=== PATIENT | female | born 1955 | race Caucasian/White ===

== ENCOUNTER 2020-08-18 13:29 | Emergency (ER) | payer MEDICARE, SELFPAY ==
[2020-08-18] VITALS (9 sets, daily range): BP systolic 108–148; BP diastolic 44–70; PULSE 72–87; RESP 12–26; TEMP 36.6; O2SAT 88–92
--- NOTE | ~2020-08-18 | XR_ITS ---
EXAMINATION: XR chest 2V DATE: 08/18/2020 15:09 INDICATION: Shortness of breath. TECHNIQUE: Frontal and lateral views of the chest were obtained. COMPARISON: Chest single view 01/01/19, chest CT 12/03/2015 FINDINGS: There are mild airspace opacities in the mid and lower lung zones. No pleural effusion or p neumothorax. The heart size is normal. Calcified mediastinal lymph nodes are consistent with old gran ulomatous disease. IMPRESSION: 1. Mild airspace opacities in the mid and lower lung zones, consistent with atelectasis versus pneumo isauro. Reviewed, dictated and finalized at location A. F H[employer] RESOURCES OFFICER IMPRESSION: 1. Mild airspace opacities in the mid and lower lung zones, consistent with ate lectasis versus pneumonia.
--- NOTE | 2020-08-18 13:30 | ECG_ITS ---
Measurements Intervals [place] Rate: 91 P: -3 [place]: 125 QRS: 61 QRSD: 83 T: 44 QT: 323 QTc: 398 Interpretive Statements SINUS RHYTHM RSR' IN V1 OR V2, CONSIDER RIGHT VENTRICULAR HYPERTROPHY OR RIGHT VCD BASELINE ARTIFACT- I, III, AVR, AVL, AVF, V2 BORDERLINE ECG Electronically Signed On 08-18-2020 13:42:05 WHARF ATTENDANT by Tuan King D.O.
[2020-08-18 13:48] LABS: Basophils Percent Auto 0.4 % (0.2-1.2); Eosinophils Absolute Auto 0.2 K/mm3 (0-0.3); Eosinophils Percent Auto 1.9 % (0-4.4); Hematocrit 33.4 % (37.0-47.0); Hemoglobin 8.7 g/dL (12.0-15.0); Immature Granulocyte Absolute 0.03 K/mm3 (0.00-0.031); Immature Granulocyte Percent A 0.4 % (0-0.5); Immature Platelet Fraction Pct 5.8 % (0.9-11.2); Lymphocytes Absolute Auto 1.12 K/mm3 (0.9-3.2); Lymphocytes Percent Auto 14.5 % (18.3-44.2); Mean Corpuscular Hemoglobin 19.2 pg (26-34); Mean Corpuscular Volume 73.9 fl (80-100); Mean Platelet Volume 9.5 fl (7.4-10.4); Monocytes Absolute Auto 0.8 K/mm3 (0.1-0.6); Neutrophils Absolute Auto 5.6 K/mm3 (1.3-6.7); Neutrophils Percent Auto 72.8 % (45.5-73.1); Nucleated Red Blood Cells Perc 0.3 % (0.0-0.2); Platelet Count Result 285 k/mm3 (150-375); Red Blood Count 4.52 M/mm3 (4.2-5.4); Red Cell Distribution Width 22.2 % (11.5-14.5); White Blood Count 7.7 K/mm3 (4.5-10.0)
[2020-08-18 13:59] LABS: Anion Gap 5.99999 mmol/L (8-16); Blood Urea Nitrogen 18 mg/dL (7-17); Carbon Dioxide > 40 mmol/L (22-30); Chloride 92 mmol/L (98-107); Estimated Glomerular Filt Rate > 60; Glucose 125 mg/dL (65-105); Potassium 4.3 mmol/L (3.4-5.0); Sodium 138 mmol/L (137-145)
[2020-08-18 14:07] LABS: Platelet Estimate Adequate (Adequate)
[2020-08-18 14:08] LABS: Anisocytosis 2+ (NORMAL); Hypochromasia 2+ (NORMAL)
[2020-08-18] MEDS: methylPREDNISolone SOD SUCC 125 MG VIAL IV PUSH (15:14)
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
== END 2020-08-18 18:45 | disposition home or self-care (01) ==
PROVIDERS: Emergency Provider Family Medicine; PCP Internal Medicine
DX: J44.1 Chronic obstructive pulmonary disease with (acute) exacerbation (principal); Z99.81 Dependence on supplemental oxygen
CPT/HCPCS: 36415; 71046; 80048; 85025; 85055; 93005; 96374; 99284; J2930

== ENCOUNTER 2021-01-06 23:27 | Inpatient (IN) | payer MEDICARE, SELFPAY ==
--- NOTE | ~2021-01-06 | XR_ITS ---
XR chest 1V portable DATE: 01/06/2021 23:42 INDICATION: Acute respiratory failure TECHNIQUE: Portable AP chest on 01/06/2021 at 2344 hours COMPARISON: 08/18/2020 PA and lateral chest FINDINGS: There is pulmonary vascular congestion which may indicate mild pulmonary venous hypertensio n. Heart size appears borderline or mildly enlarged. Is aortic arch calcification. Mild infiltrate or atelectasis is suggested in the lower lung zones, right greater than left. No pneu mothorax. Diffuse osteopenia. IMPRESSION: Borderline or mild cardiomegaly and pulmonary vascular redistribution suggests mild conge stive change Mild infiltrate or atelectasis in the lower lung zones Aortic atherosclerosis Diffuse osteopenia Reviewed, dictated and finalized at location A. IMPRESSION: Borderline or mild cardiomegaly and pulmonary vascular redistributi on suggests mild congestive change Mild infiltrate or atelectasis in the lower lung zones Aortic atherosclerosis Diffuse osteopenia
--- NOTE | ~2021-01-06 | XR_ITS ---
EXAMINATION: XR chest 1V portable DATE: 01/08/2021 08:30 INDICATION: Respiratory failure. TECHNIQUE: A single frontal view of the chest was obtained. COMPARISON: Chest single view 01/06/2021 FINDINGS: There is mild atelectasis in the lower lung zones. No pleural effusion or pneumothorax. The heart size is normal. IMPRESSION: 1. Mild atelectasis in the lower lung zones. Reviewed, dictated and finalized at location A.
[2021-01-06 22:45] VITALS: BP 95/62; PULSE 101; RESP 22; TEMP 36.6; O2SAT 92; BMI 38.2
--- NOTE | 2021-01-06 23:04 | ADMGEN ---
This patient, Stephany Richard, was admitted to IMU Room 202-01 on 01-06-21 at 2246 via [facility]. Patient/family oriented to hospital policies and general routines including ID bracelet, bed and alarms, visiting hours, pain management, procedures, bathroom and other care routines, personal items, smoking policy, room service/diet, and visiting hours. Information on how to activate the Rapid Response Team has been discussed. Patient/Family are encouraged to report perceived risks to care and to ask questions if they do not understand what they are told or what they should do.
[2021-01-06 23:36] VITALS: BP 95/62; PULSE 101; RESP 22; TEMP 36.6; O2SAT 92; BMI 38.2
--- NOTE | 2021-01-06 23:39 | PM.IMHP ---
H&P: HPI History of Present Illness Date/Time: 01/06/21 23:39 Chief Complaint: Direct admit from [facility] secondary to acute respiratory failure and chest pain. Narrative: This is a pleasant 65-year-old morbidly obese female with known history of chronic respiratory failure on 4 L of oxygen at home, COPD, congestive heart failure among other comorbidities who presented to our hospital as a direct admission from [facility] secondary to acute respiratory failure, chest pain, and likely COPD exacerbation. The patient presented to [facility] with a complaint of right-sided chest pain that has been ongoing for the past week. She also complained of having worsening exertional shortness of breath over the past few days. She is known to have a chronic cough which has not worsened recently. She also denies any significant wheezing. The patient is known to smoke cigarettes which she states she is trying to quit. Currently she only smokes when she is in a bad mood. On further questioning she denies any fevers, chills, congestion, sore throat, abdominal pain, nausea, vomiting, dysuria, hematuria, diarrhea, rectal bleeding, or lower extremity swelling. The patient was found to be in hypercapnic respiratory failure at [facility] and was initiated on BiPAP. CTA chest for PE protocol was performed at [facility] and was negative for any acute pulmonary embolism. We were asked to directly admit the patient as they did not have any beds available. On my encounter with the patient tonight she is tachypneic although maintaining her sats on 4 L of oxygen via nasal cannula. She has no other significant complaints at this time. COVID-19 test was negative tonight at [facility]. Review of Systems Review of Systems: All systems reviewed & are unremarkable except as noted in HPI and below PMFSH Past Medical History Medical History (Updated 01/07/21 @ 02:49 by Aidan Greenberg MD) Chronic hypertension Chronic respiratory failure Congestive heart failure COPD (chronic obstructive pulmonary disease) Depression Femur fracture, right History of pulmonary embolism Surgical History Surgical History (Updated 01/06/21 @ 23:47 by Aidan Greenberg MD) History of colonoscopy History of total hysterectomy Hx of prior ablation treatment Hx of tonsillectomy Family History Family History (Updated 01/07/21 @ 00:08 by Lian Roque RN) Sibling Diabetes mellitus Family history of arthritis Family history of thyroid disease Hypertension Father Family history of emphysema Family history of arthritis Family history of chronic obstructive pulmonary disease Hypertension Mother Carcinoma of colon Family history of arthritis Family history of malignant neoplasm Family history of thyroid disease Hypertension Other Family history of mental disorder Social History Social History Smoking packs per day: 1.5 Smoking cigarettes per day: 30.0 Years smoked: 30 Smoking pack-years: 45.00 Smoking status: Heavy tobacco smoker Tobacco type: cigarettes and e-cigarettes/vaping Second hand tobacco smoke exposure: Yes Alcohol intake: never Substance use: former Substance use type: marijuana Gender identity (if verbalized by the patient): Female Spiritual care concerns: No Meds Home Medications and Allergies Home Medications Medication Instructions Recorded Confirmed Type pantoprazole 40 mg tablet,delayed 40 mg PO QAM #90 tablet 08/30/19 01/06/21 Rx release albuterol 90 mcg INHALATION QID PRN 08/18/20 01/06/21 History furosemide 40 mg PO DAILY 08/18/20 01/06/21 History ipratropium-albuterol 3 ml INHALATION QID 08/18/20 01/06/21 History lisinopril 2.5 mg PO DAILY 08/18/20 01/06/21 History paroxetine HCl 20 mg PO QAM 08/18/20 01/06/21 History acetaminophen [Tylenol Arthritis] 650 mg PO DAILY PRN 01/06/21 01/06/21
[2021-01-06 23:45] VITALS: PULSE 101; RESP 20; O2SAT 90
[2021-01-06 23:57] LABS: Alveolar/Arterial O2 Gradient 190.8 mmHg; Base Excess ABG 16.7 mEq/l (+/-2.0); Fractional Inspired Oxygen 55 %; HCO3 ABG 48.6 mEq/l (22.0-26.0); Oxygen Content ABG 14.2 %vol (16.0-22.0); Oxygen Saturation ABG 89.1 % (95.0-100.0); Oxyhemoglobin 89.6 % THb (90.0-100.0); PCO2 ABG 117.6 mmHg (35.0-45.0); PO2 ABG 70.5 mmHg (80.0-100.0); PO2 FiO2 Ratio Arterial Blood 1.28 %; Total Hemoglobin 11.2 g/dL (12.0-18.0); pH ABG 7.234 (7.350-7.450)
[2021-01-06 23:58] LABS: Device HIGH FLOW NASAL CANN; Site Drawn RIGHT BRACHIAL
[2021-01-07] VITALS (35 sets, daily range): BP systolic 116–138; BP diastolic 47–65; PULSE 72–95; RESP 18–22; TEMP 36.4–36.8; O2SAT 90–100; BMI 38.2
[2021-01-07 00:06] LABS: Troponin I < 0.012 ng/mL (0.000-0.034)
[2021-01-07] MEDS: ALBUTEROL SULFATE NEB 2.5 MG/0.5 ML INH 5 MG INHALATION ×2 (02:18→08:02)
[2021-01-07 03:05] LABS: Troponin I < 0.012 ng/mL (0.000-0.034)
[2021-01-07 03:12] LABS: Alveolar/Arterial O2 Gradient 187.5 mmHg; Fractional Inspired Oxygen 50 %; HCO3 ABG 47.2 mEq/l (22.0-26.0); Oxygen Content ABG 13.2 %vol (16.0-22.0); Oxyhemoglobin 86.6 % THb (90.0-100.0); PO2 ABG 58.1 mmHg (80.0-100.0); PO2 FiO2 Ratio Arterial Blood 1.16 %; Total Hemoglobin 10.8 g/dL (12.0-18.0); pH ABG 7.298 (7.350-7.450)
[2021-01-07 03:15] LABS: Device NON-INVASIVE VENT; Oxygen Saturation ABG 84.9 % (95.0-100.0); PCO2 ABG 98.6 mmHg (35.0-45.0); Site Drawn RIGHT BRACHIAL
[2021-01-07 03:17] LABS: Non-Invasive Expiratory Pressure 6 CMH2O; Non-Invasive Inspiratory Pressure 15 CMH2O; Non-Invasive Vent Rate 18 /MIN
[2021-01-07] MEDS: FUROSEMIDE INJ 40 MG/4 ML VIAL 20 MG IV PUSH (03:43)
[2021-01-07 05:50] LABS: Hematocrit 34.6 % (37.0-47.0); Hemoglobin 9.3 g/dL (12.0-15.0); Immature Granulocyte Absolute 0.02 K/mm3 (0.00-0.031); Immature Granulocyte Percent A 0.5 % (0-0.5); Lymphocytes Absolute Auto 0.27 K/mm3 (0.9-3.2); Lymphocytes Percent Auto 6.4 % (18.3-44.2); Mean Corpuscular HGB Conc 26.9 g/dl (32-36); Mean Corpuscular Hemoglobin 24.2 pg (26-34); Mean Corpuscular Volume 89.9 fl (80-100); Mean Platelet Volume 10.1 fl (7.4-10.4); Monocytes Absolute Auto 0.2 K/mm3 (0.1-0.6); Neutrophils Absolute Auto 3.7 K/mm3 (1.3-6.7); Neutrophils Percent Auto 88.1 % (45.5-73.1); Platelet Count Result 312 k/mm3 (150-375); Red Blood Count 3.85 M/mm3 (4.2-5.4); Red Cell Distribution Width 25.2 % (11.5-14.5); White Blood Count 4.2 K/mm3 (4.5-10.0)
[2021-01-07 05:56] LABS: Blood Urea Nitrogen 15 mg/dL (7-17); Calcium 8.7 mg/dL (8.4-10.2); Carbon Dioxide > 40 mmol/L (22-30); Chloride 96 mmol/L (98-107); Estimated CRCL calculation 89 ml/min; Estimated Glomerular Filt Rate > 60; Glucose 153 mg/dL (65-105); Magnesium 1.5 mg/dL (1.6-2.3); Potassium 4.1 mmol/L (3.4-5.0); Sodium 142 mmol/L (137-145)
[2021-01-07 06:07] LABS: Troponin I < 0.012 ng/mL (0.000-0.034)
[2021-01-07] MEDS: methylPREDNISolone SOD SUCC 125 MG VIAL 60 MG IV PUSH (06:15)
[2021-01-07 06:23] LABS: Alveolar/Arterial O2 Gradient 317.2 mmHg; Base Excess ABG 17.3 mEq/l (+/-2.0); Fractional Inspired Oxygen 75 %; HCO3 ABG 47.8 mEq/l (22.0-26.0); Oxygen Content ABG 14.1 %vol (16.0-22.0); Oxygen Saturation ABG 96.7 % (95.0-100.0); Oxyhemoglobin 96.2 % THb (90.0-100.0); PO2 ABG 105.8 mmHg (80.0-100.0); PO2 FiO2 Ratio Arterial Blood 1.41 %; Total Hemoglobin 10.3 g/dL (12.0-18.0)
[2021-01-07 06:24] LABS: pH ABG 7.275 (7.350-7.450)
[2021-01-07 06:25] LABS: Device NON-INVASIVE VENT; Non-Invasive Expiratory Pressure 6 CMH2O; Non-Invasive Inspiratory Pressure 15 CMH2O; Non-Invasive Vent Rate 18 /MIN; PCO2 ABG 105.2 mmHg (35.0-45.0); Site Drawn RIGHT BRACHIAL
[2021-01-07 06:56] LABS: Platelet Estimate Adequate (Adequate)
[2021-01-07 06:57] LABS: Hypochromasia 2+ (NORMAL)
[2021-01-07 06:58] LABS: Stomatocytes 2+ (NORMAL)
[2021-01-07] MEDS: ENOXAPARIN 40 MG/0.4 ML SYRINGE SUB-Q (08:44)
[2021-01-07] MEDS: lisinopriL 2.5 MG TABLET PO (08:44)
[2021-01-07] MEDS: CHOLECALCIFEROL 1,000 UNITS TABLET 1000 UNITS PO (08:44)
[2021-01-07] MEDS: MULTIVITAMINS /C LUTEIN (CENTRUM SILVER) TABLET *BKC 1 TAB PO (08:44)
[2021-01-07] MEDS: PARoxetine 20 MG TABLET PO (08:44)
[2021-01-07] MEDS: PANTOPRAZOLE 40 MG TABLET PO (08:44)
[2021-01-07] MEDS: FUROSEMIDE 40 MG TABLET PO (08:44)
--- NOTE | 2021-01-07 08:57 | PM.CNGS ---
Assessment and Plan Assessment and plan (1) Epidermal cyst: Code(s): L72.0 - Epidermal cyst Status: Acute Assessment and Plan: The patient has a small mass in the center of her mid back, which appears to be likely an epidermal cyst. This is nontender and does not appear to be infected at this time. This is chronic and the patient reports she has had this for over 20 years. I discussed the options of monitoring this verses presenting back to our office as an outpatient for excision. The patient says it does bother her at times whenever it swells up, and she would like to follow up in the office. We will allow her to be treated for her acute issues and I instructed her to follow-up in the office once she is medically stable. I also instructed her to either present to her PCP or call sooner if this becomes red, swollen, and tender. Thank you for allowing us to see the patient consultation. Please let us know if there are any further surgical issues in the future. (2) Acute respiratory failure with hypercapnia: Code(s): J96.02 - Acute respiratory failure with hypercapnia Status: Acute Assessment and Plan: This is the reason for her hospitalization. She is currently on BiPAP and being treated in the IMU. Continue management per primary service. (3) COPD (chronic obstructive pulmonary disease): Code(s): J44.9 - Chronic obstructive pulmonary disease, unspecified Status: Acute Assessment and Plan: Management per primary team. (4) Congestive heart failure: Qualifiers: Heart failure type: unspecified Heart failure chronicity: chronic Qualified Code(s): I50.9 - Heart failure, unspecified Code(s): I50.9 - Heart failure, unspecified Status: Chronic Assessment and Plan: Management per primary team. (5) Chronic hypertension: Code(s): I10 - Essential (primary) hypertension Status: Chronic Assessment and Plan: Management per primary team. Additional Plan I have discussed the patient's case and plan of care with Dr. Rosado. History of Present Illness Consult details Consult date: 01/07/21 Reason for consult: other (Suspected back abscess) Requesting physician: Aidan Greenberg MD Narrative: This is a 65-year-old obese female with known history of chronic respiratory failure on 4 L of oxygen at home, COPD, congestive heart failure, and other comorbidities, who was a direct admission to our hospital from [facility]. She presented to [facility] ER for shortness of breath and chest pain. Workup revealed acute on chronic respiratory failure with likely a COPD exacerbation. COVID test negative at [place]. CTA of the chest was negative for PE. She was transferred to [facility] due to [facility] not having any beds available. She was admitted to the IMU and is on BiPAP. Our service has been consulted by the hospitalist for a possible back abscess. The patient is now seen in the IMU. She reports having a small mass in the center of her mid back, which has been there for over 20 years. This swells and becomes tender at times, but typically she ?pops? the mass and it improves. She has not done this in the past 4 months. She has not had any issues with this mass in the past 4 months. She denies this area of being tender or bothering her at all. She denies fever. No other complaints at this time. Review of Systems Review of Systems: All systems reviewed & are unremarkable except as noted in HPI and below Constitutional: Constitutional: Reports no additional constitutional complaints, Denies chills and Denies fever(s) Cardiovascular: Cardiovascular: Reports no additional cardiovascular complaints, Reports chest pain, Denies irregular heart rhythm and Denies leg edema Respiratory: Respiratory: Reports no additional respiratory complaints, Reports dyspnea (improving) and Reports dyspnea on exertion Integumentary/Breasts:
[2021-01-07 10:42] LABS: Alveolar/Arterial O2 Gradient 205.8 mmHg; Base Excess ABG 17.1 mEq/l (+/-2.0); Fractional Inspired Oxygen 50 %; HCO3 ABG 44.7 mEq/l (22.0-26.0); Oxygen Content ABG 13.7 %vol (16.0-22.0); Oxygen Saturation ABG 93.1 % (95.0-100.0); Oxyhemoglobin 92.7 % THb (90.0-100.0); PO2 FiO2 Ratio Arterial Blood 1.38 %; Total Hemoglobin 10.5 g/dL (12.0-18.0); pH ABG 7.407 (7.350-7.450)
[2021-01-07 10:43] LABS: Modified Allen's Test Pass; PCO2 ABG 72.6 mmHg (35.0-45.0); Site Drawn RIGHT RADIAL
[2021-01-07 10:44] LABS: Device NON-INVASIVE VENT; Non-Invasive Expiratory Pressure 8 CMH2O; Non-Invasive Inspiratory Pressure 20 CMH2O; Non-Invasive Vent Rate 18 /MIN
--- NOTE | 2021-01-07 10:50 | PM.IMPN ---
Progress Note: A&P Assessment and Plan (1) Acute respiratory failure with hypercapnia: Code(s): J96.02 - Acute respiratory failure with hypercapnia Status: Acute Assessment and Plan: The patient has been admitted to IMU on BiPAP. ABG initially showing 7.23/117/70 on 4L. Most recent ABG 7.27/105/106 and changes made. Acute respiratory failure appears to be secondary to COPD exacerbation and possibly from her poorly treated SOCORRO. We will continue BiPAP support and wean off of BiPAP as tolerated. Continue Steroids and nebulizer treatments. Repeat ABG ordered. Pulmonary consult. (2) COPD with acute exacerbation: Code(s): J44.1 - Chronic obstructive pulmonary disease with (acute) exacerbation Status: Acute Assessment and Plan: No wheezing currently. Continue Solu-Medrol and bronchodilators. Continue supportive care with NIV and oxygen supplementation. RT assess and treat. Cough is chronic but with increase in sputum production. CXR with lower lobe iniltrates. Will add Levaquin (3) Chest pain: Qualifiers: Chest pain type: unspecified Qualified Code(s): R07.9 - Chest pain, unspecified Code(s): R07.9 - Chest pain, unspecified Status: Acute Assessment and Plan: Patient has had right-sided chest pain which is likely musculoskeletal in origin worse with very deep breathing. CTA chest was negative for PE. Troponin negative x3. Follow (4) Congestive heart failure: Qualifiers: Heart failure chronicity: chronic Heart failure type: unspecified Qualified Code(s): I50.9 - Heart failure, unspecified Code(s): I50.9 - Heart failure, unspecified Status: Chronic Assessment and Plan: CXR showing mild congestive changes. Lasix IV once given. She has been resumed on her oral regiment. Monitor fluid status, continue oral Lasix therapy. Repeat CXR in the morning. (5) Chronic hypertension: Code(s): I10 - Essential (primary) hypertension Status: Chronic Assessment and Plan: Patient's blood pressure was reviewed on 01/07 Blood pressure remains well controlled. Will continue current medications. Monitor blood pressure, continue lisinopril. (6) Depression: Qualifiers: Depression Type: unspecified Qualified Code(s): F32.9 - Major depressive disorder, single episode, unspecified Code(s): F32.9 - Major depressive disorder, single episode, unspecified Status: Chronic Assessment and Plan: Mood is stable. Continue paroxetine (7) Epidermal cyst: Code(s): L72.0 - Epidermal cyst Status: Acute Assessment and Plan: Back cyst noted. No evidence of infection. Appreciate General surgery input. (8) DVT prophylaxis: Code(s): Z29.9 - Encounter for prophylactic measures, unspecified Status: Acute Assessment and Plan: Lovenox Subjective Date/time seen: 01/07/21 10:50 Interval history: 65yo female with chronic respiratory failure on 4L, COPD, SOCORRO and ongoing tobacco use transferred here for acute respiratory failure. Patietn feels better this morning. SOB improved. No CP (later states she still has right mid focal pain with taking very deep breaths). Has cough productive of green sputum but chronic; has noted increased sputum production. No n/v. Hungry today. Compliant with her NIV at home 7 nights/week. Has been on NIV since January 2019. Also uses 4L O2 NC at home without change with exertion or sleep. Exam Narrative: Exam Narrative: AF 97.6 118/48 78 20 99% BiPAP Gen - no tachypnea, appears comfortable on bipap Chest - few scattered inspiratory crackles; good air exchange, nml RR CV - RRR S1/S2 Abd - Soft, NT/ND, Positive BS Ext - No pedal edema Neuro - Alert and oriented. Nonfocal exam. Psych - Nml mood and affect Skin - 2-cm round, well demarcated raised lesion midline in the mid-back without erythema or draiange
[2021-01-07] MEDS: MAGNESIUM SULF 2 GM/WATER 50ML 2 GM/50 ML BAG IVPB (12:05)
--- NOTE | 2021-01-07 12:06 | PM.CNPUL ---
Assessment and Plan Assessment and plan (1) COPD with acute exacerbation: Code(s): J44.1 - Chronic obstructive pulmonary disease with (acute) exacerbation Status: Acute Assessment and Plan: Patient with a history of COPD and hypoxemic respiratory failure on 4 L nasal cannula oxygen 24-7, and a home trilogy noninvasive ventilator. At baseline she can walk 50 ft. She is maintained on DuoNebs q.i.d. and rescue ProAir. Patient now with shortness of breath pleuritic right chest pain sinus drainage and she tells others that she had increase in phlegm production although she denied this to me. I agree with treating patient for an acute exacerbation of COPD and I will change her IV Solu-Medrol to p.o. prednisone as she is no longer wheezing and says that she is at her baseline. I will continue patient on albuterol 2.5 mg nebs q.6 and add ipratropium 0.5 mg nebs q.6. Patient does state to some that she has increased phlegm production and agree with Kristinuin at this time. (2) Acute respiratory failure with hypercapnia: Code(s): J96.02 - Acute respiratory failure with hypercapnia Status: Acute Assessment and Plan: Patient tells me that she has a home trilogy noninvasive ventilator through [employer]. She tells me she wears the machine every night with a good clinical response. I have talked to our coordinator and we will attempt to obtain a download to see what her current settings are. I have instructed the patient to have her family bring in her home noninvasive ventilator so that she can wear the ventilator with her 4 L bleed in while in the hospital and we can check a blood gas in the morning and an overnight oximetry on these settings to ensure that they are adequate. Discussed with [place] with you. History of Present Illness History of Present Illness Consult date: 01/07/21 Requesting physician: Lazaro Nascimento MD Reason for consult: COPD Chief complaint: Chest pain, Acute respiratory failure Narrative: This is a new pulmonary consult for hypoxemic and hypercarbic respiratory failure. This is a 65-year-old woman with a known history of COPD with hypoxemic respiratory failure requiring 4 L nasal cannula 24-7, hypercarbic respiratory failure requiring a trilogy noninvasive ventilator since 2019, congestive heart failure, depression, and history of PE.Approximately 3 weeks ago the patient was in her usual state of health and slipped off her chair in her bathroom in as she was getting up she pulled herself and felt a pop on the right side of her chest. Patient had worsening right-sided chest pain for the last 3 or 4 days that which she describes as pleuritic. Patient has 2-3 days of intermittent worsening shortness of breath and sinus congestion. Patient denies any fever, chills, rigors, wheezes, hemoptysis. Patient told me that her dyspnea on exertion which is chronically at 50 ft is is no changed at this time. Patient presented to an outside hospital and had a CT angiogram of the chest. I do not have the images but I have a report that demonstrates no PE borderline mediastinal lymph nodes interstitial fibrosis of both lungs worse within the bibasilar regions scattered calcified granulomas no soft tissue attenuation no pulmonary nodules or masses. Redemonstration of a diffusely enlarged left adrenal gland appears stable measuring 25 x 17 mm. This was in comparison to a CT scan of the chest on 05/30/2019. Patient was in hypercarbic respiratory failure at the outside hospital and placed on BiPAP. Patient was transferred to our facility because there were no beds at the outside hospital. On arrival to this hospital her 1st blood gas was 7.23/118/71 on 9 L oxygen. Patient was placed on BiPAP with improvements in her blood gas over the next 11 hours with the most recent blood gas on a BiPAP of 20/8 with 50% of a pH of 7.41/73/69. Patient was treated for COPD exacerbation with IV steroids, bronch
--- NOTE | 2021-01-07 12:15 | ECG_ITS ---
Measurements Intervals [place] Rate: 91 P: 0 [place]: 127 QRS: 38 QRSD: 88 T: 38 QT: 344 QTc: 423 Interpretive Statements SINUS RHYTHM FREQUENT ATRIAL PREMATURE COMPLEXES INCOMPLETE RIGHT BUNDLE BRANCH BLOCK BASELINE ARTIFACT- I, III, AVR, AVL, AVF ABNORMAL ECG Electronically Signed On 01-07-2021 12:49:08 CDT by Tuan King D.O.
[2021-01-07] MEDS: predniSONE 10 MG TABLET 50 MG PO (12:59)
[2021-01-07] MEDS: ALBUTEROL SULFATE NEB 2.5 MG/0.5 ML INH INHALATION ×2 (14:14→19:35)
[2021-01-07] MEDS: IPRATROPIUM BR 0.02% INH SOLN 0.5 MG/2.5 ML VIAL INHALATION ×2 (14:14→19:35)
--- NOTE | 2021-01-07 23:01 | PCRCNOTE ---
apnea study; pt is on home trilogy unit with a 4L nasal cannula; RT tried to use the O2 port on the unit, but the patient's O2sat decreased to<85%; Pt stated that she uses a nasal cannula with the trilogy unit instead of using the O2 port.
[2021-01-08] VITALS (19 sets, daily range): BP systolic 144–163; BP diastolic 55–79; PULSE 72–111; RESP 14–24; TEMP 36.2–36.6; O2SAT 85–96
--- NOTE | 2021-01-08 | ECHO_ITS ---
Patient Info Name: Stephany Richard Age: 65 years : 1955 Gender: Female Ht: 63 in Wt: 223 lbs BSA: 2.17 m2 HR: 83 bpm BP: 155 / 55 mmHg Technical Quality: Good Exam Date: 01/08/2021 2:57 PM Exam Location: [facility] Patient Status: Inpatient Admit Date: 01/06/2021 Staff Ordering Physician: Lazaro Nascimento MD Loin Puller: Ajay Melendez, ARELY, RT Attending Provider: Lazaro Nascimento MD Exam Type: CA echo doppler color flow Study Info Indications I50.9 - Heart failure, unspecified Complete two-dimensional, color flow and Doppler transthoracic echocardiogram is performed. Strain analysis performed. Summary 1. Complete two-dimensional, color flow and Doppler transthoracic echocardiogram is performed. 2. Left ventricular chamber dimension is normal. 3. Left ventricular systolic function is normal, estimated at 60-65%. 4. The left ventricular diastolic function is grade I diastolic dysfunction. 5. E/e' 13 is mildly elevated. 6. Global longitudinal strain is normal at -19.7%. 7. The mitral valve has mildly calcified annulus. 8. There is trace mitral valve regurgitation. Left Ventricle E/e' 13 is mildly elevated. Global longitudinal strain is normal at -19.7%. Left ventricular chamber dimension is normal. Left ventricular systolic function is normal, estimated at 60-65%. The left ventricular diastolic function is grade I diastolic dysfunction. Right Ventricle Right ventricular chamber dimension is normal. Right ventricular systolic function is normal. Left Atria Left atrial chamber dimension is normal. Right Atria Right atrial chamber dimension is normal. Aortic Valve The aortic valve is trileaflet. There is no aortic valve stenosis. There is no aortic valve regurgitation. Pulmonic Valve There is no pulmonic regurgitation. Mitral Valve The mitral valve has mildly calcified annulus. There is no mitral valve stenosis. There is trace mitral valve regurgitation. Tricuspid Valve There is no tricuspid valve regurgitation. Pericardium/Pleural There is no pericardial effusion. Inferior Vena Cava Normal inferior vena cava with >50% collapse upon inspiration consistent with normal right atrial pressure, 5 mmHg. Aorta The aortic root size at the sinus of Valsalva is normal. Left Ventricular Outflow Tract Name Value Normal LVOT 2D LVOT Diameter 2.0 cm LVOT Doppler LVOT Peak Gradient 7 mmHg LVOT Mean Gradient 4 mmHg LVOT VTI 28 cm LVOT VTI/AV VTI Ratio 0.8 LVOT Stroke Volume 89 ml LVOT CO 8.4 l/min LVOT CI 3.8 l/min/m2 Mitral Valve Name Value Normal MV Doppler MV Decel [place]
--- NOTE | 2021-01-08 03:08 | PCRCNOTE ---
apnea study; 0200 neb tx was omitted
[2021-01-08 05:36] LABS: Alveolar/Arterial O2 Gradient 109.9 mmHg; Base Excess ABG 18.3 mEq/l (+/-2.0); Fractional Inspired Oxygen 36 %; HCO3 ABG 45.7 mEq/l (22.0-26.0); Oxygen Content ABG 12.3 %vol (16.0-22.0); Oxygen Saturation ABG 90.7 % (95.0-100.0); Oxyhemoglobin 90.1 % THb (90.0-100.0); PO2 ABG 61.6 mmHg (80.0-100.0); PO2 FiO2 Ratio Arterial Blood 1.71 %; Total Hemoglobin 9.7 g/dL (12.0-18.0); pH ABG 7.412 (7.350-7.450)
[2021-01-08 05:37] LABS: PCO2 ABG 73.4 mmHg (35.0-45.0)
[2021-01-08 05:38] LABS: Device OTHER DEVICE; Site Drawn LEFT BRACHIAL
[2021-01-08 06:38] LABS: Hemoglobin 8.7 g/dL (12.0-15.0); Mean Corpuscular HGB Conc 28.1 g/dl (32-36); Mean Corpuscular Hemoglobin 24.4 pg (26-34); Mean Corpuscular Volume 86.8 fl (80-100); Mean Platelet Volume 9.9 fl (7.4-10.4); Platelet Count Result 302 k/mm3 (150-375); Red Blood Count 3.57 M/mm3 (4.2-5.4); White Blood Count 6.1 K/mm3 (4.5-10.0)
[2021-01-08 06:55] LABS: Alanine Aminotransferase 8 U/L (4-35); Albumin Level 3.1 g/dL (3.5-5.1); Alkaline Phosphatase 93 U/L (38-126); Aspartate Amino Transferase 21 U/L (14-36); Bilirubin,Total 0.1 mg/dL (0.2-1.3); Blood Urea Nitrogen 19 mg/dL (7-17); Calcium 8.7 mg/dL (8.4-10.2); Carbon Dioxide > 40 mmol/L (22-30); Chloride 93 mmol/L (98-107); Estimated CRCL calculation 90 ml/min; Estimated Glomerular Filt Rate > 60; Glucose 119 mg/dL (65-105); Magnesium 1.8 mg/dL (1.6-2.3); Potassium 3.8 mmol/L (3.4-5.0); Sodium 139 mmol/L (137-145)
[2021-01-08] MEDS: IPRATROPIUM BR 0.02% INH SOLN 0.5 MG/2.5 ML VIAL INHALATION ×2 (07:50→13:44)
[2021-01-08] MEDS: ALBUTEROL SULFATE NEB 2.5 MG/0.5 ML INH INHALATION ×2 (07:50→13:44)
--- NOTE | 2021-01-08 07:54 | PM.PNPUL ---
Progress Note: A&P Assessment and Plan (1) COPD with acute exacerbation: Code(s): J44.1 - Chronic obstructive pulmonary disease with (acute) exacerbation Status: Acute Assessment and Plan: 01/07 Patient with a history of COPD and hypoxemic respiratory failure on 4 L nasal cannula oxygen 24-7, and a home trilogy noninvasive ventilator. At baseline she can walk 50 ft. She is maintained on DuoNebs q.i.d. and rescue ProAir. Patient now with shortness of breath pleuritic right chest pain sinus drainage and she tells others that she had increase in phlegm production although she denied this to me. I agree with treating patient for an acute exacerbation of COPD and I will change her IV Solu-Medrol to p.o. prednisone as she is no longer wheezing and says that she is at her baseline. I will continue patient on albuterol 2.5 mg nebs q.6 and add ipratropium 0.5 mg nebs q.6. Patient does state to some that she has increased phlegm production and agree with Levaquin at this time. 01/08 Today patient feels at like she is breathing at her baseline and is ready for discharge. She denies any right-sided chest pain at rest or with deep breathing. No wheezing on exam. Ready for DC home from pulmonary perspective on these medications. Prednisone 50 mg PO for total 5 days (through 01/11) Levaquin 750 PO for total 7 days (through 01/13) Duo nebs QID Rescue albuterol inhaler 2 puffs Q 4 PRN SOB or wheezing Oxygen as per Home O2 assessment (I have ordered this test) When sleeps use AVAPS-AE with a tidal volume of 400, EPAP Min 6, EPAP max 12, breath rate is auto, pressure support minimum 2, pressure support maximum 4, AVAPS rate 10, rise time 3.0 with 5 L bleed in. Follow up in pulmonary clinic in 2-3 weeks, I gave her our business card and informed our care team coordinator scheduler (2) Acute respiratory failure with hypercapnia: Code(s): J96.02 - Acute respiratory failure with hypercapnia Status: Acute Assessment and Plan: 01/07 Patient tells me that she has a home trilogy noninvasive ventilator through [employer]. She tells me she wears the machine every night with a good clinical response. I have talked to our coordinator and we will attempt to obtain a download to see what her current settings are. I have instructed the patient to have her family bring in her home noninvasive ventilator so that she can wear the ventilator with her 4 L bleed in while in the hospital and we can check a blood gas in the morning and an overnight oximetry on these settings to ensure that they are adequate. Later in the day I obtained a download from 10/24/2020 to 05/14/2021. Patient is on AVAPS-AE with a tidal volume of 400, EPAP Min 6, EPAP max 12, breath rate is auto, pressure support minimum 2, pressure support maximum 4, AVAPS rate 10, rise time 3.0. The % days used for more hours 90% average usage on days used was 8 hours, average EPAP was 10.9 average IPAP was 15 average tidal volume was 132 mL average minute ventilation was 2.4 L average total leak was 79 liters/minute. patient was able to bring in her home machine and wore it. 01/08 patient slept well with her home AVAPS AE with the above settings and she wears her 4 L nasal cannula under her full face mask. Patient states that she slept well and had no issues. Patient had an ABG at the end of the night which revealed a pH of 7.41/73.4/62. On 4 L patient had an overnight oximetry which demonstrated an average saturation of 88%. Lowest saturation 83% time with saturations less than or equal to 88% was 187 minutes. She does have a high leak and low TV but her blood gas is a acceptable. This may be caused by the fact that she wears here NC under her face mask which would cause a leak. I will increase oxygen to 5 L at night and she will have repeat overnight oximetry as outpatient. 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
[2021-01-08] MEDS: MULTIVITAMINS /C LUTEIN (CENTRUM SILVER) TABLET *BKC 1 TAB PO (09:01)
[2021-01-08] MEDS: PANTOPRAZOLE 40 MG TABLET PO (09:01)
[2021-01-08] MEDS: lisinopriL 2.5 MG TABLET PO (09:01)
[2021-01-08] MEDS: CHOLECALCIFEROL 1,000 UNITS TABLET 1000 UNITS PO (09:01)
[2021-01-08] MEDS: FUROSEMIDE 40 MG TABLET PO (09:02)
[2021-01-08] MEDS: predniSONE 10 MG TABLET 50 MG PO (09:02)
[2021-01-08] MEDS: PARoxetine 20 MG TABLET PO (09:02)
[2021-01-08] MEDS: ENOXAPARIN 40 MG/0.4 ML SYRINGE SUB-Q (09:02)
--- NOTE | 2021-01-08 10:09 | PM.DS ---
DS: Admitting Diagnosis Admitting Diagnosis Admitting Diagnosis: SHortness of breath DS: Discharge Diagnosis Discharge Diagnosis (1) Acute respiratory failure with hypercapnia: Code(s): J96.02 - Acute respiratory failure with hypercapnia Status: Acute Assessment and Plan: The patient was noted to be in respiratory failure oat the outside hospital. She was transferred here and admitted to IMU on BiPAP. ABG initially showing 7.23/117/70 on 4L with pCO2 dropping to 99 with BiPAP. After a few adjsutements, ABG improved to 7.41/73/62. Acute respiratory failure appears to be secondary to COPD exacerbation and possibly from her poorly treated SOCORRO (patient states she is compliant with NIV at home). She was weaned to nasal cannula and toelrated this well. She was also treated with steroids and nebulizer treatments. Pulmonary consulted. (2) COPD with acute exacerbation: Code(s): J44.1 - Chronic obstructive pulmonary disease with (acute) exacerbation Status: Acute Assessment and Plan: Patietn with distant breath sounds. She continued to smoke. She was started on Solu-Medrol and bronchodilators. Supportive care with NIV and oxygen supplementation. RT assessed and treated. Cough is chronic but with increase in sputum production so Levaquin added. CXR with atelectasis but not felt to have PNA. Transitioned to oral Prednisone. (3) Chest pain: Qualifiers: Chest pain type: unspecified Qualified Code(s): R07.9 - Chest pain, unspecified Code(s): R07.9 - Chest pain, unspecified Status: Acute Assessment and Plan: Patient has had right-sided chest pain which is likely musculoskeletal in origin worse with very deep breathing. CTA chest was negative for PE. Troponin negative x3. (4) Congestive heart failure: Qualifiers: Heart failure chronicity: chronic Heart failure type: unspecified Qualified Code(s): I50.9 - Heart failure, unspecified Code(s): I50.9 - Heart failure, unspecified Status: Chronic Assessment and Plan: CXR showing possible mild congestive changes. Lasix IV once given. She has been resumed on her oral regiment. We continued her oral Lasix therapy. Repeat CXR showing just atelectasis. Probably mild congestive changes related to respiratory failure. Echo pending this discharge summary (5) Chronic hypertension: Code(s): I10 - Essential (primary) hypertension Status: Chronic Assessment and Plan: Patient's blood pressure was monitored closely and blood pressure remained well controlled. We continued lisinopril. (6) Depression: Qualifiers: Depression Type: unspecified Qualified Code(s): F32.9 - Major depressive disorder, single episode, unspecified Code(s): F32.9 - Major depressive disorder, single episode, unspecified Status: Chronic Assessment and Plan: Mood remained stable. We continued paroxetine (7) Epidermal cyst: Code(s): L72.0 - Epidermal cyst Status: Acute Assessment and Plan: Back cyst noted. No evidence of infection. General surgery consulted and will have patient follow up in the clinic for more definitive management. (8) Tobacco abuse: Code(s): Z72.0 - Tobacco use Status: Acute Assessment and Plan: Patient was educated extensively about the benefits of abstaining from tobacco use. She was also educated extensively about not smoking around oxygen. The risks of doing so were discussed in detail. DS: Summary Hospital Course Reason for hospitalization: 65yo female with chronic respiratory failure and COPD here for acute respiratory failure. Please see H&P for details. Hospital Course: Please see above for details of hospital course. Status at Discharge Cognitive/behavioral status at discharge: Stable Time Spent with Patient Time attestation: Total time spent providing and/or coordinating
--- NOTE | 2021-01-08 12:00 | PCRCNOTE ---
Addendum entered by Lara Samano, [employer] 01/08/21 12:10: Order for overnight oximetry testing also being faxed to [facility]. Original Note: Home oxygen evaluation completed. Patient requires 4 liters at rest and 6 liters with activity. Patient has home oxygen with [facility]. Will fax testing and orders to [facility].
[2021-01-08] MEDS: ACETAMINOPHEN 325 MG TABLET 650 MG PO (12:12)
--- NOTE | 2021-01-08 12:18 | HOMEO2EVAL ---
Evaluation was performed at [facility] Home Oxygen Evaluation RC: Home Oxygen (O2) Evaluation Start: 01/08/21 07:53 Freq: ONCE Status: Active Protocol: RPE Activity Type Activity Date Activity User E-Sign Co-Sign Detail Recorded Client Recorded Date Recorded By Document 01/08/21 11:22 [email or web address] [email or web address] 01/08/21 12:17 KLA Document 01/08/21 11:23 [email or web address] [email or web address] 01/08/21 12:17 KLA Document 01/08/21 11:24 KLA [email or web address] 01/08/21 12:17 KLA Document 01/08/21 11:25 KLA [email or web address] 01/08/21 12:17 KLA Document 01/08/21 11:26 KLA [email or web address] 01/08/21 12:17 KLA Document 01/08/21 11:28 KLA [email or web address] 01/08/21 12:17 KLA Document 01/08/21 11:29 KLA [email or web address] 01/08/21 12:17 KLA Document 01/08/21 11:30 [email or web address] [email or web address] 01/08/21 12:17 KLA 01/08/21 01/08/21 01/08/21 11:22 11:23 11:24 Home O2 Evaluation Test Phase Resting Resting Resting Oxygen Delivery Room Air Nasal Cannula Nasal Cannula Oxygen Flow Rate (L/min) 1 2 Pulse Oximetry (90-100 %) 87 L 86 L 86 L Pulse Rate (60-100 beats/min) 83 83 88 Activity Tolerance Rating of Perceived Dyspnea (PD) Ambulation Distance (feet) Home Oxygen Evaluation Comments Treatment Charges O2 Evaluation - Inpatient 01/08/21 01/08/21 01/08/21 11:25 11:26 11:28 Home O2 Evaluation Test Phase Resting Resting Exercise Oxygen Delivery Nasal Cannula Nasal Cannula Nasal Cannula Oxygen Flow Rate (L/min) 3 4 4 Pulse Oximetry (90-100 %) 88 L 89 L 85 L Pulse Rate (60-100 beats/min) 84 84 111 H Activity Tolerance Fair Rating of Perceived Dyspnea (PD) +3 Moderate Difficulty, But Can Continue Ambulation Distance (feet) Home Oxygen Evaluation Comments Treatment Charges 01/08/21 01/08/21 11:29 11:30 Home O2 Evaluation Test Phase Exercise Exercise Oxygen Delivery Nasal Cannula Nasal Cannula Oxygen Flow Rate (L/min) 5 6 Pulse Oximetry (90-100 %) 86 L 89 L Pulse Rate (60-100 beats/min) 99 106 H Activity Tolerance Rating of Perceived Dyspnea (PD) Ambulation Distance (feet) 25 Home Oxygen Evaluation Comments Patient requires 4 liters at rest and 6 liters with activity Treatment Charges
--- NOTE | 2021-01-12 08:29 | PC.NURSE ---
ECHO report shown to Dr. Nascimento.
== END 2021-01-08 17:23 | disposition home or self-care (01) | DRG 189 ==
PROVIDERS: Internal Medicine Pulmonary Disease; Admitting Provider Family Medicine; PCP Internal Medicine; Visit Provider Internal Medicine
DX: J96.02 Acute respiratory failure with hypercapnia (principal); J44.1 Chronic obstructive pulmonary disease with (acute) exacerbation; I11.0 Hypertensive heart disease with heart failure; J96.11 Chronic respiratory failure with hypoxia; I50.9 Heart failure, unspecified; R07.89 Other chest pain; F17.290 Nicotine dependence, other tobacco product, uncomplicated; L72.0 Epidermal cyst; F32.9 Major depressive disorder, single episode, unspecified; E66.9 Obesity, unspecified; Z68.38 Body mass index [BMI] 38.0-38.9, adult; Z79.899 Other long term (current) drug therapy; Z86.711 Personal history of pulmonary embolism; Z99.81 Dependence on supplemental oxygen
CPT/HCPCS: 36415; 36600; 71045; 80048; 80053; 82805; 83735; 84484; 85025; 85027; 93005; 93306; 94002; 94618; 94640; 94762; A9270; J1650; J1940; J1956; J2930; J3475; J7512

== ENCOUNTER 2021-01-27 15:40 | Outpatient (CLI) | payer MEDICARE, SELFPAY ==
[2021-01-27 16:01] LABS: Basophils Percent Auto 0.4 % (0.2-1.2); Eosinophils Absolute Auto 0.2 K/mm3 (0-0.3); Eosinophils Percent Auto 4.7 % (0-4.4); Hematocrit 36.7 % (37.0-47.0); Hemoglobin 10.2 g/dL (12.0-15.0); Immature Granulocyte Absolute 0.03 K/mm3 (0.00-0.031); Immature Granulocyte Percent A 0.6 % (0-0.5); Lymphocytes Absolute Auto 1.01 K/mm3 (0.9-3.2); Mean Corpuscular HGB Conc 27.8 g/dl (32-36); Mean Corpuscular Hemoglobin 24.7 pg (26-34); Mean Corpuscular Volume 88.9 fl (80-100); Mean Platelet Volume 9.7 fl (7.4-10.4); Monocytes Absolute Auto 0.6 K/mm3 (0.1-0.6); Monocytes Percent Auto 10.9 % (2.6-8.5); Neutrophils Absolute Auto 3.2 K/mm3 (1.3-6.7); Neutrophils Percent Auto 63.4 % (45.5-73.1); Platelet Count Result 205 k/mm3 (150-375); Red Blood Count 4.13 M/mm3 (4.2-5.4); Red Cell Distribution Width 21.6 % (11.5-14.5); White Blood Count 5.1 K/mm3 (4.5-10.0)
[2021-01-27 16:07] LABS: Hypochromasia 1+ (NORMAL); Platelet Estimate Adequate (Adequate)
[2021-01-27 16:45] LABS: Iron 16 ug/dL (37-170)
[2021-01-27 16:46] LABS: Potassium 4.4 mmol/L (3.4-5.0)
[2021-01-27 16:54] LABS: Alanine Aminotransferase 10 U/L (4-35); Albumin Level 3.2 g/dL (3.5-5.1); Alkaline Phosphatase 112 U/L (38-126); Aspartate Amino Transferase 15 U/L (14-36); Bilirubin,Total 0.1 mg/dL (0.2-1.3); Blood Urea Nitrogen 16 mg/dL (7-17); Calcium 9.1 mg/dL (8.4-10.2); Carbon Dioxide > 40 mmol/L (22-30); Chloride 96 mmol/L (98-107); Estimated Glomerular Filt Rate > 60; Glucose 88 mg/dL (65-105); Sodium 139 mmol/L (137-145)
[2021-01-27 16:55] LABS: Percent Iron Saturation 5 % (20-50)
[2021-01-27 18:01] LABS: Folic Acid > 20.0 ng/mL (2.76->20)
== END 2021-01-27 15:41 | disposition home or self-care (01) ==
PROVIDERS: PCP Internal Medicine; Visit Provider Internal Medicine Hematology & Oncology
DX: D64.9 Anemia, unspecified (principal)
CPT/HCPCS: 36415; 80053; 82607; 82728; 82746; 83540; 83550; 85025

== ENCOUNTER 2021-11-15 20:29 | Emergency (ER) | payer MEDICARE, SELFPAY ==
--- NOTE | ~2021-11-15 | XR_ITS ---
EXAMINATION: XR chest 1V portable INDICATION: Shortness of breath TECHNIQUE: Portable AP chest at 2047 hours COMPARISON: 01/08/2021 FINDINGS: Cardiomegaly is noted. The lungs are free of acute opacities. There is no pleural effusion or pneumothorax. IMPRESSION: 1. Cardiomegaly. Reviewed, dictated and finalized at location [employer] IMPRESSION: 1. Cardiomegaly.
--- NOTE | 2021-11-15 20:32 | ED.SOB ---
HPI - SOB/Dyspnea General Chief Complaint: Upper Respiratory Infection Stated Complaint: ambulance Source: patient, EMS and RN notes reviewed Mode of arrival: ambulatory Limitations: no limitations History of Present Illness HPI Narrative: 65-year-old female with long history of COPD presents by ambulance for acute shortness of breath at home. She initially was on a 15 L non-rebreather and that was taken off so they could give her a nebulized treatment of albuterol. She was also given Solu-Medrol 125 mg IV push by EMS. On arrival patient is now on nasal cannula at 6 L which is what her home oxygen level is. She is satting in the upper 90s and breathing easier. She denies any exposure to COVID. MD elicited complaint: shortness of breath and cough Pertinent past history: COPD Onset (ago): hour(s) (2) Timing: constant Severity: severe Exacerbating factors: lying flat and exertion Relieving factors: oxygen and bronchodilators Known history of: COPD Treatment prior to arrival: oxygen and bronchodilator Related Data Home oxygen amount: other (6 L) Home Medications Medication Instructions Recorded Confirmed albuterol 90 mcg INHALATION QID PRN 08/18/20 11/15/21 furosemide 40 mg PO DAILY 08/18/20 11/15/21 ipratropium-albuterol 3 ml INHALATION QID 08/18/20 11/15/21 lisinopril 2.5 mg PO DAILY 08/18/20 11/15/21 paroxetine HCl 20 mg PO QAM 08/18/20 11/15/21 Adults Multivitamin 1 tablet PO DAILY 01/06/21 11/15/21 acetaminophen 650 mg PO DAILY PRN 01/06/21 11/15/21 cholecalciferol (vitamin D3) 25 mcg PO DAILY 01/06/21 11/15/21 hydrocodone-acetaminophen 1 tablet PO BID 01/06/21 11/15/21 Allergies Allergy/AdvReac Type Severity Reaction Status Date / Time Penicillins Allergy Severe Swelling Verified 07/05/16 10:05 oxycodone Allergy Unknown Unknown Verified 08/18/20 13:42 poison cristiana extract Allergy Unknown unknown Verified 04/20/16 17:04 Review of Systems Review of Systems: All systems reviewed & are unremarkable except as noted in HPI and below Constitutional: Constitutional: Denies chills and Denies fever(s) ENT: Denies sore throat Cardiovascular: Cardiovascular: Denies chest pain Gastrointestinal: Gastrointestinal: Denies diarrhea, Denies nausea and Denies vomiting Neurologic: Denies headache(s) PMFSH Past Medical History Medical History Chronic hypertension Chronic respiratory failure Congestive heart failure COPD (chronic obstructive pulmonary disease) Depression Femur fracture, right History of pulmonary embolism Surgical History Surgical History History of colonoscopy History of total hysterectomy Hx of prior ablation treatment Hx of tonsillectomy Family History Family History Sibling Diabetes mellitus Family history of arthritis Family history of thyroid disease Hypertension Father Family history of emphysema Family history of arthritis Family history of chronic obstructive pulmonary disease Hypertension Mother Carcinoma of colon Family history of arthritis Family history of malignant neoplasm Family history of thyroid disease Hypertension Other Family history of mental disorder Social History Social History Smoking packs per day: 1.5 Smoking cigarettes per day: 30.0 Years smoked: 30 Smoking pack-years: 45.00 Smoking status: Heavy tobacco smoker Tobacco type: cigarettes and e-cigarettes/vaping Second hand tobacco smoke exposure: Yes Alcohol intake: never Substance use: former Substance use type: marijuana Gender identity (if verbalized by the patient): Female Spiritual care concerns: No Exam Const: General: healthy appearing and no acute distress Nutritional Appearance: well nourished Orientation/consciousness: patient oriented x3 H
[2021-11-15 20:53] LABS: Basophils Absolute Auto 0.04 K/mm3 (0.00-0.10); Basophils Percent Auto 0.4 % (0.0-1.0); Eosinophils Absolute Auto 0.06 K/mm3 (0.02-0.50); Eosinophils Percent Auto 0.6 % (1.0-6.0); Hematocrit 45.8 % (35.0-42.0); Hemoglobin 14.3 g/dL (11.7-13.8); Immature Granulocyte Absolute 0.04 K/mm3 (0.00-0.00); Immature Granulocyte Percent A 0.4 % (0.0-0.0); Lymphocytes Absolute Auto 0.99 K/mm3 (1.10-4.50); Lymphocytes Percent Auto 9.9 % (18.0-42.0); Mean Corpuscular HGB Conc 31.2 g/dL (32.0-36.0); Mean Corpuscular Hemoglobin 31.2 pg (27.0-31.0); Mean Platelet Volume 9.8 fl (9.2-11.8); Monocytes Absolute Auto 0.85 K/mm3 (0.10-0.90); Monocytes Percent Auto 8.5 % (2.0-11.0); Neutrophils Absolute Auto 8.1 K/mm3 (1.7-7.2); Neutrophils Percent Auto 80.2 % (50.0-70.0); Platelet Count Result 293 K/mm3 (150-420); Red Blood Count 4.58 M/mm3 (4.20-5.40); Red Cell Distribution Width 12.8 % (11.6-14.4)
[2021-11-15 21:07] VITALS: BP 128/70; PULSE 99; RESP 20; TEMP 37; O2SAT 92
[2021-11-15 21:10] VITALS: BP 122/80; PULSE 90; RESP 20; O2SAT 93
[2021-11-15 21:11] LABS: Alanine Aminotransferase 25 U/L (14-59); Albumin Level 3.3 g/dL (3.4-5.0); Alkaline Phosphatase 152 U/L (46-116); Anion Gap 5 mmol/L (8-16); Aspartate Amino Transferase 23 U/L (15-37); Bilirubin,Total 0.3 mg/dL (0.00-1.00); Blood Urea Nitrogen 21 mg/dL (7-18); CRP 1.2 mg/dL (0.0-0.9); Calcium 9.5 mg/dL (8.5-10.1); Carbon Dioxide 34 mmol/L (21-32); Chloride 101 mmol/L (98-108); Estimated CRCL calculation 61 ml/min; Estimated Glomerular Filt Rate > 60; Glucose 108 mg/dL (70-99); Magnesium 1.9 mg/dL (1.8-2.4); Osmolality Calculated 294 mOsm/kg (285-295); Potassium 4.5 mmol/L (3.5-5.1); Sodium 140 mmol/L (136-145); Total Protein 7.3 g/dL (6.4-8.2)
[2021-11-15 21:14] LABS: Lactic Acid Reflex 0.9 mmol/L (0.4-2.0)
[2021-11-15 21:28] LABS: Influenza A QL RT-PCR Negative (Negative); Influenza B QL RT-PCR Negative (Negative); SARS-CoV-2 RNA PCR Negative (Negative)
[2021-11-15] MEDS: IPRATROPIUM 0.5 MG/ALBUTEROL SULFATE 2.5 MG AMPUL.NEB 3 ML INHALATION (21:39)
[2021-11-15 21:43] VITALS: PULSE 94; RESP 20; O2SAT 94
[2021-11-15 21:55] VITALS: PULSE 90; RESP 20
[2021-11-15 22:30] VITALS: BP 131/79; PULSE 88; RESP 20; O2SAT 93
[2021-11-15 23:31] VITALS: BP 130/88; PULSE 90; RESP 20; TEMP 36.6; O2SAT 93
== END 2021-11-15 23:32 | disposition home or self-care (01) ==
PROVIDERS: Emergency Provider Emergency Medicine; PCP Internal Medicine
DX: J44.1 Chronic obstructive pulmonary disease with (acute) exacerbation (principal); F17.200 Nicotine dependence, unspecified, uncomplicated; Z20.822 Contact with and (suspected) exposure to COVID-19
CPT/HCPCS: 36415; 71045; 80053; 83605; 83735; 85025; 86140; 87502; 94640; 99283; C9803; U0003; U0005

== ENCOUNTER 2022-01-09 11:15 | Emergency (ER) | payer MEDICARE, SELFPAY ==
--- NOTE | ~2022-01-09 | XR_ITS ---
EXAMINATION: XR chest 1V portable DATE: 01/09/2022 12:09 INDICATION: Shortness of breath. TECHNIQUE: A single frontal view of the chest was obtained. COMPARISON: Chest single view 11/15/2021, chest CT 01/06/2021 FINDINGS: There are mild airspace opacities in the mid and lower lung zones. No pleural effusion or p neumothorax. Cardiomegaly is noted. IMPRESSION: 1. Mild airspace opacities in the mid and lower lung zones, consistent with atelectasis versus pneumo isauro. 2. Cardiomegaly. Reviewed, dictated and finalized at location A. IMPRESSION: 1. Mild airspace opacities in the mid and lower lung zones, consistent with ate lectasis versus pneumonia. 2. Cardiomegaly.
--- NOTE | 2022-01-09 11:21 | ECG_ITS ---
Measurements Intervals [place] Rate: 101 P: [place]: 0 QRS: 49 QRSD: 91 T: 80 QT: 311 QTc: 404 Interpretive Statements SINUS TACHYCARDIA WITH PREMATURE ATRIAL CONTRACTIONS WANDERING BASELINE ARTIFACT INCOMPLETE RIGHT BUNDLE BRANCH BLOCK [90+ ms QRS DURATION, TERMINAL R IN V1/V2, 40+ ms S IN I/aVL/V4/V5/V6] ABNORMAL ECG COMPARED TO ECG 01/07/2021 12:15:01 HEART RATE HAS INCREASED Electronically Signed On 01-10-2022 10:55:23 CDT by Eric Spence M.D.
--- NOTE | 2022-01-09 11:24 | ED.GENADULT ---
HPI - General Adult General Chief complaint: Shortness of Breath/Dyspnea Stated complaint: ambulance Source: patient and EMS Mode of arrival: EMS Limitations: no limitations History of Present Illness HPI narrative: Stephany is a 66F with a PMH of COPD on 4L at rest and 8L with activity, CHF, and depression that presented the ER via EMS. She had a worsening cough for a few days and woke up an hour before coming to the ED with severe SOB but no CP, lightheadedness, nausea or vomiting. Related Data Home Medications Medication Instructions Recorded Confirmed albuterol 90 mcg INHALATION QID PRN 08/18/20 01/09/22 furosemide 40 mg PO DAILY 08/18/20 01/09/22 ipratropium-albuterol 3 ml INHALATION QID 08/18/20 01/09/22 Adults Multivitamin 1 tablet PO DAILY 01/06/21 01/09/22 acetaminophen 650 mg PO DAILY PRN 01/06/21 01/09/22 cholecalciferol (vitamin D3) 25 mcg PO DAILY 01/06/21 01/09/22 Breztri Aerosphere 2 inh INHALATION BID 01/09/22 01/09/22 hydrocodone-acetaminophen 1 tablet PO Q8H PRN 01/09/22 01/09/22 lisinopril 2.5 mg PO DAILY 01/09/22 01/09/22 paroxetine HCl 40 mg PO DAILY 01/09/22 01/09/22 ferrous sulfate 325 mg PO BIDWM 01/11/22 01/11/22 Allergies Allergy/AdvReac Type Severity Reaction Status Date / Time Penicillins Allergy Severe Swelling Verified 01/09/22 11:38 oxycodone Allergy Intermediate Rash Verified 01/09/22 16:32 poison cristiana extract Allergy Unknown unknown Verified 01/09/22 11:38 Review of Systems Review of Systems: ROS unobtainable: Yes unobtainable due to medical condition PMFSH Past Medical History Medical History Chronic hypertension Chronic respiratory failure Congestive heart failure COPD (chronic obstructive pulmonary disease) Depression Femur fracture, right History of pulmonary embolism Surgical History Surgical History History of colonoscopy History of total hysterectomy Hx of prior ablation treatment Hx of tonsillectomy Family History Family History Sibling Diabetes mellitus Family history of arthritis Family history of thyroid disease Hypertension Father Family history of emphysema Family history of arthritis Family history of chronic obstructive pulmonary disease Hypertension Mother Carcinoma of colon Family history of arthritis Family history of malignant neoplasm Family history of thyroid disease Hypertension Other Family history of mental disorder Social History Social History Smoking packs per day: 0.5 Smoking cigarettes per day: 10.0 Years smoked: 30 Smoking pack-years: 15.00 Smoking status: Current every day smoker Tobacco type: cigarettes Second hand tobacco smoke exposure: Yes Alcohol intake: former Substance use: never Substance use type: does not use Gender identity (if verbalized by the patient): Female Spiritual care concerns: No Exam Const: General: alert Orientation/consciousness: patient oriented x3 Limitations: No altered mental status Other: Moderate distress HENMT: Head: normal to inspection Other: atrauamtic Eyes: Conjunctivae: conjunctivae normal Pupils: Equal, round and reactive pupils present Neck: Neck: normal visual inspection Resp: Effort & Inspection: labored, retractions, tachypneic and uses accessory muscles Auscultation: wheezes Other: diffuse wheezes, prolonged expiratory phase and poor air movement throughout all lung bangura. Cardio: Rate: tachycardic Heart sounds: no murmurs GI: Inspection: non-distended GI Palp: Yes Soft to palpation, No Tenderness to palpation present (GI) and No Guarding due to palpation present (GI) Back/Spine/Pelvis: Back: no CVA tenderness Skin: General skin exam: normal color Rashes: no rashes Neuro: General: patient oriented x3 a
[2022-01-09 11:31] VITALS: BP 185/86; PULSE 103; RESP 27; TEMP 36; O2SAT 95
[2022-01-09 11:49] LABS: Base Excess ABG 6.8 mmol/L (0-2); HCO3 ABG 41.4 mmol/L (23-29); Oxygen Content ABG 21.3 %vol (16.0-22.0); Oxygen Saturation ABG 95.5 % (95-97); Oxyhemoglobin 93.4 % (94-100); PO2 ABG 87.2 mmHg (75-85); Total Hemoglobin 16.2 g/dL (12.0-18.0); pH ABG 7.15 (7.35-7.45)
[2022-01-09 11:52] LABS: Modified Allen's Test Pass; Site Drawn LEFT BRACHIAL
[2022-01-09 11:53] LABS: Device SIMPLE MASK; PCO2 ABG 121.5 mmHg (35-45)
[2022-01-09 11:55] VITALS: PULSE 102; RESP 22; O2SAT 94
[2022-01-09 11:55] LABS: Basophils Absolute Auto 0.06 K/mm3 (0.00-0.10); Basophils Percent Auto 0.4 % (0.0-1.0); Eosinophils Absolute Auto 0.11 K/mm3 (0.02-0.50); Eosinophils Percent Auto 0.8 % (1.0-6.0); Hematocrit 50.8 % (35.0-42.0); Hemoglobin 15.1 g/dL (11.7-13.8); Immature Granulocyte Absolute 0.15 K/mm3 (0.00-0.00); Immature Granulocyte Percent A 1.1 % (0.0-0.0); Immature Platelet Fraction Pct 5.9 % (1.0-7.0); Lymphocytes Absolute Auto 2.19 K/mm3 (1.10-4.50); Lymphocytes Percent Auto 15.9 % (18.0-42.0); Mean Corpuscular HGB Conc 29.7 g/dL (32.0-36.0); Mean Corpuscular Hemoglobin 30.7 pg (27.0-31.0); Mean Corpuscular Volume 103.3 fL (78.0-102.0); Mean Platelet Volume 10.6 fl (9.2-11.8); Monocytes Absolute Auto 1.15 K/mm3 (0.10-0.90); Monocytes Percent Auto 8.4 % (2.0-11.0); Neutrophils Absolute Auto 10.1 K/mm3 (1.7-7.2); Neutrophils Percent Auto 73.4 % (50.0-70.0); Platelet Count Result 276 K/mm3 (150-420); Red Blood Count 4.92 M/mm3 (4.20-5.40); Red Cell Distribution Width 12.6 % (11.6-14.4); White Blood Count 13.8 K/mm3 (4.8-10.8)
--- NOTE | 2022-01-09 12:01 | PC.NURSE ---
pco2 121.5, erp aware.
[2022-01-09 12:03] LABS: Prothrombin Time 11.1 Seconds (9.50-12.10)
[2022-01-09 12:19] LABS: Influenza Control Valid (Valid)
[2022-01-09 12:19] LABS: Alanine Aminotransferase 21 U/L (14-59); Albumin Level 3.3 g/dL (3.4-5.0); Alkaline Phosphatase 150 U/L (46-116); Anion Gap 4 mmol/L (8-16); Aspartate Amino Transferase 18 U/L (15-37); Bilirubin,Total 0.5 mg/dL (0.00-1.00); Blood Urea Nitrogen 11 mg/dL (7-18); Calcium 9.3 mg/dL (8.5-10.1); Carbon Dioxide 37 mmol/L (21-32); Chloride 101 mmol/L (98-108); Estimated Glomerular Filt Rate > 60; Glucose 100 mg/dL (70-99); Magnesium 2.1 mg/dL (1.8-2.4); NT Pro B Type Natriuretic Pept 1211 pg/mL (0-125); Osmolality Calculated 293 mOsm/kg (285-295); Potassium 4.9 mmol/L (3.5-5.1); Sodium 142 mmol/L (136-145); Total Protein 7.9 g/dL (6.4-8.2); Troponin I 30.5 ng/L (0.00-60.4)
[2022-01-09 12:26] LABS: SARS-CoV-2 Ag Negative (Negative)
[2022-01-09 13:11] VITALS: RESP 16
[2022-01-09 13:18] LABS: Base Excess ABG 6.1 mmol/L (0-2); HCO3 ABG 37.8 mmol/L (23-29); Oxygen Content ABG 18.6 %vol (16.0-22.0); Oxygen Saturation ABG 90.4 % (95-97); Oxyhemoglobin 89.1 % (94-100); PO2 ABG 60.7 mmHg (75-85); Total Hemoglobin 14.9 g/dL (12.0-18.0); pH ABG 7.22 (7.35-7.45)
[2022-01-09 13:20] LABS: Device BIPAP; Expiratory Pressure 6 cmH2O; Inspiratory Pressure 12 cmH2O; Modified Allen's Test Pass; PCO2 ABG 95.4 mmHg (35-45); Site Drawn LEFT RADIAL
[2022-01-09] MEDS: IPRATROPIUM 0.5 MG/ALBUTEROL SULFATE 2.5 MG AMPUL.NEB 3 ML INHALATION (14:15)
[2022-01-09 15:13] VITALS: BP 131/52; PULSE 89; RESP 25; TEMP 36.4; O2SAT 96
== END 2022-01-09 15:15 | disposition short-term general hospital (02) ==
PROVIDERS: Emergency Provider Family Medicine
DX: J96.02 Acute respiratory failure with hypercapnia (principal); J44.1 Chronic obstructive pulmonary disease with (acute) exacerbation; I48.91 Unspecified atrial fibrillation; Z20.822 Contact with and (suspected) exposure to COVID-19; I10 Essential (primary) hypertension; Z86.711 Personal history of pulmonary embolism; F17.200 Nicotine dependence, unspecified, uncomplicated
CPT/HCPCS: 36415; 36600; 71045; 80053; 82805; 83605; 83735; 83880; 84484; 85025; 85055; 85610; 87040; 87147; 87186; 87426; 87804; 93005; 94640; 96365; 99285; C9803; J1956

== ENCOUNTER 2022-01-09 16:57 | Inpatient (IN) | payer MEDICARE, SELFPAY ==
[2022-01-09] VITALS (10 sets, daily range): BP systolic 144–145; BP diastolic 67–82; PULSE 91–100; RESP 14–22; TEMP 36–36.2; O2SAT 93–96; BMI 33.5
--- NOTE | ~2022-01-09 | XR_ITS ---
EXAMINATION: XR chest 1V portable EXAM DATE: 01/10/2022 06:03 INDICATION: Respiratory failure. TECHNIQUE: Portable AP frontal chest x-ray was obtained. Comparison is made to prior examination from 01/09/2022. FINDINGS: Small amount of left basilar linear opacity consistent with atelectasis. The lungs are othe rwise clear. There are no pleural effusions. Cardiac silhouette is prominent but magnified on this AP technique. There is no pneumothorax suspected. The bones and soft tissues are unremarkable. T here is aortic arteriosclerosis. IMPRESSION: Small amount of linear left basilar opacity consistent with atelectasis. Reviewed, dictated and finalized at location A. IMPRESSION: Small amount of linear left basilar opacity consistent with atelect asis.
--- NOTE | 2022-01-09 17:10 | PM.IMHP ---
H&P: HPI History of Present Illness Date/Time: 01/09/22 17:10 this is a 66-year-old female that was a direct admit from [place] emergency department. Patient has a past medical history of hypertension, respiratory failure, congestive heart failure, COPD and depression. According to patient she started to experience shortness of breath yesterday while at her boyfriend's house. Patient notes that she has breathing treatments at home and she used them but it did not resolve her shortness of breath. She also reports of a nonproductive cough. While at [facility] patient was placed on BiPAP during this assessment patient is currently on 8 L nasal cannula does have labored breathing with speech. Vital signs 145/67, 94, 22, 96.8, WBC 13 8, hemoglobin 58 Chem platelets 276, ABGs pH 7.22, CO2 954, O2 60.7, bicarb 37.8, sodium 142, potassium 0.9, BUN 11, creatinine 0.71, glucose 100 lactic acid 1.0, magnesium 2.1, total bili 0.5, AST 18, ALT 21, troponin 30.5, BNP 1211 influenza negative, chest x-ray indicates pneumonia EKG sinus rhythm with heart rate 91. Patient being admitted for acute respiratory failure and uncompensated congestive heart failure Patient does note that occasion she has shortness of breath with some nausea. Denies any chest pain, lightheadedness, dizziness, diarrhea, abdominal pain, palpitations or vomiting Chief Complaint: Shortness of breath Review of Systems Review of Systems: All systems reviewed & are unremarkable except as noted in HPI and below PMFSH Past Medical History Medical History Chronic hypertension Chronic respiratory failure Congestive heart failure COPD (chronic obstructive pulmonary disease) Depression Femur fracture, right History of pulmonary embolism Surgical History Surgical History History of colonoscopy History of total hysterectomy Hx of prior ablation treatment Hx of tonsillectomy Family History Family History Sibling Diabetes mellitus Family history of arthritis Family history of thyroid disease Hypertension Father Family history of emphysema Family history of arthritis Family history of chronic obstructive pulmonary disease Hypertension Mother Carcinoma of colon Family history of arthritis Family history of malignant neoplasm Family history of thyroid disease Hypertension Other Family history of mental disorder Social History Social History Smoking packs per day: 0.5 Smoking cigarettes per day: 10.0 Years smoked: 30 Smoking pack-years: 15.00 Smoking status: Current every day smoker Tobacco type: cigarettes Second hand tobacco smoke exposure: Yes Alcohol intake: former Substance use: never Substance use type: does not use Gender identity (if verbalized by the patient): Female Spiritual care concerns: No Meds Home Medications and Allergies Home Medications Medication Instructions Recorded Confirmed Type pantoprazole 40 mg tablet,delayed 40 mg PO QAM #90 tablet 08/30/19 01/09/22 Rx release albuterol 90 mcg INHALATION QID PRN 08/18/20 01/09/22 History furosemide 40 mg PO DAILY 08/18/20 01/09/22 History ipratropium-albuterol 3 ml INHALATION QID 08/18/20 01/09/22 History Adults Multivitamin 1 tablet PO DAILY 01/06/21 01/09/22 History acetaminophen 650 mg PO DAILY PRN 01/06/21 01/09/22 History cholecalciferol (vitamin D3) 25 mcg PO DAILY 01/06/21 01/09/22 History wktbbzdklz-znlhqklq-agiqdldjwm 2 inh INHALATION BID 01/09/22 01/09/22 History [Breztri Aerosphere] hydrocodone-acetaminophen 1 tablet PO Q8H PRN 01/09/22 01/09/22 History lisinopril 2.5 mg PO DAILY 01/09/22 01/09/22 History paroxetine HCl 40 mg PO DAILY 01/09/22 01/09/22 History Allergies Allergy/AdvReac Type Severity [place]
[2022-01-09 17:21] LABS: Alveolar/Arterial O2 Gradient 179.6 mmHg; Base Excess ABG 10.5 mEq/l (+/-2.0); Fractional Inspired Oxygen 44 %; HCO3 ABG 38.9 mEq/l (22.0-26.0); Oxygen Content ABG 17.4 %vol (16.0-22.0); PO2 ABG 54.2 mmHg (80.0-100.0); PO2 FiO2 Ratio Arterial Blood 1.23 %; Total Hemoglobin 13.8 g/dL (12.0-18.0); pH ABG 7.362 (7.350-7.450)
[2022-01-09 17:33] LABS: PCO2 ABG 70.1 mmHg (35.0-45.0)
[2022-01-09 17:34] LABS: D Dimer 0.91 ug/mL (<0.48)
[2022-01-09 17:34] LABS: Device HIGH FLOW NASAL CANN; Modified Allen's Test Pass; Oxygen Saturation ABG 85.7 % (95.0-100.0); Site Drawn RIGHT RADIAL
--- NOTE | 2022-01-09 17:54 | ADMGEN ---
This patient, Stephany Richard, was admitted to IMU Room 200-01 at 1545. Patient/family oriented to hospital policies and general routines including ID bracelet, bed and alarms, visiting hours, pain management, procedures, bathroom and other care routines, personal items, smoking policy, room service/diet, and visiting hours. Information on how to activate the Rapid Response Team has been discussed. Patient/Family are encouraged to report perceived risks to care and to ask questions if they do not understand what they are told or what they should do.
[2022-01-09] MEDS: FUROSEMIDE INJ 100 MG/10 ML VIAL 80 MG IV PUSH (18:05)
[2022-01-09] MEDS: BENZONATATE 100 MG CAPSULE 200 MG PO (18:05)
[2022-01-09] MEDS: ENOXAPARIN 40 MG/0.4 ML SYRINGE SUB-Q (18:05)
[2022-01-09] MEDS: methylPREDNISolone SOD SUCC 125 MG VIAL IV PUSH (18:07)
[2022-01-09] MEDS: IPRATROPIUM BR 0.02% INH SOLN 0.5 MG/2.5 ML VIAL INHALATION (19:41)
[2022-01-09] MEDS: FLUTICASONE/SALMETEROL 115-21 MCG INHALER 1 PUFF 2 PUFF INHALATION (19:42)
[2022-01-09] MEDS: guaiFENesin 12 HR 600 MG TABCR 1200 MG PO (21:53)
[2022-01-09] MEDS: LORazepam INJ (*CRX) 2 MG/ML VIAL 0.5 MG IV PUSH (21:54)
[2022-01-09] MEDS: HYDROcodone/acetaminophen (*CRX) 5-325 MG TABLET 1 TAB PO (21:54)
[2022-01-09] MEDS: traZODone HCL 50 MG TABLET PO (21:54)
--- NOTE | 2022-01-09 23:33 | PC.NURSE ---
patient is continually removing her bipap. she does seem confused and denies removing it, when the bipap is in her hands and off her face. encourage her to keep bipap on for the night so that she will be better in the morning.
[2022-01-10] VITALS (24 sets, daily range): BP systolic 129–152; BP diastolic 59–74; PULSE 89–106; RESP 14–23; TEMP 35.6–36.8; O2SAT 92–96
--- NOTE | 2022-01-10 | ECHO_ITS ---
Patient Info Name: Stephany Richard Age: 66 years : 1955 Gender: Female Ht: 63 in Wt: 185 lbs BSA: 1.96 m2 HR: 97 bpm BP: 156 / 108 mmHg Technical Quality: Fair Exam Date: 01/10/2022 11:26 AM Exam Location: [facility] Patient Status: Inpatient Admit Date: 01/09/2022 Staff Ordering Physician: Paramjit Recinos MD [place] Farmer: Ajay Melendez RDCS, RT Attending Provider: Paramjit Recinos MD Exam Type: CA echo doppler color flow Study Info Complete two-dimensional, color flow and Doppler transthoracic echocardiogram is performed. Strain analysis performed. Summary 1. Complete two-dimensional, color flow and Doppler transthoracic echocardiogram is performed. 2. Left ventricular chamber dimension is normal. 3. Left ventricular systolic function is normal, estimated at 60-65%. 4. There is no increased left ventricular wall thickness. 5. The left ventricular diastolic function is grade I diastolic dysfunction. 6. E/e' 11 is mildly elevated. 7. Global longitudinal strain is abnormal at -14.8%. Left Ventricle E/e' 11 is mildly elevated. Global longitudinal strain is abnormal at -14.8%. Left ventricular chamber dimension is normal. Left ventricular systolic function is normal, estimated at 60-65%. There is no increased left ventricular wall thickness. The left ventricular diastolic function is grade I diastolic dysfunction. Right Ventricle Right ventricular chamber dimension is normal. Right ventricular systolic function is normal. Left Atria Left atrial chamber dimension is normal. Right Atria Right atrial chamber dimension is normal. Aortic Valve The aortic valve is trileaflet. There is no aortic valve stenosis. There is no aortic valve regurgitation. Pulmonic Valve There is no pulmonic regurgitation. Mitral Valve There is no mitral valve stenosis. There is no mitral valve regurgitation. Tricuspid Valve There is no tricuspid valve regurgitation. Pericardium/Pleural There is no pericardial effusion. Inferior Vena Cava Normal inferior vena cava with >50% collapse upon inspiration consistent with normal right atrial pressure, 5 mmHg. Aorta The aortic root size at the sinus of Valsalva is normal. Left Ventricular Outflow Tract Name Value Normal LVOT 2D LVOT Diameter 1.9 cm LVOT Doppler LVOT Peak Gradient 6 mmHg LVOT Mean Gradient 3 mmHg LVOT VTI 22 cm LVOT VTI/AV VTI Ratio 0.8 LVOT Stroke Volume 60 ml LVOT CO 6.2 l/min LVOT CI 3.1 l/min/m2 Mitral Valve Name Value Normal MV Doppler MV Decel [place] 443 cm/s2 MV PHT 50 ms MV Ar
[2022-01-10] MEDS: IPRATROPIUM BR 0.02% INH SOLN 0.5 MG/2.5 ML VIAL INHALATION ×4 (02:08→20:50)
[2022-01-10 04:27] LABS: Alveolar/Arterial O2 Gradient 184.3 mmHg; Base Excess ABG 15.2 mEq/l (+/-2.0); Fractional Inspired Oxygen 45 %; HCO3 ABG 43.1 mEq/l (22.0-26.0); Oxygen Content ABG 17.6 %vol (16.0-22.0); Oxygen Saturation ABG 90.4 % (95.0-100.0); Oxyhemoglobin 91.6 % THb (90.0-100.0); PO2 ABG 59.7 mmHg (80.0-100.0); PO2 FiO2 Ratio Arterial Blood 1.33 %; Total Hemoglobin 13.7 g/dL (12.0-18.0); pH ABG 7.422 (7.350-7.450)
[2022-01-10 04:29] LABS: Device NON-INVASIVE VENT; Modified Allen's Test Pass; PCO2 ABG 67.6 mmHg (35.0-45.0); Site Drawn LEFT RADIAL
[2022-01-10 04:30] LABS: Non-Invasive Expiratory Pressure 4 CMH2O; Non-Invasive Vent Rate 10 /MIN
[2022-01-10 04:31] LABS: Non-Invasive Inspiratory Pressure 12 CMH2O
[2022-01-10 05:51] LABS: Hematocrit 41.5 % (37.0-47.0); Mean Corpuscular HGB Conc 31.3 g/dl (32-36); Mean Corpuscular Hemoglobin 31.5 pg (26-34); Mean Corpuscular Volume 100.5 fl (80-100); Mean Platelet Volume 10.1 fl (7.4-10.4); Platelet Count Result 243 k/mm3 (150-375); Red Blood Count 4.13 M/mm3 (4.2-5.4); Red Cell Distribution Width 12.3 % (11.5-14.5); White Blood Count 8.2 K/mm3 (4.5-10.0)
[2022-01-10 06:01] LABS: Alanine Aminotransferase 16 U/L (4-35); Albumin Level 3.4 g/dL (3.5-5.1); Alkaline Phosphatase 113 U/L (38-126); Aspartate Amino Transferase 26 U/L (14-36); Bilirubin,Total 0.7 mg/dL (0.2-1.3); Blood Urea Nitrogen 23 mg/dL (7-17); Calcium 7.9 mg/dL (8.4-10.2); Carbon Dioxide > 40 mmol/L (22-30); Chloride 89 mmol/L (98-107); Estimated CRCL calculation 70 ml/min; Estimated Glomerular Filt Rate > 60; Glucose 95 mg/dL (65-110); Magnesium 1.9 mg/dL (1.6-2.3); Potassium 4.4 mmol/L (3.4-5.0); Sodium 134 mmol/L (137-145)
[2022-01-10] MEDS: FLUTICASONE/SALMETEROL 115-21 MCG INHALER 1 PUFF 2 PUFF INHALATION ×2 (07:44→20:50)
[2022-01-10] MEDS: FUROSEMIDE INJ 40 MG/4 ML VIAL IV PUSH (09:30)
[2022-01-10] MEDS: methylPREDNISolone SOD SUCC 40 MG VIAL IV PUSH ×2 (09:30→20:16)
[2022-01-10] MEDS: PANTOPRAZOLE 40 MG TABLET PO (09:31)
[2022-01-10] MEDS: MULTIVITAMINS /C LUTEIN (CENTRUM SILVER) TABLET *BKC 1 TAB PO (09:31)
[2022-01-10] MEDS: CHOLECALCIFEROL 1,000 UNITS TABLET 1000 UNITS PO (09:31)
[2022-01-10] MEDS: guaiFENesin 12 HR 600 MG TABCR 1200 MG PO ×2 (09:31→20:16)
[2022-01-10] MEDS: PARoxetine 20 MG TABLET 40 MG PO (09:31)
[2022-01-10] MEDS: NICOTINE (*PBKC) 21 MG PATCH 1 PATCH TRANSDERM (09:31)
[2022-01-10] MEDS: BENZONATATE 100 MG CAPSULE 200 MG PO ×3 (09:32→17:29)
[2022-01-10] MEDS: levoFLOXacin 500 MG/D5W 100 ML 500 MG/100 ML BAG 100 MG IVPB (09:37)
[2022-01-10] MEDS: polyethylene glycoL 3350 17 GM POWD.PACK PO (14:50)
[2022-01-10] MEDS: HYDROcodone/acetaminophen (*CRX) 5-325 MG TABLET 1 TAB PO ×2 (14:50→20:19)
--- NOTE | 2022-01-10 15:21 | PM.CNPUL ---
Assessment and Plan Assessment and plan (1) Acute on chronic respiratory failure with hypoxia and hypercapnia: Code(s): J96.21 - Acute and chronic respiratory failure with hypoxia; J96.22 - Acute and chronic respiratory failure with hypercapnia Status: Acute Assessment and Plan: She has a home Trilogy device, did not use it Monday night January 07, which is about the time she started feeling worse. She used it again on Monday night. On Monday she was acutely decompensated. Initial blood gas showed severe hypercapnia which now has normalized. Her pCO2 is better now than it was a year ago. She did not decompensate due to an infection. She has a normal white blood cell count, chest x-ray does not show an infiltrate. Respiratory therapy obtained her home trilogy settings, she is in an AVAPS mode. Her home settings improved her blood gas to her baseline. She received IV Levaquin, IV Solu-Medrol 40 mg q.12 hours, Lasix and nebulized bronchodilator. She also has a controller inhaler ordered, fluticasone/salmeterol 115/21 along with nebulized albuterol and ipratropium. PLAN: She is stable enough to move to a medical floor from U. Continue to wean her oxygen. She is currently at 6 L with a saturation of 96%. We would like this lower. She reports that she is on 4 L/min in the day at home. Continue baseline treatment of COPD with controller medication and short-acting bronchodilator therapy. Tobacco cessation was discussed for 3-5 minutes. Nicotine patch is already on her orders. Her blood gas is at baseline. She does not appear to have an infection. I would recommend stopping the antibiotic after today's dose. Confirm her trilogy settings. Transition oral steroids. Tobacco cessation obviously is indicated. We will contact Dr. Eldridge's office, let him know that she is here and see if there is any additional information that would be helpful this admission. (2) COPD with acute exacerbation: Code(s): J44.1 - Chronic obstructive pulmonary disease with (acute) exacerbation Status: Acute Assessment and Plan: She has increased shortness of breath, stable coughing and sputum production. I believe her decompensation was due to not using her NPPV. If she did not have her Trilogy at her boyfriend's house, it is possible that she may have not had all her other COPD related equipment and medications. (3) Tobacco abuse: Code(s): Z72.0 - Tobacco use Status: Acute Assessment and Plan: Currently smokes 0.5 ppd, no quit attempts except when she is in-patient. History of Present Illness History of Present Illness Consult date: 01/10/22 Requesting physician: Annette Beal, [facility] Chief complaint: Respiratory failure Narrative: NEW CONSULT: Stephany Richard is a 66 year old female with chronic respiratory failure on home O2 4 L at rest and 8 L with exertion, COPD, smoking 1/2 packs per day, history of CHF, hx of PE. She has a home Trilogy device, started using this in 2018. Her political consultant is Dr Eldridge in [place], [place]. The patient says that she went to her boyfriend's house Monday to spend the night. She did not have her Trilogy with her. She had this brought to her boyfriend's house Monday, and she used it Monday night however Monday, she was extremely tired and sleepy. She came to [facility] by EMS. When she was found, she was lethargic. Initial blood gas pH 7.15 pCO2 125/PO2 87.2/HC03 41.4 saturation 95.5% on simple mask with 12 L. she was placed on BiPAP and has had improvement in her hypercapnia. The most recent blood gas appears to be on BiPAP 12/, 45%. pH 7.42/pCO2 67.6/PO2 59.7/HCO3 43/saturation 90%. She was in atrial fibrillation with a rapid response in the ER. Today she is in sinus rhythm
--- NOTE | 2022-01-10 17:17 | PM.IMPN ---
Progress Note: A&P Assessment and Plan (1) Tobacco abuse: Code(s): Z72.0 - Tobacco use Status: Acute (2) COPD with acute exacerbation: Code(s): J44.1 - Chronic obstructive pulmonary disease with (acute) exacerbation Status: Acute Assessment and Plan: Person possibly due to pneumonia ABG ph 7.15>7.22 CO2 121.5>95.4, O287.2>60.7, bicarb 41.4>37.8, repeat pending Continue Solu-Medrol along with nebulizer and inhalers, supplemental oxygen and Levaquin 01/10/2022 interval history: patient is a 66-year-old female with history of sleep apnea on trilogy at home and chronic respiratory failure on home oxygen 6 L per nasal cannula presented with a respiratory distress hypercapnic respiratory failure initial ABG showed CO2 of 121.5 pH of 7.15 patient was initially placed on BiPAP at the outside facility and transfer to the hospital patient had use her BiPAP last night and her size CO2 is improved today 67.6 and pH 7.422, currently on 6 L nasal cannula is feeling much better compared to when she arrived, patient is being treated with methylprednisone and updraft, patient will be seen by room server and further recommendation to follow. (3) Depression: Qualifiers: Depression Type: unspecified Qualified Code(s): F32.9 - Major depressive disorder, single episode, unspecified Code(s): F32.9 - Major depressive disorder, single episode, unspecified Status: Chronic Assessment and Plan: Continue home medication (4) Chronic hypertension: Code(s): I10 - Essential (primary) hypertension Status: Chronic (5) Congestive heart failure: Qualifiers: Heart failure type: unspecified Heart failure chronicity: chronic Qualified Code(s): I50.9 - Heart failure, unspecified Code(s): I50.9 - Heart failure, unspecified Status: Chronic Assessment and Plan: Continue home medication lisinopril 2.5 mg daily Hydralazine with parameters added Vital signs as ordered Will adjust medication as needed D-dimer pending (6) PNA (pneumonia): Code(s): J18.9 - Pneumonia, unspecified organism Status: Acute Assessment and Plan: Chest x-ray indicate possible pneumonia WBCs elevated 13.8 will trend CBC in a.m. Lactic acid within normal limits Blood culture pending Subjective Date/time seen: 01/10/22 17:17 this is a 66-year-old female that was a direct admit from [place] emergency department. Patient has a past medical history of hypertension, respiratory failure, congestive heart failure, COPD and depression. According to patient she started to experience shortness of breath yesterday while at her boyfriend's house. Patient notes that she has breathing treatments at home and she used them but it did not resolve her shortness of breath. She also reports of a nonproductive cough. While at [facility] patient was placed on BiPAP during this assessment patient is currently on 8 L nasal cannula does have labored breathing with speech. Vital signs 145/67, 94, 22, 96.8, WBC 13 8, hemoglobin 58 Chem platelets 276, ABGs pH 7.22, CO2 954, O2 60.7, bicarb 37.8, sodium 142, potassium 0.9, BUN 11, creatinine 0.71, glucose 100 lactic acid 1.0, magnesium 2.1, total bili 0.5, AST 18, ALT 21, troponin 30.5, BNP 1211 influenza negative, chest x-ray indicates pneumonia EKG sinus rhythm with heart rate 91. Patient being admitted for acute respiratory failure and uncompensated congestive heart failure Patient does note that occasion she has shortness of breath with some nausea. Denies any chest pain, lightheadedness, dizziness, diarrhea, abdominal pain, palpitations or vomiting Chief Complaint: Shortness of breath 01/10/2022 interval history: patient is a 66-year-old female with history of sleep apnea on trilogy at home and chronic respiratory failure on home oxygen 6 L per nasal cannula presented with a respiratory distress hypercapnic
[2022-01-10] MEDS: ENOXAPARIN 40 MG/0.4 ML SYRINGE SUB-Q (17:29)
[2022-01-10] MEDS: LORazepam INJ (*CRX) 2 MG/ML VIAL 0.5 MG IV PUSH (17:46)
--- NOTE | 2022-01-10 18:40 | PC.NURSE ---
Received via bed from [facility] 200-01. Oxygen on at 6 liters nasal canula.
[2022-01-11] VITALS (17 sets, daily range): BP systolic 135–155; BP diastolic 65–83; PULSE 80–95; RESP 17–20; TEMP 35.7–36.6; O2SAT 92–100
[2022-01-11] MEDS: IPRATROPIUM BR 0.02% INH SOLN 0.5 MG/2.5 ML VIAL INHALATION ×3 (01:58→20:37)
[2022-01-11 05:10] LABS: Alveolar/Arterial O2 Gradient 159.9 mmHg; Base Excess ABG 16.1 mEq/l (+/-2.0); Fractional Inspired Oxygen 45 %; HCO3 ABG 44.5 mEq/l (22.0-26.0); Oxygen Content ABG 18.2 %vol (16.0-22.0); Oxygen Saturation ABG 95.1 % (95.0-100.0); Oxyhemoglobin 94.4 % THb (90.0-100.0); PO2 ABG 78.3 mmHg (80.0-100.0); PO2 FiO2 Ratio Arterial Blood 1.74 %; Total Hemoglobin 13.7 g/dL (12.0-18.0); pH ABG 7.405 (7.350-7.450)
[2022-01-11 05:13] LABS: Device OTHER DEVICE; Modified Allen's Test Pass; PCO2 ABG 72.7 mmHg (35.0-45.0); Site Drawn LEFT RADIAL
[2022-01-11 05:40] LABS: Hematocrit 40.6 % (37.0-47.0); Hemoglobin 13.1 g/dL (12.0-15.0); Mean Corpuscular HGB Conc 32.3 g/dl (32-36); Mean Corpuscular Hemoglobin 30.9 pg (26-34); Mean Corpuscular Volume 95.8 fl (80-100); Platelet Count Result 257 k/mm3 (150-375); Red Blood Count 4.24 M/mm3 (4.2-5.4); Red Cell Distribution Width 12.4 % (11.5-14.5); White Blood Count 7.2 K/mm3 (4.5-10.0)
[2022-01-11 06:06] LABS: Blood Urea Nitrogen 28 mg/dL (7-17); Calcium 7.6 mg/dL (8.4-10.2); Carbon Dioxide > 40 mmol/L (22-30); Chloride 88 mmol/L (98-107); Estimated CRCL calculation 95 ml/min; Estimated Glomerular Filt Rate > 60; Glucose 151 mg/dL (65-110); Magnesium 2.1 mg/dL (1.6-2.3); Potassium 4.1 mmol/L (3.4-5.0); Sodium 131 mmol/L (137-145)
[2022-01-11] MEDS: FLUTICASONE/SALMETEROL 115-21 MCG INHALER 1 PUFF 2 PUFF INHALATION ×2 (08:40→20:37)
[2022-01-11] MEDS: FUROSEMIDE INJ 40 MG/4 ML VIAL IV PUSH (09:12)
[2022-01-11] MEDS: polyethylene glycoL 3350 17 GM POWD.PACK PO (09:12)
[2022-01-11] MEDS: PANTOPRAZOLE 40 MG TABLET PO (09:12)
[2022-01-11] MEDS: PARoxetine 20 MG TABLET 40 MG PO (09:13)
[2022-01-11] MEDS: MULTIVITAMINS /C LUTEIN (CENTRUM SILVER) TABLET *BKC 1 TAB PO (09:13)
[2022-01-11] MEDS: methylPREDNISolone SOD SUCC 40 MG VIAL IV PUSH ×2 (09:13→20:18)
[2022-01-11] MEDS: BENZONATATE 100 MG CAPSULE 200 MG PO ×3 (09:13→17:12)
[2022-01-11] MEDS: CHOLECALCIFEROL 1,000 UNITS TABLET 1000 UNITS PO (09:14)
[2022-01-11] MEDS: guaiFENesin 12 HR 600 MG TABCR 1200 MG PO ×2 (09:14→20:18)
[2022-01-11] MEDS: NICOTINE (*PBKC) 21 MG PATCH 1 PATCH TRANSDERM (09:14)
[2022-01-11] MEDS: levoFLOXacin 500 MG/D5W 100 ML 500 MG/100 ML BAG 100 MG IVPB (10:50)
--- NOTE | 2022-01-11 11:46 | PM.IMPN ---
Progress Note: A&P Assessment and Plan (1) Tobacco abuse: Code(s): Z72.0 - Tobacco use Status: Acute (2) COPD with acute exacerbation: Code(s): J44.1 - Chronic obstructive pulmonary disease with (acute) exacerbation Status: Acute Assessment and Plan: Person possibly due to pneumonia ABG ph 7.15>7.22 CO2 121.5>95.4, O287.2>60.7, bicarb 41.4>37.8, repeat pending Continue Solu-Medrol along with nebulizer and inhalers, supplemental oxygen and Levaquin 01/10/2022 interval history: patient is a 66-year-old female with history of sleep apnea on trilogy at home and chronic respiratory failure on home oxygen 6 L per nasal cannula presented with a respiratory distress hypercapnic respiratory failure initial ABG showed CO2 of 121.5 pH of 7.15 patient was initially placed on BiPAP at the outside facility and transfer to the hospital patient had use her BiPAP last night and her size CO2 is improved today 67.6 and pH 7.422, currently on 6 L nasal cannula is feeling much better compared to when she arrived, patient is being treated with methylprednisone and updraft, patient will be seen by business process manager and further recommendation to follow. 01/11/2022 interval history: patient is a 66-year-old female with history of sleep apnea on trilogy at home and chronic respiratory failure on home oxygen 6 L per nasal cannula presented with a respiratory distress hypercapnic respiratory failure initial ABG showed CO2 of 121.5 pH of 7.15 patient was initially placed on BiPAP at the outside facility and transfer to the hospital patient had use her BiPAP night before and last night and her CO2 has improved today 72.7 and pH 7.405, this is her baseline, currently on 6 L nasal cannula is feeling much better compared to when she arrived, patient is being treated with methylprednisone and updraft, patient will be seen by business process manager and further recommendation to follow. (3) Depression: Qualifiers: Depression Type: unspecified Qualified Code(s): F32.9 - Major depressive disorder, single episode, unspecified Code(s): F32.9 - Major depressive disorder, single episode, unspecified Status: Chronic Assessment and Plan: Continue home medication (4) Chronic hypertension: Code(s): I10 - Essential (primary) hypertension Status: Chronic (5) Congestive heart failure: Qualifiers: Heart failure type: unspecified Heart failure chronicity: chronic Qualified Code(s): I50.9 - Heart failure, unspecified Code(s): I50.9 - Heart failure, unspecified Status: Chronic Assessment and Plan: Continue home medication lisinopril 2.5 mg daily Hydralazine with parameters added Vital signs as ordered Will adjust medication as needed D-dimer pending (6) PNA (pneumonia): Code(s): J18.9 - Pneumonia, unspecified organism Status: Acute Assessment and Plan: Chest x-ray indicate possible pneumonia WBCs elevated 13.8 will trend CBC in a.m. Lactic acid within normal limits Blood culture pending Subjective Date/time seen: 01/11/22 11:46 01/10/2022 interval history: patient is a 66-year-old female with history of sleep apnea on trilogy at home and chronic respiratory failure on home oxygen 6 L per nasal cannula presented with a respiratory distress hypercapnic respiratory failure initial ABG showed CO2 of 121.5 pH of 7.15 patient was initially placed on BiPAP at the outside facility and transfer to the hospital patient had use her BiPAP last night and her size CO2 is improved today 67.6 and pH 7.422, currently on 6 L nasal cannula is feeling much better compared to when she arrived, patient is being treated with methylprednisone and updraft, patient will be seen by business process manager and further recommendation to follow. 01/11/2022 interval history: patient is a 66-year-old female with history of sleep apnea on trilogy at home and chroni
--- NOTE | 2022-01-11 13:34 | PM.PNPUL ---
Progress Note: A&P Assessment and Plan (1) Acute on chronic respiratory failure with hypoxia and hypercapnia: Code(s): J96.21 - Acute and chronic respiratory failure with hypoxia; J96.22 - Acute and chronic respiratory failure with hypercapnia Status: Acute Assessment and Plan: She has a home Trilogy device, did not use it Monday night January 07, which is about the time she started feeling worse. She used it again on Monday night. On Monday she was acutely decompensated. Initial blood gas showed severe hypercapnia which now better. Her pCO2 is better now than it was a year ago. She did not decompensate due to an infection. She has a normal white blood cell count, chest x-ray does not show an infiltrate. Respiratory therapy obtained her home trilogy settings, she is in an AVAPS mode.Today, her CO2 is a little higher, pCO2 = 72.7 with normal pH. We do not know her home Trilogy settings. I called [facility] today, and found out she has only O2 through [facility], has Trilogy through [employer]. Will get these and see about changing her home device. She received IV Levaquin, IV Solu-Medrol 40 mg q.12 hours, Lasix and nebulized bronchodilator. She also has a controller inhaler ordered, fluticasone/salmeterol 115/21 along with nebulized albuterol and ipratropium. PLAN: Stop Levaquin. Continue to wean her oxygen, and try to get settings on her Trilogy. I was on hold a long time with [facility], and after they looked into her records, they told me that she has O2 with them, not Trilogy. Initila ABG was awful, pH 7.15 /pCO2 125/PO2 87.2/HC03 41.4 saturation 95.5% on simple mask with 12 L.. Confirm accurate Trilogy settings from [employer]. These will need to be changed before she goes home. She needs more tidal volume. Currently at 6 L with a saturation of 96%. We would like this lower. She reports that she is on 4 L/min in the day at home. Continue baseline treatment of COPD with controller medication and short-acting bronchodilator therapy. Tobacco cessation; Nicotine patch is currently on her med list. Her blood gas is close to baseline. She does not appear to have an infection. Transition to oral steroids. Tobacco cessation obviously is indicated. (2) COPD with acute exacerbation: Code(s): J44.1 - Chronic obstructive pulmonary disease with (acute) exacerbation Status: Acute Assessment and Plan: She has increased shortness of breath, stable coughing and sputum production. I believe her decompensation was due to not using her NPPV. If she did not have her Trilogy at her boyfriend's house, it is possible that she may have not had all her other COPD related equipment and medications. (3) Tobacco abuse: Code(s): Z72.0 - Tobacco use Status: Acute Assessment and Plan: Currently smokes 0.5 ppd, no quit attempts except when she is in-patient. Subjective Date/time seen: 01/11/22 13:34 Hospital follow up: Stephany Richard is a 66 year old female with chronic respiratory failure on home O2 4 L at rest and 8 L with exertion, COPD, smoking 1/2 packs per day, history of CHF, hx of PE. She has a home Trilogy device, started using this in 2019. Her crystal slicer is Dr Eldridge in [place], [place]. I called his office today to talk about this patient; [phone]. She feels better, I want to go home. She is not quite ready for discharge. I will order acetazolamide, get her AVAPS settings from [facility] and increased her home settings before she returns home. Dr Eldridge said that her last chest CT was November 23, 2021. She had RML collapse, no pulmonary fibrosis. Dr Eldridge increased her mucolytic therapy. It worked, because she does not have RML collapse on CXR this admission. 01/11: ABG pH 7.405/pCO2 72.7/pO2 70.3/hco3 44.5/
[2022-01-11] MEDS: acetaZOLAMIDE SODIUM FOR INJ 500 MG VIAL IV PUSH (14:54)
[2022-01-11 15:46] LABS: Appearance Urine Clear (Clear); Bilirubin Urine 1+ (Negative); Blood Urine 3+ (Negative); Color Urine Yellow (Yellow); Glucose Urine UA Negative (Negative); Ketones Urine Trace mg/dL (Negative); Leukocyte Esterase Ur Negative LEU/UL (NEGATIVE); Nitrate Urine Negative (Negative); Protein Urine 2+ mg/dL (Negative); Specific Grav Ur >= 1.030 (1.001-1.035)
[2022-01-11 15:50] LABS: Mucus Urine Rare /lpf; RBC Urine >75 /hpf (0-2); Squamous Epithelial Cell Urine Few /hpf (Few)
[2022-01-11 15:52] LABS: Add Urine Microscopic? YES
[2022-01-11] MEDS: ENOXAPARIN 40 MG/0.4 ML SYRINGE SUB-Q (17:12)
[2022-01-11] MEDS: FERROUS SULFATE 324 MG TABLET PO (18:20)
[2022-01-11] MEDS: HYDROcodone/acetaminophen (*CRX) 5-325 MG TABLET 1 TAB PO (20:18)
[2022-01-12] VITALS (20 sets, daily range): BP systolic 125–152; BP diastolic 58–68; PULSE 72–99; RESP 13–18; TEMP 36–36.9; O2SAT 94–99
[2022-01-12] MEDS: IPRATROPIUM BR 0.02% INH SOLN 0.5 MG/2.5 ML VIAL INHALATION ×5 (02:15→20:06)
[2022-01-12 04:50] LABS: Hematocrit 43.9 % (37.0-47.0); Hemoglobin 13.8 g/dL (12.0-15.0); Mean Corpuscular HGB Conc 31.4 g/dl (32-36); Mean Corpuscular Hemoglobin 30.7 pg (26-34); Mean Corpuscular Volume 97.6 fl (80-100); Platelet Count Result 247 k/mm3 (150-375); Red Cell Distribution Width 12.4 % (11.5-14.5); White Blood Count 8.2 K/mm3 (4.5-10.0)
[2022-01-12 05:02] LABS: Anion Gap 5 mmol/L (8-16); Blood Urea Nitrogen 30 mg/dL (7-17); Calcium 8.3 mg/dL (8.4-10.2); Carbon Dioxide 34 mmol/L (22-30); Chloride 93 mmol/L (98-107); Estimated CRCL calculation 50 ml/min; Estimated Glomerular Filt Rate 55; Glucose 162 mg/dL (65-110); Potassium 3.6 mmol/L (3.4-5.0); Sodium 132 mmol/L (137-145)
[2022-01-12 05:32] LABS: Alveolar/Arterial O2 Gradient 133.7 mmHg; Base Excess ABG 10.9 mEq/l (+/-2.0); Fractional Inspired Oxygen 45 %; HCO3 ABG 40.3 mEq/l (22.0-26.0); Oxygen Content ABG 19.8 %vol (16.0-22.0); Oxygen Saturation ABG 96.9 % (95.0-100.0); Oxyhemoglobin 96.7 % THb (90.0-100.0); PO2 ABG 99.7 mmHg (80.0-100.0); PO2 FiO2 Ratio Arterial Blood 2.22 %; Total Hemoglobin 14.5 g/dL (12.0-18.0); pH ABG 7.337 (7.350-7.450)
[2022-01-12 05:34] LABS: PCO2 ABG 76.9 mmHg (35.0-45.0)
[2022-01-12 05:35] LABS: Device NON-INVASIVE VENT; Non-Invasive Vent Rate 10 /MIN; Site Drawn RIGHT BRACHIAL
[2022-01-12 05:36] LABS: Non-Invasive Expiratory Pressure 4 CMH2O
[2022-01-12] MEDS: FERROUS SULFATE 324 MG TABLET PO ×2 (09:23→17:06)
[2022-01-12] MEDS: FLUTICASONE/SALMETEROL 115-21 MCG INHALER 1 PUFF 2 PUFF INHALATION ×2 (09:23→20:07)
[2022-01-12] MEDS: methylPREDNISolone SOD SUCC 40 MG VIAL IV PUSH ×2 (09:24→20:28)
[2022-01-12] MEDS: MULTIVITAMINS /C LUTEIN (CENTRUM SILVER) TABLET *BKC 1 TAB PO (09:24)
[2022-01-12] MEDS: CHOLECALCIFEROL 1,000 UNITS TABLET 1000 UNITS PO (09:24)
[2022-01-12] MEDS: NICOTINE (*PBKC) 21 MG PATCH 1 PATCH TRANSDERM (09:24)
[2022-01-12] MEDS: FUROSEMIDE INJ 40 MG/4 ML VIAL IV PUSH (09:24)
[2022-01-12] MEDS: BENZONATATE 100 MG CAPSULE 200 MG PO ×3 (09:24→17:06)
[2022-01-12] MEDS: guaiFENesin 12 HR 600 MG TABCR 1200 MG PO ×2 (09:24→20:28)
[2022-01-12] MEDS: PANTOPRAZOLE 40 MG TABLET PO (09:25)
[2022-01-12] MEDS: PARoxetine 20 MG TABLET 40 MG PO (09:25)
[2022-01-12] MEDS: polyethylene glycoL 3350 17 GM POWD.PACK PO (09:25)
--- NOTE | 2022-01-12 10:01 | PC.NURSE ---
Received pt blood cx reports from [facility], results handed to Dr. Recinos. NNO results put in pt chart.
--- NOTE | 2022-01-12 10:55 | PM.PNPUL ---
Progress Note: A&P Assessment and Plan (1) Acute on chronic respiratory failure with hypoxia and hypercapnia: Code(s): J96.21 - Acute and chronic respiratory failure with hypoxia; J96.22 - Acute and chronic respiratory failure with hypercapnia Status: Acute Assessment and Plan: She has a home Trilogy device, did not use it Monday night January 07, which is about the time she started feeling worse. She used it again on Monday night. On Monday she was acutely decompensated. Initial blood gas showed severe hypercapnia which now better. Her pCO2 is better now than it was a year ago. She did not decompensate due to an infection. She has a normal white blood cell count, chest x-ray does not show an infiltrate. Respiratory therapy obtained her home trilogy settings, she is in an AVAPS mode.Today, her CO2 is a little higher, pCO2 = 72.7 with normal pH. We do not know her home Trilogy settings. I called [facility] today, and found out she has only O2 through [employer], has Trilogy through [employer]. Will get these and see about changing her home device. She received IV Levaquin, IV Solu-Medrol 40 mg q.12 hours, Lasix and nebulized bronchodilator. She also has a controller inhaler ordered, fluticasone/salmeterol 115/21 along with nebulized albuterol and ipratropium. PLAN: Continue to wean her oxygen, and change AVAPS settings. Increase rate to 16 from 10, increase TV 460 from 400, increase max Inspiratory Pressure to 16 from 12. Initial ABG was awful, pH 7.15 /pCO2 125/PO2 87.2/HC03 41.4 saturation 95.5% on simple mask with 12 L.. Confirm accurate Trilogy settings from [employer]. She needs more tidal volume. She reports that she is on 4 L/min in the day at home. Continue baseline treatment of COPD with controller medication and short-acting bronchodilator therapy. Tobacco cessation; Nicotine patch is currently on her med list. Her blood gas is close to baseline. She does not appear to have an infection. Transition to oral steroids. Tobacco cessation obviously is indicated. (2) COPD with acute exacerbation: Code(s): J44.1 - Chronic obstructive pulmonary disease with (acute) exacerbation Status: Acute Assessment and Plan: She has increased shortness of breath, stable coughing and sputum production. I believe her decompensation was due to not using her NPPV. If she did not have her Trilogy at her boyfriend's house, it is possible that she may have not had all her other COPD related equipment and medications. (3) Tobacco abuse: Code(s): Z72.0 - Tobacco use Status: Acute Assessment and Plan: Currently smokes 0.5 ppd, no quit attempts except when she is in-patient. Subjective Date/time seen: 01/12/22 10:55 Hospital follow up: Stephany Richard is a 66 year old female with chronic respiratory failure on home O2 4 L at rest and 8 L with exertion, COPD, smoking 1/2 packs per day, history of CHF, hx of PE. She has a home Trilogy device, started using this in 2019. Her pulmonary doctor is Dr Mihai Eldridge, Her AVAPS is through [employer]. Her ABG is going the wrong direction. Dr Eldridge recently increased her mucolytic therapy which was effective in correcting her RML collapse. I am changein her AVAPS settings; currently she is on TV 400, rate 10, min pressure support 6, max PS 12, EPAP 4. Today she will have TV increased to 460, rate increased to 16, and max PS increased to 16. ABG in the am. 01/12: ABG pH 7.33/ pCO2 76.9/ pO2 99.7/ hco3 / sat 96.9 on the same AVAPS settings 01/11: ABG pH 7.405/pCO2 72.7/pO2 70.3/hco3 44.5/ 94.4% on 45% BC show Staph epidermitis, 1:2, likely contamination. Got acetazolamide 500 mg IV once. 01/10 : ABG pH 7.42/ pCO2 67.6/PO2 59.7/HCO3 43/saturation 90%; sinus rhythm, 01/09 :
[2022-01-12] MEDS: HYDROcodone/acetaminophen (*CRX) 5-325 MG TABLET 1 TAB PO ×2 (10:56→20:28)
--- NOTE | 2022-01-12 13:49 | PM.IMPN ---
Progress Note: A&P Assessment and Plan (1) Tobacco abuse: Code(s): Z72.0 - Tobacco use Status: Acute (2) COPD with acute exacerbation: Code(s): J44.1 - Chronic obstructive pulmonary disease with (acute) exacerbation Status: Acute Assessment and Plan: Person possibly due to pneumonia ABG ph 7.15>7.22 CO2 121.5>95.4, O287.2>60.7, bicarb 41.4>37.8, repeat pending Continue Solu-Medrol along with nebulizer and inhalers, supplemental oxygen and Levaquin 01/10/2022 interval history: patient is a 66-year-old female with history of sleep apnea on trilogy at home and chronic respiratory failure on home oxygen 6 L per nasal cannula presented with a respiratory distress hypercapnic respiratory failure initial ABG showed CO2 of 121.5 pH of 7.15 patient was initially placed on BiPAP at the outside facility and transfer to the hospital patient had use her BiPAP last night and her size CO2 is improved today 67.6 and pH 7.422, currently on 6 L nasal cannula is feeling much better compared to when she arrived, patient is being treated with methylprednisone and updraft, patient will be seen by nuclear engineer and further recommendation to follow. 01/11/2022 interval history: patient is a 66-year-old female with history of sleep apnea on trilogy at home and chronic respiratory failure on home oxygen 6 L per nasal cannula presented with a respiratory distress hypercapnic respiratory failure initial ABG showed CO2 of 121.5 pH of 7.15 patient was initially placed on BiPAP at the outside facility and transfer to the hospital patient had use her BiPAP night before and last night and her CO2 has improved today 72.7 and pH 7.405, this is her baseline, currently on 6 L nasal cannula is feeling much better compared to when she arrived, patient is being treated with methylprednisone and updraft, patient will be seen by nuclear engineer and further recommendation to follow. 01/12/2022 interval history: patient is a 66-year-old female with history of sleep apnea on trilogy at home and chronic respiratory failure on home oxygen 6 L per nasal cannula presented with a respiratory distress hypercapnic respiratory failure initial ABG showed CO2 of 121.5 pH of 7.15 patient was initially placed on BiPAP at the outside facility and transfer to the hospital patient had use her BiPAP night before and on 01/11 night and her CO2 has improved today 72.7 and pH 7.405, however today her CO2 has climebed to 76.9 this is above her baseline, discuss with Dr. Luz, will monitor overnight adjust her BIPAP and recheck ABG in the morning, currently on 6 L nasal cannula is feeling much better compared to when she arrived, patient is being treated with methylprednisone and updraft, patient will be seen by nuclear engineer and further recommendation to follow. (3) Depression: Qualifiers: Depression Type: unspecified Qualified Code(s): F32.9 - Major depressive disorder, single episode, unspecified Code(s): F32.9 - Major depressive disorder, single episode, unspecified Status: Chronic Assessment and Plan: Continue home medication (4) Chronic hypertension: Code(s): I10 - Essential (primary) hypertension Status: Chronic (5) Congestive heart failure: Qualifiers: Heart failure type: unspecified Heart failure chronicity: chronic Qualified Code(s): I50.9 - Heart failure, unspecified Code(s): I50.9 - Heart failure, unspecified Status: Chronic Assessment and Plan: 145/67 Continue home medication lisinopril 2.5 mg daily Hydralazine with parameters added Vital signs as ordered Will adjust medication as needed D-dimer pending (6) PNA (pneumonia): Code(s): J18.9 - Pneumonia, unspecified organism Status: Acute Assessment and Plan: Chest x-ray indicate possible pneumonia WBCs elevated 13.8 will trend CBC in a.m. Lactic acid within normal limits
[2022-01-12] MEDS: ENOXAPARIN 40 MG/0.4 ML SYRINGE SUB-Q (17:06)
[2022-01-13] VITALS (21 sets, daily range): BP systolic 142; BP diastolic 67; PULSE 74–112; RESP 16–18; TEMP 36.4; O2SAT 82–97
[2022-01-13] MEDS: IPRATROPIUM BR 0.02% INH SOLN 0.5 MG/2.5 ML VIAL INHALATION ×3 (02:10→14:15)
[2022-01-13 05:34] LABS: Hematocrit 43.4 % (37.0-47.0); Hemoglobin 13.8 g/dL (12.0-15.0); Mean Corpuscular HGB Conc 31.8 g/dl (32-36); Mean Corpuscular Hemoglobin 30.5 pg (26-34); Mean Corpuscular Volume 95.8 fl (80-100); Mean Platelet Volume 10.1 fl (7.4-10.4); Platelet Count Result 245 k/mm3 (150-375); Red Blood Count 4.53 M/mm3 (4.2-5.4); Red Cell Distribution Width 12.4 % (11.5-14.5); White Blood Count 7.2 K/mm3 (4.5-10.0)
[2022-01-13 05:45] LABS: Alveolar/Arterial O2 Gradient 121.8 mmHg; Base Excess ABG 9.4 mEq/l (+/-2.0); Fractional Inspired Oxygen 40 %; HCO3 ABG 37.7 mEq/l (22.0-26.0); Oxygen Content ABG 19.4 %vol (16.0-22.0); Oxygen Saturation ABG 95.8 % (95.0-100.0); Oxyhemoglobin 95.5 % THb (90.0-100.0); PO2 ABG 85.3 mmHg (80.0-100.0); PO2 FiO2 Ratio Arterial Blood 2.13 %; Total Hemoglobin 14.4 g/dL (12.0-18.0); pH ABG 7.362 (7.350-7.450)
[2022-01-13 05:46] LABS: Device NON-INVASIVE VENT; Non-Invasive Vent Rate 16 /MIN; PCO2 ABG 67.9 mmHg (35.0-45.0); Site Drawn RIGHT BRACHIAL
[2022-01-13 05:48] LABS: Non-Invasive Expiratory Pressure 4 CMH2O
[2022-01-13 05:56] LABS: Anion Gap 4 mmol/L (8-16); Blood Urea Nitrogen 29 mg/dL (7-17); Calcium 8.7 mg/dL (8.4-10.2); Carbon Dioxide 38 mmol/L (22-30); Chloride 93 mmol/L (98-107); Estimated CRCL calculation 55 ml/min; Estimated Glomerular Filt Rate > 60; Glucose 108 mg/dL (65-110); Potassium 3.4 mmol/L (3.4-5.0); Sodium 135 mmol/L (137-145)
[2022-01-13] MEDS: FLUTICASONE/SALMETEROL 115-21 MCG INHALER 1 PUFF 2 PUFF INHALATION (08:32)
[2022-01-13] MEDS: FUROSEMIDE INJ 40 MG/4 ML VIAL IV PUSH (08:40)
[2022-01-13] MEDS: CHOLECALCIFEROL 1,000 UNITS TABLET 1000 UNITS PO (08:40)
[2022-01-13] MEDS: methylPREDNISolone SOD SUCC 40 MG VIAL IV PUSH (08:40)
[2022-01-13] MEDS: FERROUS SULFATE 324 MG TABLET PO (08:40)
[2022-01-13] MEDS: MULTIVITAMINS /C LUTEIN (CENTRUM SILVER) TABLET *BKC 1 TAB PO (08:40)
[2022-01-13] MEDS: BENZONATATE 100 MG CAPSULE 200 MG PO ×2 (08:40→13:48)
[2022-01-13] MEDS: guaiFENesin 12 HR 600 MG TABCR 1200 MG PO (08:40)
[2022-01-13] MEDS: NICOTINE (*PBKC) 21 MG PATCH 1 PATCH TRANSDERM (08:40)
[2022-01-13] MEDS: PANTOPRAZOLE 40 MG TABLET PO (08:41)
[2022-01-13] MEDS: polyethylene glycoL 3350 17 GM POWD.PACK PO (08:41)
[2022-01-13] MEDS: PARoxetine 20 MG TABLET 40 MG PO (08:41)
--- NOTE | 2022-01-13 14:08 | PM.IMPN ---
Progress Note: A&P Assessment and Plan (1) Tobacco abuse: Code(s): Z72.0 - Tobacco use Status: Acute (2) COPD with acute exacerbation: Code(s): J44.1 - Chronic obstructive pulmonary disease with (acute) exacerbation Status: Acute Assessment and Plan: Person possibly due to pneumonia ABG ph 7.15>7.22 CO2 121.5>95.4, O287.2>60.7, bicarb 41.4>37.8, on admission Continue Solu-Medrol along with nebulizer and inhalers, supplemental oxygen and Levaquin 01/10/2022 interval history: patient is a 66-year-old female with history of sleep apnea on trilogy at home and chronic respiratory failure on home oxygen 6 L per nasal cannula presented with a respiratory distress hypercapnic respiratory failure initial ABG showed CO2 of 121.5 pH of 7.15 patient was initially placed on BiPAP at the outside facility and transfer to the hospital patient had use her BiPAP last night and her size CO2 is improved today 67.6 and pH 7.422, currently on 6 L nasal cannula is feeling much better compared to when she arrived, patient is being treated with methylprednisone and updraft, patient will be seen by dried fruit washer and further recommendation to follow. 01/11/2022 interval history: patient is a 66-year-old female with history of sleep apnea on trilogy at home and chronic respiratory failure on home oxygen 6 L per nasal cannula presented with a respiratory distress hypercapnic respiratory failure initial ABG showed CO2 of 121.5 pH of 7.15 patient was initially placed on BiPAP at the outside facility and transfer to the hospital patient had use her BiPAP night before and last night and her CO2 has improved today 72.7 and pH 7.405, this is her baseline, currently on 6 L nasal cannula is feeling much better compared to when she arrived, patient is being treated with methylprednisone and updraft, patient will be seen by dried fruit washer and further recommendation to follow. 01/12/2022 interval history: patient is a 66-year-old female with history of sleep apnea on trilogy at home and chronic respiratory failure on home oxygen 6 L per nasal cannula presented with a respiratory distress hypercapnic respiratory failure initial ABG showed CO2 of 121.5 pH of 7.15 patient was initially placed on BiPAP at the outside facility and transfer to the hospital patient had use her BiPAP night before and on 01/11 night and her CO2 has improved today 72.7 and pH 7.405, however today her CO2 has climebed to 76.9 this is above her baseline, discuss with Dr. Luz, will monitor overnight adjust her BIPAP and recheck ABG in the morning, currently on 6 L nasal cannula is feeling much better compared to when she arrived, patient is being treated with methylprednisone and updraft, patient will be seen by dried fruit washer and further recommendation to follow. 01/13/2022 patient with history of sleep apnea on trilogy at home and chronic respiratory failure on home oxygen 6 L per nasal cannula present with respiratory distress and hypercapnic respiratory failure. Initial ABG showed CO2 of 121.5 pH of 7.15 placed on BiPAP at [facility] facility and transferred to this hospital for further management. Pulmonary consulted on BiPAP and recheck ABG monitoring with improvement. Back to her baseline oxygen level. Lasix IV and Solu-Medrol. Chest x-ray reviewed. D-dimer was elevated. Will change to oral steroid. Echo 01/14 with normal ejection fraction 60-65% with grade 1 diastolic dysfunction. (3) Depression: Qualifiers: Depression Type: unspecified Qualified Code(s): F32.9 - Major depressive disorder, single episode, unspecified Code(s): F32.9 - Major depressive disorder, single episode, unspecified Status: Chronic Assessment and Plan: Continue home medication (4) Chronic hypertension: Code(s): I10 - Essential (primary) hypertension Status: Chronic (5) Congestive heart failure: Qualifiers:
--- NOTE | 2022-01-13 14:43 | P.DS_ITS ---
DS: Admitting Diagnosis Discharge Date 01/13/2022 Admitting Diagnosis shortness of breath DS: Discharge Diagnosis Discharge Diagnosis (1) Tobacco abuse: Code(s): Z72.0 - Tobacco use Status: Acute (2) COPD with acute exacerbation: Code(s): J44.1 - Chronic obstructive pulmonary disease with (acute) exacerbation Status: Acute Assessment and Plan: * Person possibly due to pneumonia * ABG ph 7.15>7.22 CO2 121.5>95.4, O287.2>60.7, bicarb 41.4>37.8, on admission * patient diagnosed with COPD exacerbation with possible pneumonia. She was started on Solu-Medrol along with nebulizer and inhalers, supplemental oxygen and Levaquin. * She has history of sleep apnea and chronic respiratory failure on trilogy at home along with home oxygen 4 L at rest and 8 L with activity. * She had severe hypercapnia with pCO2 of 121 on admission. she was placed on BiPAP and the settings were adjusted. Her ABG improved with the treatment. * Her home setting needed to be adjusted for her increased CO2 on admission. this was discussed with Dr. Eldridge and communicated with Sánchez with help of respiratory therapy. * She was also diuresed with IV Lasix daily daily hospital stay. She will continue on oral steroid taper as an outpatient basis * She was treated initially with Levaquin but suspicion for infection was low and hence was stopped. * Echocardiogram was done on which showed normal ejection fraction 60- 65% with grade 1 diastolic dysfunction. (3) Depression: Qualifiers: Depression Type: unspecified Qualified Code(s): F32.9 - Major depressive disorder, single episode, unspecified Code(s): F32.9 - Major depressive disorder, single episode, unspecified Status: Chronic Assessment and Plan: * Continue home medication (4) Chronic hypertension: Code(s): I10 - Essential (primary) hypertension Status: Chronic (5) Congestive heart failure: Qualifiers: Heart failure chronicity: chronic Heart failure type: unspecified Qualified Code(s): I50.9 - Heart failure, unspecified Code(s): I50.9 - Heart failure, unspecified Status: Chronic Assessment and Plan: * 145/67 * Continue home medication lisinopril 2.5 mg daily * Hydralazine with parameters added * Vital signs as ordered * Will adjust medication as needed * D-dimer Elevated (6) PNA (pneumonia): Code(s): J18.9 - Pneumonia, unspecified organism Status: Acute Assessment and Plan: * Chest x-ray indicate possible pneumonia * WBCs elevated 13.8 will trend * CBC in a.m. * Lactic acid within normal limits * Blood culture with 102 positive for staphylococcal epidermidis. Likely contamination DS: Summary Hospital Course Hospital Course: see above Time Spent with Patient Time attestation: Total time spent providing and/or coordinating discharge services: 45 minutes Exam Narrative: 66-year-old female with morbid obesity Patient is comfortable, NAD HEENT: eyes are clear and none icteric LUNGS: normal respiratory effort, no wheezes ABD: distended, soft, nontender Lower extremities: no edema no cyanosis or clubbing SKIN: nonjaundiced Neuro: grossly intact. alert and oriented x3 DS: Data Data Completed and Pending Completed studies during hospitalization: Exam Type: CA echo doppler color flow Study Info Complete two-dimensional, color flow and Doppler transthoracic echocardiogram is performed. Strain analysis performed.
--- NOTE | 2022-01-13 14:43 | PM.DS ---
DS: Admitting Diagnosis Discharge Date 01/13/2022 Admitting Diagnosis shortness of breath DS: Discharge Diagnosis Discharge Diagnosis (1) Tobacco abuse: Code(s): Z72.0 - Tobacco use Status: Acute (2) COPD with acute exacerbation: Code(s): J44.1 - Chronic obstructive pulmonary disease with (acute) exacerbation Status: Acute Assessment and Plan: Person possibly due to pneumonia ABG ph 7.15>7.22 CO2 121.5>95.4, O287.2>60.7, bicarb 41.4>37.8, on admission patient diagnosed with COPD exacerbation with possible pneumonia. She was started on Solu-Medrol along with nebulizer and inhalers, supplemental oxygen and Levaquin. She has history of sleep apnea and chronic respiratory failure on trilogy at home along with home oxygen 4 L at rest and 8 L with activity. She had severe hypercapnia with pCO2 of 121 on admission. she was placed on BiPAP and the settings were adjusted. Her ABG improved with the treatment. Her home setting needed to be adjusted for her increased CO2 on admission. this was discussed with Dr. Eldridge and communicated with Sánchez with help of respiratory therapy. She was also diuresed with IV Lasix daily daily hospital stay. She will continue on oral steroid taper as an outpatient basis She was treated initially with Levaquin but suspicion for infection was low and hence was stopped. Echocardiogram was done on which showed normal ejection fraction 60-65% with grade 1 diastolic dysfunction. (3) Depression: Qualifiers: Depression Type: unspecified Qualified Code(s): F32.9 - Major depressive disorder, single episode, unspecified Code(s): F32.9 - Major depressive disorder, single episode, unspecified Status: Chronic Assessment and Plan: Continue home medication (4) Chronic hypertension: Code(s): I10 - Essential (primary) hypertension Status: Chronic (5) Congestive heart failure: Qualifiers: Heart failure chronicity: chronic Heart failure type: unspecified Qualified Code(s): I50.9 - Heart failure, unspecified Code(s): I50.9 - Heart failure, unspecified Status: Chronic Assessment and Plan: Continue home medication lisinopril 2.5 mg daily Hydralazine with parameters added Vital signs as ordered Will adjust medication as needed D-dimer Elevated (6) PNA (pneumonia): Code(s): J18.9 - Pneumonia, unspecified organism Status: Acute Assessment and Plan: Chest x-ray indicate possible pneumonia WBCs elevated 13.8 will trend CBC in a.m. Lactic acid within normal limits Blood culture with 102 positive for staphylococcal epidermidis. Likely contamination DS: Summary Hospital Course Hospital Course: see above Time Spent with Patient Time attestation: Total time spent providing and/or coordinating discharge services: 45 minutes Exam Narrative: 66-year-old female with morbid obesity Patient is comfortable, NAD HEENT: eyes are clear and none icteric LUNGS: normal respiratory effort, no wheezes ABD: distended, soft, nontender Lower extremities: no edema no cyanosis or clubbing SKIN: nonjaundiced Neuro: grossly intact. alert and oriented x3 DS: Data Data Completed and Pending Completed studies during hospitalization: Exam Type: CA echo doppler color flow Study Info Complete two-dimensional, color flow and Doppler transthoracic echocardiogram is performed. Strain analysis performed. Summary 1. Complete two-dimensional, color flow and Doppler transthoracic echocardiogram is performed. 2. Left ventricular chamber dimension is normal. 3. Left ventricular systolic function is normal, estimated at 60-65%. 4. There is no increased left ventricular wall thickness. 5. The left ventricular diastolic function is grade I diastolic dysfunction. 6. E/e' 11 is mildly elevated. 7. Global longitudinal stra
--- NOTE | 2022-01-13 14:52 | PM.PNPUL ---
Progress Note: A&P Assessment and Plan (1) Acute on chronic respiratory failure with hypoxia and hypercapnia: Code(s): J96.21 - Acute and chronic respiratory failure with hypoxia; J96.22 - Acute and chronic respiratory failure with hypercapnia Status: Acute Assessment and Plan: She has a home Trilogy device, did not use it Monday night January 07, which is about the time she started feeling worse. She used it again on Monday night. On Monday she was acutely decompensated. Initial blood gas showed severe hypercapnia which now better. Her pCO2 is better now than it was a year ago. She did not decompensate due to an infection. She has a normal white blood cell count, chest x-ray does not show an infiltrate. Respiratory therapy obtained her home trilogy settings, she is in an AVAPS mode.Today, her CO2 is a little higher, pCO2 = 72.7 with normal pH. We do not know her home Trilogy settings. I called [facility] today, and found out she has only O2 through [employer], has Trilogy through [employer]. Will get these and see about changing her home device. She received IV Levaquin, IV Solu-Medrol 40 mg q.12 hours, Lasix and nebulized bronchodilator. She also has a controller inhaler ordered, fluticasone/salmeterol 115/21 along with nebulized albuterol and ipratropium. PLAN: Ok to discharge home, change AVAPS settings. Increase rate to 16 from 10, increase TV 460 from 400, increase max Inspiratory Pressure to 16 from 12. This order will be sent to Sánchez who can assist her at home. SHe will be ok wit one night not on these settings. Initial ABG was awful, pH 7.15 /pCO2 125/PO2 87.2/HC03 41.4 saturation 95.5% on simple mask with 12 L.. Confirm accurate Trilogy settings from [employer]. She needs more tidal volume. She reports that she is on 4 L/min in the day at home. Continue baseline treatment of COPD with controller medication and short-acting bronchodilator therapy. Tobacco cessation; Nicotine patch is currently on her med list. Oral steroids. Tobacco cessation obviously is indicated. Follow up with Dr Eldridge soon, call his office tomorrow for an appointmnet. (2) COPD with acute exacerbation: Code(s): J44.1 - Chronic obstructive pulmonary disease with (acute) exacerbation Status: Acute Assessment and Plan: Better. See above. I believe her decompensation was due to not using her NPPV. If she did not have her Trilogy at her boyfriend's house, it is possible that she may have not had all her other COPD related equipment and medications. (3) Tobacco abuse: Code(s): Z72.0 - Tobacco use Status: Acute Assessment and Plan: Currently smokes 0.5 ppd, no quit attempts except when she is in-patient. Subjective Date/time seen: 01/13/22 14:52 Hospital follow up visit: Stephany Richard is a 66 year old female with chronic respiratory failure on home O2 4 L at rest and 8 L with exertion, COPD, smoking 1/2 packs per day, history of CHF, hx of PE. Last night she had AVAPS settings changed on our hospital device, and her ABG is better. She feels great and wants to go home today. I discussed with Dr Vaughan and Dr Eldridge. Dr Eldridge knows the ABG is better, and he is ok with us contacting Sánchez about these changes to her device. 01/13: ABG pH 7.36/ pCO2 67.9/ pO2 85.3/ hco3 37.7/ sat 95.8% on 40 %, tv 460, f 16, Max Inspiratory Pressure 16. 4/20: ABG pH 7.33/ pCO2 76.9/ pO2 99.7/ hco3 / sat 96.9 on the same AVAPS settings 01/11: ABG pH 7.405/pCO2 72.7/pO2 70.3/hco3 44.5/ 94.4% on 45% BC show Staph epidermitis, 1:2, likely contamination. Got acetazolamide 500 mg IV once. 01/10 : ABG pH 7.42/ pCO2 67.6/PO2 59.7/HCO3 43/saturation 90%; sinus rhythm, 01/09 : ABG pH 7.15 /pCO2 125/PO2 87.2/HC03 41.4 saturation 95.5% on simple m
[2022-01-13] MEDS: HYDROcodone/acetaminophen (*CRX) 5-325 MG TABLET 1 TAB PO (16:03)
== END 2022-01-13 16:32 | disposition home or self-care (01) | DRG 189 ==
LOC: ANHIMU 01-10 13:29 → ANH2MED 01-10 18:14
PROVIDERS: Nurse Practitioner; Admitting Provider Family Medicine; PCP Internal Medicine; Visit Provider Internal Medicine
DX: J96.21 Acute and chronic respiratory failure with hypoxia (principal); J44.1 Chronic obstructive pulmonary disease with (acute) exacerbation; J96.22 Acute and chronic respiratory failure with hypercapnia; I11.0 Hypertensive heart disease with heart failure; I50.9 Heart failure, unspecified; F32.9 Major depressive disorder, single episode, unspecified; G47.30 Sleep apnea, unspecified; F17.210 Nicotine dependence, cigarettes, uncomplicated; Z99.81 Dependence on supplemental oxygen; E66.01 Morbid (severe) obesity due to excess calories; Z68.32 Body mass index [BMI] 32.0-32.9, adult; Z86.711 Personal history of pulmonary embolism; Z90.710 Acquired absence of both cervix and uterus
CPT/HCPCS: 36415; 36600; 71045; 80048; 80053; 81001; 82805; 83735; 85027; 85380; 93306; 94002; 94618; 94640; A9270; J1120; J1650; J1940; J1956; J2060; J2920; J2930

== ENCOUNTER 2022-02-26 14:58 | Inpatient (IN) | payer MEDICARE, SELFPAY ==
[2022-02-26] VITALS (24 sets, daily range): BP systolic 120–155; BP diastolic 57–91; PULSE 67–115; RESP 16–26; TEMP 36.3–37.3; O2SAT 41–100; BMI 32.0
--- NOTE | ~2022-02-26 | XR_ITS ---
EXAMINATION: XR chest 1V portable DATE: 03/01/2022 06:03 INDICATION: Acute respiratory failure. TECHNIQUE: A single frontal view of the chest was obtained. COMPARISON: Chest single view 02/28/2022, chest CT 02/27/2022 FINDINGS: There are airspace opacities in the lower lung zones. There is a small left pleural effusio n. No pneumothorax. The heart size is normal. Calcified mediastinal lymph nodes are consistent with o ld granulomatous disease. The endotracheal tube tip is 2.5 cm above the david. The nasogastric tube tip is beyond the inferior margin of the radiograph, but at least to the stomach. IMPRESSION: 1. Airspace opacities in the lower lung zones with worsening on the left, consistent with atelectasis versus pneumonia. 2. Small left pleural effusion. Reviewed, dictated and finalized at location A. IMPRESSION: 1. Airspace opacities in the lower lung zones with worsening on the left, consi stent with atelectasis versus pneumonia. 2. Small left pleural effusion.
--- NOTE | ~2022-02-26 | XR_ITS ---
XR abdomen NG/feed tube insert INDICATION: Evaluate NG tube position. TECHNIQUE: Limited KUB perform for evaluating NG tube . COMPARISON: 02/26/2022 FINDINGS: NG tube tip in the stomach. Visualized bowel gas pattern is Non Specific . IMPRESSION: 1: NG tube tip in the stomach. Reviewed, dictated and finalized at location A.
--- NOTE | ~2022-02-26 | XR_ITS ---
EXAMINATION: XR chest 1V portable DATE: 03/10/2022 05:20 INDICATION: Respiratory failure. TECHNIQUE: A single frontal view of the chest was obtained. COMPARISON: Chest single view 03/09/2022, chest CT 03/03/2022 FINDINGS: There is a chronic interstitial pattern in the lungs, consistent with emphysema. There are airspace opacities in right lower lung zone and left mid and lower lung zones. There is a small left pleural effusion. No pneumothorax. The heart size is normal. A left upper extremity peripherally inse rted central venous catheter (PICC) is seen with tip at the superior cavoatrial junction. The endotra cheal tube tip is 2.1 cm above the david. The nasogastric tube tip is beyond the inferior margin of the radiograph, but at least to the stomach. IMPRESSION: 1. Stable airspace opacities in right lower lung zone and left mid and lower lung zones, consistent w ith atelectasis versus pneumonia. 2. Stable small left pleural effusion. 3. Emphysema. Reviewed, dictated and finalized at location B. IMPRESSION: 1. Stable airspace opacities in right lower lung zone and left mid and lower taj ng zones, consistent with atelectasis versus pneumonia. 2. Stable small left pleural effusion. 3. Emphysema.
--- NOTE | ~2022-02-26 | XR_ITS ---
EXAMINATION: XR chest ET placement INDICATION: Endotracheal tube repositioning TECHNIQUE: Portable AP chest at 2255 hours COMPARISON: 2207 hours FINDINGS: Endotracheal tube remains positioned approximately 10.9 cm above the david. The nasogastri c tube is followed as far as the stomach. Its tip is beyond the inferior margin of the radiograph. Th ere are stable bibasilar airspace opacities. No pleural effusion or pneumothorax is identified. The c ardiomediastinal silhouette is normal. IMPRESSION: 1. Endotracheal tube approximately 10.9 cm above the david. Tube has been repositioned at the time o f interpretation. 2. Stable bibasilar airspace opacities, consistent with atelectasis versus pneumonia. Reviewed, dictated and finalized at location A. IMPRESSION: 1. Endotracheal tube approximately 10.9 cm above the david. Tube has been repo sitioned at the time of interpretation. 2. Stable bibasilar airspace opacities, consistent with atelectasis versus pneu monia.
--- NOTE | ~2022-02-26 | CT_ITS ---
EXAMINATION: CT brain wo con INDICATION: Altered mental status, hypoxia COMPARISON: None TECHNIQUE: Standard unenhanced head CT. The dose-length product (DLP) was 605.33 mGy-cm. The mA was a djusted according to patient size. Iterative reconstruction technique was employed. FINDINGS: There is no acute intraparenchymal hemorrhage. No evidence of mass lesion. No evidence of a cute infarction. There is mild periventricular and subcortical hypodensity probably related to small vessel ischemic disease. There is mild prominence of the sulci and ventricles related to cerebral atr ophy. Intracranial calcified cerebral atherosclerosis is noted. There are no extra-axial collections. There is no mass effect or midline shift. Changes in the globes are likely from ocular lens surgery. There is mild mucosal thickening of the paranasal sinuses. There is partial opacification of the rig ht mastoid air cells. IMPRESSION: 1. No acute intracranial abnormality. 2. Age related findings. 3. Sinus disease. Reviewed, dictated and finalized at location A.
--- NOTE | ~2022-02-26 | XR_ITS ---
XR chest 1V portable DATE: 03/09/2022 05:22 INDICATION: Acute respiratory failure TECHNIQUE: Portable AP chest on 03/09/2022 at 0506 hours COMPARISON: 03/07/2022 portable AP chest at 0536 hours FINDINGS: ET and NG tubes in satisfactory position. Left upper cavity PICC catheter in superior vena cava. Persistent patchy bilateral lower lung infiltrates and/atelectasis, left greater than right, increase d on the left, stable on the right. Heart size appears within normal limits. Aortic arch calcification. Minimal pleural effusions are sug gested. Osteopenia. IMPRESSION: Bilateral lower lung infiltrate and/atelectasis, left greater than right, increased on th e left since 03/07/2022 Reviewed, dictated and finalized at location A. IMPRESSION: Bilateral lower lung infiltrate and/atelectasis, left greater than right, increased on the left since 03/07/2022
--- NOTE | ~2022-02-26 | XR_ITS ---
EXAMINATION: XR chest 1V portable DATE: 03/02/2022 05:34 INDICATION: Respiratory failure. TECHNIQUE: A single frontal view of the chest was obtained. COMPARISON: Chest single view 03/01/22 FINDINGS: There are airspace opacities in the lower lung zones, left worse than right. There is a sma ll left pleural effusion. No pneumothorax. The heart size is normal. The endotracheal tube tip is 3.9 cm above the david. The nasogastric tube tip is beyond the inferior margin of the radiograph, but a t least to the stomach. IMPRESSION: 1. Stable airspace opacities in the lower lung zones, left worse than right, consistent with atelecta sis versus pneumonia. 2. Stable small left pleural effusion. Reviewed, dictated and finalized at location A. IMPRESSION: 1. Stable airspace opacities in the lower lung zones, left worse than right, co nsistent with atelectasis versus pneumonia. 2. Stable small left pleural effusion.
--- NOTE | ~2022-02-26 | CT_ITS ---
EXAMINATION: CT soft tissue neck wo con DATE: 03/05/2022 08:43 INDICATION: Difficulty intubating. Evaluate airway. TECHNIQUE: Computed tomography (CT) of the neck was performed without intravenous contrast. The dose- length product was 588.78 mGy-cm. Automated exposure control and iterative reconstruction technique w ere employed. COMPARISON: No prior studies for comparison. FINDINGS: Endotracheal tube tip in the distal trachea. NG tube extends inferior to the [id number]. Secretions noted in the oropharynx and nasopharynx. Small pleural effusions. Patchy bilateral infilt rates are partially visualized, suspicious for pneumonia. There is interlobular septal thickening wit h dependent atelectasis. There are mastoid effusions. Mild sinus disease with mucosal thickening of t he ethmoid air cells and sphenoid sinus. There is partial visualization of a left subclavian PICC zamzam e. Mild atherosclerosis of the carotid arteries. There is mild soft tissue prominence of the trachea surrounding the endotracheal tube at the level of the hyoid bone and thyroid cartilage, nonspecific. Parapharyngeal spaces are symmetric. No cervical lymphadenopathy. IMPRESSION: 1. Mild soft tissue prominence of the trachea surrounding the endotracheal tube at the level of the h yoid bone and thyroid cartilage, nonspecific. 2: Patchy bilateral infiltrates with interlobular septal thickening, suspicious for pneumonia. 3: Small pleural effusions. 4: Mild sinus disease. Reviewed, dictated and finalized at location A. IMPRESSION: 1. Mild soft tissue prominence of the trachea surrounding the endotracheal tube at the level of the hyoid bone and thyroid cartilage, nonspecific. 2: Patchy bilateral infiltrates with interlobular septal thickening, suspicious for pneumonia. 3: Small pleural effusions. 4: Mild sinus disease.
--- NOTE | ~2022-02-26 | US_ITS ---
EXAMINATION: US venous doppler UE RT DATE: 03/11/2022 08:59 INDICATION: Right upper limb swelling. TECHNIQUE: Grayscale ultrasound images without and with compression and Doppler ultrasound images of the right upper extremity veins were obtained. COMPARISON: None. FINDINGS: The visualized portions of the right internal jugular vein, subclavian vein, axillary vein, brachial veins, basilic vein, cephalic vein, radial vein, and ulnar vein are patent. In the antecubital fossa, there is a 6.1 x 5.1 cm fluid collection with fluid/fluid level. IMPRESSION: 1. No deep venous thrombosis. 2. 6.1 x 5.1 cm fluid collection in the antecubital fossa with fluid/fluid level, likely a hematoma. Reviewed, dictated and finalized at location D. IMPRESSION: 1. No deep venous thrombosis. 2. 6.1 x 5.1 cm fluid collection in the antecubital fossa with fluid/fluid leve l, likely a hematoma.
--- NOTE | ~2022-02-26 | XR_ITS ---
EXAMINATION: XR chest 1V portable DATE: 03/04/2022 05:55 INDICATION: Respiratory failure. TECHNIQUE: A single frontal view of the chest was obtained. COMPARISON: Chest single view 03/03/2022, chest CT 03/03/2022 FINDINGS: There are airspace opacities in the lower lung zones. There is a small left pleural effusio n. No pneumothorax. The heart size is normal. The endotracheal tube tip is 3.6 cm above the david. A left upper extremity peripherally inserted central venous catheter (PICC) is seen with tip in the love perior vena cava. The nasogastric tube tip is beyond the inferior margin of the radiograph, but at le ast to the stomach. IMPRESSION: 1. Stable airspace opacities in the lower lung zones, consistent with atelectasis versus pneumonia. 2. Stable small left pleural effusion. Reviewed, dictated and finalized at location A. IMPRESSION: 1. Stable airspace opacities in the lower lung zones, consistent with atelectas is versus pneumonia. 2. Stable small left pleural effusion.
--- NOTE | ~2022-02-26 | US_ITS ---
EXAMINATION: US venous doppler [facility] DATE: 02/27/2022 12:38 INDICATION: Respiratory failure TECHNIQUE: Sanchez scale images without and with compression and Doppler images of the bilateral lower e xtremity veins were obtained. COMPARISON: 01/02/2019 FINDINGS: The right common femoral vein, profunda femoral vein, femoral vein, popliteal vein, peroneal trunk, p osterior tibial veins, and greater saphenous vein are patent. The left common femoral vein, profunda femoral vein, femoral vein, popliteal vein, peroneal trunk, po sterior tibial veins, and greater saphenous vein are patent. IMPRESSION: 1. Patent bilateral lower extremity veins. No evidence of deep venous thrombosis. Reviewed, dictated and finalized at location A. IMPRESSION: 1. Patent bilateral lower extremity veins. No evidence of deep venous thrombosi s.
--- NOTE | ~2022-02-26 | XR_ITS ---
XR chest ET placement 03/05/2022 07:00 Indication: Intubation. Respiratory failure. Procedure: AP portable chest Comparison: Comparison to multiple prior studies sequentially, with oldest reviewed study dated 04/2022. Findings: Endotracheal tube tip 6 cm above the david. NG tube in the stomach. Cardiomegaly with pulm onary edema. Small pleural effusions. No pneumothorax. Left subclavian PICC line tip in the SVC. Impression: 1: Cardiomegaly with pulmonary edema. Superimposed pneumonia not excluded. 2: Small pleural effusions. Reviewed, dictated and finalized at location A. Impression: 1: Cardiomegaly with pulmonary edema. Superimposed pneumonia not excluded. 2: Small pleural effusions.
--- NOTE | ~2022-02-26 | XR_ITS ---
EXAMINATION: XR fl Dobhoff insert/rad w img DATE: 03/14/2022 11:25 INDICATION: Dysphagia. TECHNIQUE: I placed a nasoenteric tube under fluoroscopic guidance. One image was obtained. The fluor oscopy exposure time was 0.3 minutes. COMPARISON: None. FINDINGS: The nasoenteric tube tip is in the stomach. IMPRESSION: 1. Fluoroscopy guided nasoenteric tube placement with tip in the stomach. Reviewed, dictated and finalized at location A.
--- NOTE | ~2022-02-26 | XR_ITS ---
EXAMINATION: XR chest ET placement INDICATION: Endotracheal tube repositioning TECHNIQUE: Portable AP chest at 2318 hours COMPARISON: 2255 hours FINDINGS: The endotracheal tube ends approximately 1.7 cm above the david. The nasogastric tube is f ollowed as far as the stomach. Its tip is beyond the inferior margin of the radiograph. There are sta ble bibasilar airspace opacities. There is no pleural effusion or pneumothorax. The cardiomediastinal silhouette is normal. IMPRESSION: 1. Repositioned endotracheal tube in adequate position. 2. Stable bibasilar airspace opacity, consistent with atelectasis versus pneumonia. Reviewed, dictated and finalized at location A. IMPRESSION: 1. Repositioned endotracheal tube in adequate position. 2. Stable bibasilar airspace opacity, consistent with atelectasis versus pneumo isauro.
--- NOTE | ~2022-02-26 | XR_ITS ---
EXAMINATION: XR humerus RT DATE: 03/11/2022 14:33 INDICATION: Right upper limb hematoma. TECHNIQUE: 3 views of right humerus were obtained. COMPARISON: None. FINDINGS: Bone alignment is normal. No fracture. There is mild osteoarthritis of glenohumeral joint a nd severe osteoarthritis of acromioclavicular joint. No elbow joint effusion. IMPRESSION: 1. Polyarticular osteoarthritis. Reviewed, dictated and finalized at location B.
--- NOTE | ~2022-02-26 | XR_ITS ---
XR chest 1V portable 03/06/2022 05:35 Indication: Respiratory failure Procedure: AP portable chest Comparison: Comparison to multiple prior studies sequentially, with oldest reviewed study dated 05/2022. Findings: Endotracheal tube tip 3.2 cm above the david. There is patchy bibasilar airspace disease, compatible with pneumonia. Small pleural effusions. No pneumothorax. NG tube in the stomach. Left sub clavian PICC line tip in the SVC. Impression: 1: Patchy bibasilar airspace disease, compatible with pneumonia. Reviewed, dictated and finalized at location A. Impression: 1: Patchy bibasilar airspace disease, compatible with pneumonia.
--- NOTE | ~2022-02-26 | XR_ITS ---
EXAMINATION: XR chest 1V portable Exam Date/Time: 03/01/2022 14:12 CDT HISTORY: post bronchoscopy Comparison: 03/01/22. RESULT: Lines, tubes, and devices: Endotracheal tube terminates 1 cm above the david. NG tube terminates ou t of the [id number]. Lungs and pleura: No pneumothorax. Persistent left basilar atelectasis/consolidation and lateral ang le blunting. Cardiomediastinal silhouette: Stable cardiomediastinal silhouette. Other: No acute osseous or upper abdominal finding. IMPRESSION: Endotracheal tube terminates 1 cm above the david. Unchanged left basilar pulmonary opacities and small left pleural effusion. Reviewed, dictated and finalized at location K.
--- NOTE | ~2022-02-26 | XR_ITS ---
EXAMINATION: XR chest 1V portable Exam Date/Time: 02/26/2022 16:30 CDT HISTORY: SOA Comparison: 01/10/2022. RESULT: Lines, tubes, and devices: None. Lungs and pleura: Bibasilar scar/atelectasis. Cardiomediastinal silhouette: Stable cardiomediastinal silhouette. Other: No acute osseous or upper abdominal finding. IMPRESSION: No acute cardiopulmonary process. Reviewed, dictated and finalized at location K.
--- NOTE | ~2022-02-26 | XR_ITS ---
XR chest 1V portable 03/05/2022 06:02 Indication: Respiratory distress. Procedure: AP portable chest Comparison: Comparison to multiple prior studies sequentially, with oldest reviewed study dated 03/2022. Findings: Cardiomegaly with pulmonary edema. Small left pleural effusion. No pneumothorax. Left subcl maxim PICC line tip in the SVC. Impression: 1: Cardiomegaly with pulmonary edema. 2: Small left pleural effusion. Reviewed, dictated and finalized at location A. Impression: 1: Cardiomegaly with pulmonary edema. 2: Small left pleural effusion.
--- NOTE | ~2022-02-26 | CT_ITS ---
EXAMINATION: CTA chest PE protocol DATE: 02/27/2022 15:59 INDICATION: Acute respiratory failure TECHNIQUE: Computed tomography angiography (CTA) of the chest was performed with 100 mL Omnipaque-350 intravenous contrast timed to evaluate the pulmonary arteries. Coronal maximum intensity projection 3D-reconstructions were created by the technologist. The dose-length product (DLP) was 899.81 mGy-cm. Automated exposure control and iterative reconstruction technique were employed. COMPARISON: None. FINDINGS: Study quality: Adequate. Pulmonary arteries: No pulmonary emboli detected. Left and right main pulmonary artery dilation as ca n be seen with pulmonary arterial hypertension. Thoracic aorta: Arch calcifications. No dissection. Lung parenchyma and airways: Consolidation with volume loss in the left lower lobe. Airway debris/flu id within multiple left lower lobe bronchi right dependent lung atelectasis. Thoracic inlet, axillae and chest wall: 15 mm left lobe thyroid nodule. Mediastinum: Prominent prevascular nodes. Endotracheal and nasogastric tubes, in good position. Heart and pericardium: Cardiomegaly. Coronary artery calcifications: Absent. Pleura: Unremarkable. Upper abdomen: Left adrenal adenoma. Bones: Compression deformity at T6 and T7. IMPRESSION: No CT evidence of acute pulmonary embolus. Left lower lobe collapse, possibly secondary to airway obs truction from aspiration or mucous plugging. Infection is not excluded. Moderate-severe compression f ractures at T6 and T7 of uncertain age. 15 mm left thyroid lobe nodule, recommend outpatient thyroid ultrasound for further characterization, when clinical condition permits. Reviewed, dictated and finalized at location K. IMPRESSION: No CT evidence of acute pulmonary embolus. Left lower lobe collapse, possibly s econdary to airway obstruction from aspiration or mucous plugging. Infection is not excluded. Moderate-severe compression fractures at T6 and T7 of uncertain age. 15 mm left thyroid lobe nodule, recommend outpatient thyroid ultrasound fo r further characterization, when clinical condition permits.
--- NOTE | ~2022-02-26 | CT_ITS ---
EXAMINATION: CT soft tissue neck wo con DATE: 03/08/2022 14:02 INDICATION: Tracheal obstruction. TECHNIQUE: Computed tomography (CT) of the neck was performed without intravenous contrast. Automated exposure control and iterative reconstruction technique were employed. The dose-length product was 5 07.40 mGy-cm. COMPARISON: 03/05/2022. FINDINGS: Endotracheal tube terminates 3 cm above the david. Nasogastric tube terminates out of the field-of-v iew. Incompletely visualized left PICC. 2.1 cm hypodense left thyroid nodule. The submandibular and parotid glands are symmetric. There is no cervical lymphadenopathy. There are no masses identified . The superior mediastinum is unremarkable. The airway is unremarkable, tracheal bifurcation deborah ewhat obscured by motion artifact and incompletely visualized. Parapharyngeal and pre-glottic fat p lanes are preserved. Bilateral lens replacements. Mild sphenoid mucosal thickening. Bilateral masto id effusions. Centrilobular and peripheral groundglass opacities. More focal consolidation in the dep endent left upper lobe. Emphysematous changes. Small bilateral effusions and bilateral lower lung con solidations, incompletely evaluated. No aggressive osseous finding. IMPRESSION: 1. Endotracheal tube in good position. 2. No CT evidence of tracheal obstruction, noting that the inferior trachea/bronchial bifurcation wer e incompletely imaged. 3. Pulmonary opacities suspicious for multifocal infection, including atypical/viral etiologies. 4. 2.1 cm hypodense left thyroid nodule, recommend nonemergent, outpatient thyroid ultrasound for fur ther characterization. Reviewed, dictated and finalized at location K. IMPRESSION: 1. Endotracheal tube in good position. 2. No CT evidence of tracheal obstruction, noting that the inferior trachea/bro nchial bifurcation were incompletely imaged. 3. Pulmonary opacities suspicious for multifocal infection, including atypical/ viral etiologies. 4. 2.1 cm hypodense left thyroid nodule, recommend nonemergent, outpatient thyr oid ultrasound for further characterization.
--- NOTE | ~2022-02-26 | XR_ITS ---
EXAMINATION: XR chest ET placement INDICATION: Endotracheal tube placement TECHNIQUE: Portable AP chest at 2207 hours COMPARISON: 1635 hours FINDINGS: A nasogastric tube has been inserted which ends approximately 9.8 cm above the david. A na sogastric tube has been inserted which is followed as far as the stomach. Its tip is beyond the infer ior margin of the radiograph. There are minimal airspace opacities of the lung bases. The heart size is normal. There is no pleural effusion or pneumothorax. IMPRESSION: 1. Endotracheal tube ending approximately 9.8 cm above the david. Tube has been repositioned at the time of interpretation. 2. Bibasilar airspace opacities, consistent with atelectasis versus pneumonia. Reviewed, dictated and finalized at location A. IMPRESSION: 1. Endotracheal tube ending approximately 9.8 cm above the david. Tube has bee n repositioned at the time of interpretation. 2. Bibasilar airspace opacities, consistent with atelectasis versus pneumonia.
--- NOTE | ~2022-02-26 | XR_ITS ---
EXAMINATION: XR forearm RT 2V DATE: 03/11/2022 14:33 INDICATION: Right forearm hematoma. TECHNIQUE: 2 views of right forearm were obtained. COMPARISON: None. FINDINGS: Bone alignment is normal. No fracture. There is mild elbow joint osteoarthritis. There is s evere osteoarthritis of triscaphe joint and mild osteoarthritis of first carpometacarpal joint. No el bow joint effusion. IMPRESSION: 1. Polyarticular osteoarthritis. Reviewed, dictated and finalized at location B.
--- NOTE | ~2022-02-26 | XR_ITS ---
EXAMINATION: XR barium swallow modified DATE: 03/18/2022 14:13 INDICATION: Dysphagia. TECHNIQUE: The patient was given barium-containing material of multiple consistencies to swallow by t peterson speech pathologist while I performed fluoroscopy. Dose-area product was 1.92 Gy-cm2. 2.3 minutes fluoroscopy time FINDINGS: Oral Stage: Within functional limits Pharyngeal Phase: Reduced laryngeal elevation Laryngeal penetration with thin and thick liquids Cervical/Esophageal Stage: Within functional limits IMPRESSION: Modified esophagram findings as above. Please refer [facility]. Reviewed, dictated and finalized at Location A. Reviewed, dictated and finalized at location A. IMPRESSION: Modified esophagram findings as above. Please refer to the speech t herapy report for specific recommendations.
--- NOTE | ~2022-02-26 | XR_ITS ---
EXAMINATION: XR abdomen NG/feed tube insert INDICATION: OG placement TECHNIQUE: Portable AP KUB-NG at 2209 hours COMPARISON: None available FINDINGS: The OG tube is in the stomach. The visualized lung bases are clear. IMPRESSION: 1. OG tube in the stomach. Reviewed, dictated and finalized at location A. IMPRESSION: 1. OG tube in the stomach.
--- NOTE | ~2022-02-26 | XR_ITS ---
EXAMINATION: XR chest 1V portable DATE: 03/11/2022 05:36 INDICATION: Respiratory failure TECHNIQUE: frontal view of the chest was obtained. COMPARISON: Chest radiograph dated 03/10/22 FINDINGS: Slight interval improvement in airspace opacities in the bilateral lower lung zones. No pneumothorax. Decreasing small left and possible very small right pleural effusions. The cardiomediastinal silhoue tte is normal. IMPRESSION: 1. Slight improvement in airspace opacities in the bilateral lower lung zones which could represent p neumonia, pulmonary edema, atelectasis or some combination thereof. 2. Decrease small left pleural effusion. Tiny right pleural effusion not excludable. Reviewed, dictated and finalized at location A. IMPRESSION: 1. Slight improvement in airspace opacities in the bilateral lower lung zones w hich could represent pneumonia, pulmonary edema, atelectasis or some combinatio n thereof. 2. Decrease small left pleural effusion. Tiny right pleural effusion not exclud able.
--- NOTE | ~2022-02-26 | XR_ITS ---
XR chest 1V portable DATE: 03/07/2022 05:55 INDICATION: Acute respiratory failure. Pneumonia. COPD exacerbation. TECHNIQUE: Portable AP chest on 03/07/2022 at 0536 hours COMPARISON: 03/06/2022 portable AP chest at 0506 hours FINDINGS: ET tube in satisfactory position 2.1 cm above david. Left subclavian PICC catheter tip overlies superior vena cava. No pneumothorax. NG tube in stomach. Bilateral lower lung infiltrate and/atelectasis are again noted, minimally improved since 03/06/2022. Heart size appears within normal range. Is aortic arch calcification. Diffuse osteopenia. IMPRESSION: Bilateral lower lung infiltrate and/or atelectasis, minimally improved since 03/06/2022 Reviewed, dictated and finalized at location A. IMPRESSION: Bilateral lower lung infiltrate and/or atelectasis, minimally impro maria esther since 03/06/2022
--- NOTE | ~2022-02-26 | XR_ITS ---
EXAMINATION: XR barium swallow modified DATE: 03/16/2022 08:56 INDICATION: Dysphagia. TECHNIQUE: The patient was given barium-containing material of multiple consistencies to swallow by t peterson speech pathologist while I performed fluoroscopy. Fluoroscopy exposure time was 1.7 minutes. The n umber of fluoroscopy images saved to the PACS was 1. Dose-area product was 1.107 Gy-cm^2. FINDINGS: There is reduced laryngeal elevation and reduced tongue base retraction. There is moderate to severe vallecular residue. There is mild to moderate laryngeal penetration with thin liquids. Aspiration was not specifically visualized. IMPRESSION: 1. Laryngeal penetration. 2. Please refer to the speech therapy report for recommendations. Reviewed, dictated and finalized at location A.
--- NOTE | ~2022-02-26 | CT_ITS ---
EXAMINATION: CT diagnostic chest wo con DATE: 03/03/2022 09:28 INDICATION: Pneumonia TECHNIQUE: Computed tomography (CT) of the chest was performed without intravenous contrast. The dose -length product was 654.62 mGy-cm. Automated exposure control and iterative reconstruction technique were employed. COMPARISON: CT dated 02/27/2022 FINDINGS: There is atherosclerosis of the aorta without evidence for aneurysm. Heart size normal. Sma ll pleural effusions. There is an NG tube in the stomach. There are calcified granulomas of the lungs , mediastinum and spleen. There is emphysema. There is bilateral lower lobe airspace consolidation wi th air bronchograms. There is also consolidation in the right middle lobe. There are areas of interlo bular septal thickening peripherally. There is focal peripheral consolidation laterally in the right chest abutting the fissure, unchanged, most likely atelectasis/scarring. There are a few patchy areas of groundglass opacification.. No endobronchial lesions. No pneumothorax. IMPRESSION: 1. Progression of bilateral airspace disease of the lower lobes, right middle lobe with additional ar eas of patchy groundglass opacification and peripheral interlobular septal thickening. These findings are most likely secondary to pneumonia. 2: Small pleural effusions. Reviewed, dictated and finalized at location B. IMPRESSION: 1. Progression of bilateral airspace disease of the lower lobes, right middle l obe with additional areas of patchy groundglass opacification and peripheral in terlobular septal thickening. These findings are most likely secondary to pneum onia. 2: Small pleural effusions.
--- NOTE | ~2022-02-26 | XR_ITS ---
EXAMINATION: XR chest 1V portable DATE: 03/03/2022 05:25 INDICATION: Respiratory failure. TECHNIQUE: A single frontal view of the chest was obtained. COMPARISON: Chest single view 03/02/2022, chest CT 02/27/2022 FINDINGS: There are airspace opacities in the lower lung zones, left worse than right. There is a sma ll left pleural effusion. No pneumothorax. The heart size is normal. The endotracheal tube tip is 5.4 cm above the david. A left upper extremity peripherally inserted central venous catheter (PICC) is seen with tip in the superior vena cava. The nasogastric tube tip is beyond the inferior margin of th e radiograph, but at least to the stomach. IMPRESSION: 1. Stable airspace opacities in the lower lung zones, left worse than right, consistent with atelecta sis versus pneumonia. 2. Stable small left pleural effusion. Reviewed, dictated and finalized at location A. IMPRESSION: 1. Stable airspace opacities in the lower lung zones, left worse than right, co nsistent with atelectasis versus pneumonia. 2. Stable small left pleural effusion.
--- NOTE | ~2022-02-26 | XR_ITS ---
EXAMINATION: XR chest 1V portable DATE: 02/28/2022 05:48 INDICATION: Hypercapnic hypoxic respiratory failure. TECHNIQUE: A single frontal view of the chest was obtained. COMPARISON: Chest single view 02/26/2022, chest CT 10/30/2021 FINDINGS: There are airspace opacities in left lower lung zone. No pleural effusion or pneumothorax. The heart size is normal. Calcified mediastinal lymph nodes are consistent with old granulomatous dis ease. The endotracheal tube tip is 1.9 cm above the david. The nasogastric tube tip is beyond the in ferior margin of the radiograph, but at least to the stomach. IMPRESSION: 1. Airspace opacities in left lower lung zone with worsening from 02/26/2022, consistent with atelectas is without or with superimposed pneumonia. Reviewed, dictated and finalized at location A. IMPRESSION: 1. Airspace opacities in left lower lung zone with worsening from 02/26/2022, con sistent with atelectasis without or with superimposed pneumonia.
--- NOTE | ~2022-02-26 | XR_ITS ---
EXAMINATION: XR barium swallow modified DATE: 03/12/2022 11:43 INDICATION: Dysphagia. TECHNIQUE: The patient was given barium-containing material of multiple consistencies to swallow by t peterson speech pathologist while I performed fluoroscopy. Dose-area product was 2.571 Gy-cm2. 4.4 minutes fluoroscopy time FINDINGS: Oral Stage: Reduced lingual movement Pharyngeal Phase: Reduced laryngeal elevation, reduced laryngeal abduction Reduced tongue base retraction Reduced pharyngeal squeeze Pharyngeal wall residue Laryngeal penetration with thin and thick fluids Aspiration of thin liquids Cervical/Esophageal Stage: Within functional limits IMPRESSION: Modified esophagram findings as above. [facility] Reviewed, dictated and finalized at Location A. Reviewed, dictated and finalized at location A. IMPRESSION: Modified esophagram findings as above. Please refer to the speech t herapy report for specific recommendations.
--- NOTE | 2022-02-26 15:11 | ECG_ITS ---
Measurements Intervals Kelly Rate: 77 P: -43 WV: 115 QRS: 22 QRSD: 84 T: 55 QT: 332 QTc: 376 Interpretive Statements SINUS RHYTHM WITH SINUS ARRHYTHMIA WITH SHORT WV INTERVAL POSSIBLE RIGHT VENTRICULAR CONDUCTION DELAY [RSR (QR) IN V1/V2] NO PRIOR TRACING Electronically Signed On 02-27-2022 8:55:49 CDT by Maryanne Wolfe M.D.
[2022-02-26 15:28] LABS: Basophils Percent Auto 0.4 % (0.2-1.2); Eosinophils Percent Auto 0.1 % (0-4.4); Hematocrit 50.6 % (37.0-47.0); Hemoglobin 14.3 g/dL (12.0-15.0); Immature Granulocyte Absolute 0.12 K/mm3 (0.00-0.031); Immature Granulocyte Percent A 1.1 % (0-0.5); Immature Platelet Fraction Pct 6.3 % (0.9-11.2); Lymphocytes Absolute Auto 0.89 K/mm3 (0.9-3.2); Lymphocytes Percent Auto 8.3 % (18.3-44.2); Mean Corpuscular HGB Conc 28.3 g/dl (32-36); Mean Corpuscular Volume 106.1 fl (80-100); Mean Platelet Volume 9.9 fl (7.4-10.4); Monocytes Absolute Auto 0.8 K/mm3 (0.1-0.6); Monocytes Percent Auto 7.2 % (2.6-8.5); Neutrophils Absolute Auto 8.9 K/mm3 (1.3-6.7); Neutrophils Percent Auto 82.9 % (45.5-73.1); Platelet Count Result 313 k/mm3 (150-375); Red Blood Count 4.77 M/mm3 (4.2-5.4); Red Cell Distribution Width 13.5 % (11.5-14.5); White Blood Count 10.7 K/mm3 (4.5-10.0)
[2022-02-26 15:35] LABS: Alveolar/Arterial O2 Gradient 60.4 mmHg; Base Excess ABG 18.9 mEq/l (+/-2.0); Carboxyhemoglobin 2.4 % THb (0-2.0); Fractional Inspired Oxygen 38 %; HCO3 ABG 53.9 mEq/l (22.0-26.0); Methemoglobin ABG 0.4 %THb (0-1.5); Oxygen Content ABG 18.7 %vol (16.0-22.0); Reduced Hemoglobin 9.7 %THb (0-5.0); Total Hemoglobin 15.2 g/dL (12.0-18.0)
[2022-02-26 15:38] LABS: INR 0.9
[2022-02-26 15:38] LABS: pH ABG 7.226 (7.350-7.450)
[2022-02-26 15:39] LABS: PCO2 ABG 132.9 mmHg (35.0-45.0)
[2022-02-26 15:40] LABS: Device NASAL CANNULA; Modified Allen's Test Pass; Oxygen Saturation ABG 80.5 % (95.0-100.0); Oxyhemoglobin 87.5 % THb (90.0-100.0); Site Drawn LEFT RADIAL
[2022-02-26 15:40] LABS: Alanine Aminotransferase 61 U/L (6-35); Albumin Level 3.7 g/dL (3.5-5.1); Alkaline Phosphatase 123 U/L (38-126); Aspartate Amino Transferase 34 U/L (14-36); Bilirubin,Total 0.5 mg/dL (0.2-1.3); Blood Urea Nitrogen 22 mg/dL (7-17); Calcium 8.2 mg/dL (8.4-10.2); Carbon Dioxide > 40 mmol/L (22-30); Chloride 89 mmol/L (98-107); Estimated CRCL calculation 92 ml/min; Estimated Glomerular Filt Rate > 60; Glucose 128 mg/dL (65-110); Potassium 5.1 mmol/L (3.4-5.0); Sodium 141 mmol/L (137-145)
[2022-02-26 15:45] LABS: Hypochromasia 1+ (NORMAL); Platelet Estimate Adequate (Adequate); Stomatocytes 2+ (NORMAL)
[2022-02-26 15:53] LABS: Lactic Acid Reflex < 0.5 mmol/L (0.7-2.0)
--- NOTE | 2022-02-26 16:35 | ED.SOB ---
HPI - SOB/Dyspnea General Chief Complaint: Altered Mental Status Stated Complaint: CONFUSION Time Seen by Provider: 02/26/22 15:19 History of Present Illness HPI Narrative: Patient is a 66-year-old female who presents ER with altered mental status. EMS called to the home by family due to patient not acting correctly. Patient did not wear BiPAP last night. Typically wears home oxygen of 3 L. Has history of CHF and COPD. Patient awakens to noxious stimuli can say her name. Localizes to pain. Related Data Allergies Allergy/AdvReac Type Severity Reaction Status Date / Time Penicillins AdvReac Unknown Verified 02/26/22 15:15 Review of Systems Review of Systems: ROS unobtainable: Yes unobtainable due to mental status PMFSH Past Medical History Medical History (Updated 02/26/22 @ 21:56 by Fabien Wells MD) CHF (congestive heart failure) COPD (chronic obstructive pulmonary disease) Depression Hypertension Pulmonary embolism Surgical History Surgical History (Updated 02/26/22 @ 21:55 by Fabien Wells MD) H/O colonoscopy History of hysterectomy History of tonsillectomy Social History Social History Smoking packs per day: 1 Smoking cigarettes per day: 20.0 Smoking status: Current every day smoker Tobacco type: cigarettes Second hand tobacco smoke exposure: Yes (Family smokes in home) Additional smoking assessment comments: Years smoked unknown. Patient and/or family unsure. Alcohol intake: never Substance use: never Substance use type: does not use Spiritual care concerns: No Exam Narrative: GENERAL: Chronically ill-appearing, obese, and in moderate distress. HEAD: Normocephalic, atraumatic. EYES: PERRL and EOMI. ENT: Dry mucous membranes. CHEST: Poor air movement with moderate respiratory distress with wet audible lung sounds from bedside. HEART: Regular rate and rhythm. Normal peripheral pulses. ABDOMEN: Soft, nontender, nondistended. EXTREMITIES: Normal range of motion. No deformity. SKIN: Warm, dry, no rash. NEURO: Patient somnolent but responds to noxious stimuli. Moves all extremities. PSYCH: Normal mood and affect. Course Course Emergency Course: Patient placed on APAP as as what her previous settings were when hospitalized. Admit to the hospitalist service will place in the IMU. Patient will be given an hour-long nebulizer treatment. No evidence of pneumonia. We will give steroids. Vital Signs Vital signs: Vital Signs Temperature 98.3 F 02/26/22 15:07 Pulse Rate 86 02/26/22 15:07 Respiratory Rate 23 H 02/26/22 15:07 Blood Pressure 134/66 02/26/22 15:07 Pulse Oximetry 95 02/26/22 15:07 Oxygen Delivery Nasal Cannula 02/26/22 15:07 Oxygen Flow Rate 3 02/26/22 15:07 Temperature 97.3 F L 02/26/22 19:00 Pulse Rate 86 02/26/22 20:43 Respiratory Rate 20 02/26/22 20:43 Blood Pressure 136/86 02/26/22 19:00 Pulse Oximetry 97 02/26/22 20:43 Oxygen Delivery BiPAP 02/26/22 20:43 Oxygen Flow Rate 4 02/26/22 16:05 MDM - SOB/Dyspnea Lab Data Result diagrams: 02/26/22 15:20 02/26/22 15:20 Labs: Lab Results 02/26/22 02/26/22 02/26/22 Range/Units 15:19 15:20 15:20 WBC 10.7 H (4.5-10.0) K/mm3 RBC 4.77 (4.2-5.4) M/mm3 Hgb 14.3 (12.0-15.0) g/dL Hct 50.6 H (37.0-47.0) % MCV 106.1 H (80-100) fl MCH 30.0 (26-34) pg MCHC 28.3 L (32-36) g/dl RDW 13.5 (11.5-14.5) % Plt Count 313 (150-375) k/mm3 MPV 9.9 (7.4-10.4) fl Immature Gran % (Auto) 1.1 H (0-0.5) % Neut % (Auto) 82.9 H (45.5-73.1) % Lymph % (Auto) 8.3 L (18.3-44.2) % Osborne % (Auto) 7.2 (2.6-8.5) % Eos % (Auto) 0.1 (0-4.4) % Baso % (Auto) 0.4 (0.2-1.2) % Lymph # (Auto) 0.89 L (0.9-3.2) K/mm3 Osborne # (Auto) 0.8 H (0.1-0.6) K/mm3 Eos # (Auto) 0.0 (0-0.3) K/mm3 Baso # (Auto) 0.0 (0.0-0.1) K/mm3 Abs Immat Gran (auto) 0.12 H (0.00-0.031)
[2022-02-26 16:52] LABS: NT Pro B Type Natriuretic Pept 244 pg/mL (5-100)
[2022-02-26] MEDS: methylPREDNISolone SOD SUCC 125 MG VIAL IV PUSH (17:06)
[2022-02-26 17:08] LABS: Alveolar/Arterial O2 Gradient 127.8 mmHg; Base Excess ABG 14.1 mEq/l (+/-2.0); Fractional Inspired Oxygen 45 %; HCO3 ABG 48.2 mEq/l (22.0-26.0); Oxygen Content ABG 18.6 %vol (16.0-22.0); PO2 ABG 54.8 mmHg (80.0-100.0); PO2 FiO2 Ratio Arterial Blood 1.22 %; Total Hemoglobin 15.3 g/dL (12.0-18.0)
[2022-02-26] MEDS: ALBUTEROL SULFATE NEB 2.5 MG/3 ML INH 15 MG INHALATION (17:23)
[2022-02-26] MEDS: IPRATROPIUM BR 0.02% INH SOLN 0.5 MG/2.5 ML VIAL 1.5 MG INHALATION (17:24)
--- NOTE | 2022-02-26 17:30 | PM.IMHP ---
H&P: HPI History of Present Illness Date/Time: 02/26/22 17:30 Chief Complaint: Lethargic and confused. Narrative: This is a 66-year-old female smoker with severe COPD, chronic hypoxic and hypercapnic respiratory failure on trilogy, obstructive sleep apnea, diastolic congestive heart failure, hypertension, and other comorbidities who presented to the emergency department via EMS for evaluation of confusion and lethargy. On arrival to the emergency department she was alert to self only and initial ABG showed a pCO2 of 132. She was started on BiPAP, AVAPS mode, and at the time my evaluation she is alert and oriented x2 and she was able to tell me that she apparently did not wear her trilogy last night. She reported feeling short of breath and that is about the extent of the history I was able to obtain from her. Repeat blood gas was improved and she was admitted to the IMU. Her telemetry apparently started to alarm, reporting hypoxia with an SpO2 in the 40s and as the nurse entered the room, the patient was still on BiPAP but essentially unresponsive. BiPAP was removed to suction the patient and she was reportedly cyanotic though she had a good pulse. At the time of my arrival she was unresponsive and hypopneic and respiratory therapy was assisting ventilation with a bag-valve mask. Decision was made to emergently intubate and she was transferred to the ICU. About an hour after her 1st intubation, she started to have high peak pressures and we were unable to pass the suction catheter so she was reintubated it was noted that there was a kink near the cuff which was likely the culprit. Since that time she has since started to arouse a bit more and she is making purposeful movements. Review of Systems Review of Systems: ROS unobtainable: Yes unobtainable due to medical condition [facility] Past Medical History Medical History (Updated 02/27/22 @ 01:00 by Genevieve Stiles PA-C) Chronic obstructive pulmonary disease Chronic respiratory failure with hypoxia and hypercapnia Deep venous thrombosis Depression Diastolic congestive heart failure Ejection fraction 60 to 65% in December 2021. Endometrial cancer Gastroesophageal reflux disease Hypertension Obstructive sleep apnea Pulmonary embolism Surgical History Surgical History (Updated 02/27/22 @ 00:53 by Genevieve Stiles PA-C) History of arthroscopy of left knee History of colonoscopy History of hysterectomy History of hysterectomy for cancer (1990) History of tonsillectomy Family History Family History (Updated 02/27/22 @ 00:53 by Genevieve Stiles PA-C) Other Carcinoma of colon Diabetes mellitus Hypertension Social History Social History (Updated 02/27/22 @ 00:54 by Genevieve Stiles PA-C) Social History: Surrogate decision maker: Naa Adame, daughter. Code status: Full code. Smoking packs per day: 1 Smoking cigarettes per day: 20.0 Smoking status: Current every day smoker Tobacco type: cigarettes Second hand tobacco smoke exposure: Yes (Family smokes in home) Additional smoking assessment comments: Years smoked unknown. Patient and/or family unsure. Alcohol intake: never Substance use: never Substance use type: does not use Living arrangements: with family Occupation/Education: retired Spiritual care concerns: No Meds Home Medications and Allergies Home Medications Medication Instructions Recorded Confirmed Type albuterol sulfate 90 mcg/actuation 2 puff inhalation Q6H PRN wheezing 02/27/22 02/27/22 History aerosol inhaler azithromycin 250 mg tablet 1 tablet PO DAILY 02/27/22 02/27/22 History budesonide 160 mcg-glycopyr 9 1 inh inhalation DAILY 02/27/22 02/27/22 History mcg-formot 4.8 mcg/actuation HFA inhaler cholecalciferol (vitamin D3) 10 10 mcg PO DAILY 02/27/22 02/27/22 History mcg (400 unit) capsule ferrous sulfate 325 mg (65 mg 325 mg PO QPM 02/27/22 02/27/22 History iron) capsule,extended release
[2022-02-26 17:47] LABS: SARS-CoV-2 RNA PCR Negative
--- NOTE | 2022-02-26 19:12 | PC.NURSE ---
Report received at 1820 by REESE Jordan with the ED. Patient to go to IMU room 211.
--- NOTE | 2022-02-26 19:13 | ADMGEN ---
This patient, Stephany Richard, was admitted to IMU Room 211-01 at 1857 from the ED. Patient/family oriented to hospital policies and general routines including ID bracelet, bed and alarms, visiting hours, pain management, procedures, bathroom and other care routines, personal items, smoking policy, room service/diet, and visiting hours. Information on how to activate the Rapid Response Team has been discussed. Patient/Family are encouraged to report perceived risks to care and to ask questions if they do not understand what they are told or what they should do.
[2022-02-26 21:12] LABS: Fractional Inspired Oxygen 40 %; Methemoglobin ABG 0.3 %THb (0-1.5)
--- NOTE | 2022-02-26 21:45 | WPDPROCEDUR ---
Procedures Intubation Intubation Date: 02/26/22 Intubation Time: 21:45 Consent: Emergent intubation with implied consent. A pre-procedural Time-Out was completed immediately before starting the procedure and confirmed: Patient Identification, Site, Procedure, Patient Position and the Availability of Requisite Equipment: Yes Sedative: etomidate (20) Paralytic: succinylcholine Mg given: 100 Laryngoscope: fiber optic video scope Assist device used: fiber optic device ET tube size: 7.5 Tube secured depth (cm): 21 Tube secured location: teeth Tube placement confirmation: visualized tube passing through cords, equal breath sounds bilaterally, no breath sounds over epigastrium and confirmation by capnometry Patient tolerated procedure: well Intubation complications: none Additional comments: Dr. Fabien Wells, attending ED physician, present at bedside. Vent settings and sedation orders per Dr. Godwin.
[2022-02-26] MEDS: FENTANYL 2,500MCG/NS250ML(*CRX 2,500 MCG/250 ML BAG IV CONT (22:05)
[2022-02-26] MEDS: MIDAZOLAM 100MG/NS 100ML(*CRX) 100 MG/100 ML BAG IV CONT (22:05)
--- NOTE | 2022-02-26 22:10 | ECG_ITS ---
Measurements Intervals [place] Rate: 94 P: NV: 0 QRS: 20 QRSD: 81 T: 49 QT: 341 QTc: 427 Interpretive Statements NORMAL SINUS RHYTHM WITH FREQUENT APCS POSSIBLE RIGHT VENTRICULAR CONDUCTION DELAY [RSR (QR) IN V1/V2] ABNORMAL RHYTHM ECG COMPARED TO ECG 02/26/2022 19:36:46 APCS ARE NOW PRESENT Electronically Signed On 02-27-2022 19:18:06 CDT by Maryanne Wolfe M.D.
--- NOTE | 2022-02-26 22:12 | PC.NURSE ---
This patient, Stephany Richard, was transferred to ICU-5 on 02/26/22 at 2140. Personal belongings sent with patient. Report given to REESE Otoole. Appropriate documentation sent with patient.
--- NOTE | 2022-02-26 22:13 | PC.NURSE ---
02/26/222201-Pt's daughter, Naa Adame updated with Pt's condition and transfer to ICU-5 to be intubated. All questions answered at this time. ICU contact information provided to daughter.
[2022-02-26 22:28] LABS: pH ABG 7.338 (7.350-7.450)
[2022-02-26 22:29] LABS: PCO2 ABG 79.1 mmHg (35.0-45.0)
[2022-02-26 22:30] LABS: HCO3 ABG 41.5 mEq/l (22.0-26.0); PO2 ABG 47.7 mmHg (80.0-100.0)
[2022-02-26 22:31] LABS: Base Excess ABG 11.9 mEq/l (+/-2.0)
[2022-02-26 22:32] LABS: Alveolar/Arterial O2 Gradient 146.5 mmHg; Oxygen Saturation ABG 78.8 % (95.0-100.0); Total Hemoglobin 14.7 g/dL (12.0-18.0)
[2022-02-26 22:33] LABS: Oxygen Content ABG 17.7 %vol (16.0-22.0)
[2022-02-26 22:34] LABS: Carboxyhemoglobin 1.4 % THb (0-2.0); Reduced Hemoglobin 12.3 %THb (0-5.0)
[2022-02-26 22:35] LABS: Device OTHER DEVICE; PO2 FiO2 Ratio Arterial Blood 1.19 %; Site Drawn LEFT BRACHIAL
[2022-02-26 22:37] LABS: Basophils Percent Auto 0.3 % (0.2-1.2); Hematocrit 49.2 % (37.0-47.0); Immature Granulocyte Absolute 0.14 K/mm3 (0.00-0.031); Immature Granulocyte Percent A 1.3 % (0-0.5); Lymphocytes Absolute Auto 0.19 K/mm3 (0.9-3.2); Lymphocytes Percent Auto 1.7 % (18.3-44.2); Mean Corpuscular HGB Conc 28.5 g/dl (32-36); Mean Corpuscular Hemoglobin 30.1 pg (26-34); Mean Corpuscular Volume 105.8 fl (80-100); Mean Platelet Volume 10.4 fl (7.4-10.4); Monocytes Absolute Auto 0.1 K/mm3 (0.1-0.6); Monocytes Percent Auto 1.2 % (2.6-8.5); Neutrophils Absolute Auto 10.7 K/mm3 (1.3-6.7); Neutrophils Percent Auto 95.5 % (45.5-73.1); Platelet Count Result 269 k/mm3 (150-375); Red Blood Count 4.65 M/mm3 (4.2-5.4); Red Cell Distribution Width 13.4 % (11.5-14.5); White Blood Count 11.2 K/mm3 (4.5-10.0)
[2022-02-26 22:41] LABS: Glucose Point of Care 204 mg/dl (65-105)
[2022-02-26 22:45] LABS: Ammonia 17 umol/L (9-30)
[2022-02-26 22:54] LABS: Alanine Aminotransferase 46 U/L (6-35); Albumin Level 3.6 g/dL (3.5-5.1); Alkaline Phosphatase 125 U/L (38-126); Aspartate Amino Transferase 31 U/L (14-36); Bilirubin,Total 0.9 mg/dL (0.2-1.3); Blood Urea Nitrogen 25 mg/dL (7-17); Carbon Dioxide > 40 mmol/L (22-30); Chloride 90 mmol/L (98-107); Estimated CRCL calculation 79 ml/min; Estimated Glomerular Filt Rate > 60; Glucose 169 mg/dL (65-110); Magnesium 2.1 mg/dL (1.6-2.3); Potassium 4.9 mmol/L (3.4-5.0); Sodium 136 mmol/L (137-145)
[2022-02-26 22:56] LABS: Troponin I 0.019 ng/mL (0.000-0.034)
--- NOTE | 2022-02-26 23:15 | WPDPROCEDUR ---
Procedures Intubation Intubation Date: 02/26/22 Intubation Time: 23:15 Consent: Implied consent. A pre-procedural Time-Out was completed immediately before starting the procedure and confirmed: Patient Identification, Site, Procedure, Patient Position and the Availability of Requisite Equipment: Yes Sedative: versed Paralytic: succinylcholine Mg given: 100 Laryngoscope: Guillen ET tube size: 7.5 Tube secured depth (cm): 26 Tube secured location: lips Tube placement confirmation: visualized tube passing through cords, equal breath sounds bilaterally, no breath sounds over epigastrium and confirmation by capnometry Patient tolerated procedure: well Intubation complications: none Additional comments: Orders given to advanced ET tube placed earlier by 5 cm. I received a call from the nurse shortly thereafter with reports of hypoxia, high peak pressures, and inability to pass the suction catheter after the tube was advanced. Guillen blade was used to visualize the ET tube which appeared unremarkable. Decision was made to exchange the ET tube however due to ongoing problems. ET tube had a kink near the cuff which was likely causing the issues. She was reintubated easily, atraumatically, and on 1st attempt with a Guillen 3 blade. Chest x-ray personally reviewed, showing ET tube approximately 2.1 cm above the david.
[2022-02-27] VITALS (29 sets, daily range): BP systolic 103–136; BP diastolic 52–66; PULSE 81–136; RESP 18–20; TEMP 37.2–38.1; O2SAT 89–96
--- NOTE | 2022-02-27 00:53 | PC.NURSE ---
This patient, Stephany Richard, was received from IMU on 02/26/22 at 2140. Patient/family oriented to unit policies and routines
[2022-02-27] MEDS: RAPID SEQUENCE INTUBATION KIT 1 EACH (00:58)
[2022-02-27 01:02] LABS: Alveolar/Arterial O2 Gradient 360.7 mmHg; Base Excess ABG 17.5 mEq/l (+/-2.0); Fractional Inspired Oxygen 70 %; Oxygen Content ABG 18.6 %vol (16.0-22.0); Oxygen Saturation ABG 90.9 % (95.0-100.0); Oxyhemoglobin 92.7 % THb (90.0-100.0); PO2 ABG 61.1 mmHg (80.0-100.0); PO2 FiO2 Ratio Arterial Blood 0.87 %; Total Hemoglobin 14.3 g/dL (12.0-18.0); pH ABG 7.424 (7.350-7.450)
[2022-02-27 01:03] LABS: Arterial Blood Gas Vent Mode CMV; Arterial Blood Gas Ventilator rate 18 /MIN; Device VENTILATOR; Modified Allen's Test Unable to perform; PCO2 ABG 71.9 mmHg (35.0-45.0); Site Drawn RIGHT RADIAL
[2022-02-27 01:04] LABS: Arterial Blood Gas PEEP 5 cmH2O; Arterial Blood Gas Tidal Volume 450 ml
[2022-02-27 01:40] LABS: D Dimer 0.83 ug/mL (<0.48)
[2022-02-27 01:41] LABS: Troponin I 0.016 ng/mL (0.000-0.034)
[2022-02-27] MEDS: methylPREDNISolone SOD SUCC 125 MG VIAL 60 MG IV PUSH ×4 (02:10→18:11)
[2022-02-27] MEDS: ALBUTEROL SULFATE NEB 2.5 MG/3 ML INH 5 MG INHALATION ×4 (02:15→20:07)
[2022-02-27] MEDS: IPRATROPIUM BR 0.02% INH SOLN 0.5 MG/2.5 ML VIAL INHALATION ×4 (02:15→20:07)
--- NOTE | 2022-02-27 03:11 | PC.NURSE ---
02/26/222127- Pt's continuous pulse oximetry not picking up on laboratory monitor and then showing a brief reading of 41% on the BIPAP. RT and multiple other staff members went to bedside to assess Pt. Pt found with secretions around BIPAP mask, lips dusky in color with agonal breathing. Palpable pulse noted. Rapid Response called 02/26/22 at 2131. Attempted to suction Pt and Pt noted to have teeth clamped on tongue. RT began to bag the Pt in preparation of intubation. See rapid response assessment for further information. Pt transferred to ICU-5.
[2022-02-27] MEDS: ENOXAPARIN 80 MG/0.8 ML SYRINGE SUB-Q (03:32)
[2022-02-27 05:03] LABS: Troponin I 0.021 ng/mL (0.000-0.034)
[2022-02-27 05:35] LABS: Alveolar/Arterial O2 Gradient 397.8 mmHg; Base Excess ABG 17.6 mEq/l (+/-2.0); Fractional Inspired Oxygen 70 %; HCO3 ABG 42.8 mEq/l (22.0-26.0); Oxygen Content ABG 17.5 %vol (16.0-22.0); Oxyhemoglobin 90.4 % THb (90.0-100.0); PCO2 ABG 51.2 mmHg (35.0-45.0); PO2 FiO2 Ratio Arterial Blood 0.66 %; Total Hemoglobin 13.8 g/dL (12.0-18.0)
[2022-02-27 05:39] LABS: Device VENTILATOR; Modified Allen's Test Unable to perform; Oxygen Saturation ABG 86.4 % (95.0-100.0); Site Drawn RIGHT RADIAL
[2022-02-27 05:40] LABS: Arterial Blood Gas PEEP 5 cmH2O; Arterial Blood Gas Tidal Volume 450 ml; Arterial Blood Gas Vent Mode CMV; Arterial Blood Gas Ventilator rate 20 /MIN
[2022-02-27 05:41] LABS: PO2 ABG 46.3 mmHg (80.0-100.0)
[2022-02-27 06:08] LABS: Alveolar/Arterial O2 Gradient 380.8 mmHg; Base Excess ABG 20.6 mEq/l (+/-2.0); Carboxyhemoglobin 0.2 % THb (0-2.0); Fractional Inspired Oxygen 70 %; HCO3 ABG 46.6 mEq/l (22.0-26.0); Methemoglobin ABG 0.2 %THb (0-1.5); Oxygen Content ABG 18.4 %vol (16.0-22.0); Oxygen Saturation ABG 92.4 % (95.0-100.0); Oxyhemoglobin 94.1 % THb (90.0-100.0); PO2 ABG 58.1 mmHg (80.0-100.0); PO2 FiO2 Ratio Arterial Blood 0.83 %; Reduced Hemoglobin 5.5 %THb (0-5.0); Total Hemoglobin 13.9 g/dL (12.0-18.0)
[2022-02-27 06:10] LABS: Arterial Blood Gas Vent Mode CMV; Arterial Blood Gas Ventilator rate 20 /MIN; Device VENTILATOR; Modified Allen's Test Unable to perform; Site Drawn LEFT RADIAL; pH ABG 7.538 (7.350-7.450)
[2022-02-27 06:10] LABS: Basophils Percent Auto 0.2 % (0.2-1.2); Immature Granulocyte Absolute 0.07 K/mm3 (0.00-0.031); Immature Granulocyte Percent A 0.5 % (0-0.5); Lymphocytes Absolute Auto 0.39 K/mm3 (0.9-3.2); Mean Corpuscular HGB Conc 29.5 g/dl (32-36); Mean Corpuscular Volume 101.4 fl (80-100); Mean Platelet Volume 10.2 fl (7.4-10.4); Monocytes Absolute Auto 0.6 K/mm3 (0.1-0.6); Monocytes Percent Auto 4.9 % (2.6-8.5); Neutrophils Absolute Auto 12.1 K/mm3 (1.3-6.7); Neutrophils Percent Auto 91.4 % (45.5-73.1); Platelet Count Result 228 k/mm3 (150-375); Red Blood Count 4.34 M/mm3 (4.2-5.4); Red Cell Distribution Width 13.1 % (11.5-14.5); White Blood Count 13.2 K/mm3 (4.5-10.0)
[2022-02-27 06:11] LABS: Arterial Blood Gas PEEP 5 cmH2O; Arterial Blood Gas Tidal Volume 450 ml
[2022-02-27 06:24] LABS: Alanine Aminotransferase 39 U/L (6-35); Albumin Level 2.9 g/dL (3.5-5.1); Alkaline Phosphatase 106 U/L (38-126); Aspartate Amino Transferase 25 U/L (14-36); Bilirubin,Total 0.9 mg/dL (0.2-1.3); Blood Urea Nitrogen 29 mg/dL (7-17); Calcium 8.1 mg/dL (8.4-10.2); Carbon Dioxide > 40 mmol/L (22-30); Chloride 90 mmol/L (98-107); Estimated CRCL calculation 92 ml/min; Estimated Glomerular Filt Rate > 60; Glucose 146 mg/dL (65-110); Potassium 4.4 mmol/L (3.4-5.0); Sodium 136 mmol/L (137-145)
[2022-02-27 06:54] LABS: Thyroid Stimulating Hormone Reflex 0.818 uIU/mL (0.465-4.68)
[2022-02-27] MEDS: PANTOPRAZOLE SODIUM IV 40 MG VIAL IV PUSH (10:42)
[2022-02-27] MEDS: ENOXAPARIN 40 MG/0.4 ML SYRINGE SUB-Q (10:42)
[2022-02-27] MEDS: MINERAL OIL/WHITE PETROLATUM OINTMENT 1 APPLIC EACH EYE ×2 (11:07→20:00)
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
[2022-02-27] MEDS: SODIUM CHLORIDE 0.9% IV 1,000 ML 999 ML IV CONT (12:15)
[2022-02-27 12:36] LABS: Influenza Control Positive
[2022-02-27] MEDS: SODIUM CHLORIDE 0.9% IV 1,000 ML 100 ML IV CONT (13:31)
[2022-02-27] MEDS: BUDESONIDE RESPULE NEB 0.5 MG/2 ML AMP INHALATION ×2 (14:08→20:07)
--- NOTE | 2022-02-27 15:39 | PM.IMPN ---
Progress Note: A&P Assessment and Plan (1) Acute on chronic respiratory failure with hypoxia and hypercapnia: Code(s): J96.21 - Acute and chronic respiratory failure with hypoxia; J96.22 - Acute and chronic respiratory failure with hypercapnia Status: Acute Assessment and Plan: Patient reported that she did not use her trilogy unit last night. Started on BiPAP, AVAPS mode, with improvement in her ABGs. Unfortunately she had an unresponsive episode and was essentially apneic, requiring intubation. Currently sedated and on mechanical ventilation, tidal volume 450, peep 5. Dr. Godwin was consulted, and following. (2) Respiratory arrest on examination: Code(s): R09.2 - Respiratory arrest Status: Acute Assessment and Plan: Patient was found on BiPAP, essentially apneic. Intubated emergently and transferred to ICU. Etiology not entirely clear as ABG was improving. Pulmonary embolism considered, check D-dimer Which came back elevated. Lovenox ordered CTA pending read. ? segmental PE venous duplex with patent bilateral lower extremity veins without evidence of DVT 02/27/2022 (3) Unresponsive episode: Code(s): R41.89 - Other symptoms and signs involving cognitive functions and awareness Status: Acute Assessment and Plan: Nurse was talking with the patient 10 minutes prior. On arrival she was unresponsive with clenched jaw. No seizure activity was noted; ABGs had improved. STAT brain CT ordered for further evaluation which showed no acute findings. (4) COPD exacerbation: Code(s): J44.1 - Chronic obstructive pulmonary disease with (acute) exacerbation Status: Acute Assessment and Plan: She is on scheduled bronchodilators and Solu-Medrol. Continue azithromycin which was started as an outpatient 2 days ago. on ceftriaxone as well CT a chest reveals left lower lobe pneumonia pending formal read from radiologist (5) Diastolic congestive heart failure: Code(s): I50.30 - Unspecified diastolic (congestive) heart failure Status: Acute Assessment and Plan: Clinically compensated with mild BNP elevation. Avoid over-hydration and monitor volume status closely. (6) Pneumonia: Code(s): J18.9 - Pneumonia, unspecified organism Status: Acute Subjective Date/time seen: 02/27/22 15:39 Interval history: HPI: This is a 66-year-old female smoker with severe COPD, chronic hypoxic and hypercapnic respiratory failure on trilogy, obstructive sleep apnea, diastolic congestive heart failure, hypertension, and other comorbidities who presented to the emergency department via EMS for evaluation of confusion and lethargy. On arrival to the emergency department she was alert to self only and initial ABG showed a pCO2 of 132. She was started on BiPAP, AVAPS mode, and at the time my evaluation she is alert and oriented x2 and she was able to tell me that she apparently did not wear her trilogy last night. She reported feeling short of breath and that is about the extent of the history I was able to obtain from her. Repeat blood gas was improved and she was admitted to the IMU. Her telemetry apparently started to alarm, reporting hypoxia with an SpO2 in the 40s and as the nurse entered the room, the patient was still on BiPAP but essentially unresponsive.? BiPAP was removed to suction the patient and she was reportedly cyanotic though she had a good pulse. At the time of my arrival she was unresponsive and hypopneic and respiratory therapy was assisting ventilation with a bag-valve mask. Decision was made to emergently intubate and she was transferred to the ICU. About an hour after her 1st intubation, she started to have high peak pressures and we were unable to pass the suction catheter so she was reintubated it was noted that there was a kink near the cuff which was likely the culprit. Since that time she has since started to arouse a bit more and she is makin
[2022-02-28] VITALS (44 sets, daily range): BP systolic 99–126; BP diastolic 46–79; PULSE 71–127; RESP 15–24; TEMP 37.2–38.2; O2SAT 89–95; BMI 33.3
--- NOTE | 2022-02-28 | ECHO_ITS ---
Patient Info Name: Stephany Richard Age: 66 years : 1955 Gender: Female Ht: 63 in Wt: 175 lbs BSA: 1.91 m2 HR: 114 bpm BP: 117 / 57 mmHg Heart Rhythm: Tachycardia Technical Quality: Fair Exam Date: 02/28/2022 7:43 AM Exam Location: [facility] Pulmonary Patient Status: Inpatient Admit Date: 02/26/2022 Staff Ordering Physician: Bryson Godwin MD Paper Plate Machine Tender: Harriett Felix RDCS Attending Provider: Martinez Vaughan MD Referring Physician: Citlali MORRIS; Exam Type: CA echo doppler color flow Study Info Indications - Acute respiratory failure Complete two-dimensional, color flow and Doppler transthoracic echocardiogram is performed. Summary 1. Complete two-dimensional, color flow and Doppler transthoracic echocardiogram is performed. 2. Left ventricular chamber dimension is normal. 3. Left ventricular systolic function is normal, estimated at 65-70%. 4. The left ventricular diastolic function is grade I diastolic dysfunction. 5. There is no increased left ventricular wall thickness. 6. Left atrial chamber dimension is mildly enlarged. 7. There is mild aortic valve sclerosis. Left Ventricle Left ventricular chamber dimension is normal. Left ventricular systolic function is normal, estimated at 65-70%. There is no increased left ventricular wall thickness. The left ventricular diastolic function is grade I diastolic dysfunction. Right Ventricle Right ventricular chamber dimension is normal. Right ventricular systolic function is normal. Left Atria Left atrial chamber dimension is mildly enlarged. Right Atria Right atrial chamber dimension is normal. Atrial Septum Intact interatrial septum visualized by color flow imaging. Aortic Valve The aortic valve is probable trileaflet. There is mild aortic valve sclerosis. There is no aortic valve stenosis. There is trace aortic valve regurgitation. Pulmonic Valve The pulmonic valve is normal. There is no pulmonic valve stenosis. There is trace pulmonic regurgitation. Mitral Valve The mitral valve has normal leaflets. There is no mitral valve stenosis. There is trace mitral valve regurgitation. Tricuspid Valve The tricuspid valve leaflets are normal. There is no significant tricuspid valve stenosis. There is trace tricuspid valve regurgitation. No pulmonary hypertension, estimated pulmonary arterial systolic pressure is 26 mmHg. Pericardium/Pleural The pericardium appears normal. There is no pericardial effusion. Inferior Vena Cava Normal inferior vena cava with >50% collapse upon inspiration consistent with normal right atrial pressure, 10 mmHg. Aorta The aortic root size at the sinus of Valsalva is normal. Left Ventricular Outflow Tract Name Value Normal LVOT 2D LVOT Diameter 2.0 cm LVOT Doppler LVOT Peak Gradient 8 mmHg LVOT Mean Gradient 3 mmHg LVOT VTI 21 cm LVOT VTI/AV VTI Ratio 0.9 LVOT Stroke Volume 64 ml LVOT CO
[2022-02-28 00:10] LABS: Glucose Point of Care 135 mg/dl (65-105)
[2022-02-28] MEDS: methylPREDNISolone SOD SUCC 125 MG VIAL 60 MG IV PUSH ×4 (00:25→17:25)
[2022-02-28] MEDS: LEVALBUTEROL NEB 1.25 MG/3 ML 0.63 MG INHALATION ×4 (02:24→20:05)
[2022-02-28] MEDS: IPRATROPIUM BR 0.02% INH SOLN 0.5 MG/2.5 ML VIAL INHALATION ×4 (02:24→20:04)
[2022-02-28 05:02] LABS: Basophils Percent Auto 0.1 % (0.2-1.2); Hematocrit 38.8 % (37.0-47.0); Hemoglobin 12.1 g/dL (12.0-15.0); Immature Granulocyte Absolute 0.07 K/mm3 (0.00-0.031); Immature Granulocyte Percent A 0.5 % (0-0.5); Lymphocytes Absolute Auto 0.22 K/mm3 (0.9-3.2); Lymphocytes Percent Auto 1.6 % (18.3-44.2); Mean Corpuscular HGB Conc 31.2 g/dl (32-36); Mean Corpuscular Hemoglobin 30.9 pg (26-34); Mean Corpuscular Volume 99.2 fl (80-100); Mean Platelet Volume 10.6 fl (7.4-10.4); Monocytes Absolute Auto 0.4 K/mm3 (0.1-0.6); Monocytes Percent Auto 2.8 % (2.6-8.5); Neutrophils Absolute Auto 12.8 K/mm3 (1.3-6.7); Platelet Count Result 223 k/mm3 (150-375); Red Blood Count 3.91 M/mm3 (4.2-5.4); Red Cell Distribution Width 13.5 % (11.5-14.5); White Blood Count 13.4 K/mm3 (4.5-10.0)
[2022-02-28 05:10] LABS: Alveolar/Arterial O2 Gradient 199.1 mmHg; Base Excess ABG 16.3 mEq/l (+/-2.0); Carboxyhemoglobin 0.2 % THb (0-2.0); Fractional Inspired Oxygen 50 %; HCO3 ABG 46.2 mEq/l (22.0-26.0); Methemoglobin ABG 0.3 %THb (0-1.5); Oxygen Content ABG 18.3 %vol (16.0-22.0); Oxygen Saturation ABG 90.5 % (95.0-100.0); Oxyhemoglobin 91.7 % THb (90.0-100.0); PO2 ABG 64.1 mmHg (80.0-100.0); PO2 FiO2 Ratio Arterial Blood 1.28 %; Reduced Hemoglobin 7.8 %THb (0-5.0); Total Hemoglobin 14.2 g/dL (12.0-18.0); pH ABG 7.364 (7.350-7.450)
[2022-02-28] MEDS: FENTANYL 2,500MCG/NS250ML(*CRX 2,500 MCG/250 ML BAG 7.5 MCG IV CONT (05:16)
[2022-02-28 05:18] LABS: Arterial Blood Gas PEEP 5 cmH2O; Arterial Blood Gas Tidal Volume 370 ml; Arterial Blood Gas Vent Mode CMV; Arterial Blood Gas Ventilator rate 20 /MIN; Device VENTILATOR; PCO2 ABG 82.9 mmHg (35.0-45.0); Site Drawn RIGHT RADIAL
[2022-02-28 05:34] LABS: Alanine Aminotransferase 32 U/L (6-35); Albumin Level 2.9 g/dL (3.5-5.1); Alkaline Phosphatase 95 U/L (38-126); Aspartate Amino Transferase 23 U/L (14-36); Bilirubin,Total 0.6 mg/dL (0.2-1.3); Blood Urea Nitrogen 29 mg/dL (7-17); Calcium 7.1 mg/dL (8.4-10.2); Carbon Dioxide > 40 mmol/L (22-30); Chloride 93 mmol/L (98-107); Estimated CRCL calculation 68 ml/min; Estimated Glomerular Filt Rate > 60; Glucose 126 mg/dL (65-110); Phosphorus 2.3 mg/dL (2.5-4.5); Sodium 136 mmol/L (137-145)
[2022-02-28] MEDS: ENOXAPARIN 40 MG/0.4 ML SYRINGE SUB-Q (07:39)
[2022-02-28] MEDS: PANTOPRAZOLE SODIUM IV 40 MG VIAL IV PUSH (07:39)
[2022-02-28] MEDS: MINERAL OIL/WHITE PETROLATUM OINTMENT 1 APPLIC EACH EYE (07:39)
[2022-02-28] MEDS: METOPROLOL TARTRATE 12.5 MG TABLET PO (08:02)
[2022-02-28] MEDS: PARoxetine 20 MG TABLET 40 MG PO (08:03)
[2022-02-28] MEDS: BUDESONIDE RESPULE NEB 0.5 MG/2 ML AMP INHALATION ×2 (08:13→20:04)
--- NOTE | 2022-02-28 11:27 | WPDINTPN ---
Progress Note: A&P Assessment and Plan (1) Acute on chronic respiratory failure with hypoxia and hypercapnia: Code(s): J96.21 - Acute and chronic respiratory failure with hypoxia; J96.22 - Acute and chronic respiratory failure with hypercapnia Status: Acute Assessment and Plan: Acute on chronic hypercapnic respiratory failure likely related to COPD exacerbation, pneumonia, possible PE as she does have a history. -chest x-ray not very impressive -02/27/2022 CT PE protocol: No evidence of PE, left lower lobe collapse possible secondary to obstruction from aspiration of mucus plugging. Infection is not included. Moderate to severe compression fractures of T6 and T7 of uncertain age. 15 mm left thyroid nodule -currently on CMV mode of ventilation,, will increase PEEP to 8, wean FiO2 to maintain O2 sats greater than 90% -ABGs and chest x-ray reviewed, ventilator adjusted -sedated with fentanyl Versed. Maintain RASS of 0--2 -continue bronchodilators, continue Pulmicort -add Mucomyst nebulizer (2) COPD (chronic obstructive pulmonary disease): Code(s): J44.9 - Chronic obstructive pulmonary disease, unspecified Status: Acute Assessment and Plan: Continue mechanical ventilation, -continue ceftriaxone and azithromycin -continue steroids and bronchodilators -appreciate pulmonology evaluation and recommendations (3) Encephalopathy: Code(s): G93.40 - Encephalopathy, unspecified Status: Acute Assessment and Plan: Encephalopathy could be related to hypercapnia, hypoxia -patient has been following commands this morning, -will continue to monitor (4) Diastolic congestive heart failure: Code(s): I50.30 - Unspecified diastolic (congestive) heart failure Status: Acute Assessment and Plan: History of diastolic heart failure with preserved ejection fraction on echocardiogram mentioned in the history and physical. 02/28/2026 echocardiogram shows EF of 65-70%, grade 1 diastolic dysfunction (5) DVT prophylaxis: Code(s): Z29.9 - Encounter for prophylactic measures, unspecified Status: Acute Assessment and Plan: Lovenox SQ (6) Tobacco use disorder: Code(s): F17.200 - Nicotine dependence, unspecified, uncomplicated Status: Acute Assessment and Plan: Daughter states that the patient continues to smoke about 1 to 1-1/2 packet daily -will equal opportunity counselor patient once she is extubated Plan Increase PEEP to 8, Started on Mucomyst nebs Pulmonary following the patient Additional Plan Nutrition: Tolerating tube feeds Stress ulcer prophylaxis: Protonix 02/28/2022: Discussed with daughter during rounds and updated her with patient's condition and plan of care. The daughter is also going to meet with care coordination Discussed with pulmonology Code status: Full code Critical care time spent: 36 minutes This dictation may have been done utilizing a voice recognition system. Attempts have been made to correct errors. However, there may be uncorrected grammatical, spelling, and recognition errors present. Due to a high probability of clinically significant, life threatening deterioration, the patient required my highest level of preparedness to intervene emergently and I personally spent this critical care time directly and personally managing the patient. This critical care time included obtaining a history; examining the patient; pulse oximetry; ordering and review of studies; arranging urgent treatment with development of a management plan; evaluation of patient's response to treatment; frequent reassessment; and discussions with other providers. It was exclusive of separately billable procedures and treating other patients and teaching time. Please see Assessment and Plan section and the rest of the note for further information on patient assessment and treatment Subjective Date/time seen: 02/28/22 11:27 Interval history: Reason for consult
--- NOTE | 2022-02-28 12:06 | PM.CNPUL ---
Assessment and Plan Assessment and plan (1) COPD exacerbation: Code(s): J44.1 - Chronic obstructive pulmonary disease with (acute) exacerbation Status: Acute Assessment and Plan: 66-year-old female with history of severe COPD, hypoxemic hypercapnic respiratory failure on home ventilatory support via trilogy, presented with acute on chronic hypercapnic respiratory failure. The patient did not respond to BiPAP support for acute hypercapnic respiratory failure and was intubated and transferred to the intensive care unit. She has improved while on treatment with IV steroids, antibiotics short-acting bronchodilators for COPD exacerbation. chest diagnostic studies showed left lower lobe atelectasis. The patient continues to require high FiO2 most likely due to persistent left lower lobe atelectasis. it is unclear whether the atelectasis is new or chronic. patient has been on relatively high FiO2 at home for someone with COPD, using 8 L with activities and 4 L per minute at rest. These high oxygen needs may suggest that the left lower lobe atelectasis is chronic. Plan: Will continue with current regimen of antibiotics, short-acting bronchodilators and ventilatory support for COPD exacerbation. Regarding left lower lobe atelectasis, we will increase PEEP to 78 cm of water, position patient with the left lung at a higher lever than the R lung, add nebulized Mucomyst to current regimen, repeat chest x-ray in a.m.. if there is evidence of persistent left lower lobe atelectasis, we will proceed with bronchoscopy. The case was discussed with Dr. Velasco, the strap machine operator automatic. (2) Acute on chronic respiratory failure with hypoxia and hypercapnia: Code(s): J96.21 - Acute and chronic respiratory failure with hypoxia; J96.22 - Acute and chronic respiratory failure with hypercapnia Status: Acute (3) Tobacco use disorder: Code(s): F17.200 - Nicotine dependence, unspecified, uncomplicated Status: Acute (4) Atelectasis of left lung: Code(s): J98.11 - Atelectasis Status: Acute History of Present Illness History of Present Illness Consult date: 02/28/22 Chief complaint: Acute Respiratory Failure Narrative: This 66-year-old female has history of severe COPD. She presented with increasing confusion and lethargy approximately 2 days ago. The patient has had history of a chronic hypoxemic respiratory failure on chronic home ventilatory support via trilogy ventilator. Patient is currently intubated in the intensive care unit. Most information for this report was obtained after reviewing the patient's chart and talking to the patient's daughter. The patient lives alone and has been on relatively high oxygen flows for her COPD using 8 liters/minute with activities and 4 liters/minute at rest. She has been on dose flows for at least couple of years. No previous clinical data are available as patient goes to [facility]. The patient presented with increasing confusion and lethargy. She was found to have acute on chronic hypercapnic respiratory failure. She was initially treated in IMU with BiPAP support. Because of worsening respiratory status with unresponsiveness the patient was intubated and subsequently transferred to the intensive care unit where she is still on ventilatory support via assist-control ventilation. following 1st intubation the patient was found to have very high peak pressures with inability to pass the suction catheter. She was then reintubated with normalization of the ventilator peak pressures. Patient is fully awake while she is receiving mild IV sedation. She has been treated with antibiotics, IV steroids and bronchodilators for COPD exacerbation. She has improved since she was transferred to the intensive care unit. Review of diagnostic studies including chest x-rays and CT showed no evidence of pulmonary embolism and left lower lobe atelectasis. Review of Systems Review of
[2022-02-28] MEDS: MIDAZOLAM 100MG/NS 100ML(*CRX) 100 MG/100 ML BAG IV CONT (12:18)
--- NOTE | 2022-02-28 13:07 | PM.IMPN ---
Progress Note: A&P Assessment and Plan (1) Acute on chronic respiratory failure with hypoxia and hypercapnia: Code(s): J96.21 - Acute and chronic respiratory failure with hypoxia; J96.22 - Acute and chronic respiratory failure with hypercapnia Status: Acute Assessment and Plan: Patient reported that she did not use her trilogy unit night prior to admission. Started on BiPAP, AVAPS mode, with improvement in her ABGs. Unfortunately she had an unresponsive episode and was essentially apneic, requiring intubation. Currently on mechanical ventilation, tidal volume 450, peep 5. Dr. Godwin was consulted, and following. Further management per senior cost accountant (2) Respiratory arrest on examination: Code(s): R09.2 - Respiratory arrest Status: Acute Assessment and Plan: Patient was found on BiPAP, essentially apneic. Intubated emergently and transferred to ICU. Etiology not entirely clear as ABG was improving. Pulmonary embolism considered, check D-dimer Which came back elevated. Lovenox ordered CTA negative for PE showed left lower lobe collapse Pulmonary following, Mucomyst ordered venous duplex with patent bilateral lower extremity veins without evidence of DVT 02/27/2022 (3) Unresponsive episode: Code(s): R41.89 - Other symptoms and signs involving cognitive functions and awareness Status: Acute Assessment and Plan: Nurse was talking with the patient 10 minutes prior. On arrival she was unresponsive with clenched jaw. No seizure activity was noted; ABGs had improved. STAT brain CT ordered for further evaluation which showed no acute findings. (4) COPD exacerbation: Code(s): J44.1 - Chronic obstructive pulmonary disease with (acute) exacerbation Status: Acute Assessment and Plan: She is on scheduled bronchodilators and Solu-Medrol. Continue azithromycin which was started as an outpatient 2 days ago. on ceftriaxone as well CT a chest reveals left lower lobe collapse. Pulmonary following steroid and bronchodilators along with Mucomyst (5) Diastolic congestive heart failure: Code(s): I50.30 - Unspecified diastolic (congestive) heart failure Status: Acute Assessment and Plan: Clinically compensated with mild BNP elevation. Avoid over-hydration and monitor volume status closely. (6) Pneumonia: Code(s): J18.9 - Pneumonia, unspecified organism Status: Acute Subjective Date/time seen: 02/28/22 13:07 Interval history: HPI: This is a 66-year-old female smoker with severe COPD, chronic hypoxic and hypercapnic respiratory failure on trilogy, obstructive sleep apnea, diastolic congestive heart failure, hypertension, and other comorbidities who presented to the emergency department via EMS for evaluation of confusion and lethargy. On arrival to the emergency department she was alert to self only and initial ABG showed a pCO2 of 132. She was started on BiPAP, AVAPS mode, and at the time my evaluation she is alert and oriented x2 and she was able to tell me that she apparently did not wear her trilogy last night. She reported feeling short of breath and that is about the extent of the history I was able to obtain from her. Repeat blood gas was improved and she was admitted to the IMU. Her telemetry apparently started to alarm, reporting hypoxia with an SpO2 in the 40s and as the nurse entered the room, the patient was still on BiPAP but essentially unresponsive.? BiPAP was removed to suction the patient and she was reportedly cyanotic though she had a good pulse. At the time of my arrival she was unresponsive and hypopneic and respiratory therapy was assisting ventilation with a bag-valve mask. Decision was made to emergently intubate and she was transferred to the ICU. About an hour after her 1st intubation, she started to have high peak pressures and we were unable to pass the suction catheter so she was reintubated it was noted that there was a
[2022-02-28] MEDS: ACETYLCYSTEINE 20% INHAL SOLN 800 MG/4 ML VIAL 200 MG INHALATION ×2 (13:20→20:04)
--- NOTE | 2022-02-28 20:35 | PC.NURSE ---
Spoke with Dr. Godwin regarding current bp, hold Metoprolol.
[2022-03-01] VITALS (54 sets, daily range): BP systolic 68–144; BP diastolic 37–97; PULSE 58–113; RESP 15–26; TEMP 37.2–37.7; O2SAT 90–99
[2022-03-01] MEDS: methylPREDNISolone SOD SUCC 125 MG VIAL 60 MG IV PUSH ×3 (00:26→08:06)
[2022-03-01] MEDS: ACETYLCYSTEINE 20% INHAL SOLN 800 MG/4 ML VIAL 200 MG INHALATION ×4 (02:54→20:08)
[2022-03-01] MEDS: IPRATROPIUM BR 0.02% INH SOLN 0.5 MG/2.5 ML VIAL INHALATION ×4 (02:55→20:07)
[2022-03-01] MEDS: LEVALBUTEROL NEB 1.25 MG/3 ML 0.63 MG INHALATION ×4 (02:55→20:07)
[2022-03-01 04:38] LABS: Basophils Percent Auto 0.1 % (0.2-1.2); Hemoglobin 11.2 g/dL (12.0-15.0); Immature Granulocyte Absolute 0.08 K/mm3 (0.00-0.031); Immature Granulocyte Percent A 0.6 % (0-0.5); Lymphocytes Absolute Auto 0.25 K/mm3 (0.9-3.2); Lymphocytes Percent Auto 1.9 % (18.3-44.2); Mean Corpuscular Hemoglobin 30.9 pg (26-34); Mean Corpuscular Volume 96.4 fl (80-100); Mean Platelet Volume 10.8 fl (7.4-10.4); Monocytes Absolute Auto 0.4 K/mm3 (0.1-0.6); Monocytes Percent Auto 2.9 % (2.6-8.5); Neutrophils Absolute Auto 12.7 K/mm3 (1.3-6.7); Neutrophils Percent Auto 94.5 % (45.5-73.1); Platelet Count Result 207 k/mm3 (150-375); Red Blood Count 3.63 M/mm3 (4.2-5.4); Red Cell Distribution Width 13.9 % (11.5-14.5); White Blood Count 13.4 K/mm3 (4.5-10.0)
[2022-03-01 04:52] LABS: Alanine Aminotransferase 29 U/L (6-35); Albumin Level 2.9 g/dL (3.5-5.1); Alkaline Phosphatase 70 U/L (38-126); Aspartate Amino Transferase 29 U/L (14-36); Bilirubin,Total 0.6 mg/dL (0.2-1.3); Blood Urea Nitrogen 33 mg/dL (7-17); Calcium 7.2 mg/dL (8.4-10.2); Carbon Dioxide > 40 mmol/L (22-30); Chloride 92 mmol/L (98-107); Estimated CRCL calculation 99 ml/min; Estimated Glomerular Filt Rate > 60; Glucose 145 mg/dL (65-110); Magnesium 2.2 mg/dL (1.6-2.3); Phosphorus 2.2 mg/dL (2.5-4.5); Sodium 134 mmol/L (137-145)
[2022-03-01 05:28] LABS: Alveolar/Arterial O2 Gradient 264.5 mmHg; Base Excess ABG 13.3 mEq/l (+/-2.0); Carboxyhemoglobin 0.3 % THb (0-2.0); Device VENTILATOR; Fractional Inspired Oxygen 55 %; HCO3 ABG 40.6 mEq/l (22.0-26.0); Methemoglobin ABG 0.4 %THb (0-1.5); Modified Allen's Test Pass; Oxygen Content ABG 21.7 %vol (16.0-22.0); Oxyhemoglobin 91.9 % THb (90.0-100.0); PCO2 ABG 59.6 mmHg (35.0-45.0); PO2 ABG 61.4 mmHg (80.0-100.0); PO2 FiO2 Ratio Arterial Blood 1.12 %; Reduced Hemoglobin 7.4 %THb (0-5.0); Site Drawn LEFT RADIAL; Total Hemoglobin 16.8 g/dL (12.0-18.0); pH ABG 7.451 (7.350-7.450)
[2022-03-01 05:29] LABS: Arterial Blood Gas PEEP 8 cmH2O; Arterial Blood Gas Tidal Volume 410 ml; Arterial Blood Gas Vent Mode CMV; Arterial Blood Gas Ventilator rate 20 /MIN
[2022-03-01] MEDS: PARoxetine 20 MG TABLET 40 MG PO (08:06)
[2022-03-01] MEDS: METOPROLOL TARTRATE 12.5 MG TABLET PO ×2 (08:07→20:48)
[2022-03-01] MEDS: PANTOPRAZOLE SODIUM IV 40 MG VIAL IV PUSH (08:07)
[2022-03-01] MEDS: ENOXAPARIN 40 MG/0.4 ML SYRINGE SUB-Q (08:21)
[2022-03-01] MEDS: BUDESONIDE RESPULE NEB 0.5 MG/2 ML AMP INHALATION ×2 (08:34→20:07)
[2022-03-01] MEDS: MINERAL OIL/WHITE PETROLATUM OINTMENT 1 APPLIC EACH EYE (08:42)
[2022-03-01] MEDS: CALCIUM GLUC 1,000 MG/NS 50 ML 1,000 MG/50 ML BAG 100 MG IVPB (08:42)
[2022-03-01] MEDS: POTASSIUM/PHOSPHORUS/SODIUM 1.5 GM PACKET 1 PACKET PO (08:42)
--- NOTE | 2022-03-01 09:12 | WPDINTPN ---
Progress Note: A&P Assessment and Plan (1) Acute on chronic respiratory failure with hypoxia and hypercapnia: Code(s): J96.21 - Acute and chronic respiratory failure with hypoxia; J96.22 - Acute and chronic respiratory failure with hypercapnia Status: Acute Assessment and Plan: Acute on chronic hypercapnic respiratory failure likely related to COPD exacerbation, pneumonia, -chest x-ray reviewed -02/27/2022 CT PE protocol: No evidence of PE, left lower lobe collapse possible secondary to obstruction from aspiration of mucus plugging. Infection is not included. Moderate to severe compression fractures of T6 and T7 of uncertain age. 15 mm left thyroid nodule -currently on CMV mode of ventilation,, e PEEP to 8, current FiO2 is 55%. Will try to wean if possible -ABGs reviewed, ventilator adjusted tidal volume decreased to 380 and rate decreased to 18 -sedated with fentanyl Versed. Maintain RASS of 0--2 -continue bronchodilators, continue Pulmicort -continue Mucomyst nebulizer -discussed with pulmonary and plan for bronchoscopy today -for Legionella mycoplasma IgM and urine pneumococcal antigen are pending -flu and COVID were negative -blood cultures and respiratory cultures are negative till now -as postobstructive pneumonia is a possibility I will change Rocephin to cefepime and Flagyl cover for anaerobes -continues with her mycin (2) Pneumonia: Code(s): J18.9 - Pneumonia, unspecified organism Status: Acute Assessment and Plan: See above (3) Atelectasis of left lung: Code(s): J98.11 - Atelectasis Status: Acute Assessment and Plan: See above (4) COPD (chronic obstructive pulmonary disease): Code(s): J44.9 - Chronic obstructive pulmonary disease, unspecified Status: Acute Assessment and Plan: Continue mechanical ventilation, Continue steroids but decrease dose to q.a.m. from today Continue bronchodilators (5) Encephalopathy: Code(s): G93.40 - Encephalopathy, unspecified Status: Acute Assessment and Plan: Encephalopathy could be related to hypercapnia, hypoxia -patient has been following commands this morning, -will continue to monitor (6) Diastolic congestive heart failure: Code(s): I50.30 - Unspecified diastolic (congestive) heart failure Status: Acute Assessment and Plan: History of diastolic heart failure with preserved ejection fraction on echocardiogram mentioned in the history and physical. 02/28/2026 echocardiogram shows EF of 65-70%, grade 1 diastolic dysfunction On low-dose beta-janell Hold diuretics at this time (7) DVT prophylaxis: Code(s): Z29.9 - Encounter for prophylactic measures, unspecified Status: Acute Assessment and Plan: Lovenox SQ (8) Tobacco use disorder: Code(s): F17.200 - Nicotine dependence, unspecified, uncomplicated Status: Acute Assessment and Plan: Daughter states that the patient continues to smoke about 1 to 1-1/2 packet daily -will branch credit counselor patient once she is extubated (9) PAC (premature atrial contraction): Code(s): I49.1 - Atrial premature depolarization Status: Acute Assessment and Plan: Telemetry shows frequent PACs Check 12 lead EKG Continue low-dose beta-janell Replace electrolytes Additional Plan Nutrition: Tolerating tube feeds Stress ulcer prophylaxis: Protonix Discussed with pulmonology Code status: Full code Critical care time spent: 32 minutes This dictation may have been done utilizing a voice recognition system. Attempts have been made to correct errors. However, there may be uncorrected grammatical, spelling, and recognition errors present. Due to a high probability of clinically significant, life threatening deterioration, the patient required my highest level of preparedness to intervene emergently and I personally spent this critical care time directly and personally managing the patient.
--- NOTE | 2022-03-01 09:15 | PM.PNPUL ---
Progress Note: A&P Assessment and Plan (1) Atelectasis of left lung: Code(s): J98.11 - Atelectasis Status: Acute (2) Pneumonia: Code(s): J18.9 - Pneumonia, unspecified organism Status: Acute Assessment and Plan: 66-year-old female with history of severe COPD, hypoxemic hypercapnic respiratory failure presented with acute on chronic hypercapnic respiratory failure a new left lower lobe infiltrate. Patient remains intubated in the intensive care unit and clinical condition has not improved over the last 24 hours. In fact the FiO2 increased to 55% to maintain adequate oxyhemoglobin saturation. Today's chest x-ray with a new pleural effusion on left suggest left lower lobe pneumonia rather than atelectasis. Will proceed with a bronchoscopy and BAL. will extend antibiotic coverage following bronchoscopy. (3) Tobacco use disorder: Code(s): F17.200 - Nicotine dependence, unspecified, uncomplicated Status: Acute (4) Diastolic congestive heart failure: Code(s): I50.30 - Unspecified diastolic (congestive) heart failure Status: Acute (5) COPD exacerbation: Code(s): J44.1 - Chronic obstructive pulmonary disease with (acute) exacerbation Status: Acute (6) Acute on chronic respiratory failure with hypoxia and hypercapnia: Code(s): J96.21 - Acute and chronic respiratory failure with hypoxia; J96.22 - Acute and chronic respiratory failure with hypercapnia Status: Acute (7) COPD (chronic obstructive pulmonary disease): Code(s): J44.9 - Chronic obstructive pulmonary disease, unspecified Status: Acute Subjective Date/time seen: 03/01/22 09:15 No significant change in patient's clinical condition. She remains on ventilator, with the FIO2 now greater than yesterday. She continues to have leukocytosis small amount of thick yellowish secretions. Exam Narrative: GENERAL APPEARANCE: Well developed, well nourished, Awake while on ventilatory support. SKIN: Inspection of the skin reveals no rashes, ulcerations or petechiae. HEENT: Sclerae anicteric and conjunctivae pink and moist. Extraocular movements were intact and pupils were equal. NECK: Supple. There was no thyroid enlargement, and no tenderness, or masses were felt. CHEST: Normal AP diameter and normal contour without any kyphoscoliosis. LUNGS: Auscultation of the lungs revealed Distant breath sounds anteriorly, no wheezing. CARDIAC: There was a regular rate and rhythm without any murmurs, gallops, rubs. ABDOMEN: Soft and nontender with normal bowel sounds. There was no organomegaly. LYMPH NODES: No lymphadenopathy was appreciated in the neck. EXTREMITIES: No cyanosis, clubbing or edema. NEUROLOGIC: awake on ventilator, moving all extremities, following commands while lightly sedated. Objective Data Vital Signs Vital Signs: Vital Signs - 24 hr 02/28/22 10:00 02/28/22 10:00 02/28/22 11:49 Temperature 38.2 C H Pulse Rate 87 78 83 Respiratory Rate 20 20 Blood Pressure 110/79 112/56 L Pulse Oximetry 92 90 Oxygen Delivery Fraction of Inspired Oxygen 02/28/22 12:18 02/28/22 12:00 02/28/22 12:00 Temperature Pulse Rate 84 81 Respiratory Rate 20 Blood Pressure Pulse Oximetry Oxygen Delivery Fraction of Inspired Oxygen 50 02/28/22 12:00 02/28/22 13:20 02/28/22 13:58 Temperature Pulse Rate 81 89 87 Respiratory Rate 20 20 20 Blood Pressure Pulse Oximetry 92 Oxygen Delivery Mechanical Ventilation Fraction of Inspired Oxygen 50 02/28/22 14:05 02/28/22 10:00 02/28/22 14:00 Temperature Pulse Rate 80 78 84 Respiratory Rate 20 20 Blood Pressure Pulse Oximetry Oxygen Delivery Fraction of Inspired Oxygen 02/28/22 14:00 02/28/22 15:38 02/28/22 16:00 Temperature 37.8 C H 37.9 C H Pulse Rate 84 80 Respiratory Rate 20 20 Blood Pressure 99/59 L 125/55 L Pulse Oximetry 89 L 94 Oxygen Delivery Fraction of I
--- NOTE | 2022-03-01 09:23 | ECG_ITS ---
Measurements Intervals [place] Rate: 72 P: -40 MN: 115 QRS: 39 QRSD: 90 T: 45 QT: 364 QTc: 401 Interpretive Statements SINUS RHYTHM WITH SHORT MN INTERVAL WITH FREQUENT SUPRAVENTRICULAR PREMATURE COMPLEXES IN A BIGEMINAL PATTERN Electronically Signed On 03-01-2022 11:15:30 CDT by Roly Yuan M.D.
--- NOTE | 2022-03-01 10:42 | PCNFU ---
Nutrition Follow-Up Complete: Inadequate Oral Intake as related to mechanical ventilation as evidenced by tube feedings. goal: Meet estimated nutritional needs Patient is progressing towards goal. We will continue current goal. Pt current nutrition is Vital AF 1.2 at 45 ml/hr Last recorded weight is 91.8 kg, up from 85.5 kg on admit. Bowel Motility:No BM to report. Labs Reviewed:Glu 145, BUN 33, Na 134, Alb 2.9,Hgb 11.2, Cr 0.5 Meds Noted:Atrovent, Versed, Fentanyl,Rocephin, Paxil, Xopenex, Metoprolol. Skin: WNL Additional Notes: Patient remains on mechanical vent, tube feeding on hold for Bronchoscopy today. Tube feeding will resume of Vital AF 1.2 at 45 ml/hr over 22 hours, which is providing 1181 kcals/74 gms/ 803 ml water. Free water flush 30 ml q 4 hours. 76% caloric needs and 100% protein needs. Monitoring: Will monitor every Monday and Monday.
[2022-03-01 12:15] LABS: Glucose Point of Care 159 mg/dl (65-105)
[2022-03-01] MEDS: MIDAZOLAM HCL (*CRX) 2 MG/2 ML VIAL IV PUSH (12:40)
[2022-03-01] MEDS: fentaNYL CITRATE INJ (*CRX) 100 MCG/2 ML VIAL 50 MCG IV PUSH (12:50)
--- NOTE | 2022-03-01 13:08 | SUR.OPER ---
ICU nurse Koko and boiler operator Dr. Godwin monitoring sedation.
--- NOTE | 2022-03-01 13:10 | PC.NURSE ---
DR GODFREY HERE TO PERFORM BRONCHOSCOPY AT BESIDE. PT GIVEN SEDATION PRESCRIBED DR BERRIOS
[2022-03-01] MEDS: SODIUM CHLORIDE 0.9% IV 500 ML BAG IRRIGATION (13:18)
[2022-03-01] MEDS: metroNIDAZOLE 500 MG/ISO 100ML 500 MG/100 ML BAG 100 MG IVPB ×3 (13:20→23:27)
[2022-03-01] MEDS: LIDOCAINE HCL 2% PF INJ 5 ML VIAL 4 ML INFILTRATE (13:21)
--- NOTE | 2022-03-01 13:29 | PM.OP ---
Procedure Note - Brief Procedure Note - Brief Date of procedure: 03/01/22 Pre-op diagnosis: Acute Respiratory Failure left lower lobe pneumonia, question left lower lobe atelectasis Post-op diagnosis: Other (Left Lower Lobe bronchitis) Procedure performed: Bronchoscopy with BAL Description of procedure: POSTOPERATIVE DIAGNOSIS:Left lung bronchitis PROCEDURE PERFORMED: Flexible fiberoptic bronchoscopy diagnostic with BAL COMPLICATIONS: None. INDICATION: Respiratory failure, left lower lobe pneumonia versus left lower lobe atelectasis PROCEDURE: procedure was carried out at the bedside in the intensive care unit where the patient was intubated and mechanically ventilated. The patient had appropriate oxygen, blood pressure, heart rate, and respiratory rate monitoring applied and monitored continuously throughout the procedure. The patient was on IV sedation with Versed and Fenatnyl and intubated . An additional 3 mg of Versed were given IV prior to bronchoscopy. Aliquots of 2 mL of 2% xylocaine instilled through the ET for local anesthesia of the bronchial tree were given twice. The bronchoscope was then advanced through the ET into the lower trachea. Findings: Trachea: Lower trachea appeared normal with no evidence of mucosal erythema, tracheal secretions or intraluminal masses R Bronchial Tree: The right bronchial tree was inspected to the subsegmental level with the following order: right upper lobe, then right middle lobe and then right lower lobe. All segments appear patent. There was no evidence of mucosal erythema, increased amount bronchial secretions, or intraluminal masses. L Bronchial Tree: Left bronchial tree was inspected to the subsegmental bronchi with the following order: Lingula, remainder of the left upper lobe, superior segment of the right the left lower lobe and then remainder of the left lower lobe. All segments appear patent; there was evidence of mucosal erythema and mild edema in the LLL and also he superior segment of the left lower lobe. there was a small amount of light yellow bronchial secretions in the secondary david and in the LLL. there was no evidence of intraluminal masses in the left lung. BAL: The bronchoscope was then wedged in the posterior segment of the LLL and bronchoalveolar samples were obtained following instillation of saline 40 ml x2 and 20 ml x1. The bronchoscope was then withdrawn. The patient tolerated the procedure well without evidence of oxyhemoglobin desaturation, hemodynamic compromise or bronchial bleeding. BAL will be sent for routine cultures and also fungal and AFB cultures. Surgeon: Adam Brandon MD
[2022-03-01] MEDS: FENTANYL 2,500MCG/NS250ML(*CRX 2,500 MCG/250 ML BAG 7.5 MCG IV CONT (14:25)
--- NOTE | 2022-03-01 15:40 | PM.IMPN ---
Progress Note: A&P Assessment and Plan (1) Acute on chronic respiratory failure with hypoxia and hypercapnia: Code(s): J96.21 - Acute and chronic respiratory failure with hypoxia; J96.22 - Acute and chronic respiratory failure with hypercapnia Status: Acute Assessment and Plan: Acute on chronic hypercapnic respiratory failure likely related to COPD exacerbation and/or pneumonia. CXR clear on admission but CTA chest 02/27/22 showing no PE but does showing LLL collapse from airway obstruction from aspiration and/or mucous plugging. SHe did undergo a broncho earlier today. LE venous doppler negative for DVT. Flu and COVID testing were negative. Cultures remain negative. The bronch showed evidences of mucosal erythema and mild edema in the LLL with a small amount of light yellow bronchial secretions in the secondary david and in the LLL.?There was no evidence of intraluminal masses in the left lung.Continue treatment For COPD exacerbation. Continue treatment for postobstructive pneumonia with IV antibiotics. Continue Mucomyst. Appreciate grab driver and Pulmonary consult. Wean mechanical ventilation as tolerated. (2) Pneumonia: Code(s): J18.9 - Pneumonia, unspecified organism Status: Acute Assessment and Plan: As above (3) COPD exacerbation: Code(s): J44.1 - Chronic obstructive pulmonary disease with (acute) exacerbation Status: Acute Assessment and Plan: As above. No wheezing noted. Continue mechanical ventilation support. Continue steroids and bronchodilators. (4) Atelectasis of left lung: Code(s): J98.11 - Atelectasis Status: Acute Assessment and Plan: As above. s/p bronch on 03/01. Follow up on culture results. (5) Encephalopathy: Code(s): G93.40 - Encephalopathy, unspecified Status: Acute Assessment and Plan: Brain CT showing no acute findings. TSH/B12 normal. Encephalopathy felt related to hypercapnia and hypoxia. Mental status improving by report. Will continue to monitor. (6) Diastolic congestive heart failure: Code(s): I50.30 - Unspecified diastolic (congestive) heart failure Status: Acute Assessment and Plan: Patient has a history of diastolic heart failure. Echo 02/28/22 shows EF of 65-70%, grade 1 diastolic dysfunction. BNP 244. CXR not consistent with pulmonary edema. Continue low-dose beta-janell. (7) PAC (premature atrial contraction): Code(s): I49.1 - Atrial premature depolarization Status: Acute Assessment and Plan: Telemetry shows frequent PACs. EKG today showing bigeminy. Continue low-dose beta-janell. Replace electrolytes as needed (8) Tobacco use disorder: Code(s): F17.200 - Nicotine dependence, unspecified, uncomplicated Status: Acute Assessment and Plan: Daughter states that the patient continues to smoke about 1 to 1-1/2 packet daily. Will addiction counselor patient once she is extubated (9) DVT prophylaxis: Code(s): Z29.9 - Encounter for prophylactic measures, unspecified Status: Acute Assessment and Plan: Lovenox SQ Subjective Date/time seen: 03/01/22 15:40 Interval history: 66yo female with hx of severe COPD, chronic respiratory failure, SOCORRO, and CHF brought in after being found to be lethargic and confused. Assuming care. Chart reviewed. Patient is intubated and sedated. She was given extra sedation short while ago so was unresponsive but nursing states patient was more awake and alert writing messages to family earlier in the day. Patient did undergo bronchoscopy earlier today. She is off tube feedings for this reason which will be resumed. Review of Systems Review of Systems: ROS unobtainable: Yes unobtainable due to endotracheal tube Exam Narrative: AF 99.0 113/48 83 15 92% MV Gen - NARD resting comfortably intubated and sedated HEENT - ETT and OG secured Chest - lungs clear anteriorly and i
[2022-03-01] MEDS: MIDAZOLAM 100MG/NS 100ML(*CRX) 100 MG/100 ML BAG IV CONT ×2 (16:16→19:07)
[2022-03-01 18:17] LABS: Glucose Point of Care 148 mg/dl (65-105)
[2022-03-01] MEDS: ACETAMINOPHEN ELIXIR 325 MG/10.15 ML UDC 650 MG PO (20:49)
[2022-03-01 23:37] LABS: Glucose Point of Care 143 mg/dl (65-105)
[2022-03-02] VITALS (33 sets, daily range): BP systolic 92–144; BP diastolic 43–91; PULSE 53–116; RESP 18; TEMP 37–38; O2SAT 91–96
[2022-03-02] MEDS: ACETYLCYSTEINE 20% INHAL SOLN 800 MG/4 ML VIAL 200 MG INHALATION ×4 (01:22→21:16)
[2022-03-02] MEDS: IPRATROPIUM BR 0.02% INH SOLN 0.5 MG/2.5 ML VIAL INHALATION ×4 (01:23→21:17)
[2022-03-02] MEDS: LEVALBUTEROL NEB 1.25 MG/3 ML 0.63 MG INHALATION ×4 (01:23→21:17)
[2022-03-02 04:47] LABS: Hematocrit 36.1 % (37.0-47.0); Mean Corpuscular HGB Conc 30.5 g/dl (32-36); Mean Corpuscular Hemoglobin 30.4 pg (26-34); Mean Corpuscular Volume 99.7 fl (80-100); Mean Platelet Volume 10.6 fl (7.4-10.4); Platelet Count Result 177 k/mm3 (150-375); Red Blood Count 3.62 M/mm3 (4.2-5.4); Red Cell Distribution Width 14.1 % (11.5-14.5); White Blood Count 12.2 K/mm3 (4.5-10.0)
[2022-03-02 05:04] LABS: Alanine Aminotransferase 75 U/L (6-35); Albumin Level 2.9 g/dL (3.5-5.1); Alkaline Phosphatase 79 U/L (38-126); Aspartate Amino Transferase 59 U/L (14-36); Bilirubin,Total 0.5 mg/dL (0.2-1.3); Blood Urea Nitrogen 34 mg/dL (7-17); Calcium 7.6 mg/dL (8.4-10.2); Carbon Dioxide > 40 mmol/L (22-30); Chloride 92 mmol/L (98-107); Estimated CRCL calculation 84 ml/min; Estimated Glomerular Filt Rate > 60; Glucose 117 mg/dL (65-110); Potassium 3.5 mmol/L (3.4-5.0); Sodium 134 mmol/L (137-145)
[2022-03-02 05:22] LABS: Alveolar/Arterial O2 Gradient 241.8 mmHg; Base Excess ABG 6.2 mEq/l (+/-2.0); Carboxyhemoglobin 0.3 % THb (0-2.0); Fractional Inspired Oxygen 55 %; HCO3 ABG 34.3 mEq/l (22.0-26.0); Methemoglobin ABG 0.3 %THb (0-1.5); Oxygen Content ABG 16.7 %vol (16.0-22.0); Oxygen Saturation ABG 93.6 % (95.0-100.0); Oxyhemoglobin 93.3 % THb (90.0-100.0); PO2 ABG 75.4 mmHg (80.0-100.0); PO2 FiO2 Ratio Arterial Blood 1.37 %; Reduced Hemoglobin 6.1 %THb (0-5.0); Total Hemoglobin 12.7 g/dL (12.0-18.0); pH ABG 7.325 (7.350-7.450)
[2022-03-02 05:25] LABS: Device VENTILATOR; PCO2 ABG 67.4 mmHg (35.0-45.0); Site Drawn LEFT BRACHIAL
[2022-03-02 05:26] LABS: Arterial Blood Gas PEEP 8 cmH2O; Arterial Blood Gas Tidal Volume 380 ml; Arterial Blood Gas Vent Mode CMV; Arterial Blood Gas Ventilator rate 18 /MIN
[2022-03-02] MEDS: metroNIDAZOLE 500 MG/ISO 100ML 500 MG/100 ML BAG 100 MG IVPB (05:30)
[2022-03-02 07:43] LABS: PCO2 ABG 121.5 mmHg (35.0-45.0); pH ABG 7.216 (7.350-7.450)
[2022-03-02 07:44] LABS: Device NON-INVASIVE VENT; Modified Allen's Test Pass; Oxygen Saturation ABG 78.7 % (95.0-100.0); Oxyhemoglobin 86.5 % THb (90.0-100.0); Site Drawn RIGHT RADIAL
[2022-03-02] MEDS: BUDESONIDE RESPULE NEB 0.5 MG/2 ML AMP INHALATION ×2 (08:00→21:17)
[2022-03-02] MEDS: POTASSIUM CHLORIDE 20 MEQ PACKET (FOR LIQUID) 40 MEQ FEED TUBE (08:09)
[2022-03-02] MEDS: CALCIUM GLUC 1,000 MG/NS 50 ML 1,000 MG/50 ML BAG 100 MG IVPB (08:09)
[2022-03-02] MEDS: SODIUM CHLORIDE 0.9% IV 500 ML IV CONT (08:09)
[2022-03-02] MEDS: methylPREDNISolone SOD SUCC 125 MG VIAL 60 MG IV PUSH (08:10)
[2022-03-02] MEDS: PANTOPRAZOLE SODIUM IV 40 MG VIAL IV PUSH (08:12)
[2022-03-02] MEDS: MINERAL OIL/WHITE PETROLATUM OINTMENT 1 APPLIC EACH EYE ×2 (08:12→19:45)
[2022-03-02] MEDS: METOPROLOL TARTRATE 12.5 MG TABLET PO ×2 (08:12→19:45)
[2022-03-02] MEDS: PARoxetine 20 MG TABLET 40 MG PO (08:13)
--- NOTE | 2022-03-02 09:02 | PM.IMPN ---
Progress Note: A&P Assessment and Plan (1) Acute on chronic respiratory failure with hypoxia and hypercapnia: Code(s): J96.21 - Acute and chronic respiratory failure with hypoxia; J96.22 - Acute and chronic respiratory failure with hypercapnia Status: Acute Assessment and Plan: Acute on chronic hypercapnic respiratory failure likely related to COPD exacerbation and/or pneumonia. Wears 4L at rest and 8L with activity per research animal facility supervisor. CXR clear on admission but CTA chest 02/27/22 showing no PE but does showing LLL collapse from airway obstruction from aspiration and/or mucous plugging. She did undergo a bronchoscopy 03/01 which showed evidences of mucosal erythema and mild edema in the LLL with a small amount of light yellow bronchial secretions in the secondary david and in the LLL.?There was no evidence of intraluminal masses in the left lung. Paediatric Physiotherapist felt mucous plugging unlikely but consider bronchopulmonary neoplasm or cryptogenic PNA. LE venous doppler negative for DVT. Flu and COVID testing were negative. Cultures remain negative. Continue treatment for COPD exacerbation. Continue treatment for pneumonia with IV antibiotics. Continue Mucomyst. Appreciate media reporter and Pulmonary consult. Wean mechanical ventilation as tolerated. (2) Pneumonia: Code(s): J18.9 - Pneumonia, unspecified organism Status: Acute Assessment and Plan: No fevers. WBC slightly better. As above (3) COPD exacerbation: Code(s): J44.1 - Chronic obstructive pulmonary disease with (acute) exacerbation Status: Acute Assessment and Plan: As above. No wheezing noted. Continue mechanical ventilation support. Continue steroids, Antibiotics and bronchodilators. (4) Atelectasis of left lung: Code(s): J98.11 - Atelectasis Status: Acute Assessment and Plan: As above. s/p bronch on 03/01. cultures pending. Discussed with Pulmonary. Continue antibiotics. (5) Encephalopathy: Code(s): G93.40 - Encephalopathy, unspecified Status: Acute Assessment and Plan: Brain CT showing no acute findings. TSH/B12 normal. Encephalopathy felt related to hypercapnia and hypoxia. Mental status improved. Will continue to monitor. (6) Diastolic congestive heart failure: Code(s): I50.30 - Unspecified diastolic (congestive) heart failure Status: Acute Assessment and Plan: Patient has a history of diastolic heart failure. Echo 02/28/22 shows EF of 65-70%, grade 1 diastolic dysfunction. BNP 244. CXR not consistent with pulmonary edema. Appears euvolemic. On lasix at home but held here. Continue to monitor (7) PAC (premature atrial contraction): Code(s): I49.1 - Atrial premature depolarization Status: Acute Assessment and Plan: Telemetry shows frequent PACs. EKG shows bigeminy. Continue low-dose beta-janell. Replace electrolytes as needed. (8) Tobacco use disorder: Code(s): F17.200 - Nicotine dependence, unspecified, uncomplicated Status: Acute Assessment and Plan: Daughter states that the patient continues to smoke about 1 to 1-1/2 packet daily. Will correctional counselor patient once she is extubated. (9) DVT prophylaxis: Code(s): Z29.9 - Encounter for prophylactic measures, unspecified Status: Acute Assessment and Plan: Lovenox SQ Plan Elevated LFTs - noted to be higher today. Will follow for now. Additional Plan Nutrition: Tolerating tube feeds Stress ulcer prophylaxis: Protonix Code status: Full code Subjective Date/time seen: 03/02/22 09:02 Interval history: 66yo female with hx of severe COPD, chronic respiratory failure, SOCORRO, and CHF brought in after being found to be lethargic and confused. Patient more awake today. She denies any chest pain. She does complain of throat pain. No abdominal pain. Tolerating tube feedings. Minimal clear whitish secretions. She remains intubated
--- NOTE | 2022-03-02 09:11 | WPDINTPN ---
Progress Note: A&P Assessment and Plan (1) Acute on chronic respiratory failure with hypoxia and hypercapnia: Code(s): J96.21 - Acute and chronic respiratory failure with hypoxia; J96.22 - Acute and chronic respiratory failure with hypercapnia Status: Acute Assessment and Plan: Acute on chronic hypoxic and hypercapnic respiratory failure likely related to COPD exacerbation, left lower pneumonia -chest x-ray reviewed -02/27/2022 CT PE protocol: No evidence of PE, left lower lobe collapse possible secondary to obstruction from aspiration of mucus plugging. Infection is not included. Moderate to severe compression fractures of T6 and T7 of uncertain age. 15 mm left thyroid nodule -currently on CMV mode of ventilation, PEEP to 8, current FiO2 is 55%. Will try to wean FiO2 if possible -ABGs reviewed, ventilator adjusted tidal volume increased to 400 and rate decreased to 18 -sedated with fentanyl Versed. Maintain RASS of 0--2 -continue bronchodilators, continue Pulmicort -continue Mucomyst nebulizer -bronchoscopy done 03/01 which did not show any intraluminal mass, BAL was collected and sent for cultures -discussed with pulmonary and plan for bronchoscopy today -urine Legionella, serum mycoplasma IgM and urine pneumococcal antigen are pending -flu and COVID were negative -blood cultures and respiratory cultures are negative till now -continue cefepime and azithromycin add vancomycin -discontinue Flagyl as no obstruction seen on bronchoscopy -will plan to repeat CT scan of chest tomorrow if patient's oxygen requirement does not (2) Pneumonia: Code(s): J18.9 - Pneumonia, unspecified organism Status: Acute Assessment and Plan: See above (3) Atelectasis of left lung: Code(s): J98.11 - Atelectasis Status: Acute Assessment and Plan: See above (4) COPD (chronic obstructive pulmonary disease): Code(s): J44.9 - Chronic obstructive pulmonary disease, unspecified Status: Acute Assessment and Plan: Continue mechanical ventilation, Continue steroids but decrease dose to q.a.m. from today Continue bronchodilators (5) Encephalopathy: Code(s): G93.40 - Encephalopathy, unspecified Status: Acute Assessment and Plan: Encephalopathy could be related to hypercapnia, hypoxia -patient has been following commands this morning, -will continue to monitor (6) Diastolic congestive heart failure: Code(s): I50.30 - Unspecified diastolic (congestive) heart failure Status: Acute Assessment and Plan: History of diastolic heart failure with preserved ejection fraction on echocardiogram mentioned in the history and physical. 02/28/2026 echocardiogram shows EF of 65-70%, grade 1 diastolic dysfunction On low-dose beta-janell Diuretics on hold at this time (7) DVT prophylaxis: Code(s): Z29.9 - Encounter for prophylactic measures, unspecified Status: Acute Assessment and Plan: Lovenox SQ (8) Tobacco use disorder: Code(s): F17.200 - Nicotine dependence, unspecified, uncomplicated Status: Acute Assessment and Plan: Daughter states that the patient continues to smoke about 1 to 1-1/2 packet daily -will queen's counsel patient once she is extubated (9) PAC (premature atrial contraction): Code(s): I49.1 - Atrial premature depolarization Status: Acute Assessment and Plan: Telemetry shows frequent PACs 12 lead EKG showed PACs Continue low-dose beta-janell Replace electrolytes (10) Oliguria: Code(s): R34 - Anuria and oliguria Status: Acute Assessment and Plan: Creatinine is stable IV fluid bolus Flush Rivero catheter Add 25% albumin Additional Plan Nutrition: Tolerating tube feeds Stress ulcer prophylaxis: Protonix Discussed with pulmonology Code status: Full code Critical care time spent: 30 minutes This dictation may have been done utilizing a voice recognition system
--- NOTE | 2022-03-02 09:56 | PM.PNPUL ---
Progress Note: A&P Assessment and Plan (1) Acute on chronic respiratory failure with hypoxia and hypercapnia: Code(s): J96.21 - Acute and chronic respiratory failure with hypoxia; J96.22 - Acute and chronic respiratory failure with hypercapnia Status: Acute Assessment and Plan: a 66-year-old female with severe COPD chronic hypoxemic respiratory failure presented with acute on chronic hypercapnic respiratory failure with new consolidation in the left lower lobe. The patient has been treated with antibiotics for possible community-acquired pneumonia. There has been no significant improvement respiratory status over the last 48 hours. Bronchoscopy with BAL showed mild erythematous changes in the left lung especially in the left lower lobe and superior segment of the left lower lobe with no evidence of increased bronchial secretions. BAL cultures and cytology pending. will continue with current regimen for now. Will repeat chest CT in a.m.. Case was discussed with Dr. Briggs the oil spot washer. (2) PNA (pneumonia): Code(s): J18.9 - Pneumonia, unspecified organism Status: Acute (3) Tobacco use disorder: Code(s): F17.200 - Nicotine dependence, unspecified, uncomplicated Status: Acute (4) COPD with acute exacerbation: Code(s): J44.1 - Chronic obstructive pulmonary disease with (acute) exacerbation Status: Acute (5) Acute respiratory failure with hypercapnia: Code(s): J96.02 - Acute respiratory failure with hypercapnia Status: Acute Subjective Date/time seen: 03/02/22 09:56 Respiratory status essentially unchanged over the last 24 hours. Tidal volume increased because of worsening hypercapnia. Patient hemodynamically stable on mechanical ventilation with small amount of bronchial secretions. Appears awake on light sedation. Exam Narrative: GENERAL APPEARANCE: Well developed, well nourished, awake and cooperative, while lightly sedated on mechanical ventilation SKIN: Inspection of the skin reveals no rashes, ulcerations or petechiae. HEENT: Sclerae anicteric and conjunctivae pink and moist. Extraocular movements were intact and pupils were equal. NECK: Supple. There was no thyroid enlargement, and no tenderness, or masses were felt. CHEST: Normal AP diameter and normal contour without any kyphoscoliosis. LUNGS: Auscultation of the lungs revealed decreased breath sounds anteriorly no wheezing CARDIAC: There was a irregular rate and rhythm without any murmurs. ABDOMEN: Soft and nontender with normal bowel sounds. There was no organomegaly. LYMPH NODES: No lymphadenopathy was appreciated in the neck EXTREMITIES: No cyanosis, clubbing or edema. NEUROLOGIC: awake moving all extremities Objective Data Vital Signs Vital Signs: Vital Signs - 24 hr 03/01/22 11:36 03/01/22 11:54 03/01/22 11:57 Temperature Pulse Rate 85 67 67 Respiratory Rate 18 Blood Pressure Pulse Oximetry 93 95 Oxygen Delivery Mechanical Ventilation Mechanical Ventilation Fraction of Inspired Oxygen 55 55 03/01/22 11:57 03/01/22 11:57 03/01/22 12:36 Temperature 37.5 C 37.6 C Pulse Rate 67 69 Respiratory Rate 18 16 Blood Pressure 134/97 H 119/50 L Pulse Oximetry 95 93 Oxygen Delivery Mechanical Ventilation Fraction of Inspired Oxygen 55 55 03/01/22 12:58 03/01/22 13:42 03/01/22 13:43 Temperature 37.6 C H Pulse Rate 65 73 68 Respiratory Rate 18 19 Blood Pressure 124/56 L Pulse Oximetry 99 90 Oxygen Delivery Mechanical Ventilation Mechanical Ventilation Fraction of Inspired Oxygen 100 55 03/01/22 13:49 03/01/22 13:01 03/01/22 13:06 Temperature 37.6 C H 37.6 C H Pulse Rate 71 62 65 Respiratory Rate 16 18 18 Blood Pressure 113/60 122/53 L Pulse Oximetry 98 98 Oxygen Delivery Mechanical Ventilation Mechanical Ventilation Fraction of Inspired Oxygen 100 100 03/01/22 13:09 03/01/22 13:12 03/01/22 13:14 Temperature 37.6 C H 37.6 C 37.6 C
[2022-03-02] MEDS: LIDOCAINE HCL 1% PF INJ 5 ML VIAL INFILTRATE (10:05)
[2022-03-02] MEDS: ALBUMIN HUMAN 25% 25 GM/100 ML 100 ML IVPB ×2 (11:14→18:12)
--- NOTE | 2022-03-02 12:08 | PCFNICU ---
ICU Rounding Note: Pt current nutrition is Vital AF 1.2 at 45 ml/hr over 22 hours. Last recorded weight is 92.8 kg, up from 85.5 kg on admit. Bowel Motility:No BM reported-discussed with nursing today. Labs Reviewed:Cr 0.6,BUN 34, Na 134 Meds Noted:Atrovent, Versed, Fentanyl,Rocephin, Paxil, Xopenex, Metoprolol. Skin: WNL Additional Notes: Patient remains mechanical vent and tube feedings of Vital AF 1.2 at 45 ml/hr over 22 hours. Patient is tolerating tube feedings at this time. Free water flush 30 ml q 4 hours. Following daily in ICU rounds. Will monitor every Monday and Monday.
[2022-03-02 12:11] LABS: Glucose Point of Care 117 mg/dl (65-105)
[2022-03-02] MEDS: CENTRAL LINE FLUSH 10 ML IV PUSH ×2 (15:17→19:46)
[2022-03-02] MEDS: ENOXAPARIN 40 MG/0.4 ML SYRINGE SUB-Q (15:17)
[2022-03-02] MEDS: FENTANYL 2,500MCG/NS250ML(*CRX 2,500 MCG/250 ML BAG 7.5 MCG IV CONT (16:18)
[2022-03-02] MEDS: MIDAZOLAM 100MG/NS 100ML(*CRX) 100 MG/100 ML BAG IV CONT (18:00)
[2022-03-02] MEDS: FUROSEMIDE INJ 40 MG/4 ML VIAL 20 MG IV PUSH (18:11)
[2022-03-02 18:24] LABS: Glucose Point of Care 120 mg/dl (65-105)
[2022-03-02 19:40] LABS: Mycoplasma IgM Antibody Titer 95 U/mL (<770)
[2022-03-02 20:29] LABS: Pneumococcal Antigen Urine Not Detected (Not Detected)
[2022-03-03] VITALS (36 sets, daily range): BP systolic 97–146; BP diastolic 45–86; PULSE 50–86; RESP 16–22; TEMP 36.7–37.4; O2SAT 90–97; BMI 34.6
[2022-03-03] MEDS: ALBUMIN HUMAN 25% 25 GM/100 ML 100 ML IVPB ×5 (00:02→23:18)
[2022-03-03 00:14] LABS: Glucose Point of Care 122 mg/dl (65-105)
[2022-03-03] MEDS: ACETYLCYSTEINE 20% INHAL SOLN 800 MG/4 ML VIAL 200 MG INHALATION ×2 (02:15→08:33)
[2022-03-03] MEDS: IPRATROPIUM BR 0.02% INH SOLN 0.5 MG/2.5 ML VIAL INHALATION ×4 (02:15→21:45)
[2022-03-03] MEDS: LEVALBUTEROL NEB 1.25 MG/3 ML 0.63 MG INHALATION ×4 (02:15→21:45)
[2022-03-03 04:33] LABS: Mean Corpuscular HGB Conc 31.3 g/dl (32-36); Mean Corpuscular Hemoglobin 30.5 pg (26-34); Mean Corpuscular Volume 97.6 fl (80-100); Mean Platelet Volume 10.7 fl (7.4-10.4); Platelet Count Result 153 k/mm3 (150-375); Red Blood Count 3.28 M/mm3 (4.2-5.4); Red Cell Distribution Width 13.9 % (11.5-14.5); White Blood Count 6.7 K/mm3 (4.5-10.0)
[2022-03-03 04:49] LABS: Alanine Aminotransferase 114 U/L (6-35); Albumin Level 3.3 g/dL (3.5-5.1); Alkaline Phosphatase 68 U/L (38-126); Aspartate Amino Transferase 60 U/L (14-36); Bilirubin,Total 0.6 mg/dL (0.2-1.3); Blood Urea Nitrogen 27 mg/dL (7-17); Calcium 8.4 mg/dL (8.4-10.2); Carbon Dioxide > 40 mmol/L (22-30); Chloride 91 mmol/L (98-107); Estimated CRCL calculation 83 ml/min; Estimated Glomerular Filt Rate > 60; Glucose 83 mg/dL (65-110); Potassium 3.9 mmol/L (3.4-5.0); Sodium 133 mmol/L (137-145)
[2022-03-03 05:25] LABS: Alveolar/Arterial O2 Gradient 249.2 mmHg; Base Excess ABG 16.2 mEq/l (+/-2.0); Carboxyhemoglobin 0.3 % THb (0-2.0); Fractional Inspired Oxygen 55 %; HCO3 ABG 43.6 mEq/l (22.0-26.0); Methemoglobin ABG 0.2 %THb (0-1.5); Oxygen Content ABG 14.8 %vol (16.0-22.0); Oxygen Saturation ABG 92.7 % (95.0-100.0); PO2 ABG 66.4 mmHg (80.0-100.0); PO2 FiO2 Ratio Arterial Blood 1.21 %; Reduced Hemoglobin 7.5 %THb (0-5.0); Total Hemoglobin 11.4 g/dL (12.0-18.0)
[2022-03-03 05:26] LABS: Arterial Blood Gas PEEP 8 cmH2O; Arterial Blood Gas Tidal Volume 400 ml; Arterial Blood Gas Vent Mode CMV; Arterial Blood Gas Ventilator rate 18 /MIN; Device VENTILATOR; Modified Allen's Test Pass; PCO2 ABG 68.8 mmHg (35.0-45.0); Site Drawn RIGHT RADIAL
[2022-03-03] MEDS: CENTRAL LINE FLUSH 10 ML IV PUSH ×3 (05:38→20:37)
[2022-03-03] MEDS: FUROSEMIDE INJ 40 MG/4 ML VIAL 20 MG IV PUSH (08:14)
[2022-03-03] MEDS: ENOXAPARIN 40 MG/0.4 ML SYRINGE SUB-Q (08:15)
[2022-03-03] MEDS: PANTOPRAZOLE SODIUM IV 40 MG VIAL IV PUSH (08:16)
[2022-03-03] MEDS: MINERAL OIL/WHITE PETROLATUM OINTMENT 1 APPLIC EACH EYE ×2 (08:16→20:41)
[2022-03-03] MEDS: methylPREDNISolone SOD SUCC 125 MG VIAL 60 MG IV PUSH (08:16)
[2022-03-03] MEDS: PARoxetine 20 MG TABLET 40 MG PO (08:17)
[2022-03-03] MEDS: METOPROLOL TARTRATE 12.5 MG TABLET PO ×2 (08:27→20:41)
[2022-03-03] MEDS: BUDESONIDE RESPULE NEB 0.5 MG/2 ML AMP INHALATION ×2 (08:33→21:45)
--- NOTE | 2022-03-03 08:40 | PC.NURSE ---
ET tube advanced by 2 cm to 24 cm at the teeth per RT per Dr. Briggs orders.
--- NOTE | 2022-03-03 09:50 | PM.PNPUL ---
Progress Note: A&P Assessment and Plan (1) PNA (pneumonia): Code(s): J18.9 - Pneumonia, unspecified organism Status: Acute Assessment and Plan: 66-year-old female with a history of hypoxemic hypercapnic respiratory failure related to advanced COPD presented with acute on chronic hypercapnic respiratory failure, currently intubated in the intensive care unit while on antibiotics for bilateral pneumonia. Patient has been hemodynamically stable. WBC back into the normal range. She has been afebrile with small amount of bronchial secretions. No significant change in gas exchange over the last [address] done today showed resolution of left lower lobe atelectasis. There are new infiltrates with air bronchogram in the right middle lobe right lower lobe and also left lower lobe suggestive of bilateral pneumonia. There is still small left pleural effusion. BAL cultures negative so far. Few fungal elements detected. In view of normal WBC, we will continue with same antibiotic regimen for now. Case was discussed with Dr. Briggs. (2) Acute on chronic respiratory failure with hypoxia and hypercapnia: Code(s): J96.21 - Acute and chronic respiratory failure with hypoxia; J96.22 - Acute and chronic respiratory failure with hypercapnia Status: Acute (3) COPD (chronic obstructive pulmonary disease): Code(s): J44.9 - Chronic obstructive pulmonary disease, unspecified Status: Acute (4) Atelectasis of left lung: Code(s): J98.11 - Atelectasis Status: Acute Subjective Date/time seen: 03/03/22 09:50 no significant change in respiratory status. She has been hemodynamically stable while lightly sedated on mechanical ventilation. Small amount of bronchial secretions. Afebrile. Review of Systems Review of Systems: Review of systems is unremarkable except as noted in H&P and below Exam Narrative: GENERAL APPEARANCE: Well developed, well nourished, alert and cooperative, while lightly sedated on mechanical ventilation SKIN: Inspection of the skin reveals no rashes, ulcerations or petechiae. HEENT: Sclerae anicteric and conjunctivae pink and moist. Extraocular movements were intact and pupils were equal, round, and reactive to light. LUNGS: Auscultation of the lungs revealed distant breath sounds anteriorly no wheezing CARDIAC: There was a regular rate and rhythm without any murmurs, gallops, rubs. ABDOMEN: Soft and nontender with normal bowel sounds. There was no organomegaly. LYMPH NODES: No lymphadenopathy was appreciated in the neck. EXTREMITIES: No cyanosis, clubbing or edema. NEUROLOGIC: Alert and oriented x 3. Normal affect. Objective Data Vital Signs Vital Signs: Vital Signs - 24 hr 03/02/22 10:00 03/02/22 10:58 03/02/22 14:15 Temperature 37.7 C H Pulse Rate 81 76 77 Respiratory Rate 18 18 Blood Pressure 135/67 Pulse Oximetry 94 93 Oxygen Delivery Mechanical Ventilation Fraction of Inspired Oxygen 55 03/02/22 14:20 03/02/22 14:22 03/02/22 10:00 Temperature Pulse Rate 57 L 70 86 Respiratory Rate 18 18 Blood Pressure Pulse Oximetry 95 Oxygen Delivery Mechanical Ventilation Fraction of Inspired Oxygen 55 03/02/22 10:00 03/02/22 12:00 03/02/22 12:00 Temperature Pulse Rate 86 76 76 Respiratory Rate 18 18 18 Blood Pressure Pulse Oximetry Oxygen Delivery Fraction of Inspired Oxygen 03/02/22 14:00 03/02/22 14:00 03/02/22 16:00 Temperature Pulse Rate 68 68 112 H Respiratory Rate 18 18 18 Blood Pressure Pulse Oximetry Oxygen Delivery Fraction of Inspired Oxygen 03/02/22 16:00 03/02/22 16:18 03/02/22 16:18 Temperature Pulse Rate 112 H 109 H 109 H Respiratory Rate 18 18 18 Blood Pressure Pulse Oximetry Oxygen Delivery Fraction of Inspired Oxygen 03/02/22 12:00 03/02/22 14:00 03/02/22 16:00 Temperature 38.0 C H 37.6 C 37.1 C Pulse Rate 76 68 112 H Respirat
--- NOTE | 2022-03-03 10:59 | WPDINTPN ---
Progress Note: A&P Assessment and Plan (1) Acute on chronic respiratory failure with hypoxia and hypercapnia: Code(s): J96.21 - Acute and chronic respiratory failure with hypoxia; J96.22 - Acute and chronic respiratory failure with hypercapnia Status: Acute Assessment and Plan: Acute on chronic hypoxic and hypercapnic respiratory failure likely related to COPD exacerbation, left lower pneumonia -chest x-ray reviewed -02/27/2022 CT PE protocol: No evidence of PE, left lower lobe collapse possible secondary to obstruction from aspiration of mucus plugging. Infection is not included. Moderate to severe compression fractures of T6 and T7 of uncertain age. 15 mm left thyroid nodule -currently on CMV mode of ventilation, PEEP to 8, current FiO2 is 55%. -ABGs reviewed, ventilator settings reviewed. he is compensated with CO2 in 60s is likely patient's baseline -sedated with fentanyl Versed. Maintain RASS of 0--2 -continue bronchodilators, continue Pulmicort -bronchoscopy done 03/01 which did not show any intraluminal mass, BAL was collected and sent for cultures -urine Legionella is pending, serum mycoplasma IgM and urine pneumococcal antigen are negative -flu and COVID were negative -blood cultures and respiratory cultures are negative till now - repeat CT scan of chest done 03/03 IMPRESSION: 1. Progression of bilateral airspace disease of the lower lobes, right middle lobe with additional areas of patchy groundglass opacification and peripheral interlobular septal thickening. These findings are most likely secondary to pneumonia. 2: Small pleural effusions. although patient has became afebrile and WBC has normalized her oxygen requirement has not significantly improved - patient is more than 7 L positive will give another dose of Lasix today -continue cefepime, azithromycin and vancomycin - patient was on Flagyl for a brief period but was discontinued as no obstruction was seen on bronchoscopy -discussed with pulmonary (2) Pneumonia: Code(s): J18.9 - Pneumonia, unspecified organism Status: Acute Assessment and Plan: See above (3) Atelectasis of left lung: Code(s): J98.11 - Atelectasis Status: Acute Assessment and Plan: See above (4) COPD (chronic obstructive pulmonary disease): Code(s): J44.9 - Chronic obstructive pulmonary disease, unspecified Status: Acute Assessment and Plan: Continue mechanical ventilation, Continue steroids but decrease dose to q.a.m. from today Continue bronchodilators (5) Encephalopathy: Code(s): G93.40 - Encephalopathy, unspecified Status: Acute Assessment and Plan: Encephalopathy could be related to hypercapnia, hypoxia -patient has been following commands this morning, -will continue to monitor (6) Diastolic congestive heart failure: Code(s): I50.30 - Unspecified diastolic (congestive) heart failure Status: Acute Assessment and Plan: History of diastolic heart failure with preserved ejection fraction on echocardiogram mentioned in the history and physical. 02/28/2026 echocardiogram shows EF of 65-70%, grade 1 diastolic dysfunction On low-dose beta-janell continue Lasix (7) DVT prophylaxis: Code(s): Z29.9 - Encounter for prophylactic measures, unspecified Status: Acute Assessment and Plan: Lovenox SQ (8) Tobacco use disorder: Code(s): F17.200 - Nicotine dependence, unspecified, uncomplicated Status: Acute Assessment and Plan: Daughter states that the patient continues to smoke about 1 to 1-1/2 packet daily -will counsellors patient once she is extubated (9) PAC (premature atrial contraction): Code(s): I49.1 - Atrial premature depolarization Status: Acute Assessment and Plan: Telemetry shows frequent PACs 12 lead EKG showed PACs Continue low-dose beta-janell Replace electrolytes as indicated (10) Oliguria: Code(s)
--- NOTE | 2022-03-03 11:07 | PCFNICU ---
ICU Rounding Note: Pt current nutrition is Vital AF 1.2 at 45 ml/hr over 22 hours. Last recorded weight is 88.6 kg. Bowel Motility:No BM reported-Miralax started. Labs Reviewed:Cr 0.6,BUN 27, Na 133,Alb 3.3, Hct 32.0,Hgb 10.0 Meds Noted:Atrovent, Versed, Fentanyl,Rocephin, Paxil, Xopenex, Metoprolol, Solu Medrol, Vancomycin, Miralax Skin: WNL Additional Notes: Patient remains on mechanical vent CMV mode. Tube feeding continue with Vital AF 1.2 at 45 ml/hr over 22 hours. 30 ml free water flush q 4 hours. Patient is tolerating tube feedings. Agree with diet orders. Following daily in ICU rounds. Will monitor every Monday and Monday.
[2022-03-03] MEDS: INSULIN ASPART (*BKC) 100 UNITS/ML SUB-Q (13:00)
[2022-03-03 13:10] LABS: Glucose Point of Care 236 mg/dl (65-105)
--- NOTE | 2022-03-03 13:32 | PM.IMPN ---
Progress Note: A&P Assessment and Plan (1) Acute on chronic respiratory failure with hypoxia and hypercapnia: Code(s): J96.21 - Acute and chronic respiratory failure with hypoxia; J96.22 - Acute and chronic respiratory failure with hypercapnia Status: Acute Assessment and Plan: Acute on chronic hypercapnic respiratory failure likely related to COPD exacerbation and/or pneumonia. Wears 4L at rest and 8L with activity per outsole splicer. CXR clear on admission but CTA chest 02/27/22 showing no PE but does showing LLL collapse from airway obstruction from aspiration and/or mucous plugging. She did undergo a bronchoscopy 03/01 which showed evidences of mucosal erythema and mild edema in the LLL with a small amount of light yellow bronchial secretions in the secondary david and in the LLL.?There was no evidence of intraluminal masses in the left lung. Accounts Payable Analyst felt mucous plugging unlikely. Path negative for malignancy. Rare fungal elements seen on smear.Cultures remain negative. LE venous doppler negative for DVT. Flu and COVID testing were negative. Mycoplasma IgM and urine pneumococcal antigen negative. CT chest today showing progression of bilateral airspace disease LLL, RML with patchy groundglass opacifications. Continue treatment for COPD exacerbation. Continue treatment for pneumonia with IV antibiotics. Continue Mucomyst. Appreciate net technical architect and Pulmonary consult. Wean mechanical ventilation as tolerated. Consider adding antifungal treatment but improving with current treatment. Follow up on final culture results. Consider Diamox. (2) Pneumonia: Code(s): J18.9 - Pneumonia, unspecified organism Status: Acute Assessment and Plan: No fevers. WBC normal now. As above. (3) COPD exacerbation: Code(s): J44.1 - Chronic obstructive pulmonary disease with (acute) exacerbation Status: Acute Assessment and Plan: As above. No wheezing noted. Continue mechanical ventilation support. Continue steroids, Antibiotics and bronchodilators. (4) Atelectasis of left lung: Code(s): J98.11 - Atelectasis Status: Acute Assessment and Plan: As above. s/p bronch on 03/01. Continue antibiotics. (5) Encephalopathy: Code(s): G93.40 - Encephalopathy, unspecified Status: Acute Assessment and Plan: Brain CT showing no acute findings. TSH/B12 normal. Encephalopathy felt related to hypercapnia and hypoxia. Mental status appears improved. Will continue to monitor. (6) Diastolic congestive heart failure: Code(s): I50.30 - Unspecified diastolic (congestive) heart failure Status: Acute Assessment and Plan: Patient has a history of diastolic heart failure. Echo 02/28/22 shows EF of 65-70%, grade 1 diastolic dysfunction. BNP 244. CXR not consistent with pulmonary edema. Appears euvolemic. On lasix at home but held here. Intermittent lasix dosing given. Continue to monitor (7) PAC (premature atrial contraction): Code(s): I49.1 - Atrial premature depolarization Status: Acute Assessment and Plan: Telemetry shows frequent PACs and possibly AFlutter. EKG shows bigeminy. Continue low-dose beta-janell. Replace electrolytes as needed. (8) Tobacco use disorder: Code(s): F17.200 - Nicotine dependence, unspecified, uncomplicated Status: Acute Assessment and Plan: Daughter states that the patient continues to smoke about 1 to 1-1/2 packet daily. Will work counselor patient once she is extubated. (9) DVT prophylaxis: Code(s): Z29.9 - Encounter for prophylactic measures, unspecified Status: Acute Assessment and Plan: Lovenox SQ Plan Elevated LFTs - noted to be slightly higher again today. Will continue to follow. Subjective Date/time seen: 03/03/22 13:32 Interval history: 66yo female with hx of severe COPD, chronic respiratory failure, SOC[place], and CHF brought in after being foun
[2022-03-03] MEDS: ACETAMINOPHEN ELIXIR 325 MG/10.15 ML UDC 650 MG PO (17:15)
[2022-03-03 18:03] LABS: Legionella pneumophila Ag Ur Not Detected (Not Detected)
[2022-03-03 18:32] LABS: Glucose Point of Care 138 mg/dl (65-105)
[2022-03-03 21:57] LABS: Vancomycin Trough 23.7 ug/mL (10.0-20.0)
[2022-03-03] MEDS: FENTANYL 2,500MCG/NS250ML(*CRX 2,500 MCG/250 ML BAG 10 MCG IV CONT (23:06)
[2022-03-03 23:27] LABS: Glucose Point of Care 106 mg/dl (65-105)
[2022-03-04] VITALS (30 sets, daily range): BP systolic 110–167; BP diastolic 52–92; PULSE 60–130; RESP 12–20; TEMP 36.6–37.4; O2SAT 91–97
[2022-03-04] MEDS: LEVALBUTEROL NEB 1.25 MG/3 ML 0.63 MG INHALATION ×4 (03:03→20:34)
[2022-03-04] MEDS: IPRATROPIUM BR 0.02% INH SOLN 0.5 MG/2.5 ML VIAL INHALATION ×4 (03:03→20:35)
--- NOTE | 2022-03-04 04:44 | ECG_ITS ---
Measurements Intervals [place] Rate: 80 P: NM: 0 QRS: 53 QRSD: 109 T: 53 QT: 367 QTc: 424 Interpretive Statements SINUS RHYTHM WITH FREQUENT PACS] ABNORMAL RHYTHM ECG COMPARED TO ECG 03/01/2022 08:48:10 NO SIGNIFICANT DIFFERENCE, PREVIOUS TRACING DEMONSTRATED PACS OCCURRING IN A BIGEMINAL PATTERN Electronically Signed On 03-04-2022 14:09:08 CDT by Jay Andrew M.D.
[2022-03-04] MEDS: CENTRAL LINE FLUSH 10 ML IV PUSH ×2 (05:15→20:11)
[2022-03-04] MEDS: ALBUMIN HUMAN 25% 25 GM/100 ML 100 ML IVPB ×3 (05:15→18:23)
[2022-03-04 05:28] LABS: Hematocrit 31.9 % (37.0-47.0); Hemoglobin 10.1 g/dL (12.0-15.0); Mean Corpuscular HGB Conc 31.7 g/dl (32-36); Mean Corpuscular Hemoglobin 30.8 pg (26-34); Mean Corpuscular Volume 97.3 fl (80-100); Mean Platelet Volume 10.4 fl (7.4-10.4); Platelet Count Result 157 k/mm3 (150-375); Red Blood Count 3.28 M/mm3 (4.2-5.4); White Blood Count 7.6 K/mm3 (4.5-10.0)
[2022-03-04 05:45] LABS: Alanine Aminotransferase 86 U/L (6-35); Albumin Level 3.9 g/dL (3.5-5.1); Alkaline Phosphatase 52 U/L (38-126); Aspartate Amino Transferase 30 U/L (14-36); Bilirubin,Total 0.7 mg/dL (0.2-1.3); Blood Urea Nitrogen 21 mg/dL (7-17); Calcium 8.9 mg/dL (8.4-10.2); Carbon Dioxide > 40 mmol/L (22-30); Chloride 92 mmol/L (98-107); Estimated CRCL calculation 97 ml/min; Estimated Glomerular Filt Rate > 60; Glucose 86 mg/dL (65-110); Potassium 3.5 mmol/L (3.4-5.0); Sodium 137 mmol/L (137-145)
[2022-03-04 06:02] LABS: Alveolar/Arterial O2 Gradient 204.1 mmHg; Base Excess ABG 16.2 mEq/l (+/-2.0); Carboxyhemoglobin 0.3 % THb (0-2.0); Fractional Inspired Oxygen 50 %; HCO3 ABG 43.1 mEq/l (22.0-26.0); Methemoglobin ABG 0.2 %THb (0-1.5); Oxygen Content ABG 14.9 %vol (16.0-22.0); Oxygen Saturation ABG 95.6 % (95.0-100.0); Oxyhemoglobin 94.4 % THb (90.0-100.0); PCO2 ABG 65.4 mmHg (35.0-45.0); PO2 ABG 78.8 mmHg (80.0-100.0); PO2 FiO2 Ratio Arterial Blood 1.58 %; Reduced Hemoglobin 5.1 %THb (0-5.0); Total Hemoglobin 11.2 g/dL (12.0-18.0); pH ABG 7.437 (7.350-7.450)
[2022-03-04 06:03] LABS: Device VENTILATOR; Site Drawn RIGHT BRACHIAL
[2022-03-04 06:04] LABS: Arterial Blood Gas Vent Mode CMV; Arterial Blood Gas Ventilator rate 18 /MIN
[2022-03-04 06:06] LABS: Arterial Blood Gas PEEP 8 cmH2O; Arterial Blood Gas Tidal Volume 400 ml
[2022-03-04] MEDS: FUROSEMIDE INJ 40 MG/4 ML VIAL IV PUSH (08:12)
[2022-03-04] MEDS: BUDESONIDE RESPULE NEB 0.5 MG/2 ML AMP INHALATION ×2 (08:24→20:35)
[2022-03-04] MEDS: methylPREDNISolone SOD SUCC 125 MG VIAL 60 MG IV PUSH (08:24)
[2022-03-04] MEDS: PARoxetine 20 MG TABLET 40 MG PO (08:25)
[2022-03-04] MEDS: PANTOPRAZOLE SODIUM IV 40 MG VIAL IV PUSH (08:25)
[2022-03-04] MEDS: METOPROLOL TARTRATE 12.5 MG TABLET PO ×2 (08:25→20:10)
[2022-03-04] MEDS: polyethylene glycoL 3350 17 GM POWD.PACK PO (08:25)
[2022-03-04 09:25] LABS: Alveolar/Arterial O2 Gradient 179.7 mmHg; Fractional Inspired Oxygen 45 %; HCO3 ABG 41.1 mEq/l (22.0-26.0); Oxygen Content ABG 14.6 %vol (16.0-22.0); Oxygen Saturation ABG 92.5 % (95.0-100.0); Oxyhemoglobin 90.9 % THb (90.0-100.0); PO2 FiO2 Ratio Arterial Blood 1.47 %; Total Hemoglobin 11.4 g/dL (12.0-18.0); pH ABG 7.412 (7.350-7.450)
[2022-03-04 09:28] LABS: Arterial Blood Gas PEEP 8 cmH2O; Arterial Blood Gas Pressure Support 5 cmH2O; Arterial Blood Gas Vent Mode SPONTANEOUS; Device VENTILATOR; Modified Allen's Test Pass; PCO2 ABG 66.1 mmHg (35.0-45.0); Site Drawn RIGHT RADIAL
--- NOTE | 2022-03-04 09:31 | WPDINTPN ---
Progress Note: A&P Assessment and Plan (1) Acute on chronic respiratory failure with hypoxia and hypercapnia: Code(s): J96.21 - Acute and chronic respiratory failure with hypoxia; J96.22 - Acute and chronic respiratory failure with hypercapnia Status: Acute Assessment and Plan: Acute on chronic hypoxic and hypercapnic respiratory failure likely related to COPD exacerbation, left lower pneumonia -chest x-ray reviewed -02/27/2022 CT PE protocol: No evidence of PE, left lower lobe collapse possible secondary to obstruction from aspiration of mucus plugging. Infection is not included. Moderate to severe compression fractures of T6 and T7 of uncertain age. 15 mm left thyroid nodule - Repeat CT scan of chest done 03/03 IMPRESSION: 1. Progression of bilateral airspace disease of the lower lobes, right middle lobe with additional areas of patchy groundglass opacification and peripheral interlobular septal thickening. These findings are most likely secondary to pneumonia. 2: Small pleural effusions. -bronchoscopy done 03/01 which did not show any intraluminal mass, BAL was collected and sent for cultures -urine Legionella i, serum mycoplasma IgM and urine pneumococcal antigen are negative -flu and COVID were negative -blood cultures and respiratory cultures are negative till now -currently on CMV mode of ventilation, PEEP to 8, current FiO2 is 50% which I weaned down to 45% -I performed a 5/8 PSV SBT done for more than 1/2 hour. RSBI, ABGI and Vitals were not normal but acceptable. Pt awake and following commands. I willl extubate and monitor closely NPO for now. Will use Bipap PRN and at night. Does wear CPAP at home so is used to it -repeat Lasix 40 mg IV x1 given today -continue bronchodilators, continue Pulmicort -continue cefepime, azithromycin and vancomycin - patient was on Flagyl for a brief period but was discontinued as no obstruction was seen on bronchoscopy -discussed with pulmonary (2) Pneumonia: Code(s): J18.9 - Pneumonia, unspecified organism Status: Acute Assessment and Plan: See above (3) Atelectasis of left lung: Code(s): J98.11 - Atelectasis Status: Acute Assessment and Plan: See above (4) COPD (chronic obstructive pulmonary disease): Code(s): J44.9 - Chronic obstructive pulmonary disease, unspecified Status: Acute Assessment and Plan: Continue mechanical ventilation, Continue steroids but decrease dose to q.a.m. from today Continue bronchodilators (5) Encephalopathy: Code(s): G93.40 - Encephalopathy, unspecified Status: Acute Assessment and Plan: Encephalopathy could be related to hypercapnia, hypoxia -patient has been following commands this morning, -will continue to monitor (6) Diastolic congestive heart failure: Code(s): I50.30 - Unspecified diastolic (congestive) heart failure Status: Acute Assessment and Plan: History of diastolic heart failure with preserved ejection fraction on echocardiogram mentioned in the history and physical. 02/28/2026 echocardiogram shows EF of 65-70%, grade 1 diastolic dysfunction On low-dose beta-janell continue Lasix (7) DVT prophylaxis: Code(s): Z29.9 - Encounter for prophylactic measures, unspecified Status: Acute Assessment and Plan: Lovenox SQ (8) Tobacco use disorder: Code(s): F17.200 - Nicotine dependence, unspecified, uncomplicated Status: Acute Assessment and Plan: Daughter states that the patient continues to smoke about 1 to 1-1/2 packet daily -will certified personal finance counselor patient once she is extubated (9) PAC (premature atrial contraction): Code(s): I49.1 - Atrial premature depolarization Status: Acute Assessment and Plan: Telemetry shows frequent PACs 12 lead EKG showed PACs Continue low-dose beta-janell Replace electrolytes as indicated (10) Oliguria: Code(s): R34 - Anuria and oliguria
--- NOTE | 2022-03-04 09:38 | PM.PNPUL ---
Progress Note: A&P Assessment and Plan (1) COPD (chronic obstructive pulmonary disease): Code(s): J44.9 - Chronic obstructive pulmonary disease, unspecified Status: Acute (2) Acute respiratory failure with hypercapnia: Code(s): J96.02 - Acute respiratory failure with hypercapnia Status: Acute Assessment and Plan: 66-year-old female with severe COPD, hypoxemic hypercapnic respiratory failure presented with acute on chronic hypercapnic respiratory failure related to left lower lobe atelectasis/ bilateral pneumonia. The patient has been on antibiotics and also treatment for COPD exacerbation. Clinical status has significantly improved over the last [address] showed resolution of left lower lobe atelectasis, but bilateral infiltrates related to pneumonia were still present. Left pleural effusion essentially unchanged. WBC within normal range. The patient appears very comfortable on current weaning trial settings. Plan is to extubate patient this a.m. if weaning trial is tolerated and no worsening of gas exchange noted. If extubated she may need BiPAP support. Case was discussed with Dr. Briggs. (3) COPD with acute exacerbation: Code(s): J44.1 - Chronic obstructive pulmonary disease with (acute) exacerbation Status: Acute (4) Acute on chronic respiratory failure with hypoxia and hypercapnia: Code(s): J96.21 - Acute and chronic respiratory failure with hypoxia; J96.22 - Acute and chronic respiratory failure with hypercapnia Status: Acute (5) Pneumonia: Code(s): J18.9 - Pneumonia, unspecified organism Status: Acute Subjective Date/time seen: 03/04/22 09:38 respiratory status improvement noted over last 24 hours. Patient fully awake currently on weaning trial. She has been afebrile. FiO2 lower this a.m.. Review of Systems Review of Systems: All system review is unremarkable except as noted in H&P and below Exam Narrative: GENERAL APPEARANCE: Well developed, well nourished, alert and cooperative,? while on weaning trial SKIN: Inspection of the skin reveals no rashes, ulcerations or petechiae. HEENT: Sclerae anicteric and conjunctivae? pink and moist. Extraocular movements were intact and pupils were equal, round, and reactive to light. ? LUNGS: Auscultation of the lungs revealed? distant breath sounds anteriorly no wheezing CARDIAC: There was a regular rate and rhythm without any murmurs, gallops, rubs. ABDOMEN: Soft and nontender with normal bowel sounds. There was no organomegaly. LYMPH NODES: No lymphadenopathy was appreciated in the neck. EXTREMITIES: No cyanosis, clubbing or edema. NEUROLOGIC: Alert and oriented x 3. Normal affect. Objective Data Vital Signs Vital Signs: Vital Signs - 24 hr 03/03/22 12:00 03/03/22 12:00 03/03/22 12:00 Temperature 37.0 C Pulse Rate 70 Respiratory Rate 18 Blood Pressure 107/48 L Pulse Oximetry 95 95 Oxygen Delivery Mechanical Ventilation Fraction of Inspired Oxygen 55 55 03/03/22 10:00 03/03/22 10:00 03/03/22 12:00 Temperature Pulse Rate 65 65 70 Respiratory Rate 18 18 18 Blood Pressure Pulse Oximetry Oxygen Delivery Fraction of Inspired Oxygen 03/03/22 12:00 03/03/22 10:00 03/03/22 11:18 Temperature 37.1 C Pulse Rate 70 65 62 Respiratory Rate 18 18 Blood Pressure 112/45 L Pulse Oximetry 90 94 Oxygen Delivery Mechanical Ventilation Fraction of Inspired Oxygen 55 03/03/22 14:37 03/03/22 14:35 03/03/22 14:51 Temperature Pulse Rate 63 68 75 Respiratory Rate 18 18 Blood Pressure Pulse Oximetry 95 Oxygen Delivery Mechanical Ventilation Fraction of Inspired Oxygen 55 03/03/22 14:00 03/03/22 14:00 03/03/22 14:00 Temperature 36.7 C Pulse Rate 57 L 57 L 57 L Respiratory Rate 18 18 18 Blood Pressure 118/53 L Pulse Oximetry 93 Oxygen Delivery Fraction of Inspired Oxygen 03/03/22 10:00 03/03/22 12:00
[2022-03-04] MEDS: ENOXAPARIN 100 MG/ML SYRINGE 90 MG SUB-Q ×2 (10:14→20:10)
[2022-03-04] MEDS: ASPIRIN 325 MG TABLET FEED TUBE (10:14)
[2022-03-04] MEDS: KCL 40 MEQ/WATER 100 ML 100 ML 25 ML IVPB (10:14)
--- NOTE | 2022-03-04 11:41 | PCNFU ---
Nutrition Follow-Up Complete: Inadequate Oral Intake as related to mechanical ventilation as evidenced by tube feedings. Goal: Meet estimated nutritional needs Pt is progressing towards goal. Continue with current goal at this time. Pt current nutrition is Tube feeding of Vital AF 1.2 @ 45mL/hr over 22 hours Last recorded weight is 87.2 kg, down 1.4kg from last reported wt on 03/03/22. Recommend re-weighing prior to discharge. Bowel Motility: No new BM reported - Miralax started Labs Reviewed: Hgb 10.1, Hct 31.9, ALT 86, BUN 21, Cr 0.5 Meds Noted: Albutein, Aspirin, Zirthromax, Budesonide, Maxipime, Lovenox, Atrovent Neb, Xopenex, Solu-Medrol, Lopressor, Protonix, Paxil, Miralax, Potassium Chloride, Vancomycin Skin: Left arm skin tear Additional Notes: Spoke with RN today who reports that pt was extubated at 9:45am today. Pt continues to tolerate tube feeding of Vital AF 1.2 running at a rate of 45mL/hr over 22 hours. Tube feeding is providing 1188kcal, 74g of protein, and 803mL of water, meeting 100% of estimated kcal and protein needs. RN reports no BM yet but hoping once pt starts working with PT/OT that will help stimulate bowel movement. Agree with diet orders at this time. Will continue to follow. Will monitor every Monday and Monday.
[2022-03-04 12:12] LABS: Glucose Point of Care 143 mg/dl (65-105)
--- NOTE | 2022-03-04 12:41 | PM.IMPN ---
Progress Note: A&P Assessment and Plan (1) Acute on chronic respiratory failure with hypoxia and hypercapnia: Code(s): J96.21 - Acute and chronic respiratory failure with hypoxia; J96.22 - Acute and chronic respiratory failure with hypercapnia Status: Acute Assessment and Plan: Acute on chronic hypercapnic respiratory failure likely related to COPD exacerbation and/or pneumonia. Wears 4L at rest and 8L with activity per patient. CXR clear on admission but CTA chest 02/27/22 showing no PE but does showing LLL collapse from airway obstruction from aspiration and/or mucous plugging. She did undergo a bronchoscopy 03/01 which showed evidences of mucosal erythema and mild edema in the LLL with a small amount of light yellow bronchial secretions in the secondary david and in the LLL.?There was no evidence of intraluminal masses in the left lung. C S S Representative felt mucous plugging unlikely. Path negative for malignancy. Rare fungal elements seen on smear but cultures remain negative. LE venous doppler negative for DVT. Flu and COVID testing were negative. Mycoplasma IgM and urine pneumococcal antigen negative. CT chest 03/03 showing progression of bilateral airspace disease LLL, RML with patchy groundglass opacifications. Continue treatment for COPD exacerbation and pneumonia with IV steroids and antibiotics. Continue Mucomyst. Appreciate clothes shaker and Pulmonary consult. Consider adding antifungal treatment but improving with current treatment so will await culture results. Able to be successfully extubated to BiPAP. Follow up on final culture results. Consider Diamox. (2) Pneumonia: Code(s): J18.9 - Pneumonia, unspecified organism Status: Acute Assessment and Plan: No fevers. WBC remained normal. As above. (3) Atrial fibrillation: Code(s): I48.91 - Unspecified atrial fibrillation Status: Acute Assessment and Plan: Telemetry was showing frequent PACs and possibly AFlutter. EKG showing AFib. Continue low-dose beta-janell. Replace electrolytes as needed. Lovenox increased to therapeutic dose. (4) COPD exacerbation: Code(s): J44.1 - Chronic obstructive pulmonary disease with (acute) exacerbation Status: Acute Assessment and Plan: As above. No wheezing noted. Continue mechanical ventilation support. Continue steroids, antibiotics and bronchodilators. (5) Atelectasis of left lung: Code(s): J98.11 - Atelectasis Status: Acute Assessment and Plan: As above. s/p bronch on 03/01. Continue antibiotics. (6) Encephalopathy: Code(s): G93.40 - Encephalopathy, unspecified Status: Acute Assessment and Plan: Brain CT showing no acute findings. TSH/B12 normal. Encephalopathy felt related to hypercapnia and hypoxia. Mental status has improved. Will continue to monitor. (7) Diastolic congestive heart failure: Code(s): I50.30 - Unspecified diastolic (congestive) heart failure Status: Acute Assessment and Plan: Patient has a history of diastolic heart failure. Echo 02/28/22 shows EF of 65-70%, grade 1 diastolic dysfunction. BNP 244. CXR not consistent with pulmonary edema. Appears euvolemic. On lasix 40mg at home but held here. Intermittent lasix dosing given. Continue to monitor (8) PAC (premature atrial contraction): Code(s): I49.1 - Atrial premature depolarization Status: Acute Assessment and Plan: As above (9) Tobacco use disorder: Code(s): F17.200 - Nicotine dependence, unspecified, uncomplicated Status: Acute Assessment and Plan: Daughter states that the patient continues to smoke about 1 to 1-1/2 packet daily. Patient was spiritual counselor on the benefits of smoking cessation. (10) DVT prophylaxis: Code(s): Z29.9 - Encounter for prophylactic measures, unspecified Status: Acute Assessment and Plan: Lovenox SQ Plan Elevated LFTs - noted to be sli
[2022-03-04 18:30] LABS: Glucose Point of Care 127 mg/dl (65-105)
[2022-03-05] VITALS (71 sets, daily range): BP systolic 75–174; BP diastolic 32–93; PULSE 55–125; RESP 13–30; TEMP 36.8–37.6; O2SAT 92–100
[2022-03-05] MEDS: ALBUMIN HUMAN 25% 25 GM/100 ML 100 ML IVPB ×2 (00:04→06:56)
[2022-03-05 00:35] LABS: Glucose Point of Care 94 mg/dl (65-105)
[2022-03-05] MEDS: LEVALBUTEROL NEB 1.25 MG/3 ML 0.63 MG INHALATION ×4 (01:44→20:47)
[2022-03-05] MEDS: IPRATROPIUM BR 0.02% INH SOLN 0.5 MG/2.5 ML VIAL INHALATION ×4 (01:44→20:46)
[2022-03-05 05:35] LABS: Alveolar/Arterial O2 Gradient 162.2 mmHg; Base Excess ABG 14.1 mEq/l (+/-2.0); Carboxyhemoglobin 0.3 % THb (0-2.0); Fractional Inspired Oxygen 45 %; Methemoglobin ABG 0.1 %THb (0-1.5); Oxygen Content ABG 14.6 %vol (16.0-22.0); PO2 ABG 57.3 mmHg (80.0-100.0); PO2 FiO2 Ratio Arterial Blood 1.27 %; Total Hemoglobin 12.1 g/dL (12.0-18.0); pH ABG 7.311 (7.350-7.450)
[2022-03-05 05:37] LABS: Device BIPAP; Site Drawn RIGHT BRACHIAL
[2022-03-05 05:38] LABS: Inspiratory Pressure 12 cmH2O
[2022-03-05 05:39] LABS: Expiratory Pressure 8 cmH2O; PCO2 ABG 89.1 mmHg (35.0-45.0)
[2022-03-05 05:40] LABS: Oxygen Saturation ABG 85.3 % (95.0-100.0); Oxyhemoglobin 85.6 % THb (90.0-100.0)
[2022-03-05] MEDS: CENTRAL LINE FLUSH 10 ML IV PUSH ×3 (05:58→21:31)
[2022-03-05 06:00] LABS: Hematocrit 38.6 % (37.0-47.0); Hemoglobin 12.1 g/dL (12.0-15.0); Mean Corpuscular HGB Conc 31.3 g/dl (32-36); Mean Corpuscular Hemoglobin 30.9 pg (26-34); Mean Corpuscular Volume 98.7 fl (80-100); Mean Platelet Volume 11.1 fl (7.4-10.4); Platelet Count Result 221 k/mm3 (150-375); Red Blood Count 3.91 M/mm3 (4.2-5.4); Red Cell Distribution Width 14.1 % (11.5-14.5); White Blood Count 20.8 K/mm3 (4.5-10.0)
[2022-03-05 06:18] LABS: Alanine Aminotransferase 64 U/L (6-35); Albumin Level 5.3 g/dL (3.5-5.1); Alkaline Phosphatase 56 U/L (38-126); Aspartate Amino Transferase 25 U/L (14-36); Bilirubin,Total 1.1 mg/dL (0.2-1.3); Blood Urea Nitrogen 20 mg/dL (7-17); Calcium 9.5 mg/dL (8.4-10.2); Carbon Dioxide > 40 mmol/L (22-30); Chloride 88 mmol/L (98-107); Estimated CRCL calculation 96 ml/min; Estimated Glomerular Filt Rate > 60; Glucose 136 mg/dL (65-110); Magnesium 1.9 mg/dL (1.6-2.3); Potassium 4.1 mmol/L (3.4-5.0); Sodium 140 mmol/L (137-145)
[2022-03-05] MEDS: MIDAZOLAM 100MG/NS 100ML(*CRX) 100 MG/100 ML BAG IV CONT (06:41)
[2022-03-05] MEDS: FENTANYL 2,500MCG/NS250ML(*CRX 2,500 MCG/250 ML BAG IV CONT (06:42)
[2022-03-05 06:48] LABS: Glucose Point of Care 145 mg/dl (65-105)
[2022-03-05] MEDS: NOREPINEPHRINE 8 MG/D5W 250 ML 8 MG/250 ML BAG 9.38 MG IV CONT (07:04)
--- NOTE | 2022-03-05 07:08 | ED.PROCEDURE ---
Procedures Intubation Intubation Date: 03/05/22 Intubation Time: 06:31 A pre-procedural Time-Out was completed immediately before starting the procedure and confirmed: Patient Identification, Site, Procedure, Patient Position and the Availability of Requisite Equipment: No Sedative: versed Mg given: 4 Mg given: 100 Laryngoscope: fiber optic video scope ET tube size: 6 Tube secured depth (cm): 22 Tube secured location: lips Tube placement confirmation: visualized tube passing through cords, no breath sounds over epigastrium and confirmation by capnometry Patient tolerated procedure: other Additional comments: I was called to the ICU for a difficult intubation concern for airway edema. Initial sedation was wearing off patient was given additional 4 of Versed and 100 of succinylcholine. Initial provider attempted 7.5, 7, as well as 6.5 ET tube and met large resistance at the vocal cords they also had resistance with a 6-0 tube. Fiberoptic utilized I did meet some resistance on my initial attempt at the vocal cords. Patient was also given steroids during the procedure. patient was bagged after initial attempt with saturation to the low 90s. Backup 5-1/2 tube as well as bougie was obtained. Patient would be a poor candidate for a cricothyrotomy due to body habitus. Patient was easily to bag so we continued with endotracheal attempts. Second with a 6-0 tube was successful. ET tube was initially 24 at the lip there is diminished aeration on the left but there is good color change and no aeration in the epigastrium ET tube was pulled back to 22 at the lips with improved aeration but continued to be slightly diminished on the left. Chest x-ray obtained and showed good ET tube placement as well as good NG placement.
--- NOTE | 2022-03-05 07:14 | WPDPROCEDUR ---
Procedures Intubation Intubation Date: 03/05/22 Intubation Time: 06:10 Sedative: etomidate Mg given: 20 Paralytic: succinylcholine Mg given: 100 Laryngoscope: fiber optic video scope Additional comments: Patient had recurrent respiratory distress. The decision made for RSI. Patient was given 20 of etomidate and 100 of succinylcholine. Attempted to place 7.5 ET tube and is 7.0 ET tube that was already prepared. The ET tube would not pass beyond the vocal cords. I called for assistance from the ER while attempting again with a 6.5 ET tube. Between 2nd and 3rd attempt the patient did become harder to bag subsequently the patient received 2 mg of Versed. I did attempt with 6.5 ET tube in again met resistance with the tip of the tube just beyond the vocal cords. I did order a dose of Decadron given development of airway edema after multiple intubation attempts. At that time ER provider arrived to assist and attempted with 6.5 ET tube and 6.0 ET tube we reviewed sleep able to place a 6.0 ET tube with the use of assistive devices.
--- NOTE | 2022-03-05 07:39 | PM.EVENT ---
Event Note Event Note Event Note: 03/05/2022 at 05:45 nursing staff called to notify me the patient was in respiratory distress. Respiratory had come to draw the patient's morning ABG. She requested a break from the BiPAP. Immediately after removal BiPAP in being placed on her nasal cannula oxygen the patient developed respiratory distress. The patient was placed back on her BiPAP in her FiO2 was increased to 100% to recover her pulse ox back up to 88%. I gave orders for adjustments on BiPAP and cannot to evaluate the patient immediately. The patient was still having maximal work of breathing with accessory muscle use. despite further BiPAP adjustments and improved seal of the BiPAP mask the patient was continuing to fail. Patient consented to intubation. the patient was preoxygenated on BiPAP prior to intubation. The patient unfortunately into having a difficult airway with details noted in the procedure note. The patient had resistance the airways immediately beyond the vocal cords. Eventually with assistance of emergency physician room we were able to place is 6.0 ET tube. Patient placed on ventilator initially was not pulling good tidal volumes . I did provide the patient additional paralytic with a dose of rocuronium and she was started on sedation with Versed 4 and fentanyl 50. Patient had did have some low blood pressures on Levophed was ordered and titrated per protocol. Elementary Education Teacher was notified of the patient's change in condition. He may further ventilator adjustments with improvement in patient's respiratory status. I contacted ENT as I suspect patient had tracheal stenosis as the patient has had multiple intubations and following 1 of her prior intubations when the ET had been retracted accidentally by a nursing staff and had been readvanced the ET tube kinked in the middle of the area of the cough and had to be exchanged. From verbal report I had the thought that the patient had at the multiple intubations during her hospitalizations but I cannot find record of this. The patient has had multiple hospitalization for COPD exacerbations. 120 minutes spent in critical care activities. Due to a high probability of clinically significant, life threatening deterioration, the patient required my highest level of preparedness to intervene emergently and I personally spent this critical care time directly and personally managing the patient. This critical care time included obtaining a history; examining the patient; pulse oximetry; ordering and review of studies; arranging urgent treatment with development of a management plan; evaluation of patient's response to treatment; frequent reassessment; and discussions with other providers. It was exclusive of separately billable procedures and treating other patients and teaching time. Please see Assessment and Plan section and the rest of the note for further information on patient assessment and treatment.
--- NOTE | 2022-03-05 07:40 | PC.NURSE ---
Pt tolerated bipap well overnight. RT at bedside this am to obtain ABG. Pt given a break from bipap at that time. Pt quickly went into respiratory distress-increased respiratory rate, heart rate in the 150s, diaphoretic. Bipap reapplied to pt. Dr. Anand notified. When asked if pt wanted to be reintubated if necessary, pt nodded yes. Dr. Anand at bedside to make adjustments to bipap. Pt unable to pull volumes while on bipap. Dr. Anand and Dr. Nichols at pt's bedside to intubate pt.
[2022-03-05] MEDS: SODIUM CHLORIDE 0.9% IV 1,000 ML 999 ML IV CONT (07:53)
--- NOTE | 2022-03-05 08:53 | WPDINTPN ---
Progress Note: A&P Assessment and Plan (1) Acute on chronic respiratory failure with hypoxia and hypercapnia: Code(s): J96.21 - Acute and chronic respiratory failure with hypoxia; J96.22 - Acute and chronic respiratory failure with hypercapnia Status: Acute Assessment and Plan: Acute on chronic hypoxic and hypercapnic respiratory failure likely related to COPD exacerbation, left lower pneumonia -chest x-ray reviewed -02/27/2022 CT PE protocol: No evidence of PE, left lower lobe collapse possible secondary to obstruction from aspiration of mucus plugging. Infection is not included. Moderate to severe compression fractures of T6 and T7 of uncertain age. 15 mm left thyroid nodule - Repeat CT scan of chest done 03/03 1. Progression of bilateral airspace disease of the lower lobes, right middle lobe with additional areas of patchy groundglass opacification and peripheral interlobular septal thickening. These findings are most likely secondary to pneumonia. 2: Small pleural effusions. -bronchoscopy done 03/01 which did not show any intraluminal mass, BAL was collected and sent for cultures -urine Legionella i, serum mycoplasma IgM and urine pneumococcal antigen are negative -flu and COVID were negative -blood cultures and respiratory cultures are negative till now 03/04 she was extubated after a successful weaning trial. She maintain her oxygenation on nasal cannula and required BiPAP while sleeping during the day and at night. She had no stridor and was able to speak without any difficulty. 03/05 she wore BiPAP overnight. security rover ABG showed mild worsening with hypercarbia and respiratory acidosis. When patient came off of BiPAP she became more short of breath and went into respiratory distress with tachypnea and tachycardia and increased work of breathing. Soon she desaturation. Patient was intubated by overnight physician. Her intubation was difficult multiple attempts were required and finally only size 6 mm ET tube was placed. Tracheal stenosis was suspected. ENT consult. CT soft tissue neck has been done report is pending. He plans to do a bronchoscopy and review CT and make decision whether to proceed with tracheostomy. -currently patient has size 6 ET tube is on CMV mode of ventilation, I have increase tidal volume to 400 and decrease rate to 20, peak pressures are elevated as expected due to narrow ETT, FiO2 wean down to 75% peep is at 5 -ABGs ordered and pending -chest x-ray reviewed and ETT advanced by 2 cm -I will increase dose of Solu-Medrol to every 6 hours for next 24 hours for any possible airway edema -continue bronchodilators, continue Pulmicort -continue cefepime and vancomycin -discontinue azithromycin after a 5 day course - patient was on Flagyl for a brief period but was discontinued as no obstruction was seen on bronchoscopy (2) Tracheal obstruction: Code(s): J39.8 - Other specified diseases of upper respiratory tract Status: Acute Assessment and Plan: See above (3) Pneumonia: Code(s): J18.9 - Pneumonia, unspecified organism Status: Acute Assessment and Plan: See above (4) Atelectasis of left lung: Code(s): J98.11 - Atelectasis Status: Acute Assessment and Plan: See above (5) COPD (chronic obstructive pulmonary disease): Code(s): J44.9 - Chronic obstructive pulmonary disease, unspecified Status: Acute Assessment and Plan: Continue mechanical ventilation, Continue steroids but decrease dose to q.a.m. from today Continue bronchodilators (6) Hypotension: Code(s): I95.9 - Hypotension, unspecified Status: Acute Assessment and Plan: Likely secondary to positive pressure ventilation and sedation Continue Levophed to maintain map I will give 1 L saline bolus. Try to wean off Levophed. (7) Atrial fibrillation: Code(s): I48.91 - Unspecified atrial fibrillation Status: Acute Assessment an
--- NOTE | 2022-03-05 09:09 | PM.OP ---
Procedure Note - Brief Procedure Note - Brief Date of procedure: 03/05/22 Pre-op diagnosis: Acute Respiratory Failure same Procedure performed: ett tube exchange over stylet Description of procedure: pt sedated 6.0 ett removed over stylet, replace with 7.0 ett without difficulty. Anesthesia: other (propofol GIVS) Surgeon: Vinh Canales MD Labor Gang Supervisor: Dr Gomez Estimated blood loss (mL): 0 Complications: No immediate complications Condition: Stable Disposition: ICU Findings: ICU nurse present throughout. PT stable. RT present. Ventilation stable.
[2022-03-05] MEDS: PANTOPRAZOLE SODIUM IV 40 MG VIAL IV PUSH (09:19)
[2022-03-05] MEDS: MINERAL OIL/WHITE PETROLATUM OINTMENT 1 APPLIC EACH EYE ×2 (09:20→21:31)
[2022-03-05] MEDS: polyethylene glycoL 3350 17 GM POWD.PACK PO (09:20)
[2022-03-05] MEDS: PARoxetine 20 MG TABLET 40 MG PO (09:20)
[2022-03-05 09:44] LABS: Alveolar/Arterial O2 Gradient 352.9 mmHg; Base Excess ABG 10.1 mEq/l (+/-2.0); Fractional Inspired Oxygen 75 %; HCO3 ABG 37.6 mEq/l (22.0-26.0); Oxygen Content ABG 16.5 %vol (16.0-22.0); Oxygen Saturation ABG 97.8 % (95.0-100.0); Oxyhemoglobin 96.8 % THb (90.0-100.0); PO2 ABG 111.7 mmHg (80.0-100.0); PO2 FiO2 Ratio Arterial Blood 1.49 %; pH ABG 7.374 (7.350-7.450)
[2022-03-05 09:46] LABS: Device VENTILATOR; Modified Allen's Test Pass; Site Drawn RIGHT RADIAL
[2022-03-05 09:47] LABS: Arterial Blood Gas PEEP 5 cmH2O; Arterial Blood Gas Vent Mode CMV; Arterial Blood Gas Ventilator rate 20 /MIN
[2022-03-05 09:48] LABS: Arterial Blood Gas Tidal Volume 400 ml
[2022-03-05] MEDS: BUDESONIDE RESPULE NEB 0.5 MG/2 ML AMP INHALATION ×2 (10:04→20:47)
[2022-03-05 12:15] LABS: Glucose Point of Care 237 mg/dl (65-105)
[2022-03-05] MEDS: methylPREDNISolone SOD SUCC 125 MG VIAL 60 MG IV PUSH ×2 (12:17→18:09)
[2022-03-05] MEDS: INSULIN ASPART (*BKC) 100 UNITS/ML SUB-Q (12:20)
--- NOTE | 2022-03-05 16:10 | PM.IMPN ---
Progress Note: A&P Assessment and Plan (1) Hypotension: Code(s): I95.9 - Hypotension, unspecified Status: Acute Assessment and Plan: Patient developed HoTN felt related to the acute respiratory failure/collapse then from sepsis. Levophed started and patietn stable now. Wean off levophed as BP toelrates (2) Acute on chronic respiratory failure with hypoxia and hypercapnia: Code(s): J96.21 - Acute and chronic respiratory failure with hypoxia; J96.22 - Acute and chronic respiratory failure with hypercapnia Status: Acute Assessment and Plan: Acute on chronic hypercapnic respiratory failure likely related to COPD exacerbation and/or pneumonia. Wears 4L at rest and 8L with activity per patient. CXR clear on admission but CTA chest 02/27/22 showing no PE but does showing LLL collapse from airway obstruction from aspiration and/or mucous plugging. She did undergo a bronchoscopy 03/01 which showed evidences of mucosal erythema and mild edema in the LLL with a small amount of light yellow bronchial secretions in the secondary david and in the LLL.?There was no evidence of intraluminal masses in the left lung. Wood Boat Builder Supervisor felt mucous plugging unlikely. Path negative for malignancy. Rare fungal elements seen on smear but all cultures remain negative. LE venous doppler negative for DVT. Flu and COVID testing were negative. Mycoplasma IgM and urine pneumococcal antigen negative. CT chest 03/03 showing progression of bilateral airspace disease LLL, RML with patchy groundglass opacifications. She did well and was able to be extubated on 03/04. She did well with BiPAP until this morning when she acutely decompensated off the BiPAP. ABG 7.31//57 on BiPAP. She was re-intubated but difficult due to tracheal stenosis(?). ENT had to replace the ETT with larger diameter. Repeat ABG better. CXR showing pulmonary edema. CT soft tissue neck showing prominence of the trachea surrounded the endotracheal tube at the level of the hyoid bone as well as patchy bilateral infiltrates possibly pneumonia. Continue treatment for COPD exacerbation and pneumonia with IV steroids and antibiotics. Continue Mucomyst. Appreciate busher helper and Pulmonary consult. Consider adding antifungal treatment but improving with current treatment so will await culture results. Able to be successfully extubated to BiPAP. Follow up on final culture results. Consider Diamox. (3) Tracheal obstruction: Code(s): J39.8 - Other specified diseases of upper respiratory tract Status: Acute Assessment and Plan: As above. Had a bronch 03/01 but did not show tracheal stenosis so may be located higher up. Will need to do trial to see if her airway is compromised by stenosis. May need trach. (4) Pneumonia: Code(s): J18.9 - Pneumonia, unspecified organism Status: Acute Assessment and Plan: No fevers. WBC was normal but now 21K related to demargination/stress response. As above. (5) Diastolic congestive heart failure: Code(s): I50.30 - Unspecified diastolic (congestive) heart failure Status: Acute Assessment and Plan: Patient has a history of diastolic heart failure. Echo 02/28/22 shows EF of 65-70%, grade 1 diastolic dysfunction. BNP 244. CXR today is consistent with pulmonary edema. Was on Lasix 40mg at home but held here. She did receive intermittent lasix dosing here. Continue to monitor. Start lasix when able (6) Atrial fibrillation: Code(s): I48.91 - Unspecified atrial fibrillation Status: Acute Assessment and Plan: Telemetry was showing frequent PACs and possibly AFlutter. EKG showing AFib. Metoprolol held due to HoTN. Replace electrolytes as needed. Lovenox increased to therapeutic dose but on hold now. (7) COPD exacerbation: Code(s): J44.1 - Chronic obstructive pulmonary disease with (acute) exacerbation Status: Acute Assessment and Plan: As above. No wheezing not
[2022-03-05 17:35] LABS: Glucose Point of Care 151 mg/dl (65-105)
[2022-03-05 17:43] LABS: Vancomycin Trough 16.3 ug/mL (10.0-20.0)
[2022-03-06] VITALS (47 sets, daily range): BP systolic 100–134; BP diastolic 42–65; PULSE 54–98; RESP 10–20; TEMP 36.7–37.4; O2SAT 91–97
[2022-03-06] MEDS: methylPREDNISolone SOD SUCC 125 MG VIAL 60 MG IV PUSH ×2 (00:09→06:32)
[2022-03-06 00:21] LABS: Glucose Point of Care 159 mg/dl (65-105)
[2022-03-06] MEDS: MIDAZOLAM 100MG/NS 100ML(*CRX) 100 MG/100 ML BAG IV CONT (01:29)
[2022-03-06] MEDS: LEVALBUTEROL NEB 1.25 MG/3 ML 0.63 MG INHALATION ×4 (01:58→20:08)
[2022-03-06] MEDS: IPRATROPIUM BR 0.02% INH SOLN 0.5 MG/2.5 ML VIAL INHALATION ×4 (01:58→20:08)
[2022-03-06 05:34] LABS: Hematocrit 33.2 % (37.0-47.0); Hemoglobin 10.4 g/dL (12.0-15.0); Mean Corpuscular HGB Conc 31.3 g/dl (32-36); Mean Corpuscular Hemoglobin 30.4 pg (26-34); Mean Corpuscular Volume 97.1 fl (80-100); Mean Platelet Volume 11.5 fl (7.4-10.4); Platelet Count Result 171 k/mm3 (150-375); Red Blood Count 3.42 M/mm3 (4.2-5.4); Red Cell Distribution Width 14.1 % (11.5-14.5); White Blood Count 14.4 K/mm3 (4.5-10.0)
[2022-03-06 05:44] LABS: Alveolar/Arterial O2 Gradient 290.6 mmHg; Base Excess ABG 14.1 mEq/l (+/-2.0); Carboxyhemoglobin 0.3 % THb (0-2.0); Fractional Inspired Oxygen 60 %; HCO3 ABG 40.8 mEq/l (22.0-26.0); Methemoglobin ABG 0.3 %THb (0-1.5); Oxygen Content ABG 15.4 %vol (16.0-22.0); Oxygen Saturation ABG 94.1 % (95.0-100.0); Oxyhemoglobin 91.9 % THb (90.0-100.0); PO2 ABG 69.7 mmHg (80.0-100.0); PO2 FiO2 Ratio Arterial Blood 1.16 %; Reduced Hemoglobin 7.5 %THb (0-5.0); Total Hemoglobin 11.9 g/dL (12.0-18.0)
[2022-03-06 05:47] LABS: Arterial Blood Gas Ventilator rate 20 /MIN; Device VENTILATOR; Modified Allen's Test Pass; PCO2 ABG 61.4 mmHg (35.0-45.0); Site Drawn RIGHT RADIAL
[2022-03-06 05:48] LABS: Arterial Blood Gas PEEP 5 cmH2O; Arterial Blood Gas Tidal Volume 400 ml; Arterial Blood Gas Vent Mode CMV
[2022-03-06 05:55] LABS: Alanine Aminotransferase 39 U/L (6-35); Alkaline Phosphatase 48 U/L (38-126); Aspartate Amino Transferase 20 U/L (14-36); Bilirubin,Total 0.9 mg/dL (0.2-1.3); Blood Urea Nitrogen 35 mg/dL (7-17); Calcium 9.1 mg/dL (8.4-10.2); Carbon Dioxide > 40 mmol/L (22-30); Chloride 91 mmol/L (98-107); Estimated CRCL calculation 116 ml/min; Estimated Glomerular Filt Rate > 60; Glucose 164 mg/dL (65-110); Magnesium 1.9 mg/dL (1.6-2.3); Potassium 3.7 mmol/L (3.4-5.0); Sodium 137 mmol/L (137-145)
[2022-03-06] MEDS: CENTRAL LINE FLUSH 10 ML IV PUSH ×3 (06:33→19:53)
[2022-03-06 06:40] LABS: Glucose Point of Care 161 mg/dl (65-105)
[2022-03-06] MEDS: BUDESONIDE RESPULE NEB 0.5 MG/2 ML AMP INHALATION ×2 (08:18→20:08)
--- NOTE | 2022-03-06 09:11 | WPDINTPN ---
Progress Note: A&P Assessment and Plan (1) Acute on chronic respiratory failure with hypoxia and hypercapnia: Code(s): J96.21 - Acute and chronic respiratory failure with hypoxia; J96.22 - Acute and chronic respiratory failure with hypercapnia Status: Acute Assessment and Plan: Acute on chronic hypoxic and hypercapnic respiratory failure likely related to COPD exacerbation, left lower pneumonia -chest x-ray reviewed -02/27/2022 CT PE protocol: No evidence of PE, left lower lobe collapse possible secondary to obstruction from aspiration of mucus plugging. Infection is not included. Moderate to severe compression fractures of T6 and T7 of uncertain age. 15 mm left thyroid nodule - Repeat CT scan of chest done 03/03 1. Progression of bilateral airspace disease of the lower lobes, right middle lobe with additional areas of patchy groundglass opacification and peripheral interlobular septal thickening. These findings are most likely secondary to pneumonia. 2: Small pleural effusions. -bronchoscopy done 03/01 which did not show any intraluminal mass, BAL was collected and sent for cultures -urine Legionella , serum mycoplasma IgM and urine pneumococcal antigen are negative -flu and COVID were negative -blood cultures and respiratory cultures are negative till now 03/04 she was extubated after a successful weaning trial. She maintain her oxygenation on nasal cannula and required BiPAP while sleeping during the day and at night. She had no stridor and was able to speak without any difficulty. 03/05 she wore BiPAP overnight. steel die printer ABG showed mild worsening with hypercarbia and respiratory acidosis. When patient came off of BiPAP she became more short of breath and went into respiratory distress with tachypnea and tachycardia and increased work of breathing. Soon she desaturation. Patient was intubated by overnight physician. Her intubation was difficult multiple attempts were required and finally only size 6 mm ET tube was placed. Tracheal stenosis was suspected. 03/05 CT soft tissue neck: .Mild soft tissue prominence of the trachea surrounding the endotracheal tube at the level of the hyoid bone and thyroid cartilage, nonspecific. Patchy bilateral infiltrates with interlobular septal thickening, suspicious for pneumonia. - 03/05: ETT was exchanged to size 7 by Anesthesia -currently on CMV mode of ventilation, 60%, will place patient on ASV mode and evaluate. -ABGs and chest x-ray reviewed this morning -switch his Solu-Medrol to Decadron for soft tissue swelling surrounding the to endotracheal tube -continue bronchodilators, continue Pulmicort -continue cefepime and vancomycin -discontinue azithromycin after a 5 day course - patient was on Flagyl for a brief period but was discontinued as no obstruction was seen on bronchoscopy (2) Tracheal obstruction: Code(s): J39.8 - Other specified diseases of upper respiratory tract Status: Acute Assessment and Plan: Will discuss with ENT regarding evaluation of the trachea for stenosis. (3) Pneumonia: Code(s): J18.9 - Pneumonia, unspecified organism Status: Acute Assessment and Plan: See above (4) Atelectasis of left lung: Code(s): J98.11 - Atelectasis Status: Acute Assessment and Plan: See above (5) COPD (chronic obstructive pulmonary disease): Code(s): J44.9 - Chronic obstructive pulmonary disease, unspecified Status: Acute Assessment and Plan: Continue mechanical ventilation, Continue steroids Continue bronchodilators (6) Hypotension: Code(s): I95.9 - Hypotension, unspecified Status: Acute Assessment and Plan: Likely secondary to positive pressure ventilation and sedation Continue Levophed to maintain map And did receive IV fluids 03/05. Continue to wean off Levophed. (7) Atrial fibrillation: Code(s): I48.91 - Unspecified atrial fibrillation Status: Acute
[2022-03-06] MEDS: polyethylene glycoL 3350 17 GM POWD.PACK PO (09:21)
[2022-03-06] MEDS: PANTOPRAZOLE SODIUM IV 40 MG VIAL IV PUSH (09:21)
[2022-03-06] MEDS: PARoxetine 20 MG TABLET 40 MG PO (09:22)
[2022-03-06] MEDS: ENOXAPARIN 100 MG/ML SYRINGE 90 MG SUB-Q ×2 (09:22→19:54)
--- NOTE | 2022-03-06 10:11 | PM.IMPN ---
Progress Note: A&P Assessment and Plan (1) Hypotension: Code(s): I95.9 - Hypotension, unspecified Status: Acute Assessment and Plan: Patient developed HoTN felt related to the acute respiratory failure/collapse then from sepsis. Levophed started and patient stable now. BP stable. Wean off Levophed as tolerated. (2) Acute on chronic respiratory failure with hypoxia and hypercapnia: Code(s): J96.21 - Acute and chronic respiratory failure with hypoxia; J96.22 - Acute and chronic respiratory failure with hypercapnia Status: Acute Assessment and Plan: Acute on chronic hypercapnic respiratory failure likely related to COPD exacerbation and/or pneumonia. Wears 4L at rest and 8L with activity per patient. CXR clear on admission but CTA chest 02/27/22 showing no PE but does showing LLL collapse from airway obstruction from aspiration and/or mucous plugging. She did undergo a bronchoscopy 03/01 which showed evidences of mucosal erythema and mild edema in the LLL with a small amount of light yellow bronchial secretions in the secondary david and in the LLL.?There was no evidence of intraluminal masses in the left lung. Customs Agent felt mucous plugging unlikely. Path negative for malignancy. Rare fungal elements seen on smear but all cultures remain negative. LE venous doppler negative for DVT. Flu and COVID testing were negative. Mycoplasma IgM and urine pneumococcal antigen negative. CT chest 03/03 showing progression of bilateral airspace disease LLL, RML with patchy groundglass opacifications. She did well and was able to be extubated on 03/04. -- She did well with BiPAP until the morning on 03/05 when she acutely decompensated off the BiPAP. ABG 7.31/89/57 on BiPAP. She was re-intubated but difficult due to tracheal stenosis(?). ETT had to replace with larger diameter. CXR showing pulmonary edema. CT soft tissue neck showing prominence of the trachea surrounded the endotracheal tube at the level of the hyoid bone as well as patchy bilateral infiltrates possibly pneumonia. Continue treatment for COPD exacerbation and pneumonia with IV steroids and antibiotics. Appreciate data conversion developer and Pulmonary consult. May need trach if she has more severe tracheal stenosis. Discussed with data conversion developer. (3) Tracheal obstruction: Code(s): J39.8 - Other specified diseases of upper respiratory tract Status: Acute Assessment and Plan: As above. Had a bronch 03/01 but did not show tracheal stenosis so may be located higher up. Will need to do trial to see if her airway is compromised by stenosis. May need trach. Decadron started. (4) Pneumonia: Code(s): J18.9 - Pneumonia, unspecified organism Status: Acute Assessment and Plan: No fevers. WBC was normal but jumped to 21K related to demargination/stress response. WBC back down again today. As above. Continue to follow (5) Diastolic congestive heart failure: Code(s): I50.30 - Unspecified diastolic (congestive) heart failure Status: Acute Assessment and Plan: Patient has a history of diastolic heart failure. Echo 02/28/22 shows EF of 65-70%, grade 1 diastolic dysfunction. BNP 244. CXR today is consistent with pulmonary edema. Was on Lasix 40mg at home but held here. She did receive intermittent lasix dosing here. Continue to monitor. Start lasix when able (6) Atrial fibrillation: Code(s): I48.91 - Unspecified atrial fibrillation Status: Acute Assessment and Plan: Telemetry was showing frequent PACs and possibly AFlutter. EKG showing AFib. Metoprolol held due to HoTN. Replace electrolytes as needed. Lovenox increased to therapeutic dose but on hold now due to blood tinged secretions. Resume metoprolol when able. (7) COPD exacerbation: Code(s): J44.1 - Chronic obstructive pulmonary disease with (acute) exacerbation Status: Acute Assessment and Plan: As above. No wheezing noted. Continue mecha
[2022-03-06] MEDS: DEXAMETHASONE SOD PHOS INJ 4 MG/ML VIAL IV PUSH ×3 (11:39→23:25)
[2022-03-06 11:56] LABS: Glucose Point of Care 171 mg/dl (65-105)
--- NOTE | 2022-03-06 13:31 | PM.PNPUL ---
Progress Note: A&P Assessment and Plan (1) Tracheal obstruction: Code(s): J39.8 - Other specified diseases of upper respiratory tract Status: Acute (2) COPD (chronic obstructive pulmonary disease): Code(s): J44.9 - Chronic obstructive pulmonary disease, unspecified Status: Acute (3) Acute respiratory failure with hypercapnia: Code(s): J96.02 - Acute respiratory failure with hypercapnia Status: Acute Assessment and Plan: 66-year-old female with severe COPD, hypoxemic hypercapnic respiratory failure presented with acute on chronic hypercapnic respiratory failure related to left lower lobe atelectasis/ bilateral pneumonia.? The patient has been on antibiotics and also treatment for COPD exacerbation.? Clinical status had significantly improved And patient was extubated 2 days ago. 24 hours following extubation the patient developed respiratory distress requiring re-intubation. Neck soft tissue CT raised question of tracheal edema around endotracheal tube in the subglottic region. patient has been on antibiotics for bilateral pneumonia. She continues to have elevated WBC which could be related to steroids she has been on. Plan was discussed with Dr. Velasco. ENT will re-evaluate the patient in a.m. regarding upper airway obstruction. She may need repeat neck soft tissue CT to to reassess tracheal edema. (4) COPD with acute exacerbation: Code(s): J44.1 - Chronic obstructive pulmonary disease with (acute) exacerbation Status: Acute (5) Acute on chronic respiratory failure with hypoxia and hypercapnia: Code(s): J96.21 - Acute and chronic respiratory failure with hypoxia; J96.22 - Acute and chronic respiratory failure with hypercapnia Status: Acute (6) Diastolic congestive heart failure: Code(s): I50.30 - Unspecified diastolic (congestive) heart failure Status: Acute Subjective Date/time seen: 03/06/22 13:31 Events preceding re-intubation noted. currently she is lightly sedated on mechanical ventilation. Had blood-tinged secretions yesterday following re-intubation, secretions clear today. Afebrile on antibiotics for bilateral pneumonia. Review of Systems Review of Systems: All system review is negative except as noted in H&P and below. Exam Narrative: GENERAL APPEARANCE: Well developed, well nourished, alert and cooperative, While lightly sedated on mechanical ventilation SKIN: Inspection of the skin reveals no rashes, ulcerations or petechiae. HEENT: Sclerae anicteric and conjunctivae pink and moist. Extraocular movements were intact and pupils were equal, round. NECK: Supple. There was no thyroid enlargement, and no tenderness, or masses were felt. LUNGS: Auscultation of the lungs revealed normal breath sounds anteriorly no wheezing CARDIAC: There was a regular rate and rhythm without any murmurs, gallops, rubs. ABDOMEN: Soft and nontender with normal bowel sounds. There was no organomegaly. LYMPH NODES: No lymphadenopathy was appreciated in the neck. EXTREMITIES: No cyanosis, clubbing or edema. NEUROLOGIC: Awake moving all extremities. Objective Data Vital Signs Vital Signs: Vital Signs - 24 hr 03/05/22 14:09 03/05/22 14:10 03/05/22 14:00 Temperature Pulse Rate 102 H 102 H 102 H Respiratory Rate 20 Blood Pressure Pulse Oximetry 98 Oxygen Delivery Mechanical Ventilation Fraction of Inspired Oxygen 60 03/05/22 16:00 03/05/22 16:00 03/05/22 16:00 Temperature Pulse Rate 57 L 60 Respiratory Rate 20 Blood Pressure Pulse Oximetry 97 Oxygen Delivery Mechanical Ventilation Fraction of Inspired Oxygen 60 60 03/05/22 14:30 03/05/22 16:00 03/05/22 16:25 Temperature 37.0 C Pulse Rate 100 57 L 94 Respiratory Rate 20 20 Blood Pressure 101/52 L 104/61 Pulse Oximetry 96 Oxygen Delivery Fraction of Inspired Oxygen 03/05/22 17:19 03/05/22 18:11 03/05/22 18:11 Temperature Pulse Ra
[2022-03-06] MEDS: FENTANYL 2,500MCG/NS250ML(*CRX 2,500 MCG/250 ML BAG 7.5 MCG IV CONT (17:19)
[2022-03-06 17:34] LABS: Glucose Point of Care 177 mg/dl (65-105)
[2022-03-06] MEDS: MINERAL OIL/WHITE PETROLATUM OINTMENT 1 APPLIC EACH EYE (20:26)
[2022-03-06 23:58] LABS: Glucose Point of Care 170 mg/dl (65-105)
[2022-03-07] VITALS (34 sets, daily range): BP systolic 112–137; BP diastolic 44–65; PULSE 56–93; RESP 9–22; TEMP 36.9–37.2; O2SAT 91–97
[2022-03-07] MEDS: LEVALBUTEROL NEB 1.25 MG/3 ML 0.63 MG INHALATION ×4 (02:19→20:26)
[2022-03-07] MEDS: IPRATROPIUM BR 0.02% INH SOLN 0.5 MG/2.5 ML VIAL INHALATION ×4 (02:19→20:26)
[2022-03-07 04:48] LABS: Basophils Percent Auto 0.1 % (0.2-1.2); Hematocrit 33.6 % (37.0-47.0); Hemoglobin 10.3 g/dL (12.0-15.0); Immature Granulocyte Percent A 0.8 % (0-0.5); Lymphocytes Absolute Auto 0.35 K/mm3 (0.9-3.2); Lymphocytes Percent Auto 2.8 % (18.3-44.2); Mean Corpuscular HGB Conc 30.7 g/dl (32-36); Mean Corpuscular Hemoglobin 30.4 pg (26-34); Mean Corpuscular Volume 99.1 fl (80-100); Mean Platelet Volume 11.1 fl (7.4-10.4); Monocytes Absolute Auto 0.7 K/mm3 (0.1-0.6); Neutrophils Absolute Auto 11.2 K/mm3 (1.3-6.7); Neutrophils Percent Auto 90.3 % (45.5-73.1); Platelet Count Result 192 k/mm3 (150-375); Red Blood Count 3.39 M/mm3 (4.2-5.4); Red Cell Distribution Width 14.3 % (11.5-14.5); White Blood Count 12.4 K/mm3 (4.5-10.0)
[2022-03-07 05:00] LABS: Alanine Aminotransferase 34 U/L (6-35); Albumin Level 3.9 g/dL (3.5-5.1); Alkaline Phosphatase 55 U/L (38-126); Aspartate Amino Transferase 12 U/L (14-36); Bilirubin,Total 0.7 mg/dL (0.2-1.3); Blood Urea Nitrogen 43 mg/dL (7-17); Calcium 9.2 mg/dL (8.4-10.2); Carbon Dioxide > 40 mmol/L (22-30); Chloride 91 mmol/L (98-107); Estimated CRCL calculation 98 ml/min; Estimated Glomerular Filt Rate > 60; Glucose 127 mg/dL (65-110); Magnesium 2.1 mg/dL (1.6-2.3); Phosphorus 3.4 mg/dL (2.5-4.5); Potassium 3.9 mmol/L (3.4-5.0); Sodium 136 mmol/L (137-145)
[2022-03-07 05:25] LABS: Alveolar/Arterial O2 Gradient 233.7 mmHg; Base Excess ABG 15.7 mEq/l (+/-2.0); Carboxyhemoglobin 0.3 % THb (0-2.0); Fractional Inspired Oxygen 50 %; HCO3 ABG 44.4 mEq/l (22.0-26.0); Methemoglobin ABG 0.4 %THb (0-1.5); Oxygen Content ABG 9.7 %vol (16.0-22.0); PO2 FiO2 Ratio Arterial Blood 0.66 %; Total Hemoglobin 11.6 g/dL (12.0-18.0); pH ABG 7.363 (7.350-7.450)
[2022-03-07] MEDS: CENTRAL LINE FLUSH 10 ML IV PUSH ×3 (05:40→21:06)
[2022-03-07] MEDS: DEXAMETHASONE SOD PHOS INJ 4 MG/ML VIAL IV PUSH (05:40)
[2022-03-07 05:41] LABS: Oxygen Saturation ABG 94.8 % (95.0-100.0); Oxyhemoglobin 93.4 % THb (90.0-100.0); PO2 ABG 75.8 mmHg (80.0-100.0)
[2022-03-07 05:44] LABS: PCO2 ABG 64.1 mmHg (35.0-45.0)
[2022-03-07 05:47] LABS: Device VENTILATOR; Modified Allen's Test Pass; Site Drawn RIGHT RADIAL
[2022-03-07 05:48] LABS: Arterial Blood Gas PEEP 5 cmH2O; Arterial Blood Gas Vent Mode ASV
[2022-03-07 05:51] LABS: Hypochromasia 1+ (NORMAL); Platelet Estimate Adequate (Adequate); Stomatocytes 1+ (NORMAL)
[2022-03-07] MEDS: MINERAL OIL/WHITE PETROLATUM OINTMENT 1 APPLIC EACH EYE (08:19)
[2022-03-07] MEDS: ENOXAPARIN 100 MG/ML SYRINGE 90 MG SUB-Q ×2 (08:19→21:04)
[2022-03-07] MEDS: PANTOPRAZOLE SODIUM IV 40 MG VIAL IV PUSH (08:20)
[2022-03-07] MEDS: polyethylene glycoL 3350 17 GM POWD.PACK PO (08:20)
[2022-03-07] MEDS: PARoxetine 20 MG TABLET 40 MG PO (08:20)
[2022-03-07] MEDS: MIDAZOLAM 100MG/NS 100ML(*CRX) 100 MG/100 ML BAG IV CONT (08:35)
[2022-03-07] MEDS: BUDESONIDE RESPULE NEB 0.5 MG/2 ML AMP INHALATION ×2 (08:57→20:26)
--- NOTE | 2022-03-07 09:54 | WPDINTPN ---
Progress Note: A&P Assessment and Plan (1) Acute on chronic respiratory failure with hypoxia and hypercapnia: Code(s): J96.21 - Acute and chronic respiratory failure with hypoxia; J96.22 - Acute and chronic respiratory failure with hypercapnia Status: Acute Assessment and Plan: Acute on chronic hypoxic and hypercapnic respiratory failure likely related to COPD exacerbation, left lower pneumonia -chest x-ray reviewed -02/27/2022 CT PE protocol: No evidence of PE, left lower lobe collapse possible secondary to obstruction from aspiration of mucus plugging. Infection is not included. Moderate to severe compression fractures of T6 and T7 of uncertain age. 15 mm left thyroid nodule - Repeat CT scan of chest done 03/03 1. Progression of bilateral airspace disease of the lower lobes, right middle lobe with additional areas of patchy groundglass opacification and peripheral interlobular septal thickening. These findings are most likely secondary to pneumonia. 2: Small pleural effusions. -bronchoscopy done 03/01 which did not show any intraluminal mass, BAL was collected and sent for cultures -urine Legionella , serum mycoplasma IgM and urine pneumococcal antigen are negative -flu and COVID were negative -blood cultures and respiratory cultures are negative till now 03/04 she was extubated after a successful weaning trial. She maintain her oxygenation on nasal cannula and required BiPAP while sleeping during the day and at night. She had no stridor and was able to speak without any difficulty. 03/05 she wore BiPAP overnight. reference archivist ABG showed mild worsening with hypercarbia and respiratory acidosis. When patient came off of BiPAP she became more short of breath and went into respiratory distress with tachypnea and tachycardia and increased work of breathing. Soon she desaturation. Patient was intubated by overnight physician. Her intubation was difficult multiple attempts were required and finally only size 6 mm ET tube was placed. Tracheal stenosis was suspected. 03/05 CT soft tissue neck: .Mild soft tissue prominence of the trachea surrounding the endotracheal tube at the level of the hyoid bone and thyroid cartilage, nonspecific. Patchy bilateral infiltrates with interlobular septal thickening, suspicious for pneumonia. 03/05: ETT was exchanged to size 7 by Anesthesia Await ENT consult and plan regarding airway -currently on ASV mode of ventilation, 50% FiO2 and 5 of PEEP. Increase the PEEP to 8 -ABGs and chest x-ray reviewed this morning -completed a course of Decadron for edema -continue bronchodilators, continue Pulmicort -continue cefepime and vancomycin -patient completed a 5 day course of azithromycin - patient was on Flagyl for a brief period but was discontinued as no obstruction was seen on bronchoscopy (2) Tracheal obstruction: Code(s): J39.8 - Other specified diseases of upper respiratory tract Status: Acute Assessment and Plan: ENT consult pending Will discuss with ENT regarding evaluation of the trachea for stenosis. (3) Pneumonia: Code(s): J18.9 - Pneumonia, unspecified organism Status: Acute Assessment and Plan: See above (4) Atelectasis of left lung: Code(s): J98.11 - Atelectasis Status: Acute Assessment and Plan: See above (5) COPD (chronic obstructive pulmonary disease): Code(s): J44.9 - Chronic obstructive pulmonary disease, unspecified Status: Acute Assessment and Plan: Continue mechanical ventilation, Continue steroids Continue bronchodilators (6) Hypotension: Code(s): I95.9 - Hypotension, unspecified Status: Acute Assessment and Plan: Likely secondary to positive pressure ventilation and sedation Off Levophed And did receive IV fluids 03/05. (7) Atrial fibrillation: Code(s): I48.91 - Unspecified atrial fibrillation Status: Acute Assessment and Plan: Went into AFib
--- NOTE | 2022-03-07 11:07 | PM.PNPUL ---
Progress Note: A&P Assessment and Plan (1) Tracheal obstruction: Code(s): J39.8 - Other specified diseases of upper respiratory tract Status: Acute (2) COPD (chronic obstructive pulmonary disease): Code(s): J44.9 - Chronic obstructive pulmonary disease, unspecified Status: Acute (3) Acute respiratory failure with hypercapnia: Code(s): J96.02 - Acute respiratory failure with hypercapnia Status: Acute Assessment and Plan: 66-year-old female with severe COPD, hypoxemic hypercapnic respiratory failure presented with acute on chronic hypercapnic respiratory failure related to left lower lobe atelectasis/ bilateral pneumonia.? The patient has been on antibiotics and also treatment for COPD exacerbation.? Clinical status had significantly improved and patient was extubated 2 days ago. 24 hours following extubation the patient developed respiratory distress requiring re-intubation. Neck soft tissue CT raised question of tracheal edema around endotracheal tube, in the subglottic region. patient has been on antibiotics for bilateral pneumonia. today's chest x-ray showed some partial clearing of lower lobe infiltrates. She continues to have small pleural effusions more on left. WBC trending down. She is still on 100% ASV support. plan: ENT to re-evaluate the patient regarding upper airway obstruction. She may need repeat neck soft tissue CT to to reassess tracheal edema. case was discussed with Dr. Briggs. (4) COPD with acute exacerbation: Code(s): J44.1 - Chronic obstructive pulmonary disease with (acute) exacerbation Status: Acute (5) Acute on chronic respiratory failure with hypoxia and hypercapnia: Code(s): J96.21 - Acute and chronic respiratory failure with hypoxia; J96.22 - Acute and chronic respiratory failure with hypercapnia Status: Acute (6) Diastolic congestive heart failure: Code(s): I50.30 - Unspecified diastolic (congestive) heart failure Status: Acute Subjective Date/time seen: 03/07/22 11:07 Patient has been hemodynamically stable, receiving 100% ASV mechanical ventilator support. bronchial secretions significantly less. No longer hemorrhagic. Still on antibiotics for bilateral lower lobe pneumonia also on steroids for tracheal wall edema. Review of Systems Review of Systems: All system review is unremarkable except as noted in H&P and below Exam Narrative: GENERAL APPEARANCE: Well developed, well nourished, alert and cooperative, While lightly sedated on mechanical ventilation SKIN: Inspection of the skin reveals no rashes, ulcerations or petechiae. HEENT: Sclerae anicteric and conjunctivae pink and moist. Extraocular movements were intact and pupils were equal, round. NECK: Supple. There was no thyroid enlargement, and no tenderness, or masses were felt. LUNGS: Auscultation of the lungs revealed normal breath sounds anteriorly no wheezing CARDIAC: There was a regular rate and rhythm without any murmurs, gallops, rubs. ABDOMEN: Soft and nontender with normal bowel sounds. There was no organomegaly. LYMPH NODES: No lymphadenopathy was appreciated in the neck. EXTREMITIES: No cyanosis, clubbing or edema. NEUROLOGIC: Awake moving all extremities. Objective Data Vital Signs Vital Signs: Vital Signs - 24 hr 03/06/22 12:00 03/06/22 12:00 03/06/22 11:16 Temperature 36.7 C Pulse Rate 61 72 70 Respiratory Rate 17 16 Blood Pressure 112/64 Pulse Oximetry 95 95 96 Oxygen Delivery Mechanical Ventilation Mechanical Ventilation Fraction of Inspired Oxygen 60 60 03/06/22 11:38 03/06/22 11:39 03/06/22 13:27 Temperature Pulse Rate 98 72 65 Respiratory Rate 16 16 18 Blood Pressure Pulse Oximetry Oxygen Delivery Fraction of Inspired Oxygen 03/06/22 12:00 03/06/22 13:00 03/06/22 14:04 Temperature Pulse Rate 66 60 Respiratory Rate 12 Blood Pressure 100/45 L Pulse Oximetry 95 Oxygen Delivery
--- NOTE | 2022-03-07 11:29 | PCFNICU ---
ICU Rounding Note: Pt current nutrition is Vital AF 1.2 at 45 ml/hr over 22 hours. Last recorded weight is 88.7 kg, up from 85.5 kg on admit. Bowel Motility: Last reported BM 03/05 Labs Reviewed:Glu 127, Na 136, Hct 33.6,Hgb 10.3,BUN 43, Cr 0.5 Meds Noted:Miralax,Fentanyl, Versed, Lopressor, Protonix, Paxil, Atrovent, Rocephin, Metoprol, Vancomycin. Skin: coccyx: dry, left arm tear-dry Additional Notes: Patient had been extubated on 03/04 and reintubated on 03/05. Tube feeding resume of Vital AF 1.2 at 45 ml/hr over 22 22 hour with free water flush 30 ml q 4 hours. Patient tube feedings are being tolerating. Agree with diet orders. Following daily in ICU rounds. Will monitor every Monday and Monday.
[2022-03-07 12:02] LABS: Glucose Point of Care 145 mg/dl (65-105)
--- NOTE | 2022-03-07 17:34 | PM.IMPN ---
Progress Note: A&P Assessment and Plan (1) Hypotension: Code(s): I95.9 - Hypotension, unspecified Status: Acute Assessment and Plan: Patient developed HoTN 03/05 felt related to the acute respiratory failure/collapse then from sepsis. Levophed started and patient stable now. Able to be weaned off Levophed now. (2) Acute on chronic respiratory failure with hypoxia and hypercapnia: Code(s): J96.21 - Acute and chronic respiratory failure with hypoxia; J96.22 - Acute and chronic respiratory failure with hypercapnia Status: Acute Assessment and Plan: Acute on chronic hypercapnic respiratory failure likely related to COPD exacerbation and/or pneumonia. Wears 4L at rest and 8L with activity per patient. CXR clear on admission but CTA chest 02/27/22 showing no PE but does showing LLL collapse from airway obstruction from aspiration and/or mucous plugging. She did undergo a bronchoscopy 03/01 which showed evidences of mucosal erythema and mild edema in the LLL with a small amount of light yellow bronchial secretions in the secondary david and in the LLL.?There was no evidence of intraluminal masses in the left lung. Electronics Engineering Technologist felt mucous plugging unlikely. Path negative for malignancy. Rare fungal elements seen on smear but all cultures remain negative. LE venous doppler negative for DVT. Flu and COVID testing were negative. Mycoplasma IgM and urine pneumococcal and legionella antigen negative. CT chest 03/03 showing progression of bilateral airspace disease LLL, RML with patchy groundglass opacifications. She did well and was able to be extubated on 03/04. -- She did well with BiPAP until the morning on 03/05 when she acutely decompensated off the BiPAP. ABG 7.31/89/57 on BiPAP. She was re-intubated but difficult due to tracheal stenosis(?). ETT had to replace with larger diameter later that morning. CXR showing pulmonary edema. CT soft tissue neck showing prominence of the trachea surrounded the endotracheal tube at the level of the hyoid bone as well as patchy bilateral infiltrates possibly pneumonia. Continue treatment with antibiotics. IV Steroids stopped. Appreciate rim turning machine operator and Pulmonary consult. May need trach if she has more severe tracheal stenosis. (3) Tracheal obstruction: Code(s): J39.8 - Other specified diseases of upper respiratory tract Status: Acute Assessment and Plan: As above. Had a bronch 03/01 but did not show tracheal stenosis so may be located higher up. Will need to do trial to see if her airway is compromised by stenosis. May need trach. Treated with Decadron. (4) Pneumonia: Code(s): J18.9 - Pneumonia, unspecified organism Status: Acute Assessment and Plan: No fevers. WBC was normal but jumped to 21K related to demargination/stress response/steroids. WBC back down again today to 12K. As above. Continue to follow (5) Diastolic congestive heart failure: Code(s): I50.30 - Unspecified diastolic (congestive) heart failure Status: Acute Assessment and Plan: Patient has a history of diastolic heart failure. Echo 02/28/22 shows EF of 65-70%, grade 1 diastolic dysfunction. BNP 244. CXR today showing no overall change. Was on Lasix 40mg at home but held here. Continue to monitor. (6) Atrial fibrillation: Code(s): I48.91 - Unspecified atrial fibrillation Status: Acute Assessment and Plan: Telemetry was showing frequent PACs and possibly AFlutter. EKG showing AFib. Metoprolol held due to HoTN. Replace electrolytes as needed. Lovenox increased to therapeutic dose; was held due to blood tinged secretions but this resolved and Lovenox resumed. Resume metoprolol when able. (7) COPD exacerbation: Code(s): J44.1 - Chronic obstructive pulmonary disease with (acute) exacerbation Status: Acute Assessment and Plan: As above. No wheezing noted. Continue mechanical ventilation support. Continue inhaled stero
[2022-03-07 19:42] LABS: Glucose Point of Care 136 mg/dl (65-105)
[2022-03-07 23:49] LABS: Vancomycin Trough 13.3 ug/mL (10.0-20.0)
[2022-03-08] VITALS (28 sets, daily range): BP systolic 85–143; BP diastolic 36–92; PULSE 51–87; RESP 10–22; TEMP 36.7–37.3; O2SAT 90–97
[2022-03-08 01:19] LABS: Glucose Point of Care 101 mg/dl (65-105)
[2022-03-08] MEDS: LEVALBUTEROL NEB 1.25 MG/3 ML 0.63 MG INHALATION ×4 (02:32→20:21)
[2022-03-08] MEDS: IPRATROPIUM BR 0.02% INH SOLN 0.5 MG/2.5 ML VIAL INHALATION ×4 (02:33→20:21)
[2022-03-08 05:12] LABS: Glucose Point of Care 109 mg/dl (65-105)
[2022-03-08 05:30] LABS: Alveolar/Arterial O2 Gradient 146.9 mmHg; Carboxyhemoglobin 0.2 % THb (0-2.0); Fractional Inspired Oxygen 40 %; HCO3 ABG 39.7 mEq/l (22.0-26.0); Methemoglobin ABG 0.3 %THb (0-1.5); Oxygen Content ABG 13.9 %vol (16.0-22.0); Oxygen Saturation ABG 92.9 % (95.0-100.0); Oxyhemoglobin 91.5 % THb (90.0-100.0); PO2 ABG 66.5 mmHg (80.0-100.0); PO2 FiO2 Ratio Arterial Blood 1.66 %; Total Hemoglobin 10.8 g/dL (12.0-18.0); pH ABG 7.421 (7.350-7.450)
[2022-03-08 05:31] LABS: PCO2 ABG 62.4 mmHg (35.0-45.0)
[2022-03-08 05:32] LABS: Device VENTILATOR; Modified Allen's Test Pass; Site Drawn RIGHT BRACHIAL
[2022-03-08 05:33] LABS: Arterial Blood Gas PEEP 8 cmH2O; Arterial Blood Gas Vent Mode ASV
[2022-03-08] MEDS: CENTRAL LINE FLUSH 10 ML IV PUSH ×3 (05:42→22:21)
[2022-03-08] MEDS: BUDESONIDE RESPULE NEB 0.5 MG/2 ML AMP INHALATION ×2 (08:07→20:21)
--- NOTE | 2022-03-08 08:10 | WPDINTPN ---
Progress Note: A&P Assessment and Plan (1) Acute on chronic respiratory failure with hypoxia and hypercapnia: Code(s): J96.21 - Acute and chronic respiratory failure with hypoxia; J96.22 - Acute and chronic respiratory failure with hypercapnia Status: Acute Assessment and Plan: Acute on chronic hypoxic and hypercapnic respiratory failure likely related to COPD exacerbation, left lower pneumonia -chest x-ray reviewed -02/27/2022 CT PE protocol: No evidence of PE, left lower lobe collapse possible secondary to obstruction from aspiration of mucus plugging. Infection is not included. Moderate to severe compression fractures of T6 and T7 of uncertain age. 15 mm left thyroid nodule - Repeat CT scan of chest done 03/03 1. Progression of bilateral airspace disease of the lower lobes, right middle lobe with additional areas of patchy groundglass opacification and peripheral interlobular septal thickening. These findings are most likely secondary to pneumonia. 2: Small pleural effusions. -bronchoscopy done 03/01 which did not show any intraluminal mass, BAL was collected and sent for cultures -urine Legionella , serum mycoplasma IgM and urine pneumococcal antigen are negative -flu and COVID were negative -blood cultures and respiratory cultures are negative till now 03/04 she was extubated after a successful weaning trial. She maintain her oxygenation on nasal cannula and required BiPAP while sleeping during the day and at night. She had no stridor and was able to speak without any difficulty. 03/05 she wore BiPAP overnight. editorial assistant ABG showed mild worsening with hypercarbia and respiratory acidosis. When patient came off of BiPAP she became more short of breath and went into respiratory distress with tachypnea and tachycardia and increased work of breathing. Soon she desaturation. Patient was intubated by overnight physician. Her intubation was difficult multiple attempts were required and finally only size 6 mm ET tube was placed. Tracheal stenosis was suspected. 03/05 CT soft tissue neck: .Mild soft tissue prominence of the trachea surrounding the endotracheal tube at the level of the hyoid bone and thyroid cartilage, nonspecific. Patchy bilateral infiltrates with interlobular septal thickening, suspicious for pneumonia. - 03/05: ETT was exchanged to size 7 by Anesthesia -currently on ASV mode of ventilation, 40%, PEEP of 8 -s/p decadron for the swelling around the trachea -continue bronchodilators, continue Pulmicort -continue cefepime and vancomycin (03/01/22) -discontinue azithromycin after a 5 day course -patient was on Flagyl for a brief period but was discontinued as no obstruction was seen on bronchoscopy (2) Tracheal obstruction: Code(s): J39.8 - Other specified diseases of upper respiratory tract Status: Acute Assessment and Plan: Will discuss with ENT regarding evaluation of the trachea for stenosis. (3) Pneumonia: Code(s): J18.9 - Pneumonia, unspecified organism Status: Acute Assessment and Plan: See above (4) Atelectasis of left lung: Code(s): J98.11 - Atelectasis Status: Acute Assessment and Plan: See above (5) COPD (chronic obstructive pulmonary disease): Code(s): J44.9 - Chronic obstructive pulmonary disease, unspecified Status: Acute Assessment and Plan: Continue mechanical ventilation, Continue bronchodilators and abx (6) Hypotension: Code(s): I95.9 - Hypotension, unspecified Status: Acute Assessment and Plan: Likely secondary to positive pressure ventilation and sedation OFF LEVOPHED (7) Atrial fibrillation: Code(s): I48.91 - Unspecified atrial fibrillation Status: Acute Assessment and Plan: Went into AFib on 03/05 which was confirmed with EKG Continue therapeutic Lovenox - Rate is controlled.? - metoprolol currently on hold due to soft blood pressure (8) Encephalopa
[2022-03-08 08:42] LABS: Eosinophils Absolute Auto 0.1 K/mm3 (0-0.3); Eosinophils Percent Auto 1.3 % (0-4.4); Hematocrit 31.1 % (37.0-47.0); Hemoglobin 9.5 g/dL (12.0-15.0); Immature Granulocyte Absolute 0.04 K/mm3 (0.00-0.031); Immature Granulocyte Percent A 0.7 % (0-0.5); Lymphocytes Absolute Auto 1.41 K/mm3 (0.9-3.2); Lymphocytes Percent Auto 23.4 % (18.3-44.2); Mean Corpuscular HGB Conc 30.5 g/dl (32-36); Mean Corpuscular Hemoglobin 30.4 pg (26-34); Mean Corpuscular Volume 99.4 fl (80-100); Mean Platelet Volume 10.6 fl (7.4-10.4); Monocytes Absolute Auto 0.5 K/mm3 (0.1-0.6); Monocytes Percent Auto 8.8 % (2.6-8.5); Neutrophils Percent Auto 65.8 % (45.5-73.1); Platelet Count Result 181 k/mm3 (150-375); Red Blood Count 3.13 M/mm3 (4.2-5.4); Red Cell Distribution Width 14.4 % (11.5-14.5)
[2022-03-08 09:14] LABS: Alanine Aminotransferase 27 U/L (6-35); Albumin Level 3.4 g/dL (3.5-5.1); Alkaline Phosphatase 50 U/L (38-126); Aspartate Amino Transferase 13 U/L (14-36); Bilirubin,Total 0.5 mg/dL (0.2-1.3); Blood Urea Nitrogen 43 mg/dL (7-17); Calcium 9.3 mg/dL (8.4-10.2); Carbon Dioxide > 40 mmol/L (22-30); Chloride 93 mmol/L (98-107); Estimated CRCL calculation 97 ml/min; Estimated Glomerular Filt Rate > 60; Glucose 95 mg/dL (65-110); Phosphorus 2.5 mg/dL (2.5-4.5); Potassium 3.5 mmol/L (3.4-5.0); Sodium 135 mmol/L (137-145)
--- NOTE | 2022-03-08 09:16 | PM.IMPN ---
Progress Note: A&P Assessment and Plan (1) Acute on chronic respiratory failure with hypoxia and hypercapnia: Code(s): J96.21 - Acute and chronic respiratory failure with hypoxia; J96.22 - Acute and chronic respiratory failure with hypercapnia Status: Acute Assessment and Plan: Acute on chronic hypercapnic respiratory failure likely related to COPD exacerbation and/or pneumonia. Wears 4L at rest and 8L with activity per patient. CTA chest 02/27/22 showing no PE but does showing LLL collapse from airway obstruction from aspiration and/or mucous plugging. LE venous doppler negative for DVT. Bronchoscopy 03/01/22 which showed evidences of mucosal erythema and mild edema in the LLL with a small amount of light yellow bronchial secretions in the secondary david and in the LLL.?There was no evidence of intraluminal masses in the left lung. Path negative for malignancy. Rare fungal elements seen on smear but all cultures remain negative.? Repeat CT chest 03/03/22 showing progression of bilateral airspace disease LLL, RML with patchy groundglass opacifications. Flu and COVID testing were negative. Mycoplasma IgM and urine pneumococcal and legionella antigen negative. Extubated on 03/04/22 -- She did well with BiPAP until the morning on 03/05 when she acutely decompensated off the BiPAP. ABG 7.31/89/57 on BiPAP. She was re-intubated but difficult due to tracheal stenosis(?). ETT had to replace with larger diameter later that morning. CXR showing pulmonary edema. CT soft tissue neck 03/05/22 showing prominence of the trachea surrounded the endotracheal tube at the level of the hyoid bone as well as patchy bilateral infiltrates possibly pneumonia. Continue treatment with antibiotics. IV Steroids stopped. Appreciate harness brusher and Pulmonary consult. May need trach if she has more severe tracheal stenosis. (2) Hypotension: Code(s): I95.9 - Hypotension, unspecified Status: Acute Assessment and Plan: Patient developed HoTN 03/05 felt related to the acute respiratory failure/collapse then from sepsis. Levophed started and patient stable now. Able to be weaned off Levophed on 03/06. (3) Tracheal obstruction: Code(s): J39.8 - Other specified diseases of upper respiratory tract Status: Acute Assessment and Plan: As above.? Had a bronch 03/01 but did not show tracheal stenosis so may be located higher up in the trachea. Will need to do trial to see if her airway is compromised by stenosis. May need trach. Treated with Decadron but currently off. (4) Anemia: Code(s): D64.9 - Anemia, unspecified Status: Acute Assessment and Plan: Hgb dropped to 9.5 today. No acute blood loss noted. Hgb has been drifting down. She is on full dose Lovenox. Repeat HH later today to ensure stability. (5) Pneumonia: Code(s): J18.9 - Pneumonia, unspecified organism Status: Acute Assessment and Plan: No fevers. WBC was normal but jumped to 21K related to demargination/stress response/steroids. WBC back to normal. As above. Continue to follow (6) Diastolic congestive heart failure: Code(s): I50.30 - Unspecified diastolic (congestive) heart failure Status: Acute Assessment and Plan: Patient has a history of diastolic heart failure. Echo 02/28/22 shows EF of 65-70%, grade 1 diastolic dysfunction. BNP 244. CXR yesterday showing no overall change. Was on Lasix 40mg at home but held here. Continue to monitor.? (7) Atrial fibrillation: Code(s): I48.91 - Unspecified atrial fibrillation Status: Acute Assessment and Plan: Telemetry was showing frequent PACs and AFlutter; EKG showing AFib. Metoprolol held due to HoTN. Replace electrolytes as needed. Lovenox increased to therapeutic dose. Resume metoprolol when able. (8) COPD exacerbation: Code(s): J44.1 - Chronic obstructive pulmonary disease with (acute) exacerbation Status: Acute Assessment a
[2022-03-08] MEDS: ENOXAPARIN 100 MG/ML SYRINGE 90 MG SUB-Q ×2 (09:17→20:07)
[2022-03-08] MEDS: PANTOPRAZOLE SODIUM IV 40 MG VIAL IV PUSH (09:18)
[2022-03-08] MEDS: polyethylene glycoL 3350 17 GM POWD.PACK PO (09:18)
[2022-03-08] MEDS: PARoxetine 20 MG TABLET 40 MG PO (09:19)
--- NOTE | 2022-03-08 09:20 | PM.PNPUL ---
Progress Note: A&P Assessment and Plan (1) Tracheal obstruction: Code(s): J39.8 - Other specified diseases of upper respiratory tract Status: Acute (2) COPD (chronic obstructive pulmonary disease): Code(s): J44.9 - Chronic obstructive pulmonary disease, unspecified Status: Acute (3) Acute respiratory failure with hypercapnia: Code(s): J96.02 - Acute respiratory failure with hypercapnia Status: Acute Assessment and Plan: 66-year-old female with severe COPD, hypoxemic hypercapnic respiratory failure presented with acute on chronic hypercapnic respiratory failure related to left lower lobe atelectasis/ bilateral pneumonia.? The patient has been on antibiotics and also treatment for COPD exacerbation.? Clinical status had significantly improved and patient was extubated 2 days ago. 24 hours following extubation the patient developed respiratory distress requiring re-intubation. Neck soft tissue CT raised question of tracheal edema around endotracheal tube, in the subglottic region. patient has been on antibiotics for bilateral pneumonia. Last chest x-ray showed some partial clearing of lower lobe infiltrates. She continues to have small pleural effusions more on left. WBC trending down. She is still on 100% ASV support. plan: Await neck soft tissue CT to reassess tracheal edema. case was discussed with Dr. Godwin. (4) COPD with acute exacerbation: Code(s): J44.1 - Chronic obstructive pulmonary disease with (acute) exacerbation Status: Acute (5) Acute on chronic respiratory failure with hypoxia and hypercapnia: Code(s): J96.21 - Acute and chronic respiratory failure with hypoxia; J96.22 - Acute and chronic respiratory failure with hypercapnia Status: Acute (6) Diastolic congestive heart failure: Code(s): I50.30 - Unspecified diastolic (congestive) heart failure Status: Acute Subjective Date/time seen: 03/08/22 09:20 patient remains intubated on ASV mechanical ventilation. She is lightly sedated. She has no new respiratory symptoms. Review of Systems Review of Systems: All system review is unremarkable except as noted in H&P and below Exam Narrative: GENERAL APPEARANCE: Well developed, well nourished, alert and cooperative, While lightly sedated on mechanical ventilation SKIN: Inspection of the skin reveals no rashes, ulcerations or petechiae. HEENT: Sclerae anicteric and conjunctivae pink and moist. Extraocular movements were intact and pupils were equal, round. NECK: Supple. There was no thyroid enlargement, and no tenderness, or masses were felt. LUNGS: Auscultation of the lungs revealed normal breath sounds anteriorly no wheezing CARDIAC: There was a regular rate and rhythm without any murmurs, gallops, rubs. ABDOMEN: Soft and nontender with normal bowel sounds. There was no organomegaly. LYMPH NODES: No lymphadenopathy was appreciated in the neck. EXTREMITIES: No cyanosis, clubbing or edema. NEUROLOGIC: Awake moving all extremities. Objective Data Vital Signs Vital Signs: Vital Signs - 24 hr 03/07/22 10:00 03/07/22 10:00 03/07/22 11:04 Temperature 36.9 C Pulse Rate 62 60 57 L Respiratory Rate 20 Blood Pressure 133/47 L Pulse Oximetry 94 92 Oxygen Delivery Mechanical Ventilation Fraction of Inspired Oxygen 45 03/07/22 12:00 03/07/22 12:00 03/07/22 12:00 Temperature 37.1 C Pulse Rate 57 L 93 Respiratory Rate 20 Blood Pressure 132/47 L Pulse Oximetry 95 Oxygen Delivery Fraction of Inspired Oxygen 45 03/07/22 12:00 03/07/22 14:00 03/07/22 14:00 Temperature Pulse Rate 93 65 65 Respiratory Rate 14 20 Blood Pressure 137/59 L Pulse Oximetry 94 93 Oxygen Delivery Mechanical Ventilation Fraction of Inspired Oxygen 45 03/07/22 15:05 03/07/22 15:14 03/07/22 16:00 Temperature 37.0 C Pulse Rate 63 60 66 Respiratory Rate 18 12 Blood Pressure 136/65 Pulse Oximetry 92
[2022-03-08] MEDS: MINERAL OIL/WHITE PETROLATUM OINTMENT 1 APPLIC EACH EYE (09:24)
--- NOTE | 2022-03-08 11:51 | PCNFU ---
Nutrition Follow-Up Complete: Inadequate Oral Intake as related to mechanical ventilation as evidenced by tube feedings. Goal: Meet estimated nutritional needs Patient is meeting currently goal. We will continue current goal. Pt current nutrition is Vital AF 1.2 at 45 ml/hr over 22 hours. Last recorded weight is 88.4 kg, up from 85.5 kg on admit. Bowel Motility:+BM reported 03/05 Labs Reviewed:Cr 0.5,BUN 43, Alb 3.4,Na 135, Hct 31.1,Hgb 9.5 Meds Noted:Miralax,Fentanyl, Versed, Lopressor, Protonix, Paxil, Atrovent, Rocephin, Metoprol, Vancomycin. Skin: saccum-friction Additional Notes: Patient remains on mechanical vent and tube feedings of Vital AF 1.2 at 45 ml/hr and tolerating. Tube feedings are providing 1188 kcals/74 gms protein/803 ml water. Meeting both caloric and protein needs. Free water flush 30 ml q [address] of neck today. Discussions regarding Trach or extubation. Agree with diet orders. Monitoring in ICU rounds and reassessing every Monday and Monday.
[2022-03-08 12:08] LABS: Hematocrit 31.5 % (37.0-47.0); Hemoglobin 9.4 g/dL (12.0-15.0)
[2022-03-08 13:09] LABS: Glucose Point of Care 110 mg/dl (65-105)
[2022-03-08 19:06] LABS: Glucose Point of Care 88 mg/dl (65-105)
[2022-03-08 23:44] LABS: Glucose Point of Care 103 mg/dl (65-105)
[2022-03-09] VITALS (33 sets, daily range): BP systolic 118–153; BP diastolic 33–83; PULSE 62–103; RESP 10–16; TEMP 36.8–37.4; O2SAT 92–96
[2022-03-09] MEDS: IPRATROPIUM BR 0.02% INH SOLN 0.5 MG/2.5 ML VIAL INHALATION ×4 (01:55→20:00)
[2022-03-09] MEDS: LEVALBUTEROL NEB 1.25 MG/3 ML 0.63 MG INHALATION ×4 (01:56→20:00)
[2022-03-09 04:40] LABS: Basophils Percent Auto 0.2 % (0.2-1.2); Eosinophils Absolute Auto 0.1 K/mm3 (0-0.3); Eosinophils Percent Auto 2.1 % (0-4.4); Hematocrit 31.8 % (37.0-47.0); Hemoglobin 9.9 g/dL (12.0-15.0); Immature Granulocyte Absolute 0.07 K/mm3 (0.00-0.031); Immature Granulocyte Percent A 1.1 % (0-0.5); Lymphocytes Absolute Auto 1.24 K/mm3 (0.9-3.2); Lymphocytes Percent Auto 18.7 % (18.3-44.2); Mean Corpuscular HGB Conc 31.1 g/dl (32-36); Mean Corpuscular Hemoglobin 30.6 pg (26-34); Mean Corpuscular Volume 98.1 fl (80-100); Mean Platelet Volume 10.2 fl (7.4-10.4); Monocytes Absolute Auto 0.6 K/mm3 (0.1-0.6); Monocytes Percent Auto 8.3 % (2.6-8.5); Neutrophils Absolute Auto 4.6 K/mm3 (1.3-6.7); Neutrophils Percent Auto 69.6 % (45.5-73.1); Platelet Count Result 167 k/mm3 (150-375); Red Blood Count 3.24 M/mm3 (4.2-5.4); Red Cell Distribution Width 14.2 % (11.5-14.5); White Blood Count 6.6 K/mm3 (4.5-10.0)
[2022-03-09 04:51] LABS: Alveolar/Arterial O2 Gradient 151.9 mmHg; Base Excess ABG 11.6 mEq/l (+/-2.0); Carboxyhemoglobin 0.3 % THb (0-2.0); Fractional Inspired Oxygen 40 %; HCO3 ABG 37.7 mEq/l (22.0-26.0); Methemoglobin ABG 0.3 %THb (0-1.5); Oxygen Content ABG 14.5 %vol (16.0-22.0); Oxygen Saturation ABG 93.6 % (95.0-100.0); Oxyhemoglobin 91.9 % THb (90.0-100.0); PCO2 ABG 57.1 mmHg (35.0-45.0); PO2 ABG 67.6 mmHg (80.0-100.0); PO2 FiO2 Ratio Arterial Blood 1.69 %; Reduced Hemoglobin 7.5 %THb (0-5.0); Total Hemoglobin 11.2 g/dL (12.0-18.0); pH ABG 7.437 (7.350-7.450)
[2022-03-09 04:54] LABS: Device VENTILATOR; Modified Allen's Test Pass; Site Drawn RIGHT RADIAL
[2022-03-09 04:55] LABS: Arterial Blood Gas PEEP 8 cmH2O; Arterial Blood Gas Vent Mode ASV
[2022-03-09 05:18] LABS: Alanine Aminotransferase 30 U/L (6-35); Albumin Level 3.5 g/dL (3.5-5.1); Alkaline Phosphatase 53 U/L (38-126); Aspartate Amino Transferase 21 U/L (14-36); Bilirubin,Total 0.5 mg/dL (0.2-1.3); Blood Urea Nitrogen 35 mg/dL (7-17); Calcium 9.2 mg/dL (8.4-10.2); Carbon Dioxide > 40 mmol/L (22-30); Chloride 94 mmol/L (98-107); Estimated CRCL calculation 98 ml/min; Estimated Glomerular Filt Rate > 60; Glucose 98 mg/dL (65-110); Magnesium 1.7 mg/dL (1.6-2.3); Phosphorus 3.1 mg/dL (2.5-4.5); Potassium 3.5 mmol/L (3.4-5.0); Sodium 138 mmol/L (137-145)
[2022-03-09] MEDS: CENTRAL LINE FLUSH 10 ML IV PUSH ×3 (05:22→19:34)
[2022-03-09] MEDS: BUDESONIDE RESPULE NEB 0.5 MG/2 ML AMP INHALATION ×2 (08:06→20:00)
--- NOTE | 2022-03-09 08:15 | ECG_ITS ---
Measurements Intervals [place] Rate: 80 P: MD: 0 QRS: 40 QRSD: 100 T: 33 QT: 362 QTc: 418 Interpretive Statements SINUS RHYTHM WITH FREQUENT PREMATURE ATRIAL COMPLEXES. INCOMPLETE RIGHT BUNDLE BRANCH BLOCK [90+ ms QRS DURATION, TERMINAL R IN V1/V2, 40+ ms S IN I/aVL/V4/V5/V6] ABNORMAL ECG Electronically Signed On 03-09-2022 10:31:31 CDT by Leonidas Hanks M.D.
[2022-03-09] MEDS: ENOXAPARIN 100 MG/ML SYRINGE 90 MG SUB-Q ×2 (08:18→19:34)
[2022-03-09] MEDS: PARoxetine 20 MG TABLET 40 MG PO (08:18)
[2022-03-09] MEDS: MINERAL OIL/WHITE PETROLATUM OINTMENT 1 APPLIC EACH EYE ×2 (08:18)
[2022-03-09] MEDS: polyethylene glycoL 3350 17 GM POWD.PACK PO (08:19)
[2022-03-09] MEDS: PANTOPRAZOLE SODIUM IV 40 MG VIAL IV PUSH (09:00)
[2022-03-09] MEDS: ACETYLCYSTEINE 20% INHAL SOLN 800 MG/4 ML VIAL 200 MG INHALATION ×3 (09:20→20:00)
--- NOTE | 2022-03-09 09:53 | PM.PNPUL ---
Progress Note: A&P Assessment and Plan (1) Tracheal obstruction: Code(s): J39.8 - Other specified diseases of upper respiratory tract Status: Acute (2) COPD (chronic obstructive pulmonary disease): Code(s): J44.9 - Chronic obstructive pulmonary disease, unspecified Status: Acute (3) Acute respiratory failure with hypercapnia: Code(s): J96.02 - Acute respiratory failure with hypercapnia Status: Acute Assessment and Plan: 66-year-old female with severe COPD, hypoxemic hypercapnic respiratory failure presented with acute on chronic hypercapnic respiratory failure related to left lower lobe atelectasis/ bilateral pneumonia.? The patient has been on antibiotics and also treatment for COPD exacerbation.? Clinical status had significantly improved and patient was extubated 4 days ago. 24 hours following extubation the patient developed respiratory distress requiring re-intubation. Neck soft tissue CT raised question of tracheal edema around endotracheal tube, in the subglottic region. patient has been on antibiotics for bilateral pneumonia. Respiratory status has been stable over the last 24 hours. Patient seems to be tolerating weaning trial. There is no leukocytosis while the patient is still on antibiotics. last neck soft tissue CT showed no evidence of tracheal wall edema. Today's chest x-ray raised a question of a new infiltrate in the left lower lobe which was not present on chest x-ray taken 2 days ago. Unclear whether it is due to atelectasis or pneumonia. if patient tolerates weaning trial I would proceed with extubation to BiPAP and continue with aggressive pulmonary toilet. The case was discussed with Dr. Godwin. (4) COPD with acute exacerbation: Code(s): J44.1 - Chronic obstructive pulmonary disease with (acute) exacerbation Status: Acute (5) Acute on chronic respiratory failure with hypoxia and hypercapnia: Code(s): J96.21 - Acute and chronic respiratory failure with hypoxia; J96.22 - Acute and chronic respiratory failure with hypercapnia Status: Acute (6) Diastolic congestive heart failure: Code(s): I50.30 - Unspecified diastolic (congestive) heart failure Status: Acute Subjective Date/time seen: 03/09/22 09:53 patient remaining intubated on mechanical ventilation. Currently undergoing weaning trial on pressure support 8 peep of 5 FiO2 40%. Appears fully awake tolerating weaning trial. Underwent repeat neck soft tissue CT yesterday regarding tracheal wall edema. She still on antibiotics. Review of Systems Review of Systems: All system review is unremarkable except as noted in H&P and below Exam Narrative: GENERAL APPEARANCE: Well developed, well nourished, alert and cooperative, While lightly sedated on mechanical ventilation SKIN: Inspection of the skin reveals no rashes, ulcerations or petechiae. HEENT: Sclerae anicteric and conjunctivae pink and moist. Extraocular movements were intact and pupils were equal, round. NECK: Supple. There was no thyroid enlargement, and no tenderness, or masses were felt. LUNGS: Auscultation of the lungs revealed normal breath sounds anteriorly no wheezing CARDIAC: There was a regular rate and rhythm without any murmurs, gallops, rubs. ABDOMEN: Soft and nontender with normal bowel sounds. There was no organomegaly. LYMPH NODES: No lymphadenopathy was appreciated in the neck. EXTREMITIES: No cyanosis, clubbing or edema. NEUROLOGIC: Awake moving all extremities. Objective Data Vital Signs Vital Signs: Vital Signs - 24 hr 03/08/22 10:00 03/08/22 10:00 03/08/22 11:38 Temperature Pulse Rate 87 56 L 64 Respiratory Rate 22 H Blood Pressure 127/92 H Pulse Oximetry 93 94 Oxygen Delivery Mechanical Ventilation Fraction of Inspired Oxygen 40 03/08/22 11:44 03/08/22 12:00 03/08/22 14:13 Temperature 36.8 C 36.7 C Pulse Rate 51 L 62 65 Respiratory Rate 20 16 12 Blood Pre
[2022-03-09] MEDS: FUROSEMIDE INJ 40 MG/4 ML VIAL 20 MG IV PUSH (09:58)
--- NOTE | 2022-03-09 10:29 | WPDINTPN ---
Progress Note: A&P Assessment and Plan (1) Acute on chronic respiratory failure with hypoxia and hypercapnia: Code(s): J96.21 - Acute and chronic respiratory failure with hypoxia; J96.22 - Acute and chronic respiratory failure with hypercapnia Status: Acute Assessment and Plan: Acute on chronic hypoxic and hypercapnic respiratory failure likely related to COPD exacerbation, left lower pneumonia -chest x-ray reviewed -02/27/2022 CT PE protocol: No evidence of PE, left lower lobe collapse possible secondary to obstruction from aspiration of mucus plugging. Infection is not included. Moderate to severe compression fractures of T6 and T7 of uncertain age. 15 mm left thyroid nodule - Repeat CT scan of chest done 03/03 1. Progression of bilateral airspace disease of the lower lobes, right middle lobe with additional areas of patchy groundglass opacification and peripheral interlobular septal thickening. These findings are most likely secondary to pneumonia. 2: Small pleural effusions. -bronchoscopy done 03/01 which did not show any intraluminal mass, BAL was collected and sent for cultures -urine Legionella , serum mycoplasma IgM and urine pneumococcal antigen are negative -flu and COVID were negative -blood cultures and respiratory cultures are negative till now 03/04 she was extubated after a successful weaning trial. She maintain her oxygenation on nasal cannula and required BiPAP while sleeping during the day and at night. She had no stridor and was able to speak without any difficulty. 03/05 she wore BiPAP overnight. contract accountant ABG showed mild worsening with hypercarbia and respiratory acidosis. When patient came off of BiPAP she became more short of breath and went into respiratory distress with tachypnea and tachycardia and increased work of breathing. Soon she desaturation. Patient was intubated by overnight physician. Her intubation was difficult multiple attempts were required and finally only size 6 mm ET tube was placed. Tracheal stenosis was suspected. 03/05 CT soft tissue neck: .Mild soft tissue prominence of the trachea surrounding the endotracheal tube at the level of the hyoid bone and thyroid cartilage, nonspecific. Patchy bilateral infiltrates with interlobular septal thickening, suspicious for pneumonia. - 03/05: ETT was exchanged to size 7 by Anesthesia 03/08 CT of tissue neck: No CT evidence of tracheal obstruction, noting that the inferior trachea/bronchial bifurcation were incompletely imaged.. Pulmonary opacities suspicious for multifocal infection, including atypical/viral etiologies. -currently on ASV mode of ventilation, 40%, PEEP of 8 -s/p decadron for the swelling around the trachea -continue bronchodilators, continue Pulmicort -continue cefepime and vancomycin (03/01/22) 03/09: Placed patient on pressure support ventilation 8/5, RSBI was in the 20s and 30s, O2 sats dropped to upper 80s. Patient was using accessory muscles and had increased work of breathing. Patient was given Lasix, increase PEEP to 8 and pressure support to 5 despite which she was still short of breath and hypoxic. I also started her on Mucomyst nebs as she has some thick bloody ETT secretions (2) Tracheal obstruction: Code(s): J39.8 - Other specified diseases of upper respiratory tract Status: Acute Assessment and Plan: CT soft tissue neck on 03/08 with no evidence of tracheal obstruction. Patient does have a positive cuff leak (3) Pneumonia: Code(s): J18.9 - Pneumonia, unspecified organism Status: Acute Assessment and Plan: See above (4) Atelectasis of left lung: Code(s): J98.11 - Atelectasis Status: Acute Assessment and Plan: Will increase PEEP to 8, keep patient upright -also will place patient on right-side down to optimize V/Q matching (5) COPD (chronic obstructive pulmonary disease): Code(s): J44.9 - Chronic obstructive pulmonary disease, unspecified
[2022-03-09 11:46] LABS: Glucose Point of Care 129 mg/dl (65-105)
--- NOTE | 2022-03-09 11:47 | PCFNICU ---
ICU Rounding Note: Pt current nutrition is Vital AF 1.2. Last recorded weight is 89.5 kg, up from 85.5 kg on admit Bowel Motility:+BM reported 03/09 Labs Reviewed:Cr 0.5,BUN 35, Hct 31.5,Hgb 9.9 Meds Noted:Miralax,Fentanyl, Versed, Lopressor, Protonix, Paxil, Atrovent, Rocephin, Metoprol, Vancomycin. Skin: WNL Additional Notes: Patient remains on mechanical vent and tube feedings of Vital AF 1.2 at 45 ml/hr over 22 hours. Patient is tolerating feedings. Unable to extubate today. Agree with diet orders. Following daily in ICU rounds. Will monitor every Monday and Monday.
[2022-03-09 17:49] LABS: Glucose Point of Care 132 mg/dl (65-105)
--- NOTE | 2022-03-09 18:25 | P.PNIM_ITS ---
Progress Note: A&P Assessment and Plan (1) Acute on chronic respiratory failure with hypoxia and hypercapnia: Code(s): J96.21 - Acute and chronic respiratory failure with hypoxia; J96.22 - Acute and chronic respiratory failure with hypercapnia Status: Acute Assessment and Plan: Acute on chronic hypercapnic respiratory failure likely related to COPD exacerbation and/or pneumonia. Wears 4L at rest and 8L with activity per patient. CTA chest 02/27/22 showing no PE but does showing LLL collapse from airway obstruction from aspiration and/or mucous plugging. LE venous doppler negative for DVT. Bronchoscopy 03/01/22 which showed evidences of mucosal erythema and mild edema in the LLL with a small amount of light yellow bronchial secretions in the secondary david and in the LLL.?There was no evidence of intraluminal masses in the left lung. Path negative for malignancy. Rare fungal elements seen on smear but all cultures remain negative.? Repeat CT chest 03/03/22 showing progression of bilateral airspace disease LLL, RML with patchy groundglass opacifications. Flu and COVID testing were negative. Mycoplasma IgM and urine pneumococcal and legionella antigen negative. Extubated on 03/04/22 -- She did well with BiPAP until the morning on 03/05 when she acutely decompensated off the BiPAP. ABG 7.31/89/57 on BiPAP. She was re- intubated but difficult due to tracheal stenosis(?). ETT had to replace with larger diameter later that morning. CXR showing pulmonary edema. CT soft tissue neck 03/05/22 showing prominence of the trachea surrounded the endotracheal tube at the level of the hyoid bone as well as patchy bilateral infiltrates possibly pneumonia. Continue treatment with antibiotics. IV Steroids stopped. Appreciate fuel cell battery technician and Pulmonary consult. May need trach if she has more severe tracheal stenosis. (2) Hypotension: Code(s): I95.9 - Hypotension, unspecified Status: Acute Assessment and Plan: Patient developed HoTN 03/05 felt related to the acute respiratory failure/collapse then from sepsis. Levophed started and patient stable now. Able to be weaned off Levophed on 03/06. (3) Tracheal obstruction: Code(s): J39.8 - Other specified diseases of upper respiratory tract Status: Acute Assessment and Plan: As above.? Had a bronch 03/01 but did not show tracheal stenosis so may be located higher up in the trachea. Will need to do trial to see if her airway is compromised by stenosis. May need trach. Treated with Decadron but currently off. (4) Anemia: Code(s): D64.9 - Anemia, unspecified Status: Acute Assessment and Plan: hemoglobin drifting down with no signs of active blood loss. She is on full dose Lovenox. Continue to monitor H&H (5) Pneumonia: Code(s): J18.9 - Pneumonia, unspecified organism Status: Acute Assessment and Plan: No fevers. WBC was normal but jumped to 21K related to demargination/stress response/steroids. WBC back to normal. As above. Continue to follow (6) Diastolic congestive heart failure: Code(s): I50.30 - Unspecified diastolic (congestive) heart failure Status: Acute Assessment and Plan: Patient has a history of diastolic heart failure. Echo 02/28/22 shows EF of 65- 70%, grade 1 diastolic dysfunction. BNP 244. CXR yesterday showing no overall change. Was on Lasix 40mg at home but held here. Continue to monitor.? (7) Atrial fibrillation: Code(s): I48.91 - Unspecified atrial fibrillation Status: Acute Assessment and Plan: Telemetry was showing frequent PACs and AFlutter;
[2022-03-09 23:35] LABS: Glucose Point of Care 113 mg/dl (65-105)
[2022-03-10] VITALS (27 sets, daily range): BP systolic 120–175; BP diastolic 48–86; PULSE 67–85; RESP 9–23; TEMP 36.8–37.5; O2SAT 89–98
[2022-03-10] MEDS: LEVALBUTEROL NEB 1.25 MG/3 ML 0.63 MG INHALATION ×4 (02:10→21:20)
[2022-03-10] MEDS: ACETYLCYSTEINE 20% INHAL SOLN 800 MG/4 ML VIAL 200 MG INHALATION ×4 (02:10→21:19)
[2022-03-10] MEDS: IPRATROPIUM BR 0.02% INH SOLN 0.5 MG/2.5 ML VIAL INHALATION ×4 (02:10→21:20)
[2022-03-10] MEDS: CENTRAL LINE FLUSH 10 ML IV PUSH ×3 (04:31→21:00)
[2022-03-10 04:46] LABS: Basophils Percent Auto 0.3 % (0.2-1.2); Eosinophils Absolute Auto 0.2 K/mm3 (0-0.3); Eosinophils Percent Auto 2.6 % (0-4.4); Hemoglobin 9.8 g/dL (12.0-15.0); Immature Granulocyte Absolute 0.08 K/mm3 (0.00-0.031); Immature Granulocyte Percent A 1.2 % (0-0.5); Lymphocytes Absolute Auto 1.17 K/mm3 (0.9-3.2); Lymphocytes Percent Auto 17.7 % (18.3-44.2); Mean Corpuscular HGB Conc 31.6 g/dl (32-36); Mean Corpuscular Hemoglobin 30.5 pg (26-34); Mean Corpuscular Volume 96.6 fl (80-100); Mean Platelet Volume 10.3 fl (7.4-10.4); Monocytes Absolute Auto 0.5 K/mm3 (0.1-0.6); Monocytes Percent Auto 7.6 % (2.6-8.5); Neutrophils Absolute Auto 4.7 K/mm3 (1.3-6.7); Neutrophils Percent Auto 70.6 % (45.5-73.1); Platelet Count Result 170 k/mm3 (150-375); Red Blood Count 3.21 M/mm3 (4.2-5.4); White Blood Count 6.6 K/mm3 (4.5-10.0)
[2022-03-10 05:08] LABS: Alanine Aminotransferase 37 U/L (6-35); Albumin Level 3.4 g/dL (3.5-5.1); Alkaline Phosphatase 55 U/L (38-126); Aspartate Amino Transferase 24 U/L (14-36); Bilirubin,Total 0.7 mg/dL (0.2-1.3); Blood Urea Nitrogen 28 mg/dL (7-17); Calcium 8.9 mg/dL (8.4-10.2); Carbon Dioxide > 40 mmol/L (22-30); Chloride 90 mmol/L (98-107); Estimated CRCL calculation 120 ml/min; Estimated Glomerular Filt Rate > 60; Glucose 107 mg/dL (65-110); Magnesium 1.6 mg/dL (1.6-2.3); Phosphorus 3.3 mg/dL (2.5-4.5); Sodium 134 mmol/L (137-145)
[2022-03-10 05:49] LABS: Alveolar/Arterial O2 Gradient 152.7 mmHg; Carboxyhemoglobin 0.3 % THb (0-2.0); Fractional Inspired Oxygen 40 %; HCO3 ABG 41.9 mEq/l (22.0-26.0); Methemoglobin ABG 0.3 %THb (0-1.5); Oxygen Content ABG 14.7 %vol (16.0-22.0); Oxyhemoglobin 92.3 % THb (90.0-100.0); PCO2 ABG 57.3 mmHg (35.0-45.0); PO2 ABG 66.6 mmHg (80.0-100.0); PO2 FiO2 Ratio Arterial Blood 1.66 %; Reduced Hemoglobin 7.1 %THb (0-5.0); Site Drawn RIGHT BRACHIAL; Total Hemoglobin 11.3 g/dL (12.0-18.0); pH ABG 7.482 (7.350-7.450)
[2022-03-10 05:50] LABS: Arterial Blood Gas PEEP 8 cmH2O; Arterial Blood Gas Vent Mode ASV; Device VENTILATOR
[2022-03-10] MEDS: BUDESONIDE RESPULE NEB 0.5 MG/2 ML AMP INHALATION ×2 (08:16→21:20)
[2022-03-10] MEDS: POTASSIUM CHLORIDE 20 MEQ PACKET (FOR LIQUID) 40 MEQ FEED TUBE (08:29)
[2022-03-10] MEDS: FUROSEMIDE INJ 40 MG/4 ML VIAL IV PUSH (08:30)
[2022-03-10] MEDS: KCL 40 MEQ/WATER 100 ML 100 ML 25 ML IVPB (08:30)
[2022-03-10] MEDS: PANTOPRAZOLE SODIUM IV 40 MG VIAL IV PUSH (08:32)
[2022-03-10] MEDS: ENOXAPARIN 100 MG/ML SYRINGE 90 MG SUB-Q ×2 (08:49→20:19)
[2022-03-10] MEDS: polyethylene glycoL 3350 17 GM POWD.PACK PO (08:50)
[2022-03-10] MEDS: PARoxetine 20 MG TABLET 40 MG PO (08:51)
[2022-03-10] MEDS: MAGNESIUM SULF 2 GM/WATER 50ML 2 GM/50 ML BAG IVPB (09:10)
--- NOTE | 2022-03-10 11:16 | WPDINTPN ---
Progress Note: A&P Assessment and Plan (1) Acute on chronic respiratory failure with hypoxia and hypercapnia: Code(s): J96.21 - Acute and chronic respiratory failure with hypoxia; J96.22 - Acute and chronic respiratory failure with hypercapnia Status: Acute Assessment and Plan: Acute on chronic hypoxic and hypercapnic respiratory failure likely related to COPD exacerbation, left lower pneumonia -chest x-ray reviewed -02/27/2022 CT PE protocol: No evidence of PE, left lower lobe collapse possible secondary to obstruction from aspiration of mucus plugging. Infection is not included. Moderate to severe compression fractures of T6 and T7 of uncertain age. 15 mm left thyroid nodule - Repeat CT scan of chest done 03/03 1. Progression of bilateral airspace disease of the lower lobes, right middle lobe with additional areas of patchy groundglass opacification and peripheral interlobular septal thickening. These findings are most likely secondary to pneumonia. 2: Small pleural effusions. -bronchoscopy done 03/01 which did not show any intraluminal mass, BAL was collected and sent for cultures -urine Legionella , serum mycoplasma IgM and urine pneumococcal antigen are negative -flu and COVID were negative -blood cultures and respiratory cultures are negative till now 03/04 she was extubated after a successful weaning trial. She maintain her oxygenation on nasal cannula and required BiPAP while sleeping during the day and at night. She had no stridor and was able to speak without any difficulty. 03/05 she wore BiPAP overnight. fruit farmer ABG showed mild worsening with hypercarbia and respiratory acidosis. When patient came off of BiPAP she became more short of breath and went into respiratory distress with tachypnea and tachycardia and increased work of breathing. Soon she desaturation. Patient was intubated by overnight physician. Her intubation was difficult multiple attempts were required and finally only size 6 mm ET tube was placed. Tracheal stenosis was suspected. 03/05 CT soft tissue neck: .Mild soft tissue prominence of the trachea surrounding the endotracheal tube at the level of the hyoid bone and thyroid cartilage, nonspecific. Patchy bilateral infiltrates with interlobular septal thickening, suspicious for pneumonia. - 03/05: ETT was exchanged to size 7 by Anesthesia 03/08 CT of tissue neck: No CT evidence of tracheal obstruction, noting that the inferior trachea/bronchial bifurcation were incompletely imaged.. Pulmonary opacities suspicious for multifocal infection, including atypical/viral etiologies. -currently on ASV mode of ventilation, 40%, PEEP of 8 -s/p decadron for the swelling around the trachea -continue bronchodilators, continue Pulmicort -continue cefepime and vancomycin (03/01/22) 03/09: Placed patient on pressure support ventilation 8/5, RSBI was in the 20s and 30s, O2 sats dropped to upper 80s. Patient was using accessory muscles and had increased work of breathing. Patient was given Lasix, increase PEEP to 8 and pressure support to 5 despite which she was still short of breath and hypoxic. I also started her on Mucomyst nebs as she has some thick bloody ETT secretions Place patient on SBT, will give additional dose of Lasix, evaluate for extubation (2) Tracheal obstruction: Code(s): J39.8 - Other specified diseases of upper respiratory tract Status: Acute Assessment and Plan: CT soft tissue neck on 03/08 with no evidence of tracheal obstruction. Patient does have a positive cuff leak (3) Pneumonia: Code(s): J18.9 - Pneumonia, unspecified organism Status: Acute Assessment and Plan: See above (4) Atelectasis of left lung: Code(s): J98.11 - Atelectasis Status: Acute Assessment and Plan: Will increase PEEP to 8, keep patient upright May have to extubate patient directly to BiPAP (5) COPD (chronic obstructive pulmonary disease): Code(s)
--- NOTE | 2022-03-10 11:39 | PCFNICU ---
ICU Rounding Note: Pt current nutrition is Vital AF 1.2 at 45 ml/hr over 22 hours. Last recorded weight is 90.1 kg, up from 85.5 kg on admit. Bowel Motility:+BM reported 03/10 Labs Reviewed: Cr 0.4, BUN 28, NA 134, K 3.0,Hct 31.0,Hgb 9.8 Meds Noted:Miralax,Lopressor, Protonix, Paxil, Atrovent, Rocephin, Metoprol, Vancomycin. Skin:sacrum-friction. Additional Notes: Patient remains on mechanical vent and tube feedings of Vital AF 1.2 at 45 ml/hr over 22 hours. Plans for tube feedings to be held. Breathing trail planned for today. Following daily in ICU rounds. Will monitor every Monday and Monday.
--- NOTE | 2022-03-10 12:26 | PM.IMPN ---
Progress Note: A&P Assessment and Plan (1) Acute on chronic respiratory failure with hypoxia and hypercapnia: Code(s): J96.21 - Acute and chronic respiratory failure with hypoxia; J96.22 - Acute and chronic respiratory failure with hypercapnia Status: Acute Assessment and Plan: Acute on chronic hypercapnic respiratory failure likely related to COPD exacerbation and/or pneumonia. Wears 4L at rest and 8L with activity per patient. CTA chest 02/27/22 showing no PE but does showing LLL collapse from airway obstruction from aspiration and/or mucous plugging. LE venous doppler negative for DVT. Bronchoscopy 03/01/22 which showed evidences of mucosal erythema and mild edema in the LLL with a small amount of light yellow bronchial secretions in the secondary david and in the LLL.?There was no evidence of intraluminal masses in the left lung. Path negative for malignancy. Rare fungal elements seen on smear but all cultures remain negative.? Repeat CT chest 03/03/22 showing progression of bilateral airspace disease LLL, RML with patchy groundglass opacifications. Flu and COVID testing were negative. Mycoplasma IgM and urine pneumococcal and legionella antigen negative. Extubated on 03/04/22 -- She did well with BiPAP until the morning on 03/05 when she acutely decompensated off the BiPAP. ABG 7.31/89/57 on BiPAP. She was re-intubated but difficult due to tracheal stenosis(?). ETT had to replace with larger diameter later that morning. CXR showing pulmonary edema. CT soft tissue neck 03/05/22 showing prominence of the trachea surrounded the endotracheal tube at the level of the hyoid bone as well as patchy bilateral infiltrates possibly pneumonia. Continue treatment with antibiotics. IV Steroids stopped. Appreciate ebd teacher and Pulmonary consult. May need trach if she has more severe tracheal stenosis. (2) Hypotension: Code(s): I95.9 - Hypotension, unspecified Status: Acute Assessment and Plan: Patient developed HoTN 03/05 felt related to the acute respiratory failure/collapse then from sepsis. Levophed started and patient stable now. Able to be weaned off Levophed on 03/06. (3) Tracheal obstruction: Code(s): J39.8 - Other specified diseases of upper respiratory tract Status: Acute Assessment and Plan: As above.? Had a bronch 03/01 but did not show tracheal stenosis so may be located higher up in the trachea. Will need to do trial to see if her airway is compromised by stenosis. May need trach. Treated with Decadron but currently off. (4) Anemia: Code(s): D64.9 - Anemia, unspecified Status: Acute Assessment and Plan: hemoglobin drifting down with no signs of active blood loss. She is on full dose Lovenox. Continue to monitor H&H (5) Pneumonia: Code(s): J18.9 - Pneumonia, unspecified organism Status: Acute Assessment and Plan: No fevers. WBC was normal but jumped to 21K related to demargination/stress response/steroids. WBC back to normal. As above. Continue to follow (6) Diastolic congestive heart failure: Code(s): I50.30 - Unspecified diastolic (congestive) heart failure Status: Acute Assessment and Plan: Patient has a history of diastolic heart failure. Echo 02/28/22 shows EF of 65-70%, grade 1 diastolic dysfunction. BNP 244. CXR yesterday showing no overall change. Was on Lasix 40mg at home but held here. Continue to monitor.? (7) Atrial fibrillation: Code(s): I48.91 - Unspecified atrial fibrillation Status: Acute Assessment and Plan: Telemetry was showing frequent PACs and AFlutter; EKG showing AFib. Metoprolol held due to HoTN. Replace electrolytes as needed. Lovenox increased to therapeutic dose. Resume metoprolol when able. (8) COPD exacerbation: Code(s): J44.1 - Chronic obstructive pulmonary disease with (acute) exacerbation Status: Acute Assessment and Plan: As above. No wheezing not
[2022-03-10 13:14] LABS: Glucose Point of Care 105 mg/dl (65-105)
[2022-03-10 13:18] LABS: Alveolar/Arterial O2 Gradient 163.5 mmHg; Base Excess ABG 12.1 mEq/l (+/-2.0); Fractional Inspired Oxygen 40 %; Oxygen Content ABG 14.7 %vol (16.0-22.0); Oxygen Saturation ABG 93.7 % (95.0-100.0); Oxyhemoglobin 91.5 % THb (90.0-100.0); PCO2 ABG 49.8 mmHg (35.0-45.0); PO2 ABG 64.4 mmHg (80.0-100.0); PO2 FiO2 Ratio Arterial Blood 1.61 %; Total Hemoglobin 11.4 g/dL (12.0-18.0); pH ABG 7.489 (7.350-7.450)
[2022-03-10 13:19] LABS: Device VENTILATOR; Modified Allen's Test Pass; Site Drawn LEFT RADIAL
[2022-03-10 13:20] LABS: Arterial Blood Gas PEEP 8 cmH2O; Arterial Blood Gas Pressure Support 5 cmH2O; Arterial Blood Gas Vent Mode SPONTANEOUS
[2022-03-10] MEDS: ACETAMINOPHEN ELIXIR 325 MG/10.15 ML UDC 650 MG PO (17:36)
[2022-03-10 17:52] LABS: Glucose Point of Care 141 mg/dl (65-105)
[2022-03-10] MEDS: METOPROLOL TARTRATE INJ 5 MG/5 ML VIAL 2.5 MG IV PUSH (20:41)
[2022-03-10] MEDS: hydrALAZINE HCL 20 MG/ML VIAL 10 MG IV PUSH (20:56)
[2022-03-10 23:12] LABS: Glucose Point of Care 121 mg/dl (65-105)
[2022-03-11] VITALS (27 sets, daily range): BP systolic 77–166; BP diastolic 54–109; PULSE 70–90; RESP 15–24; TEMP 37–37.4; O2SAT 85–100
[2022-03-11] MEDS: METOPROLOL TARTRATE INJ 5 MG/5 ML VIAL 2.5 MG IV PUSH ×2 (00:45→06:12)
[2022-03-11 05:36] LABS: Alveolar/Arterial O2 Gradient 224.5 mmHg; Base Excess ABG 9.4 mEq/l (+/-2.0); HCO3 ABG 34.3 mEq/l (22.0-26.0); Oxygen Saturation ABG 96.1 % (95.0-100.0); PCO2 ABG 48.1 mmHg (35.0-45.0); PO2 ABG 77.9 mmHg (80.0-100.0); Total Hemoglobin 11.1 g/dL (12.0-18.0); pH ABG 7.471 (7.350-7.450)
[2022-03-11 05:37] LABS: Carboxyhemoglobin 0.3 % THb (0-2.0); Device NON-INVASIVE VENT; Fractional Inspired Oxygen 50 %; Methemoglobin ABG 0.3 %THb (0-1.5); Modified Allen's Test Pass; Oxygen Content ABG 14.8 %vol (16.0-22.0); Oxyhemoglobin 94.1 % THb (90.0-100.0); PO2 FiO2 Ratio Arterial Blood 1.56 %; Reduced Hemoglobin 5.3 %THb (0-5.0); Site Drawn LEFT RADIAL
[2022-03-11 05:38] LABS: Non-Invasive Expiratory Pressure 8 CMH2O; Non-Invasive Inspiratory Pressure 14 CMH2O; Non-Invasive Vent Rate 10 /MIN
[2022-03-11 05:42] LABS: Basophils Percent Auto 0.3 % (0.2-1.2); Eosinophils Absolute Auto 0.1 K/mm3 (0-0.3); Eosinophils Percent Auto 0.9 % (0-4.4); Hematocrit 30.8 % (37.0-47.0); Hemoglobin 9.5 g/dL (12.0-15.0); Immature Granulocyte Absolute 0.17 K/mm3 (0.00-0.031); Immature Granulocyte Percent A 1.4 % (0-0.5); Lymphocytes Absolute Auto 1.55 K/mm3 (0.9-3.2); Lymphocytes Percent Auto 12.9 % (18.3-44.2); Mean Corpuscular HGB Conc 30.8 g/dl (32-36); Mean Corpuscular Hemoglobin 30.1 pg (26-34); Mean Corpuscular Volume 97.5 fl (80-100); Mean Platelet Volume 10.4 fl (7.4-10.4); Monocytes Absolute Auto 0.7 K/mm3 (0.1-0.6); Monocytes Percent Auto 5.9 % (2.6-8.5); Neutrophils Absolute Auto 9.4 K/mm3 (1.3-6.7); Neutrophils Percent Auto 78.6 % (45.5-73.1); Platelet Count Result 217 k/mm3 (150-375); Red Blood Count 3.16 M/mm3 (4.2-5.4); Red Cell Distribution Width 13.9 % (11.5-14.5)
[2022-03-11 06:00] LABS: Alanine Aminotransferase 66 U/L (6-35); Albumin Level 3.7 g/dL (3.5-5.1); Alkaline Phosphatase 52 U/L (38-126); Aspartate Amino Transferase 37 U/L (14-36); Blood Urea Nitrogen 26 mg/dL (7-17); Calcium 8.9 mg/dL (8.4-10.2); Carbon Dioxide > 40 mmol/L (22-30); Chloride 92 mmol/L (98-107); Estimated CRCL calculation 118 ml/min; Estimated Glomerular Filt Rate > 60; Glucose 82 mg/dL (65-110); Phosphorus 3.3 mg/dL (2.5-4.5); Potassium 3.7 mmol/L (3.4-5.0); Sodium 134 mmol/L (137-145)
[2022-03-11] MEDS: CENTRAL LINE FLUSH 10 ML IV PUSH ×2 (06:13→21:30)
[2022-03-11] MEDS: PANTOPRAZOLE SODIUM IV 40 MG VIAL IV PUSH (08:15)
[2022-03-11] MEDS: LEVALBUTEROL NEB 1.25 MG/3 ML 0.63 MG INHALATION ×3 (08:24→19:31)
[2022-03-11] MEDS: IPRATROPIUM BR 0.02% INH SOLN 0.5 MG/2.5 ML VIAL INHALATION ×3 (08:24→19:31)
[2022-03-11] MEDS: BUDESONIDE RESPULE NEB 0.5 MG/2 ML AMP INHALATION ×2 (08:24→19:31)
[2022-03-11] MEDS: ACETYLCYSTEINE 20% INHAL SOLN 800 MG/4 ML VIAL 200 MG INHALATION ×3 (08:24→19:33)
--- NOTE | 2022-03-11 09:11 | PCSTNOTE ---
Please refer to the Bedside Swallow Evaluation in the EMR. Please note, silent aspiration cannot be ruled out at bedside.
--- NOTE | 2022-03-11 09:16 | PM.PNPUL ---
Progress Note: A&P Assessment and Plan (1) Tracheal obstruction: Code(s): J39.8 - Other specified diseases of upper respiratory tract Status: Acute (2) COPD (chronic obstructive pulmonary disease): Code(s): J44.9 - Chronic obstructive pulmonary disease, unspecified Status: Acute (3) Acute respiratory failure with hypercapnia: Code(s): J96.02 - Acute respiratory failure with hypercapnia Status: Acute Assessment and Plan: 66-year-old female with severe COPD, hypoxemic hypercapnic respiratory failure presented with acute on chronic hypercapnic respiratory failure related to left lower lobe atelectasis/ bilateral pneumonia.? The patient has been on antibiotics and received treatment for COPD exacerbation.? Clinical status had significantly improved and patient was initially extubated. 24 hours following extubation the patient developed respiratory distress requiring re-intubation. Neck soft tissue CT raised question of tracheal edema around endotracheal tube, in the subglottic region. repeat soft tissue CT showed clearing of tracheal edema. The patient was successfully weaned yesterday. She was on BiPAP support following extubation until this a.m.. patient has been on antibiotics for bilateral pneumonia. WBC still elevated. Respiratory status has been stable over the last 24 hours. Chest x-ray done earlier today showed significant clearing of bilateral lower lobe infiltrates. Small left pleural effusion still present. WBC elevated question related to recent steroid use. Continue with current antibiotic, Nebulized short-acting bronchodilators, nebulized mucolytic agents, out of bed to chair. Continue with BiPAP support at night. The case was discussed with Dr. Godwin. (4) COPD with acute exacerbation: Code(s): J44.1 - Chronic obstructive pulmonary disease with (acute) exacerbation Status: Acute (5) Acute on chronic respiratory failure with hypoxia and hypercapnia: Code(s): J96.21 - Acute and chronic respiratory failure with hypoxia; J96.22 - Acute and chronic respiratory failure with hypercapnia Status: Acute (6) Diastolic congestive heart failure: Code(s): I50.30 - Unspecified diastolic (congestive) heart failure Status: Acute Subjective Date/time seen: 03/11/22 09:16 patient extubated yesterday. Used BiPAP support post extubation. Currently on supplemental oxygen at high oxygen flow. She has some coughing but no shortness of breath. Review of Systems Review of Systems: All system review is unremarkable except as noted in H&P and below Exam Narrative: GENERAL APPEARANCE: Well developed, well nourished, alert and cooperative, in mild respiratory distress while on supplemental oxygen via nasal cannula HEENT: Sclerae anicteric and conjunctivae pink and moist. Extraocular movements were intact and pupils were equal, round. NECK: Supple. There was no thyroid enlargement, and no tenderness, or masses were felt. LUNGS: Auscultation of the lungs revealed normal breath sounds anteriorly no wheezing CARDIAC: There was a regular rate and rhythm without any murmurs, gallops, rubs. ABDOMEN: Soft and nontender with normal bowel sounds. There was no organomegaly. LYMPH NODES: No lymphadenopathy was appreciated in the neck. EXTREMITIES: No cyanosis, clubbing or edema. NEUROLOGIC: Awake moving all extremities. Objective Data Vital Signs Vital Signs: Vital Signs - 24 hr 03/10/22 11:05 03/10/22 12:00 03/10/22 10:00 Temperature 37.1 C Pulse Rate 67 70 Respiratory Rate 14 Blood Pressure 127/54 L Pulse Oximetry 89 L 91 Oxygen Delivery Mechanical Ventilation Mechanical Ventilation Oxygen Flow Rate Fraction of Inspired Oxygen 40 40 03/10/22 12:00 03/10/22 10:00 03/10/22 12:00 Temperature 37.1 C Pulse Rate 70 70 73 Respiratory Rate 20 Blood Pressure 120/48 L Pulse Oximetry 90 Oxygen Delivery Oxygen Flow Rate
[2022-03-11 10:00] LABS: Glucose Point of Care 91 mg/dl (65-105)
[2022-03-11] MEDS: FUROSEMIDE INJ 40 MG/4 ML VIAL IV PUSH (10:13)
--- NOTE | 2022-03-11 11:06 | WPDINTPN ---
Progress Note: A&P Assessment and Plan (1) Acute on chronic respiratory failure with hypoxia and hypercapnia: Code(s): J96.21 - Acute and chronic respiratory failure with hypoxia; J96.22 - Acute and chronic respiratory failure with hypercapnia Status: Acute Assessment and Plan: Acute on chronic hypoxic and hypercapnic respiratory failure likely related to COPD exacerbation, left lower pneumonia -chest x-ray reviewed -02/27/2022 CT PE protocol: No evidence of PE, left lower lobe collapse possible secondary to obstruction from aspiration of mucus plugging. Infection is not included. Moderate to severe compression fractures of T6 and T7 of uncertain age. 15 mm left thyroid nodule - Repeat CT scan of chest done 03/03 1. Progression of bilateral airspace disease of the lower lobes, right middle lobe with additional areas of patchy groundglass opacification and peripheral interlobular septal thickening. These findings are most likely secondary to pneumonia. 2: Small pleural effusions. -bronchoscopy done 03/01 which did not show any intraluminal mass, BAL was collected and sent for cultures -urine Legionella , serum mycoplasma IgM and urine pneumococcal antigen are negative -flu and COVID were negative -blood cultures and respiratory cultures are negative till now 03/04 she was extubated after a successful weaning trial. She maintain her oxygenation on nasal cannula and required BiPAP while sleeping during the day and at night. She had no stridor and was able to speak without any difficulty. 03/05 she wore BiPAP overnight. substance abuse nurse ABG showed mild worsening with hypercarbia and respiratory acidosis. When patient came off of BiPAP she became more short of breath and went into respiratory distress with tachypnea and tachycardia and increased work of breathing. Soon she desaturation. Patient was intubated by overnight physician. Her intubation was difficult multiple attempts were required and finally only size 6 mm ET tube was placed. Tracheal stenosis was suspected. 03/05 CT soft tissue neck: .Mild soft tissue prominence of the trachea surrounding the endotracheal tube at the level of the hyoid bone and thyroid cartilage, nonspecific. Patchy bilateral infiltrates with interlobular septal thickening, suspicious for pneumonia. - 03/05: ETT was exchanged to size 7 by Anesthesia 03/08 CT of tissue neck: No CT evidence of tracheal obstruction, noting that the inferior trachea/bronchial bifurcation were incompletely imaged.. Pulmonary opacities suspicious for multifocal infection, including atypical/viral etiologies. Extubated on 03/10/2022 -encourage incentive spirometry -continue BiPAP with intermittent cannula -continue bronchodilators, continue Pulmicort -discontinue cefepime and vancomycin (03/01/22) -will give additional IV Lasix today (2) Tracheal obstruction: Code(s): J39.8 - Other specified diseases of upper respiratory tract Status: Acute Assessment and Plan: CT soft tissue neck on 03/08 with no evidence of tracheal obstruction. Patient does have a positive cuff leak (3) Pneumonia: Code(s): J18.9 - Pneumonia, unspecified organism Status: Acute Assessment and Plan: Status post vancomycin and cefepime (4) Atelectasis of left lung: Code(s): J98.11 - Atelectasis Status: Acute Assessment and Plan: Continue BiPAP with intermittent nasal cannula (5) COPD (chronic obstructive pulmonary disease): Code(s): J44.9 - Chronic obstructive pulmonary disease, unspecified Status: Acute Assessment and Plan: Continue intermittent BiPAP Continue bronchodilators (6) Hypotension: Code(s): I95.9 - Hypotension, unspecified Status: Acute Assessment and Plan: RESOLVED (7) Atrial fibrillation: Code(s): I48.91 - Unspecified atrial fibrillation Status: Acute Assessment and Plan: Went into AFib on 03/05 which was confirm
--- NOTE | 2022-03-11 11:56 | PCNFU ---
Nutrition Follow-Up Complete: Inadequate Oral Intake as related to mechanical ventilation as evidenced by tube feedings. Goal: Meet estimated nutritional needs Patient is progressing towards goal. We will continue current goal. Pt current nutrition is NPO. Nutrition Recommendations: Jevity 1.5 at 20 ml/hr advance by 10 ml q 4 hours to goal rate of 40 ml/hr. Free water flush 50 ml q 4 hours. Last recorded weight is 88.2 kg, up from 85.5 kg on admit. Bowel Motility:+Bm reported 03/11 Labs Reviewed:Cr 0.4,BUN 26, Na 134, Hct 30.8,Hgb 9.5 Meds Noted:Miralax,Lopressor, Protonix, Paxil, Atrovent, Rocephin, Metoprol. Skin: Sacrum-friction Additional Notes: Patient seen today for nutrition follow up. Extubated-03/10. Speech eval today-recommending non oral feedings with bedside swallow evaluation. Plans for repeat Bedside swallow tomorrow, MBS if recommended. Dobbhoff being placed today. Agree with diet orders. Monitoring: Will monitor in ICU rounds and reassessing every Monday and Monday.
[2022-03-11 14:14] LABS: Glucose Point of Care 107 mg/dl (65-105)
--- NOTE | 2022-03-11 15:11 | PM.CNGS ---
Assessment and Plan Assessment and plan (1) Hematoma: Code(s): T14.8XXA - Other injury of unspecified body region, initial encounter Status: Acute Assessment and Plan: hold anticoagulation, serial exams and conservative measures, H/H stable, vitals normal, if expanding will need imaging, likely CTA for further evaluation History of Present Illness Consult details Consult date: 03/11/22 Reason for consult: other (Right upper extremity hematoma) Requesting physician: Bryson Godwin MD Narrative: The patient is a 66-year-old female with multiple medical issues that has now developed a right upper extremity hematoma. The patient had been previously admitted to the ICU with respiratory failure requiring mechanical ventilation. The patient was extubated recently and has developed a right upper extremity hematoma. The patient had been found in atrial fibrillation and started on anticoagulation with Lovenox. The hematoma has been present for the last few days and seems to be worsening. The patient is alert and oriented this point and reports some discomfort in the area. Review of Systems Review of Systems: ROS unobtainable: Yes unobtainable due to medical condition and unobtainable due to mental status PMFSH Past Medical History Medical History Chronic hypertension Chronic obstructive pulmonary disease Chronic respiratory failure Chronic respiratory failure with hypoxia and hypercapnia Congestive heart failure COPD (chronic obstructive pulmonary disease) Deep venous thrombosis Depression Depression Diastolic congestive heart failure Ejection fraction 60 to 65% in December 2021. Endometrial cancer Femur fracture, right Gastroesophageal reflux disease History of pulmonary embolism Hypertension Obstructive sleep apnea Pulmonary embolism Surgical History Surgical History History of arthroscopy of left knee History of colonoscopy History of colonoscopy History of hysterectomy History of hysterectomy for cancer (1990) History of tonsillectomy History of total hysterectomy Hx of prior ablation treatment Hx of tonsillectomy Family History Family History Sibling Diabetes mellitus Family history of arthritis Family history of thyroid disease Hypertension Father Family history of emphysema Family history of arthritis Family history of chronic obstructive pulmonary disease Hypertension Mother Carcinoma of colon Family history of arthritis Family history of malignant neoplasm Family history of thyroid disease Hypertension Other Family history of mental disorder Social History Social History Social History: Surrogate decision maker: Naa Adame, daughter. Code status: Full code. Smoking packs per day: 1 Smoking cigarettes per day: 20.0 Years smoked: 30 Smoking pack-years: 30.00 Smoking status: Current every day smoker Tobacco type: cigarettes Second hand tobacco smoke exposure: Yes (Family smokes in home) Additional smoking assessment comments: Years smoked unknown. Patient and/or family unsure. Alcohol intake: never Substance use: never Substance use type: does not use Gender identity (if verbalized by the patient): Female Spiritual care concerns: No Meds Home Medications and Allergies Home Medications Medication Instructions Recorded Confirmed Type furosemide 40 mg tablet 40 mg PO DAILY 08/18/20 03/03/22 History multivit with minerals-iron 18 1 tablet PO DAILY 01/06/21 03/03/22 History mg-folic ac 400 mcg-vit K 25 mcg tablet (Adults Multivitamin) hydrocodone 7.5 mg-acetaminophen 1 tablet PO Q8H PRN Pain 01/09/22 03/03/22 History 325 mg tablet paroxetine HCl 40 mg tablet 40 mg PO DAILY 01/09/22 03/03/22 History
--- NOTE | 2022-03-11 16:34 | PC.NURSE ---
Risks/benefits of placing dobhoff tube explained to patient. Patient stated I want to wait until tomorrow and decide about the feeding tube.
--- NOTE | 2022-03-11 16:35 | PM.IMPN ---
Progress Note: A&P Assessment and Plan (1) Acute on chronic respiratory failure with hypoxia and hypercapnia: Code(s): J96.21 - Acute and chronic respiratory failure with hypoxia; J96.22 - Acute and chronic respiratory failure with hypercapnia Status: Acute Assessment and Plan: Acute on chronic hypercapnic respiratory failure likely related to COPD exacerbation and/or pneumonia. Wears 4L at rest and 8L with activity per patient. CTA chest 02/27/22 showing no PE but does showing LLL collapse from airway obstruction from aspiration and/or mucous plugging. LE venous doppler negative for DVT. Bronchoscopy 03/01/22 which showed evidences of mucosal erythema and mild edema in the LLL with a small amount of light yellow bronchial secretions in the secondary david and in the LLL.?There was no evidence of intraluminal masses in the left lung. Path negative for malignancy. Rare fungal elements seen on smear but all cultures remain negative.? Repeat CT chest 03/03/22 showing progression of bilateral airspace disease LLL, RML with patchy groundglass opacifications. Flu and COVID testing were negative. Mycoplasma IgM and urine pneumococcal and legionella antigen negative. Extubated on 03/04/22 -- She did well with BiPAP until the morning on 03/05 when she acutely decompensated off the BiPAP. ABG 7.31/89/57 on BiPAP. She was re-intubated but difficult due to tracheal stenosis(?). ETT had to replace with larger diameter later that morning. CXR showing pulmonary edema. CT soft tissue neck 03/05/22 showing prominence of the trachea surrounded the endotracheal tube at the level of the hyoid bone as well as patchy bilateral infiltrates possibly pneumonia. Continue treatment with antibiotics. IV Steroids stopped. Appreciate photographer still and Pulmonary consult. May need trach if she has more severe tracheal stenosis. Status post extubation 03/10/2022 on BiPAP p.r.n. pulmonary following oxygen supplementation (2) Hypotension: Code(s): I95.9 - Hypotension, unspecified Status: Acute Assessment and Plan: Patient developed HoTN 03/05 felt related to the acute respiratory failure/collapse then from sepsis. Levophed started and patient stable now. Able to be weaned off Levophed on 03/06. (3) Tracheal obstruction: Code(s): J39.8 - Other specified diseases of upper respiratory tract Status: Acute Assessment and Plan: As above.? Had a bronch 03/01 but did not show tracheal stenosis so may be located higher up in the trachea. Will need to do trial to see if her airway is compromised by stenosis. May need trach. Treated with Decadron but currently off. (4) Anemia: Code(s): D64.9 - Anemia, unspecified Status: Acute Assessment and Plan: hemoglobin drifting down with no signs of active blood loss. She is on full dose Lovenox. Continue to monitor H&H (5) Pneumonia: Code(s): J18.9 - Pneumonia, unspecified organism Status: Acute Assessment and Plan: No fevers. WBC was normal but jumped to 21K related to demargination/stress response/steroids. WBC back to normal. As above. Continue to follow (6) Diastolic congestive heart failure: Code(s): I50.30 - Unspecified diastolic (congestive) heart failure Status: Acute Assessment and Plan: Patient has a history of diastolic heart failure. Echo 02/28/22 shows EF of 65-70%, grade 1 diastolic dysfunction. BNP 244. CXR yesterday showing no overall change. Was on Lasix 40mg at home but held here. Continue to monitor.? (7) Atrial fibrillation: Code(s): I48.91 - Unspecified atrial fibrillation Status: Acute Assessment and Plan: Telemetry was showing frequent PACs and AFlutter; EKG showing AFib. Metoprolol held due to HoTN. Replace electrolytes as needed. Lovenox increased to therapeutic dose. Resume metoprolol when able. (8) COPD exacerbation: Code(s): J44.1 - Chronic obstructive pulmonary disease with (
[2022-03-11 18:40] LABS: Glucose Point of Care 99 mg/dl (65-105)
[2022-03-12] VITALS (34 sets, daily range): BP systolic 111–158; BP diastolic 51–109; PULSE 71–99; RESP 15–24; TEMP 36.1–37.6; O2SAT 93–100
[2022-03-12] MEDS: METOPROLOL TARTRATE INJ 5 MG/5 ML VIAL 2.5 MG IV PUSH ×5 (00:10→23:54)
[2022-03-12 00:21] LABS: Glucose Point of Care 84 mg/dl (65-105)
[2022-03-12] MEDS: IPRATROPIUM BR 0.02% INH SOLN 0.5 MG/2.5 ML VIAL INHALATION ×4 (02:11→19:46)
[2022-03-12] MEDS: LEVALBUTEROL NEB 1.25 MG/3 ML 0.63 MG INHALATION ×4 (02:11→19:46)
[2022-03-12] MEDS: ACETYLCYSTEINE 20% INHAL SOLN 800 MG/4 ML VIAL 200 MG INHALATION ×4 (02:11→19:45)
[2022-03-12 04:32] LABS: Basophils Percent Auto 0.2 % (0.2-1.2); Eosinophils Absolute Auto 0.3 K/mm3 (0-0.3); Eosinophils Percent Auto 2.2 % (0-4.4); Hematocrit 27.2 % (37.0-47.0); Hemoglobin 8.4 g/dL (12.0-15.0); Immature Granulocyte Absolute 0.13 K/mm3 (0.00-0.031); Immature Granulocyte Percent A 1.1 % (0-0.5); Lymphocytes Absolute Auto 1.29 K/mm3 (0.9-3.2); Lymphocytes Percent Auto 11.3 % (18.3-44.2); Mean Corpuscular HGB Conc 30.9 g/dl (32-36); Mean Corpuscular Hemoglobin 30.4 pg (26-34); Mean Corpuscular Volume 98.6 fl (80-100); Mean Platelet Volume 10.1 fl (7.4-10.4); Monocytes Absolute Auto 0.7 K/mm3 (0.1-0.6); Monocytes Percent Auto 6.2 % (2.6-8.5); Platelet Count Result 208 k/mm3 (150-375); Red Blood Count 2.76 M/mm3 (4.2-5.4); Red Cell Distribution Width 14.6 % (11.5-14.5); White Blood Count 11.4 K/mm3 (4.5-10.0)
[2022-03-12 04:45] LABS: Alanine Aminotransferase 77 U/L (6-35); Albumin Level 3.7 g/dL (3.5-5.1); Alkaline Phosphatase 54 U/L (38-126); Anion Gap 4 mmol/L (8-16); Aspartate Amino Transferase 35 U/L (14-36); Bilirubin,Total 0.9 mg/dL (0.2-1.3); Blood Urea Nitrogen 31 mg/dL (7-17); Calcium 8.4 mg/dL (8.4-10.2); Carbon Dioxide 39 mmol/L (22-30); Chloride 94 mmol/L (98-107); Estimated CRCL calculation 97 ml/min; Estimated Glomerular Filt Rate > 60; Glucose 75 mg/dL (65-110); Phosphorus 3.5 mg/dL (2.5-4.5); Potassium 3.6 mmol/L (3.4-5.0); Sodium 137 mmol/L (137-145)
[2022-03-12] MEDS: CENTRAL LINE FLUSH 10 ML IV PUSH ×3 (05:44→23:54)
[2022-03-12] MEDS: DEXTROSE 50% 25 GM/50 ML SYRINGE IV PUSH ×2 (05:44→17:40)
[2022-03-12 06:15] LABS: Glucose Point of Care 148 mg/dl (65-105)
[2022-03-12 07:40] LABS: Glucose Point of Care 89 mg/dl (65-105)
[2022-03-12 07:59] LABS: Partial Thromboplastin Time 28.4 SECONDS (22.3-36.8)
[2022-03-12] MEDS: BUDESONIDE RESPULE NEB 0.5 MG/2 ML AMP INHALATION ×2 (07:59→19:46)
--- NOTE | 2022-03-12 08:06 | WPDINTPN ---
Progress Note: A&P Assessment and Plan (1) Acute on chronic respiratory failure with hypoxia and hypercapnia: Code(s): J96.21 - Acute and chronic respiratory failure with hypoxia; J96.22 - Acute and chronic respiratory failure with hypercapnia Status: Acute Assessment and Plan: Acute on chronic hypoxic and hypercapnic respiratory failure likely related to COPD exacerbation, left lower pneumonia -chest x-ray reviewed -02/27/2022 CT PE protocol: No evidence of PE, left lower lobe collapse possible secondary to obstruction from aspiration of mucus plugging. Infection is not included. Moderate to severe compression fractures of T6 and T7 of uncertain age. 15 mm left thyroid nodule - Repeat CT scan of chest done 03/03 1. Progression of bilateral airspace disease of the lower lobes, right middle lobe with additional areas of patchy groundglass opacification and peripheral interlobular septal thickening. These findings are most likely secondary to pneumonia. 2: Small pleural effusions. -bronchoscopy done 03/01 which did not show any intraluminal mass, BAL was collected and sent for cultures -urine Legionella , serum mycoplasma IgM and urine pneumococcal antigen are negative -flu and COVID were negative -blood cultures and respiratory cultures are negative till now 03/04 she was extubated after a successful weaning trial. She maintain her oxygenation on nasal cannula and required BiPAP while sleeping during the day and at night. She had no stridor and was able to speak without any difficulty. 03/05 she wore BiPAP overnight. home attendant ABG showed mild worsening with hypercarbia and respiratory acidosis. When patient came off of BiPAP she became more short of breath and went into respiratory distress with tachypnea and tachycardia and increased work of breathing. Soon she desaturation. Patient was intubated by overnight physician. Her intubation was difficult multiple attempts were required and finally only size 6 mm ET tube was placed. Tracheal stenosis was suspected. 03/05 CT soft tissue neck: .Mild soft tissue prominence of the trachea surrounding the endotracheal tube at the level of the hyoid bone and thyroid cartilage, nonspecific. Patchy bilateral infiltrates with interlobular septal thickening, suspicious for pneumonia. - 03/05: ETT was exchanged to size 7 by Anesthesia 03/08 CT of tissue neck: No CT evidence of tracheal obstruction, noting that the inferior trachea/bronchial bifurcation were incompletely imaged.. Pulmonary opacities suspicious for multifocal infection, including atypical/viral etiologies. Extubated on 03/10/2022 -encourage incentive spirometry -continue BiPAP with intermittent nasal cannula -continue bronchodilators, continue Pulmicort -status post cefepime and vancomycin for total of 10 days -will give low-dose Lasix today (2) Tracheal obstruction: Code(s): J39.8 - Other specified diseases of upper respiratory tract Status: Acute Assessment and Plan: CT soft tissue neck on 03/08 with no evidence of tracheal obstruction. (3) Pneumonia: Code(s): J18.9 - Pneumonia, unspecified organism Status: Acute Assessment and Plan: Status post vancomycin and cefepime (4) Atelectasis of left lung: Code(s): J98.11 - Atelectasis Status: Acute Assessment and Plan: Continue BiPAP with intermittent nasal cannula -encourage incentive spirometry (5) COPD (chronic obstructive pulmonary disease): Code(s): J44.9 - Chronic obstructive pulmonary disease, unspecified Status: Acute Assessment and Plan: Continue intermittent BiPAP Continue bronchodilators (6) Hypotension: Code(s): I95.9 - Hypotension, unspecified Status: Acute Assessment and Plan: RESOLVED (7) Atrial fibrillation: Code(s): I48.91 - Unspecified atrial fibrillation Status: Acute Assessment and Plan: Went into AFib on 03/05 which was
[2022-03-12] MEDS: PANTOPRAZOLE SODIUM IV 40 MG VIAL IV PUSH (09:02)
[2022-03-12] MEDS: FUROSEMIDE INJ 40 MG/4 ML VIAL 20 MG IV PUSH (09:04)
--- NOTE | 2022-03-12 10:45 | PM.PNPUL ---
Progress Note: A&P Assessment and Plan (1) Tracheal obstruction: Code(s): J39.8 - Other specified diseases of upper respiratory tract Status: Acute (2) COPD (chronic obstructive pulmonary disease): Code(s): J44.9 - Chronic obstructive pulmonary disease, unspecified Status: Acute (3) Acute respiratory failure with hypercapnia: Code(s): J96.02 - Acute respiratory failure with hypercapnia Status: Acute Assessment and Plan: 66-year-old female with severe COPD, hypoxemic hypercapnic respiratory failure presented with acute on chronic hypercapnic respiratory failure related to left lower lobe atelectasis/ bilateral pneumonia.? The patient has been on antibiotics and received treatment for COPD exacerbation.? Clinical status had significantly improved and patient was initially extubated. 24 hours following extubation the patient developed respiratory distress requiring re-intubation. Neck soft tissue CT raised question of tracheal edema around endotracheal tube, in the subglottic region. repeat soft tissue CT showed clearing of tracheal edema. The patient was successfully weaned yesterday. Respiratory status has been stable over the last 24 hours. WBC mildly elevated . Continue nebulized short-acting bronchodilators, nebulized mucolytic agents, out of bed to chair. Continue with BiPAP support at night. (4) COPD with acute exacerbation: Code(s): J44.1 - Chronic obstructive pulmonary disease with (acute) exacerbation Status: Acute (5) Acute on chronic respiratory failure with hypoxia and hypercapnia: Code(s): J96.21 - Acute and chronic respiratory failure with hypoxia; J96.22 - Acute and chronic respiratory failure with hypercapnia Status: Acute (6) Diastolic congestive heart failure: Code(s): I50.30 - Unspecified diastolic (congestive) heart failure Status: Acute Subjective Date/time seen: 03/12/22 10:45 hemodynamically stable while receiving BiPAP support at night. Currently on supplemental oxygen at 2 liters/minute. Has had a raspy voice, still coughing up blood tinged sputum. Has been off antibiotics. WBC mildly elevated. Has developed right antecubital fossa hematoma. Enoxaparin subQ has been held. Review of Systems Review of Systems: All systems reviewed & are unremarkable except as noted in HPI and below Exam Narrative: GENERAL APPEARANCE: Well developed, well nourished, alert and cooperative, in mild respiratory distress while on supplemental oxygen via nasal cannula HEENT: Sclerae anicteric and conjunctivae pink and moist. Extraocular movements were intact and pupils were equal, round. NECK: Supple. There was no thyroid enlargement, and no tenderness, or masses were felt. LUNGS: Auscultation of the lungs revealed rare crackles at bases posteriorly, no wheezing CARDIAC: There was a regular rate and rhythm without any murmurs, gallops, rubs. ABDOMEN: Soft and nontender with normal bowel sounds. There was no organomegaly. LYMPH NODES: No lymphadenopathy was appreciated in the neck. EXTREMITIES: No cyanosis, clubbing or edema. large right antecubital fossa hematoma. Right radial pulse is palpable. NEUROLOGIC: Awake moving all extremities. Objective Data Vital Signs Vital Signs: Vital Signs - 24 hr 03/11/22 11:23 03/11/22 14:23 03/11/22 14:31 Temperature Pulse Rate 75 77 Respiratory Rate 22 H 24 H Blood Pressure Pulse Oximetry Pulse Oximetry [With Activity During Therapy Session] 85 L Oxygen Delivery Oxygen Flow Rate Fraction of Inspired Oxygen 03/11/22 14:31 03/11/22 12:00 03/11/22 12:00 Temperature 37.0 C Pulse Rate 84 75 Respiratory Rate 16 19 Blood Pressure 126/90 Pulse Oximetry 97 100 98 Pulse Oximetry [With Activity During Therapy Session] Oxygen Delivery High Flow Nasal Cannula High Flow Nasal Cannula Oxygen Flow Rate 7 8 Fraction of Inspired Oxygen 03/11/22 12:00 0
--- NOTE | 2022-03-12 10:55 | PCSTNOTE ---
Please refer to the Bedside Swallow Evaluation in the EMR. Please note, silent aspiration cannot be ruled out at bedside.
--- NOTE | 2022-03-12 11:00 | P.PNIM_ITS ---
Progress Note: A&P Assessment and Plan (1) Acute on chronic respiratory failure with hypoxia and hypercapnia: Code(s): J96.21 - Acute and chronic respiratory failure with hypoxia; J96.22 - Acute and chronic respiratory failure with hypercapnia Status: Acute Assessment and Plan: Acute on chronic hypercapnic respiratory failure likely related to COPD exacerbation and/or pneumonia. Wears 4L at rest and 8L with activity per patient. CTA chest 02/27/22 showing no PE but does showing LLL collapse from airway obstruction from aspiration and/or mucous plugging. LE venous doppler negative for DVT. Bronchoscopy 03/01/22 which showed evidences of mucosal erythema and mild edema in the LLL with a small amount of light yellow bronchial secretions in the secondary david and in the LLL.?There was no evidence of intraluminal masses in the left lung. Path negative for malignancy. Rare fungal elements seen on smear but all cultures remain negative.? Repeat CT chest 03/03/22 showing progression of bilateral airspace disease LLL, RML with patchy groundglass opacifications. Flu and COVID testing were negative. Mycoplasma IgM and urine pneumococcal and legionella antigen negative. Extubated on 03/04/22 -- She did well with BiPAP until the morning on 03/05 when she acutely decompensated off the BiPAP. ABG 7.31/89/57 on BiPAP. She was re- intubated but difficult due to tracheal stenosis(?). ETT had to replace with larger diameter later that morning. CXR showing pulmonary edema. CT soft tissue neck 03/05/22 showing prominence of the trachea surrounded the endotracheal tube at the level of the hyoid bone as well as patchy bilateral infiltrates possibly pneumonia. Continue treatment with antibiotics. IV Steroids stopped. Appreciate tire molder and Pulmonary consult. May need trach if she has more severe tracheal stenosis. Status post extubation 03/10/2022 on BiPAP p.r.n. pulmonary following oxygen supplementation . Continue pulmonary toilet (2) Hypotension: Code(s): I95.9 - Hypotension, unspecified Status: Acute Assessment and Plan: Patient developed HoTN 03/05 felt related to the acute respiratory failure/collapse then from sepsis. Levophed started and patient stable now. Able to be weaned off Levophed on 03/06. (3) Tracheal obstruction: Code(s): J39.8 - Other specified diseases of upper respiratory tract Status: Acute Assessment and Plan: As above.? Had a bronch 03/01 but did not show tracheal stenosis so may be located higher up in the trachea. Will need to do trial to see if her airway is compromised by stenosis. May need trach. Treated with Decadron but currently off. (4) Anemia: Code(s): D64.9 - Anemia, unspecified Status: Acute Assessment and Plan: hemoglobin drifting down with no signs of active blood loss. She is on full dose Lovenox. Continue to monitor H&H (5) Pneumonia: Code(s): J18.9 - Pneumonia, unspecified organism Status: Acute Assessment and Plan: No fevers. WBC was normal but jumped to 21K related to demargination/stress response/steroids. WBC back to normal. As above. Continue to follow (6) Diastolic congestive heart failure: Code(s): I50.30 - Unspecified diastolic (congestive) heart failure Status: Acute Assessment and Plan: Patient has a history of diastolic heart failure. Echo 02/28/22 shows EF of 65- 70%, grade 1 diastolic dysfunction. BNP 244. CXR yesterday showing no overall change. Was on Lasix 40mg at home but held here. Continue to monitor.? intermittently diuresed (7) Atrial fibrillation: Cod
--- NOTE | 2022-03-12 12:13 | PCSTNOTE ---
Please refer to the Modified Barium Swallow Evaluation in the EMR.
--- NOTE | 2022-03-12 12:18 | PM.PNGS ---
Progress Note: A&P Assessment and Plan (1) Hematoma: Code(s): T14.8XXA - Other injury of unspecified body region, initial encounter Status: Acute Assessment and Plan: no s/s active bleeding, cont serial exams, H/H, vitals stable Subjective Subjective Date/Time Seen: 03/12/22 12:18 no acute issues overnight, seems more alert today, reports RUE pain improved Review of Systems Review of Systems: All systems reviewed & are unremarkable except as noted in HPI and below Exam Const: General: cooperative, comfortable, no acute distress and ill appearing Resp: Auscultation: diminished lung sounds Cardio: Rate: regular rate Rhythm: regular rhythm GI: Inspection: normal to inspection Extrem: Other: RUE hematoma - unchanged, no s/s active bleeding or infection Objective Data Vital Signs Vital Signs: Vital Signs - 24 hr 03/11/22 14:23 03/11/22 14:31 03/11/22 14:31 Temperature Pulse Rate 75 77 Respiratory Rate 22 H 24 H Blood Pressure Pulse Oximetry 97 Oxygen Delivery High Flow Nasal Cannula Oxygen Flow Rate 7 Fraction of Inspired Oxygen 03/11/22 14:00 03/11/22 14:00 03/11/22 16:00 Temperature 37.4 C Pulse Rate 78 78 75 Respiratory Rate 18 19 Blood Pressure 131/67 Pulse Oximetry 97 98 Oxygen Delivery High Flow Nasal Cannula Oxygen Flow Rate 8 Fraction of Inspired Oxygen 03/11/22 16:00 03/11/22 16:00 03/11/22 18:00 Temperature 37.0 C Pulse Rate 90 75 78 Respiratory Rate 19 Blood Pressure 126/90 Pulse Oximetry 98 Oxygen Delivery Oxygen Flow Rate Fraction of Inspired Oxygen 03/11/22 18:00 03/11/22 19:35 03/11/22 19:35 Temperature 37.1 C Pulse Rate 78 80 80 Respiratory Rate 21 H 20 20 Blood Pressure 147/59 H Pulse Oximetry 97 94 Oxygen Delivery High Flow Nasal Cannula Oxygen Flow Rate 6 Fraction of Inspired Oxygen 03/11/22 20:00 03/11/22 20:00 03/11/22 20:01 Temperature 37.2 C Pulse Rate 86 80 Respiratory Rate 20 16 Blood Pressure 152/109 H Pulse Oximetry 98 98 Oxygen Delivery High Flow Nasal Cannula Oxygen Flow Rate 6 Fraction of Inspired Oxygen 03/11/22 23:16 03/11/22 23:16 03/11/22 20:00 Temperature Pulse Rate 90 90 87 Respiratory Rate 20 20 Blood Pressure Pulse Oximetry 98 98 Oxygen Delivery BiPAP BiPAP Oxygen Flow Rate Fraction of Inspired Oxygen 03/11/22 22:00 03/11/22 22:01 03/12/22 00:00 Temperature 37.2 C Pulse Rate 82 82 Respiratory Rate 22 H Blood Pressure 114/99 H Pulse Oximetry 100 97 Oxygen Delivery BiPAP Oxygen Flow Rate Fraction of Inspired Oxygen 50 03/12/22 00:00 03/12/22 00:01 03/12/22 00:10 Temperature 37.4 C Pulse Rate 93 76 81 Respiratory Rate 21 H Blood Pressure 128/64 Pulse Oximetry 97 Oxygen Delivery Oxygen Flow Rate Fraction of Inspired Oxygen 03/12/22 02:12 03/12/22 02:12 03/12/22 02:32 Temperature Pulse Rate 73 73 73 Respiratory Rate 16 16 16 Blood Pressure Pulse Oximetry 98 Oxygen Delivery BiPAP Oxygen Flow Rate Fraction of Inspired Oxygen 03/12/22 02:00 03/12/22 02:01 03/12/22 04:00 Temperature 37.5 C Pulse Rate 83 83 Respiratory Rate 22 H Blood Pressure 111/56 L Pulse Oximetry 97 96 Oxygen Delivery BiPAP Oxygen Flow Rate Fraction of Inspired Oxygen 50 03/12/22 04:01 03/12/22 04:00 03/12/22 05:44 Temperature 37.6 C Pulse Rate 90 89 85 Respiratory Rate 19 Blood Pressure 120/56 L Pulse Oximetry 96 Oxygen Delivery Oxygen Flow Rate Fraction of Inspired Oxygen 03/12/22 06:00 03/12/22 06:01 03/12/22 05:30 Temperature 36.6 C Pulse Rate 90 90 78 Respiratory Rate 20 19 Blood Pressure 123/102 H Pulse Oximetry 95 98 Oxygen Delivery BiPAP Oxygen Flow Rate Fraction of Inspired Oxygen 03/12/22 08:00 03/12/22 08:00 03/12/22 08:00 Temperature Pulse Rate 84 Respiratory Rate 21 H Blood
[2022-03-12 12:22] LABS: Glucose Point of Care 101 mg/dl (65-105)
--- NOTE | 2022-03-12 16:42 | PC.NURSE ---
This patient, Stephany Richard, was received from [facility][ ] on 03/12/22 at 1642. Patient/family oriented to unit policies and routines
[2022-03-12 17:40] LABS: Glucose Point of Care 70 mg/dl (65-105)
[2022-03-12 18:17] LABS: Glucose Point of Care 131 mg/dl (65-105)
[2022-03-12 23:25] LABS: Glucose Point of Care 73 mg/dl (65-105)
[2022-03-13] VITALS (31 sets, daily range): BP systolic 105–128; BP diastolic 45–89; PULSE 59–93; RESP 15–20; TEMP 36.2–37.7; O2SAT 95–99
[2022-03-13] MEDS: LEVALBUTEROL NEB 1.25 MG/3 ML 0.63 MG INHALATION ×4 (02:12→19:49)
[2022-03-13] MEDS: IPRATROPIUM BR 0.02% INH SOLN 0.5 MG/2.5 ML VIAL INHALATION ×4 (02:12→19:49)
[2022-03-13] MEDS: CENTRAL LINE FLUSH 10 ML IV PUSH ×3 (05:30→22:02)
[2022-03-13] MEDS: METOPROLOL TARTRATE INJ 5 MG/5 ML VIAL 2.5 MG IV PUSH ×4 (05:30→23:23)
[2022-03-13 05:38] LABS: Basophils Percent Auto 0.2 % (0.2-1.2); Eosinophils Absolute Auto 0.2 K/mm3 (0-0.3); Eosinophils Percent Auto 2.3 % (0-4.4); Hemoglobin 7.7 g/dL (12.0-15.0); Lymphocytes Absolute Auto 1.22 K/mm3 (0.9-3.2); Lymphocytes Percent Auto 12.4 % (18.3-44.2); Mean Corpuscular HGB Conc 30.8 g/dl (32-36); Mean Corpuscular Hemoglobin 30.3 pg (26-34); Mean Corpuscular Volume 98.4 fl (80-100); Mean Platelet Volume 10.4 fl (7.4-10.4); Monocytes Absolute Auto 0.9 K/mm3 (0.1-0.6); Neutrophils Absolute Auto 7.4 K/mm3 (1.3-6.7); Neutrophils Percent Auto 75.1 % (45.5-73.1); Platelet Count Result 182 k/mm3 (150-375); Red Blood Count 2.54 M/mm3 (4.2-5.4); Red Cell Distribution Width 14.9 % (11.5-14.5); White Blood Count 9.8 K/mm3 (4.5-10.0)
[2022-03-13 06:02] LABS: Alanine Aminotransferase 59 U/L (6-35); Albumin Level 3.8 g/dL (3.5-5.1); Alkaline Phosphatase 55 U/L (38-126); Aspartate Amino Transferase 27 U/L (14-36); Blood Urea Nitrogen 32 mg/dL (7-17); Calcium 8.2 mg/dL (8.4-10.2); Carbon Dioxide > 40 mmol/L (22-30); Chloride 93 mmol/L (98-107); Estimated CRCL calculation 80 ml/min; Estimated Glomerular Filt Rate > 60; Glucose 71 mg/dL (65-110); Phosphorus 3.1 mg/dL (2.5-4.5); Potassium 3.5 mmol/L (3.4-5.0); Sodium 138 mmol/L (137-145)
[2022-03-13] MEDS: ACETYLCYSTEINE 20% INHAL SOLN 800 MG/4 ML VIAL 200 MG INHALATION ×3 (07:41→19:49)
[2022-03-13] MEDS: BUDESONIDE RESPULE NEB 0.5 MG/2 ML AMP INHALATION ×2 (07:42→19:57)
--- NOTE | 2022-03-13 08:21 | PM.PNGS ---
Progress Note: A&P Assessment and Plan (1) Hematoma: Code(s): T14.8XXA - Other injury of unspecified body region, initial encounter Status: Acute Assessment and Plan: stable, no acute surgical issues, cont local wound care, will sign off, call c ?s, issues Subjective Subjective Date/Time Seen: 03/13/22 08:21 no acute issues overnight Review of Systems Review of Systems: All systems reviewed & are unremarkable except as noted in HPI and below Exam Const: General: comfortable, no acute distress and ill appearing Nutritional Appearance: obese Resp: Auscultation: clear to auscultation bilaterally Cardio: Rate: regular rate Rhythm: regular rhythm GI: Inspection: normal to inspection Skin: Other: RUE hematoma - unchanged, no s/s bleeding, infection, some mild sloughing of overlying skin Objective Data Vital Signs Vital Signs: Vital Signs - 24 hr 03/12/22 10:00 03/12/22 10:00 03/12/22 12:21 Temperature 37.1 C Pulse Rate 80 77 87 Respiratory Rate 20 Blood Pressure 122/106 H Pulse Oximetry 94 Oxygen Delivery Oxygen Flow Rate Fraction of Inspired Oxygen 03/12/22 12:00 03/12/22 13:29 03/12/22 13:36 Temperature Pulse Rate 99 71 74 Respiratory Rate 16 22 H Blood Pressure Pulse Oximetry 98 Oxygen Delivery High Flow Therapy with Na Oxygen Flow Rate 4 Fraction of Inspired Oxygen 03/12/22 12:00 03/12/22 12:00 03/12/22 14:00 Temperature Pulse Rate 92 95 80 Respiratory Rate 24 H Blood Pressure Pulse Oximetry 97 Oxygen Delivery Oxygen Flow Rate Fraction of Inspired Oxygen 03/12/22 14:00 03/12/22 15:43 03/12/22 15:49 Temperature 37.5 C Pulse Rate 80 84 79 Respiratory Rate 15 22 H Blood Pressure Pulse Oximetry 98 95 Oxygen Delivery High Flow Therapy with Na Oxygen Flow Rate 4 Fraction of Inspired Oxygen 03/12/22 15:49 03/12/22 17:35 03/12/22 18:00 Temperature 37.4 C Pulse Rate 78 85 71 Respiratory Rate 15 Blood Pressure 158/109 H Pulse Oximetry 98 Oxygen Delivery Oxygen Flow Rate Fraction of Inspired Oxygen 03/12/22 19:47 03/12/22 19:51 03/12/22 20:00 Temperature 36.4 C Pulse Rate 77 79 Respiratory Rate 18 18 Blood Pressure 112/51 L Pulse Oximetry 93 100 Oxygen Delivery High Flow Nasal Cannula Oxygen Flow Rate 4 Fraction of Inspired Oxygen 03/12/22 20:10 03/12/22 20:00 03/12/22 20:00 Temperature Pulse Rate 77 78 Respiratory Rate Blood Pressure Pulse Oximetry 100 Oxygen Delivery High Flow Therapy with Na Oxygen Flow Rate 4 Fraction of Inspired Oxygen 03/12/22 22:00 03/12/22 23:10 03/12/22 23:11 Temperature 36.1 C L Pulse Rate 84 80 88 Respiratory Rate 16 23 H Blood Pressure 143/90 H Pulse Oximetry 97 96 Oxygen Delivery BiPAP Oxygen Flow Rate Fraction of Inspired Oxygen 03/12/22 23:12 03/12/22 23:54 03/13/22 00:00 Temperature Pulse Rate 88 79 74 Respiratory Rate 23 H Blood Pressure Pulse Oximetry 96 Oxygen Delivery BiPAP Oxygen Flow Rate Fraction of Inspired Oxygen 03/13/22 00:00 03/13/22 02:00 03/13/22 02:12 Temperature Pulse Rate 69 73 Respiratory Rate 15 Blood Pressure Pulse Oximetry 99 Oxygen Delivery BiPAP Oxygen Flow Rate Fraction of Inspired Oxygen 50 03/13/22 02:14 03/13/22 02:22 03/13/22 02:22 Temperature Pulse Rate 70 79 78 Respiratory Rate 15 17 17 Blood Pressure Pulse Oximetry 98 99 Oxygen Delivery BiPAP BiPAP Oxygen Flow Rate Fraction of Inspired Oxygen 03/13/22 04:00 03/13/22 04:00 03/13/22 04:00 Temperature 36.2 C L Pulse Rate 89 85 Respiratory Rate 15 Blood Pressure 122/89 Pulse Oximetry 98 99 Oxygen Delivery BiPAP Oxygen Flow Rate Fraction of Inspired Oxygen 50 03/13/22 05:30 03/13/22 05:38 03/13/22 05:48 Temperature Pulse Rate 82 77 74 Respiratory Rate 16 Blood Pressure
[2022-03-13] MEDS: PANTOPRAZOLE SODIUM IV 40 MG VIAL IV PUSH (09:20)
--- NOTE | 2022-03-13 10:06 | PM.PNPUL ---
Progress Note: A&P Assessment and Plan (1) Tracheal obstruction: Code(s): J39.8 - Other specified diseases of upper respiratory tract Status: Acute (2) COPD (chronic obstructive pulmonary disease): Code(s): J44.9 - Chronic obstructive pulmonary disease, unspecified Status: Acute (3) Acute respiratory failure with hypercapnia: Code(s): J96.02 - Acute respiratory failure with hypercapnia Status: Acute Assessment and Plan: 66-year-old female with severe COPD, hypoxemic hypercapnic respiratory failure on home ventilatory support presented with acute on chronic hypercapnic respiratory failure related to left lower lobe atelectasis/ bilateral pneumonia.? The patient treated with intubation and mechanical ventilation as well as with antibiotics, and other medications for COPD exacerbation. Clinical status had significantly improved and patient was initially extubated. 24 hours following extubation the patient developed respiratory distress requiring re-intubation. Neck soft tissue CT raised question of tracheal edema around endotracheal tube, in the subglottic region. repeat soft tissue CT showed clearing of tracheal edema. The patient was successfully weaned two days ago. since then she has developed right antecubital fossa hematoma probably related to subQ Lovenox. She has failed video swallow study. She uses BiPAP support every night. Respiratory status has been stable over the last 24 hours. Has low-grade temperature this a.m. question related to large arm hematoma . Continue nebulized short-acting bronchodilators, nebulized mucolytic agents, out of bed to chair. Continue with BiPAP support at night. she will have NG tube inserted for tube feedings. (4) COPD with acute exacerbation: Code(s): J44.1 - Chronic obstructive pulmonary disease with (acute) exacerbation Status: Acute (5) Acute on chronic respiratory failure with hypoxia and hypercapnia: Code(s): J96.21 - Acute and chronic respiratory failure with hypoxia; J96.22 - Acute and chronic respiratory failure with hypercapnia Status: Acute (6) Diastolic congestive heart failure: Code(s): I50.30 - Unspecified diastolic (congestive) heart failure Status: Acute Subjective Date/time seen: 03/13/22 10:06 Patient has no new respiratory symptoms. Less coughing, sputum now clear. She still has a raspy voice. Remaining on same oxygen flow at 4 liters/minute. Low-grade temperature this a.m. Used BiPAP support last night. failed swallow study. Has been NPO while waiting for NG tube insertion. right antecubital fossa hematoma more or less unchanged. Has been off Lovenox subQ Review of Systems Review of Systems: All systems reviewed & are unremarkable except as noted in HPI and below Exam Narrative: GENERAL APPEARANCE: Well developed, well nourished, alert and cooperative, in mild respiratory distress while on supplemental oxygen via nasal cannula HEENT: Sclerae anicteric and conjunctivae pink and moist. Extraocular movements were intact and pupils were equal, round. NECK: Supple. There was no thyroid enlargement, and no tenderness, or masses were felt. LUNGS: Auscultation of the lungs revealed rare crackles at bases posteriorly, no wheezing CARDIAC: There was a regular rate and rhythm without any murmurs, gallops, rubs. ABDOMEN: Soft and nontender with normal bowel sounds. There was no organomegaly. LYMPH NODES: No lymphadenopathy was appreciated in the neck. EXTREMITIES: No cyanosis, clubbing or edema. large right antecubital fossa hematoma. Right radial pulse is palpable. NEUROLOGIC: Awake moving all extremities. Objective Data Vital Signs Vital Signs: Vital Signs - 24 hr 03/12/22 12:21 03/12/22 12:00 03/12/22 13:29 Temperature Pulse Rate 87 99 71 Respiratory Rate 16 22 H Blood Pressure Pulse Oximetry 98 Oxygen Delivery High Flow Therapy with Na Oxygen Flow Rate 4
[2022-03-13 11:52] LABS: Glucose Point of Care 73 mg/dl (65-105)
--- NOTE | 2022-03-13 14:42 | PM.IMPN ---
Progress Note: A&P Assessment and Plan (1) Acute on chronic respiratory failure with hypoxia and hypercapnia: Code(s): J96.21 - Acute and chronic respiratory failure with hypoxia; J96.22 - Acute and chronic respiratory failure with hypercapnia Status: Acute Assessment and Plan: Acute on chronic hypercapnic respiratory failure likely related to COPD exacerbation and/or pneumonia. Wears 4L at rest and 8L with activity per patient. CTA chest 02/27/22 showing no PE but does showing LLL collapse from airway obstruction from aspiration and/or mucous plugging. LE venous doppler negative for DVT. Bronchoscopy 03/01/22 which showed evidences of mucosal erythema and mild edema in the LLL with a small amount of light yellow bronchial secretions in the secondary david and in the LLL.?There was no evidence of intraluminal masses in the left lung. Path negative for malignancy. Rare fungal elements seen on smear but all cultures remain negative.? Repeat CT chest 03/03/22 showing progression of bilateral airspace disease LLL, RML with patchy groundglass opacifications. Flu and COVID testing were negative. Mycoplasma IgM and urine pneumococcal and legionella antigen negative. Extubated on 03/04/22 -- She did well with BiPAP until the morning on 03/05 when she acutely decompensated off the BiPAP. ABG 7.31/89/57 on BiPAP. She was re-intubated but difficult due to tracheal stenosis(?). ETT had to replace with larger diameter later that morning. CXR showing pulmonary edema. CT soft tissue neck 03/05/22 showing prominence of the trachea surrounded the endotracheal tube at the level of the hyoid bone as well as patchy bilateral infiltrates possibly pneumonia. Continue treatment with antibiotics. IV Steroids stopped. Appreciate patent litigation associate and Pulmonary consult. May need trach if she has more severe tracheal stenosis. Status post extubation 03/10/2022 on BiPAP p.r.n. pulmonary following oxygen supplementation . Continue pulmonary toilet Discussed with Pulmonary 03/13/2022 (2) Hypotension: Code(s): I95.9 - Hypotension, unspecified Status: Acute Assessment and Plan: Patient developed HoTN 03/05 felt related to the acute respiratory failure/collapse then from sepsis. Levophed started and patient stable now. Able to be weaned off Levophed on 03/06. (3) Tracheal obstruction: Code(s): J39.8 - Other specified diseases of upper respiratory tract Status: Acute Assessment and Plan: As above.? Had a bronch 03/01 but did not show tracheal stenosis so may be located higher up in the trachea. Will need to do trial to see if her airway is compromised by stenosis. May need trach. Treated with Decadron but currently off. (4) Anemia: Code(s): D64.9 - Anemia, unspecified Status: Acute Assessment and Plan: hemoglobin drifting down with no signs of active blood loss. She is on full dose Lovenox. Continue to monitor H&H (5) Pneumonia: Code(s): J18.9 - Pneumonia, unspecified organism Status: Acute Assessment and Plan: No fevers. WBC was normal but jumped to 21K related to demargination/stress response/steroids. WBC back to normal. As above. Continue to follow (6) Diastolic congestive heart failure: Code(s): I50.30 - Unspecified diastolic (congestive) heart failure Status: Acute Assessment and Plan: Patient has a history of diastolic heart failure. Echo 02/28/22 shows EF of 65-70%, grade 1 diastolic dysfunction. BNP 244. CXR yesterday showing no overall change. Was on Lasix 40mg at home but held here. Continue to monitor.? intermittently diuresed (7) Atrial fibrillation: Code(s): I48.91 - Unspecified atrial fibrillation Status: Acute Assessment and Plan: Telemetry was showing frequent PACs and AFlutter; EKG showing AFib. Metoprolol held due to HoTN. Replace electrolytes as needed. Lovenox increased to therapeutic dose. Resume metoprolol when able. (8)
[2022-03-13 18:27] LABS: Glucose Point of Care 70 mg/dl (65-105)
[2022-03-13] MEDS: DEXTROSE 50% 25 GM/50 ML SYRINGE IV PUSH (18:33)
[2022-03-13 23:16] LABS: Glucose Point of Care 75 mg/dl (65-105)
[2022-03-14] VITALS (28 sets, daily range): BP systolic 123–139; BP diastolic 40–65; PULSE 65–89; RESP 14–26; TEMP 36.4–36.6; O2SAT 96–100
[2022-03-14] MEDS: LEVALBUTEROL NEB 1.25 MG/3 ML 0.63 MG INHALATION ×4 (02:42→20:13)
[2022-03-14] MEDS: IPRATROPIUM BR 0.02% INH SOLN 0.5 MG/2.5 ML VIAL INHALATION ×4 (02:42→20:13)
[2022-03-14] MEDS: METOPROLOL TARTRATE INJ 5 MG/5 ML VIAL 2.5 MG IV PUSH ×2 (05:51→17:16)
[2022-03-14 05:52] LABS: Basophils Percent Auto 0.3 % (0.2-1.2); Eosinophils Absolute Auto 0.2 K/mm3 (0-0.3); Eosinophils Percent Auto 2.8 % (0-4.4); Hemoglobin 7.4 g/dL (12.0-15.0); Immature Granulocyte Absolute 0.06 K/mm3 (0.00-0.031); Immature Granulocyte Percent A 0.8 % (0-0.5); Lymphocytes Absolute Auto 0.87 K/mm3 (0.9-3.2); Lymphocytes Percent Auto 12.1 % (18.3-44.2); Mean Corpuscular HGB Conc 30.8 g/dl (32-36); Mean Corpuscular Hemoglobin 30.5 pg (26-34); Mean Corpuscular Volume 98.8 fl (80-100); Mean Platelet Volume 10.2 fl (7.4-10.4); Monocytes Absolute Auto 0.7 K/mm3 (0.1-0.6); Monocytes Percent Auto 9.9 % (2.6-8.5); Neutrophils Absolute Auto 5.3 K/mm3 (1.3-6.7); Neutrophils Percent Auto 74.1 % (45.5-73.1); Platelet Count Result 172 k/mm3 (150-375); Red Blood Count 2.43 M/mm3 (4.2-5.4); Red Cell Distribution Width 15.1 % (11.5-14.5); White Blood Count 7.2 K/mm3 (4.5-10.0)
[2022-03-14] MEDS: CENTRAL LINE FLUSH 10 ML IV PUSH ×3 (05:52→20:19)
[2022-03-14 06:12] LABS: Alanine Aminotransferase 45 U/L (6-35); Albumin Level 3.8 g/dL (3.5-5.1); Alkaline Phosphatase 57 U/L (38-126); Aspartate Amino Transferase 23 U/L (14-36); Blood Urea Nitrogen 27 mg/dL (7-17); Carbon Dioxide > 40 mmol/L (22-30); Chloride 93 mmol/L (98-107); Estimated CRCL calculation 95 ml/min; Estimated Glomerular Filt Rate > 60; Glucose 71 mg/dL (65-110); Potassium 3.1 mmol/L (3.4-5.0); Sodium 136 mmol/L (137-145)
[2022-03-14] MEDS: BUDESONIDE RESPULE NEB 0.5 MG/2 ML AMP INHALATION ×2 (08:01→20:14)
[2022-03-14] MEDS: ACETYLCYSTEINE 20% INHAL SOLN 800 MG/4 ML VIAL 200 MG INHALATION (08:07)
[2022-03-14] MEDS: PANTOPRAZOLE SODIUM IV 40 MG VIAL IV PUSH (09:11)
[2022-03-14] MEDS: KCL 40 MEQ/WATER 100 ML 100 ML 25 ML IVPB (09:59)
--- NOTE | 2022-03-14 10:51 | PM.PNPUL ---
Progress Note: A&P Assessment and Plan (1) COPD (chronic obstructive pulmonary disease): Code(s): J44.9 - Chronic obstructive pulmonary disease, unspecified Status: Acute Assessment and Plan: ?This is a 65-year-old woman with a known history of COPD with hypoxemic respiratory failure requiring 4 L nasal cannula At rest and 8 L with activity, hypercarbic respiratory failure requiring a trilogy noninvasive ventilator since 2019, congestive heart failure, depression, and history of PE. most recent download demonstrated patient is on AVAPS-AE through [facility] with a breath rate of auto, tidal volume 400, EPAP 6-12, IPAP 2-4 and was recommended she have 5 L bleed in. She was maintained on breztri 160/9/4.8 and the dose is listed as 1 inhalation q.day. Patient was admitted and treated for COPD exacerbation, pneumonia and fluid overload. Intubated 02/26, extubated 03/04, reintubated 03/06, extubated 03/10. She was currently off systemic steroids and antibiotics. Patient tells me today she is breathing at her baseline, she has a good cough and states she has minimal phlegm. She has no wheezing on exam. I will continue leave albuterol 0.63 nebulized q.6 hours, ipratropium 0.5 nebulized q.6 hours and budesonide 500 mcg nebulized b.i.d.. I will discontinue Mucomyst today and follow the patient clinically. The patient is on noninvasive ventilation and I have informed her to have her family bring in her home machine. I will obtain a recent download today. If the patient is able to bring in her home machine I will perform an overnight oximetry on 40% or 5 L bleed in and ABG prior to removal of machine to assess her hypercarbia and oxygenation. Spoke with Dr. Vaughan. Will follow with you. Subjective Date/time seen: 03/14/22 10:51 Interval history: 66-year-old with a history of current tobacco use, COPD with chronic hypercarbic and hypoxemic respiratory failure on home noninvasive ventilator with 4 L bleed in, supplemental oxygen 4 L at rest, 8 L with activity during the day, CHF, PEs admitted to the hospital on 02/26/2022 with confusion, acute on chronic hypercarbic respiratory failure with a pH of 7.23/133/57. patient failed BiPAP and was intubated. Patient was treated for COPD exacerbation, pneumonia and fluid overload. Patient was extubated on 03/04. On 03/05 patient had increased work of breathing and was reintubated. There was resistance be on the cord and there was concern about an obstruction. Patient had a CT of the neck on 03/08 with no evidence of tracheal obstruction and a positive cuff leak. Patient was extubated on 03/10. Antibiotics were discontinued on 03/10. Six hundred eighteen patient developed right upper extremity hematoma and her Lovenox prophylactic dose was discontinued. Patient is now on the intermediate unit she is tolerating hospital BiPAP at night and says that she is breathing better. Patient failed her modified barium swallow on 03/12 and is scheduled to get a Dobbhoff today. 03/14/2022: Patient says she is much better and breathing back at her baseline. Patient denies any wheezing. Patient did walk from her bed to the chair yesterday. Patient has a cough that is at her baseline. Patient wore BiPAP rate of 10, 14/8 with 50% FiO2 last night and said that this felt the same as her home trilogy machine. Patient is on nebulized leave albuterol, ipratropium and budesonide. Patient is on Mucomyst nebulization and I will discontinue those today. The patient tells me that she will not go to any type a rehabilitation center and that she will only go home at this time. DATA: EXAMINATION: XR chest 1V portable DATE: 03/11/2022 05:36 INDICATION: Respiratory failure TECHNIQUE: frontal view of the chest was obtained. COMPARISON: Chest radiograph dated 03/10/22 FINDINGS: Slight interval improvement in airspace opacities in the bilateral lower lung zones. No pneumothorax.
--- NOTE | 2022-03-14 11:39 | PC.NURSE ---
Nurse off floor with patient in X-ray for Dobhoff insertion from 1100 to 1124.
--- NOTE | 2022-03-14 13:37 | PCNFU ---
Nutrition Follow-Up Complete: Inadequate Oral Intake as related to mechanical ventilation as evidenced by tube feedings. Goal: Meet estimated nutritional needs Pt. is making little progress towards goal at this time. Continue with current goal. Pt current nutrition is NPO Nutrition recommendation: Initiating Tube Feeding diet of Jevity 1.5 running at 10mL/hr and advance by 10mL/hr every Q4 hours until goal rate of 40mL/hr is met. 30mL water flushes every Q4 hours. Last recorded weight is 85 kg, up 0.6kg from last reported wt on 03/13. Recommend continuing with daily weights. Bowel Motility: +BM reported 03/11 Labs Reviewed: Hgb 7.4, Hct 24.0, Cl 93, Na 136, K 3.1, BUN 27, Cr 0.50, Ca 8.0, ALT 45 Meds Noted: Budesonide, Atrovent Neb, Levalbuterol Hcl, Protonix, Sodium Chloride Skin: Sacrum friction, left arm skin tear, scattered bruising Additional Notes: Spoke with RN today (03/14/22) via phone who reports that pt. successfully had Dobbhoff placed today. Recommend initiating Tube Feeding of Jevity 1.5 running at 10mL/hr over 22 hours. This will provide 330kcal, 14g of protein, and 167mL of water. Advance Jevity 1.5 by 10mL every Q4 hours until a goal rate of 40mL/hr is met. Tube feeding of Jevity 1.5 running at goal rate over 22 hours will provide 1320kcal, 56g of protein, and 669mL of water. This will meet 86% of estimated kcal needs and 89% of estimated protein needs. Plan of care is to continue with Tube Feeding diet until pt. is able to tolerate oral intake. Pt. continues to work with speech therapy. Per speech notes, pt. continues to make progress with exercises to improve swallowing impairment and goal is to progress towards oral feedings. Nursing confirmed and reports that plan is for pt. to repeat swallow study but unsure of exact date at this time. Appreciate update and input from nursing. Agree with current diet orders at this time. Will continue to follow. Will monitor every Monday and Monday.
[2022-03-14] MEDS: DEXTROSE 50% 25 GM/50 ML SYRINGE IV PUSH (13:51)
--- NOTE | 2022-03-14 16:13 | PM.IMPN ---
Progress Note: A&P Assessment and Plan (1) Acute on chronic respiratory failure with hypoxia and hypercapnia: Code(s): J96.21 - Acute and chronic respiratory failure with hypoxia; J96.22 - Acute and chronic respiratory failure with hypercapnia Status: Acute Assessment and Plan: Acute on chronic hypercapnic respiratory failure likely related to COPD exacerbation and/or pneumonia. Wears 4L at rest and 8L with activity per patient. CTA chest 02/27/22 showing no PE but does showing LLL collapse from airway obstruction from aspiration and/or mucous plugging. LE venous doppler negative for DVT. Bronchoscopy 03/01/22 which showed evidences of mucosal erythema and mild edema in the LLL with a small amount of light yellow bronchial secretions in the secondary david and in the LLL.?There was no evidence of intraluminal masses in the left lung. Path negative for malignancy. Rare fungal elements seen on smear but all cultures remain negative.? Repeat CT chest 03/03/22 showing progression of bilateral airspace disease LLL, RML with patchy groundglass opacifications. Flu and COVID testing were negative. Mycoplasma IgM and urine pneumococcal and legionella antigen negative. Extubated on 03/04/22 -- She did well with BiPAP until the morning on 03/05 when she acutely decompensated off the BiPAP. ABG 7.31/89/57 on BiPAP. She was re-intubated but difficult due to tracheal stenosis(?). ETT had to replace with larger diameter later that morning. CXR showing pulmonary edema. CT soft tissue neck 03/05/22 showing prominence of the trachea surrounded the endotracheal tube at the level of the hyoid bone as well as patchy bilateral infiltrates possibly pneumonia. Continue treatment with antibiotics. IV Steroids stopped. Appreciate ballaster and Pulmonary consult. May need trach if she has more severe tracheal stenosis. Status post extubation 03/10/2022 on BiPAP p.r.n. pulmonary following oxygen supplementation . Continue pulmonary toilet Discussed with Pulmonary 03/13/2022 and 03/14/2022 Plan for using home ventilator unit (2) Hypotension: Code(s): I95.9 - Hypotension, unspecified Status: Acute Assessment and Plan: Patient developed HoTN 03/05 felt related to the acute respiratory failure/collapse then from sepsis. Levophed started and patient stable now. Able to be weaned off Levophed on 03/06. (3) Tracheal obstruction: Code(s): J39.8 - Other specified diseases of upper respiratory tract Status: Acute Assessment and Plan: As above.? Had a bronch 03/01 but did not show tracheal stenosis so may be located higher up in the trachea. Will need to do trial to see if her airway is compromised by stenosis. May need trach. Treated with Decadron but currently off. (4) Anemia: Code(s): D64.9 - Anemia, unspecified Status: Acute Assessment and Plan: hemoglobin drifting down with no signs of active blood loss. She is on full dose Lovenox. Continue to monitor H&H (5) Pneumonia: Code(s): J18.9 - Pneumonia, unspecified organism Status: Acute Assessment and Plan: No fevers. WBC was normal but jumped to 21K related to demargination/stress response/steroids. WBC back to normal. As above. Continue to follow (6) Diastolic congestive heart failure: Code(s): I50.30 - Unspecified diastolic (congestive) heart failure Status: Acute Assessment and Plan: Patient has a history of diastolic heart failure. Echo 02/28/22 shows EF of 65-70%, grade 1 diastolic dysfunction. BNP 244. CXR yesterday showing no overall change. Was on Lasix 40mg at home but held here. Continue to monitor.? intermittently diuresed (7) Atrial fibrillation: Code(s): I48.91 - Unspecified atrial fibrillation Status: Acute Assessment and Plan: Telemetry was showing frequent PACs and AFlutter; EKG showing AFib. Metoprolol held due to HoTN. Replace electrolytes as needed. Lovenox increased to ther
[2022-03-14 16:56] LABS: Glucose Point of Care 69 mg/dl (65-105)
[2022-03-14 16:57] LABS: Glucose Point of Care 107 mg/dl (65-105)
[2022-03-14 23:40] LABS: Glucose Point of Care 108 mg/dl (65-105)
[2022-03-15] VITALS (23 sets, daily range): BP systolic 135–154; BP diastolic 50–94; PULSE 65–97; RESP 14–20; TEMP 36.4–36.9; O2SAT 89–98
[2022-03-15] MEDS: METOPROLOL TARTRATE INJ 5 MG/5 ML VIAL 2.5 MG IV PUSH ×4 (00:02→17:59)
--- NOTE | 2022-03-15 02:35 | PCRCNOTE ---
0200 UPD treatment not given on 03/15 due to pt being on sleep apnea study. Next available administration is 0800.
[2022-03-15] MEDS: CENTRAL LINE FLUSH 10 ML IV PUSH ×3 (05:27→22:11)
[2022-03-15 05:47] LABS: Basophils Percent Auto 0.3 % (0.2-1.2); Eosinophils Absolute Auto 0.2 K/mm3 (0-0.3); Eosinophils Percent Auto 2.2 % (0-4.4); Hematocrit 24.1 % (37.0-47.0); Hemoglobin 7.4 g/dL (12.0-15.0); Immature Granulocyte Absolute 0.04 K/mm3 (0.00-0.031); Immature Granulocyte Percent A 0.5 % (0-0.5); Lymphocytes Absolute Auto 0.69 K/mm3 (0.9-3.2); Lymphocytes Percent Auto 9.4 % (18.3-44.2); Mean Corpuscular HGB Conc 30.7 g/dl (32-36); Mean Corpuscular Hemoglobin 30.5 pg (26-34); Mean Corpuscular Volume 99.2 fl (80-100); Mean Platelet Volume 10.7 fl (7.4-10.4); Monocytes Absolute Auto 0.6 K/mm3 (0.1-0.6); Monocytes Percent Auto 8.6 % (2.6-8.5); Neutrophils Absolute Auto 5.8 K/mm3 (1.3-6.7); Platelet Count Result 167 k/mm3 (150-375); Red Blood Count 2.43 M/mm3 (4.2-5.4); Red Cell Distribution Width 15.6 % (11.5-14.5); White Blood Count 7.3 K/mm3 (4.5-10.0)
[2022-03-15 05:49] LABS: Device BIPAP; Fractional Inspired Oxygen 44 %; HCO3 VBG 34.7 mEq/l (24.0-30.0); PCO2 VBG 41.2 mmHg (42.0-48.0); pH VBG 7.543 (7.300-7.400)
--- NOTE | 2022-03-15 05:53 | PCRCNOTE ---
RT unable to draw ABG at 0500 on 03/15. Pt has no punctures or blood pressures in either arm. Pt only has a PICC line directed into venous blood on left arm. Aliza Wolfe RN malina venous blood out of PICC line and RT ran blood as a VBG.
[2022-03-15 06:15] LABS: Alanine Aminotransferase 35 U/L (6-35); Albumin Level 3.5 g/dL (3.5-5.1); Alkaline Phosphatase 62 U/L (38-126); Anion Gap 2 mmol/L (8-16); Aspartate Amino Transferase 23 U/L (14-36); Bilirubin,Total 1.1 mg/dL (0.2-1.3); Blood Urea Nitrogen 27 mg/dL (7-17); Calcium 8.3 mg/dL (8.4-10.2); Carbon Dioxide 38 mmol/L (22-30); Chloride 96 mmol/L (98-107); Estimated CRCL calculation 95 ml/min; Estimated Glomerular Filt Rate > 60; Glucose 123 mg/dL (65-110); Potassium 3.4 mmol/L (3.4-5.0); Sodium 136 mmol/L (137-145)
[2022-03-15] MEDS: BUDESONIDE RESPULE NEB 0.5 MG/2 ML AMP INHALATION ×2 (08:18→20:19)
[2022-03-15] MEDS: IPRATROPIUM BR 0.02% INH SOLN 0.5 MG/2.5 ML VIAL INHALATION ×2 (08:19→20:19)
[2022-03-15] MEDS: LEVALBUTEROL NEB 1.25 MG/3 ML 0.63 MG INHALATION ×2 (08:19→20:18)
[2022-03-15] MEDS: PANTOPRAZOLE SODIUM IV 40 MG VIAL IV PUSH (08:35)
[2022-03-15] MEDS: PARoxetine 20 MG TABLET 40 MG PO (08:35)
--- NOTE | 2022-03-15 09:45 | PM.PNPUL ---
Progress Note: A&P Assessment and Plan (1) COPD (chronic obstructive pulmonary disease): Code(s): J44.9 - Chronic obstructive pulmonary disease, unspecified Status: Acute Assessment and Plan: ?This is a 65-year-old woman with a known history of COPD with hypoxemic respiratory failure requiring 4 L nasal cannula At rest and 8 L with activity, hypercarbic respiratory failure requiring a trilogy noninvasive ventilator since 2018, congestive heart failure, depression, and history of PE. She was maintained on breztri 160/9/4.8 and the dose is listed as 1 inhalation q.day. I obtained a download from the [facility] [employer] [facility] from 01/27/2020 2-10/2021 and the patient is on AVAPS-AE settings of rate 16, tidal volume 460, EPAP minimum 4, EPAP maximum 4, pressure support minimum 6, pressure support maximum 16. Usage at greater than 4 hours is 86.7%, average usage on days used is 7.6 hours, average tidal volume 288 mL, average leak is 49, average EPAP is 4, average IPAP is 19.4, average breaths are 20.4. I interpret this download is excellent compliance with a high leak and low tidal volumes. This is likely due to the patient wears her nasal cannula 4 L under her fullface mask. Patient was admitted and treated for COPD exacerbation, pneumonia and fluid overload. Intubated 02/26, extubated 03/04, reintubated 03/06, extubated 03/10. She was currently off systemic steroids and antibiotics. Patient tells me today she is breathing at her baseline, she has a good cough and states she has minimal phlegm. She has no wheezing on exam. I will continue levalbuterol 0.63 nebulized q.6 hours, ipratropium 0.5 nebulized q.6 hours and budesonide 500 mcg nebulized b.i.d.. I will discontinue Mucomyst today and follow the patient clinically. The patient is on noninvasive ventilation and I have informed her to have her family bring in her home machine. I will obtain a recent download today. If the patient is able to bring in her home machine I will perform an overnight oximetry on 40% or 5 L bleed in and ABG prior to removal of machine to assess her hypercarbia and oxygenation. bbhoff placed in patient is receiving tube feeds per Doronaldo 03/15 Patient is sitting up in the chair and states that she continues to slowly improve. She is currently on 4 L nasal cannula with saturations 97%. Patient wore her home AVAPS-AE unit last night with the settings of rate 16, tidal volume 460, EPAP minimum 4, EPAP maximum 4, pressure support minimum 6, pressure support maximum 16 with 5 L bleed in through the machine. Patient had a VBG this morning prior to removal of the machine with a pH of 7.54/41. the current settings provide adequate tidal volumes and minute ventilation. Patient had an overnight oximetry with basal saturation 95%, low saturation 84%, time with saturation less than or equal to 88% was 91 minutes. Tonight I will place the patient on 8 L nasal cannula underneath her full face mask on her home machine and repeat an overnight oximetry. The patient tells me this is how she uses her oxygen at home. Patient is coughing up thick dark red secretions and I will continue her levalbuterol, ipratropium nebulizers q.6 hours and her budesonide nebulizer q.12 hours. She is performing incentive spirometry at the bedside. I will also prescribe a Cornet flutter valve Q 4 hours while awake. Spoke with Dr. Vaughan. Will follow with you. Subjective Date/time seen: 03/15/22 09:45 Interval history: 66-year-old with a history of current tobacco use, COPD with chronic hypercarbic and hypoxemic respiratory failure on home noninvasive ventilator with 4 L bleed in, supplemental oxygen 4 L at rest, 8 L with activity during the day, CHF, PEs admitted to the hospital on 02/26/2022 with confusion, acute on chronic hypercarbic respiratory failure with a pH of 7.23/133/57. patient failed BiPAP and was intubated. Patient was treated for COPD exacerbatio
--- NOTE | 2022-03-15 11:21 | PCNFU ---
Nutrition Follow-Up Complete Inadequate Oral Intake as related to mechanical ventilation as evidenced by tube feedings. Goal:Meet estimated nutritional needs. Pt is meeting current goal. Pt current nutrition is Jevity 1.5 @ 40ml/hr with 30ml flushes. Nutrition recommendation: Continue with current plan of care. Last recorded weight is 85 kg - stable. Bowel Motility: +BM 03/15 Labs Reviewed:Hgb:7.4, HCT:24.1, NA:136, BUN:27, Cr:0.5, Glu:123 Meds Noted:Budesonide, Atrovent Neb, Levalbuterol Hcl, Protonix, Sodium Chloride Skin:Sacrum friction, left arm skin tear, scattered bruising Additional Notes: Pt continues on Tube feeding of Jevity 1.5, now at goal rate of 40mL/hr. Over 22 hours this will provide 1320kcal, 56g of protein, and 669mL of water, to meet 86% of estimated kcal needs and 89% of estimated protein needs. Plan of care is to continue with Tube Feeding diet until pt. is able to tolerate oral intake. Pt states she is hungry and would like to advance to po intake. Continues to work with speech therapy, currently in room during assessment. Pt. continues to make progress with exercises to improve swallowing impairment and goal is to progress towards oral feedings. A repeat swallow study is being discussed prior to advancement. Agree with current diet orders at this time. Will continue to follow. Will monitor every Monday and Monday.
[2022-03-15 12:06] LABS: Glucose Point of Care 72 mg/dl (65-105)
[2022-03-15 12:23] LABS: Glucose Point of Care 150 mg/dl (65-105)
--- NOTE | 2022-03-15 15:05 | PM.IMPN ---
Progress Note: A&P Assessment and Plan (1) Acute on chronic respiratory failure with hypoxia and hypercapnia: Code(s): J96.21 - Acute and chronic respiratory failure with hypoxia; J96.22 - Acute and chronic respiratory failure with hypercapnia Status: Acute Assessment and Plan: Acute on chronic hypercapnic respiratory failure likely related to COPD exacerbation and/or pneumonia. Wears 4L at rest and 8L with activity per patient. CTA chest 02/27/22 showing no PE but does showing LLL collapse from airway obstruction from aspiration and/or mucous plugging. LE venous doppler negative for DVT. Bronchoscopy 03/01/22 which showed evidences of mucosal erythema and mild edema in the LLL with a small amount of light yellow bronchial secretions in the secondary david and in the LLL.?There was no evidence of intraluminal masses in the left lung. Path negative for malignancy. Rare fungal elements seen on smear but all cultures remain negative.? Repeat CT chest 03/03/22 showing progression of bilateral airspace disease LLL, RML with patchy groundglass opacifications. Flu and COVID testing were negative. Mycoplasma IgM and urine pneumococcal and legionella antigen negative. Extubated on 03/04/22 -- She did well with BiPAP until the morning on 03/05 when she acutely decompensated off the BiPAP. ABG 7.31/89/57 on BiPAP. She was re-intubated but difficult due to tracheal stenosis(?). ETT had to replace with larger diameter later that morning. CXR showing pulmonary edema. CT soft tissue neck 03/05/22 showing prominence of the trachea surrounded the endotracheal tube at the level of the hyoid bone as well as patchy bilateral infiltrates possibly pneumonia. Continue treatment with antibiotics. IV Steroids stopped. Appreciate alarm service technician and Pulmonary consult. May need trach if she has more severe tracheal stenosis. Status post extubation 03/10/2022 on BiPAP p.r.n. pulmonary following oxygen supplementation . Continue pulmonary toilet Discussed with Pulmonary 03/13/2022 and 03/14/2022 She used her home unit 03/14/2022 night Continue current pulmonary care (2) Hypotension: Code(s): I95.9 - Hypotension, unspecified Status: Acute Assessment and Plan: Patient developed HoTN 03/05 felt related to the acute respiratory failure/collapse then from sepsis. Levophed started and patient stable now. Able to be weaned off Levophed on 03/06. (3) Tracheal obstruction: Code(s): J39.8 - Other specified diseases of upper respiratory tract Status: Acute Assessment and Plan: As above.? Had a bronch 03/01 but did not show tracheal stenosis so may be located higher up in the trachea. Will need to do trial to see if her airway is compromised by stenosis. May need trach. Treated with Decadron but currently off. (4) Anemia: Code(s): D64.9 - Anemia, unspecified Status: Acute Assessment and Plan: hemoglobin drifting down with no signs of active blood loss. She is on full dose Lovenox. Continue to monitor H&H (5) Pneumonia: Code(s): J18.9 - Pneumonia, unspecified organism Status: Acute Assessment and Plan: No fevers. WBC was normal but jumped to 21K related to demargination/stress response/steroids. WBC back to normal. As above. Continue to follow (6) Diastolic congestive heart failure: Code(s): I50.30 - Unspecified diastolic (congestive) heart failure Status: Acute Assessment and Plan: Patient has a history of diastolic heart failure. Echo 02/28/22 shows EF of 65-70%, grade 1 diastolic dysfunction. BNP 244. CXR yesterday showing no overall change. Was on Lasix 40mg at home but held here. Continue to monitor.? intermittently diuresed (7) Atrial fibrillation: Code(s): I48.91 - Unspecified atrial fibrillation Status: Acute Assessment and Plan: Telemetry was showing frequent PACs and AFlutter; EKG showing AFib. Metoprolol held due to HoTN. Replace electrolyte
[2022-03-15 17:44] LABS: Glucose Point of Care 127 mg/dl (65-105)
--- NOTE | 2022-03-15 23:02 | PC.NURSE ---
This patient, Stephany Richard, was transferred to [[id number] ] on 03/15/22 at 2302. Personal belongings sent with patient. Report given to [Dewey jauregui ]. Appropriate documentation sent with patient.
--- NOTE | 2022-03-15 23:52 | PC.NURSE ---
2300 received patient from IMU per bed in no distress. [place] to surroundings, call morales within reach.
[2022-03-16] VITALS (19 sets, daily range): BP systolic 116–153; BP diastolic 43–78; PULSE 65–96; RESP 12–24; TEMP 36.4–36.7; O2SAT 91–99
--- NOTE | 2022-03-16 02:48 | PCRCNOTE ---
Patient's 0200 treatment was omitted due to patient being on an apnea link.
[2022-03-16] MEDS: METOPROLOL TARTRATE INJ 5 MG/5 ML VIAL 2.5 MG IV PUSH ×4 (05:41→23:46)
[2022-03-16] MEDS: CENTRAL LINE FLUSH 10 ML IV PUSH ×3 (05:46→21:13)
[2022-03-16 05:51] LABS: Glucose Point of Care 186 mg/dl (65-105)
[2022-03-16 07:42] LABS: Glucose Point of Care 177 mg/dl (65-105)
[2022-03-16] MEDS: BUDESONIDE RESPULE NEB 0.5 MG/2 ML AMP INHALATION ×2 (07:57→20:18)
[2022-03-16] MEDS: LEVALBUTEROL NEB 1.25 MG/3 ML 0.63 MG INHALATION ×3 (07:58→20:17)
[2022-03-16] MEDS: IPRATROPIUM BR 0.02% INH SOLN 0.5 MG/2.5 ML VIAL INHALATION ×3 (07:58→20:17)
--- NOTE | 2022-03-16 08:11 | PM.PNPUL ---
Progress Note: A&P Assessment and Plan (1) COPD (chronic obstructive pulmonary disease): Code(s): J44.9 - Chronic obstructive pulmonary disease, unspecified Status: Acute Assessment and Plan: ?This is a 65-year-old woman with a known history of COPD with hypoxemic respiratory failure requiring 4 L nasal cannula At rest and 8 L with activity, hypercarbic respiratory failure requiring a trilogy noninvasive ventilator since 2018, congestive heart failure, depression, and history of PE. She was maintained on breztri 160/9/4.8 and the dose is listed as 1 inhalation q.day. I obtained a download from the [employer] from 01/27/2020 2-10/2021 and the patient is on AVAPS-AE settings of rate 16, tidal volume 460, EPAP minimum 4, EPAP maximum 4, pressure support minimum 6, pressure support maximum 16. Usage at greater than 4 hours is 86.7%, average usage on days used is 7.6 hours, average tidal volume 288 mL, average leak is 49, average EPAP is 4, average IPAP is 19.4, average breaths are 20.4. I interpret this download is excellent compliance with a high leak and low tidal volumes. This is likely due to the patient wears her nasal cannula 4 L under her fullface mask. Patient was admitted and treated for COPD exacerbation, pneumonia and fluid overload. Intubated 02/26, extubated 03/04, reintubated 03/06, extubated 03/10. She was currently off systemic steroids and antibiotics. Patient tells me today she is breathing at her baseline, she has a good cough and states she has minimal phlegm. She has no wheezing on exam. I will continue levalbuterol 0.63 nebulized q.6 hours, ipratropium 0.5 nebulized q.6 hours and budesonide 500 mcg nebulized b.i.d.. I will discontinue Mucomyst today and follow the patient clinically. The patient is on noninvasive ventilation and I have informed her to have her family bring in her home machine. I will obtain a recent download today. If the patient is able to bring in her home machine I will perform an overnight oximetry on 40% or 5 L bleed in and ABG prior to removal of machine to assess her hypercarbia and oxygenation. bbhoff placed in patient is receiving tube feeds per Doronaldo 03/15 Patient is sitting up in the chair and states that she continues to slowly improve. She is currently on 4 L nasal cannula with saturations 97%. Patient wore her home AVAPS-AE unit last night with the settings of rate 16, tidal volume 460, EPAP minimum 4, EPAP maximum 4, pressure support minimum 6, pressure support maximum 16 with 5 L bleed in through the machine. Patient had a VBG this morning prior to removal of the machine with a pH of 7.54/41. the current settings provide adequate tidal volumes and minute ventilation. Patient had an overnight oximetry with basal saturation 95%, low saturation 84%, time with saturation less than or equal to 88% was 91 minutes. Tonight I will place the patient on 8 L nasal cannula underneath her full face mask on her home machine and repeat an overnight oximetry. The patient tells me this is how she uses her oxygen at home. Patient is coughing up thick dark red secretions and I will continue her levalbuterol, ipratropium nebulizers q.6 hours and her budesonide nebulizer q.12 hours. She is performing incentive spirometry at the bedside. I will also prescribe a Cornet flutter valve Q 4 hours while awake. 03/16 Patient wore her home noninvasive ventilator with the a VATS 80 settings and a full face mask over 8 L bleed in. Patient said she slept well. Patient had an overnight oximetry on these settings with an baseline saturation 98%. Low saturation 86%. Time with saturation less than or equal to 88% was 0 minutes. Overall she feels stronger and has no respiratory complaints. saturations less not on 4 L nasal cannula were 95%. Today I will discontinue her nebulizers and switch her to inhaled medications and begin trelegy 100/62.5/25 at 1 inhalation q.day. She continues on
--- NOTE | 2022-03-16 08:43 | PCOTNOTE ---
Patient unavailable, in swallow study. Will continue plan of care.
[2022-03-16] MEDS: polyethylene glycoL 3350 17 GM POWD.PACK PO (09:03)
[2022-03-16] MEDS: PANTOPRAZOLE SODIUM IV 40 MG VIAL IV PUSH (09:03)
--- NOTE | 2022-03-16 09:03 | PC.NURSE ---
will give 0900 paxil when received from pharmacy, left them a message
--- NOTE | 2022-03-16 09:24 | PCSTNOTE ---
Please refer to the Modified Barium Swallow Evaluation in the EMR.
[2022-03-16 11:34] LABS: Glucose Point of Care 119 mg/dl (65-105)
[2022-03-16] MEDS: PARoxetine 20 MG TABLET 40 MG PO (12:16)
--- NOTE | 2022-03-16 13:52 | PM.IMPN ---
Progress Note: A&P Assessment and Plan (1) Acute on chronic respiratory failure with hypoxia and hypercapnia: Code(s): J96.21 - Acute and chronic respiratory failure with hypoxia; J96.22 - Acute and chronic respiratory failure with hypercapnia Status: Acute Assessment and Plan: Acute on chronic hypercapnic respiratory failure likely related to COPD exacerbation and/or pneumonia. Wears 4L at rest and 8L with activity per patient. CTA chest 02/27/22 showing no PE but does showing LLL collapse from airway obstruction from aspiration and/or mucous plugging. LE venous doppler negative for DVT. Bronchoscopy 03/01/22 which showed evidences of mucosal erythema and mild edema in the LLL with a small amount of light yellow bronchial secretions in the secondary david and in the LLL.?There was no evidence of intraluminal masses in the left lung. Path negative for malignancy. Rare fungal elements seen on smear but all cultures remain negative.? Repeat CT chest 03/03/22 showing progression of bilateral airspace disease LLL, RML with patchy groundglass opacifications. Flu and COVID testing were negative. Mycoplasma IgM and urine pneumococcal and legionella antigen negative. Extubated on 03/04/22 -- She did well with BiPAP until the morning on 03/05 when she acutely decompensated off the BiPAP. ABG 7.31/89/57 on BiPAP. She was re-intubated but difficult due to tracheal stenosis(?). ETT had to replace with larger diameter later that morning. CXR showing pulmonary edema. CT soft tissue neck 03/05/22 showing prominence of the trachea surrounded the endotracheal tube at the level of the hyoid bone as well as patchy bilateral infiltrates possibly pneumonia. Continue treatment with antibiotics. IV Steroids stopped. Appreciate lithographic etcher and Pulmonary consult. May need trach if she has more severe tracheal stenosis. Status post extubation 03/10/2022 on BiPAP p.r.n. pulmonary following oxygen supplementation . Continue pulmonary toilet Discussed with Pulmonary 03/13/2022 and 03/14/2022 She used her home unit 03/14/2022 night Continue current pulmonary care 03/16/2022 Interal history: 60 year old female status post respiratory failure was on ventilator now off and on nasal cannula, patient was seen by Dr. Reis and we discussed clinically patient has improved substantially and from pulmonary standpoint patient can be discharged home, however patient on Dobbhoff, patient had a modify swallow study today patient did well however is still aspirating with thin liquid I spoke with speech therapist plan is continue for speech therapy and repeat the test on Monday and possibly remove the Dobbhoff and discharged, patient is requiring high oxygen at rest and and with exertion, will need home O2 evaluation before going home, and states feeling much not a short of breath, denies any fever or chills will continue to monitor. (2) Hypotension: Code(s): I95.9 - Hypotension, unspecified Status: Acute Assessment and Plan: Patient developed HoTN 03/05 felt related to the acute respiratory failure/collapse then from sepsis. Levophed started and patient stable now. Able to be weaned off Levophed on 03/06. (3) Tracheal obstruction: Code(s): J39.8 - Other specified diseases of upper respiratory tract Status: Acute Assessment and Plan: As above.? Had a bronch 03/01 but did not show tracheal stenosis so may be located higher up in the trachea. Will need to do trial to see if her airway is compromised by stenosis. May need trach. Treated with Decadron but currently off. (4) Anemia: Code(s): D64.9 - Anemia, unspecified Status: Acute Assessment and Plan: hemoglobin drifting down with no signs of active blood loss. She is on full dose Lovenox. Continue to monitor H&H (5) Pneumonia: Code(s): J18.9 - Pneumonia, unspecified organism Status: Acute Assessment and Plan: No fevers. WBC was normal but jumped to 21K
[2022-03-16 16:26] LABS: Glucose Point of Care 156 mg/dl (65-105)
[2022-03-16 21:28] LABS: Glucose Point of Care 123 mg/dl (65-105)
[2022-03-16 23:51] LABS: Glucose Point of Care 168 mg/dl (65-105)
[2022-03-17] VITALS (24 sets, daily range): BP systolic 101–128; BP diastolic 41–63; PULSE 70–118; RESP 16–22; TEMP 36.4–36.9; O2SAT 85–100
[2022-03-17] MEDS: IPRATROPIUM BR 0.02% INH SOLN 0.5 MG/2.5 ML VIAL INHALATION ×2 (02:54→07:26)
[2022-03-17] MEDS: LEVALBUTEROL NEB 1.25 MG/3 ML 0.63 MG INHALATION ×2 (02:54→07:26)
[2022-03-17] MEDS: METOPROLOL TARTRATE INJ 5 MG/5 ML VIAL 2.5 MG IV PUSH ×4 (06:00→23:53)
[2022-03-17] MEDS: CENTRAL LINE FLUSH 10 ML IV PUSH ×3 (06:03→21:00)
[2022-03-17 06:18] LABS: Glucose Point of Care 137 mg/dl (65-105)
[2022-03-17] MEDS: BUDESONIDE RESPULE NEB 0.5 MG/2 ML AMP INHALATION (07:26)
[2022-03-17 07:51] LABS: Glucose Point of Care 174 mg/dl (65-105)
[2022-03-17] MEDS: FLUTICASONE/UMECLIDIN/VILANTER 100-62.5-25 MCG ELLIPTA 1 PUFF INHALATION (08:20)
--- NOTE | 2022-03-17 09:01 | PM.PNPUL ---
Progress Note: A&P Assessment and Plan (1) COPD (chronic obstructive pulmonary disease): Code(s): J44.9 - Chronic obstructive pulmonary disease, unspecified Status: Acute Assessment and Plan: ?This is a 65-year-old woman with a known history of COPD with hypoxemic respiratory failure requiring 4 L nasal cannula At rest and 8 L with activity, hypercarbic respiratory failure requiring a trilogy noninvasive ventilator since 2018, congestive heart failure, depression, and history of PE. She was maintained on breztri 160/9/4.8 and the dose is listed as 1 inhalation q.day. I obtained a download from the [employer] from 01/27/2020 2-10/2021 and the patient is on AVAPS-AE settings of rate 16, tidal volume 460, EPAP minimum 4, EPAP maximum 4, pressure support minimum 6, pressure support maximum 16. Usage at greater than 4 hours is 86.7%, average usage on days used is 7.6 hours, average tidal volume 288 mL, average leak is 49, average EPAP is 4, average IPAP is 19.4, average breaths are 20.4. I interpret this download is excellent compliance with a high leak and low tidal volumes. This is likely due to the patient wears her nasal cannula 4 L under her fullface mask. Patient was admitted and treated for COPD exacerbation, pneumonia and fluid overload. Intubated 02/26, extubated 03/04, reintubated 03/06, extubated 03/10. She was currently off systemic steroids and antibiotics. Patient tells me today she is breathing at her baseline, she has a good cough and states she has minimal phlegm. She has no wheezing on exam. I will continue levalbuterol 0.63 nebulized q.6 hours, ipratropium 0.5 nebulized q.6 hours and budesonide 500 mcg nebulized b.i.d.. I will discontinue Mucomyst today and follow the patient clinically. The patient is on noninvasive ventilation and I have informed her to have her family bring in her home machine. I will obtain a recent download today. If the patient is able to bring in her home machine I will perform an overnight oximetry on 40% or 5 L bleed in and ABG prior to removal of machine to assess her hypercarbia and oxygenation. bbhoff placed in patient is receiving tube feeds per Alfonzo 03/15 Patient is sitting up in the chair and states that she continues to slowly improve. She is currently on 4 L nasal cannula with saturations 97%. Patient wore her home AVAPS-AE unit last night with the settings of rate 16, tidal volume 460, EPAP minimum 4, EPAP maximum 4, pressure support minimum 6, pressure support maximum 16 with 5 L bleed in through the machine. Patient had a VBG this morning prior to removal of the machine with a pH of 7.54/41. the current settings provide adequate tidal volumes and minute ventilation. Patient had an overnight oximetry with basal saturation 95%, low saturation 84%, time with saturation less than or equal to 88% was 91 minutes. Tonight I will place the patient on 8 L nasal cannula underneath her full face mask on her home machine and repeat an overnight oximetry. The patient tells me this is how she uses her oxygen at home. Patient is coughing up thick dark red secretions and I will continue her levalbuterol, ipratropium nebulizers q.6 hours and her budesonide nebulizer q.12 hours. She is performing incentive spirometry at the bedside. I will also prescribe a Cornet flutter valve Q 4 hours while awake. 03/16 Patient wore her home noninvasive ventilator with the a VATS 80 settings and a full face mask over 8 L bleed in. Patient said she slept well. Patient had an overnight oximetry on these settings with an baseline saturation 98%. Low saturation 86%. Time with saturation less than or equal to 88% was 0 minutes. Overall she feels stronger and has no respiratory complaints. saturations on 4 L nasal cannula were 95%. Later in day patient had a modified barium swallow demonstrating that she tolerated pudding, fruit and Pavel crackers but did not tolerate thin liquids or
[2022-03-17] MEDS: PARoxetine 20 MG TABLET 40 MG PO (09:39)
[2022-03-17] MEDS: PANTOPRAZOLE SODIUM IV 40 MG VIAL IV PUSH (09:57)
[2022-03-17 11:22] LABS: Glucose Point of Care 152 mg/dl (65-105)
--- NOTE | 2022-03-17 12:09 | PM.IMPN ---
Progress Note: A&P Assessment and Plan (1) Acute on chronic respiratory failure with hypoxia and hypercapnia: Code(s): J96.21 - Acute and chronic respiratory failure with hypoxia; J96.22 - Acute and chronic respiratory failure with hypercapnia Status: Acute Assessment and Plan: Acute on chronic hypercapnic respiratory failure likely related to COPD exacerbation and/or pneumonia. Wears 4L at rest and 8L with activity per patient. CTA chest 02/27/22 showing no PE but does showing LLL collapse from airway obstruction from aspiration and/or mucous plugging. LE venous doppler negative for DVT. Bronchoscopy 03/01/22 which showed evidences of mucosal erythema and mild edema in the LLL with a small amount of light yellow bronchial secretions in the secondary david and in the LLL.?There was no evidence of intraluminal masses in the left lung. Path negative for malignancy. Rare fungal elements seen on smear but all cultures remain negative.? Repeat CT chest 03/03/22 showing progression of bilateral airspace disease LLL, RML with patchy groundglass opacifications. Flu and COVID testing were negative. Mycoplasma IgM and urine pneumococcal and legionella antigen negative. Extubated on 03/04/22 -- She did well with BiPAP until the morning on 03/05 when she acutely decompensated off the BiPAP. ABG 7.31/89/57 on BiPAP. She was re-intubated but difficult due to tracheal stenosis(?). ETT had to replace with larger diameter later that morning. CXR showing pulmonary edema. CT soft tissue neck 03/05/22 showing prominence of the trachea surrounded the endotracheal tube at the level of the hyoid bone as well as patchy bilateral infiltrates possibly pneumonia. Continue treatment with antibiotics. IV Steroids stopped. Appreciate cabinetmaker helper and Pulmonary consult. May need trach if she has more severe tracheal stenosis. Status post extubation 03/10/2022 on BiPAP p.r.n. pulmonary following oxygen supplementation . Continue pulmonary toilet Discussed with Pulmonary 03/13/2022 and 03/14/2022 She used her home unit 03/14/2022 night Continue current pulmonary care 03/16/2022 Interal history: 60 year old female status post respiratory failure was on ventilator now off and on nasal cannula, patient was seen by Dr. Reis and we discussed clinically patient has improved substantially and from pulmonary standpoint patient can be discharged home, however patient on Dobbhoff, patient had a modify swallow study today patient did well however is still aspirating with thin liquid I spoke with speech therapist plan is continue for speech therapy and repeat the test on Monday and possibly remove the Dobbhoff and discharged, patient is requiring high oxygen at rest and and with exertion, will need home O2 evaluation before going home, and states feeling much not a short of breath, denies any fever or chills will continue to monitor. 03/17/2022 Interal history: 60 year old female status post respiratory failure was on ventilator now off and on nasal cannula, patient was seen by Dr. Reyes and we discussed clinically patient has improved substantially and from pulmonary standpoint patient can be discharged home, however patient on Dobbhoff, patient had a modify swallow study on 03/16 patient did well however is still aspirating with thin liquid I spoke with speech therapist plan is continue for speech therapy and repeat the test on Monday and possibly remove the Dobbhoff and discharged, however today after discussing with Dr. Reyes and speech therapiest will remove the Dobbhoff today and monitor, patient is requiring high oxygen at rest and and with exertion 8L, will assess for 6L, will need home O2 evaluation before going home, and states feeling much not as short of breath, denies any fever or chills will continue to monitor. (2) Hypotension: Code(s): I95.9 - Hypotension, unspecified Status: Acute Assessment and Plan: Patient developed HoTN 03/05 felt related to the acute resp
[2022-03-17] MEDS: ALTEPLASE 2 MG VIAL (CATHFLO) IV PUSH ×2 (12:59)
--- NOTE | 2022-03-17 14:50 | PCRTNOTE ---
HOME O2 EVAL COMPLETE, NO CHANGES TO HOME SETTING. 4L AT REST AND 5L WITH ACTIVITY. PT HAS A FULL TANK FROM HOME IN ROOM FOR DISCHARGE
[2022-03-17] MEDS: IPRATROPIUM BR 0.02% INH SOLN 0.5 MG/2.5 ML VIAL (15:49)
[2022-03-17] MEDS: ALBUTEROL SULFATE NEB 2.5 MG/0.5 ML INH (15:49)
[2022-03-17 16:43] LABS: Glucose Point of Care 143 mg/dl (65-105)
[2022-03-17 19:29] LABS: IFOB Positive Control Positive; Immunochemical Fecal Occult Bl Negative (N)
[2022-03-17 22:25] LABS: Glucose Point of Care 124 mg/dl (65-105)
[2022-03-18] VITALS (7 sets, daily range): BP systolic 129–150; BP diastolic 49–61; PULSE 56–77; RESP 18–20; TEMP 36.2; O2SAT 97–100
[2022-03-18 00:11] LABS: Glucose Point of Care 150 mg/dl (65-105)
[2022-03-18] MEDS: METOPROLOL TARTRATE INJ 5 MG/5 ML VIAL 2.5 MG IV PUSH ×2 (05:15→13:01)
[2022-03-18] MEDS: CENTRAL LINE FLUSH 10 ML IV PUSH ×2 (05:16→13:02)
[2022-03-18 05:32] LABS: Glucose Point of Care 128 mg/dl (65-105)
[2022-03-18 05:38] LABS: Basophils Percent Auto 0.4 % (0.2-1.2); Eosinophils Absolute Auto 0.3 K/mm3 (0-0.3); Hematocrit 24.2 % (37.0-47.0); Hemoglobin 7.3 g/dL (12.0-15.0); Immature Granulocyte Absolute 0.03 K/mm3 (0.00-0.031); Immature Granulocyte Percent A 0.6 % (0-0.5); Lymphocytes Absolute Auto 0.89 K/mm3 (0.9-3.2); Lymphocytes Percent Auto 16.6 % (18.3-44.2); Mean Corpuscular HGB Conc 30.2 g/dl (32-36); Mean Corpuscular Hemoglobin 30.9 pg (26-34); Mean Corpuscular Volume 102.5 fl (80-100); Mean Platelet Volume 10.8 fl (7.4-10.4); Monocytes Absolute Auto 0.7 K/mm3 (0.1-0.6); Monocytes Percent Auto 12.1 % (2.6-8.5); Neutrophils Absolute Auto 3.5 K/mm3 (1.3-6.7); Neutrophils Percent Auto 64.3 % (45.5-73.1); Platelet Count Result 188 k/mm3 (150-375); Red Blood Count 2.36 M/mm3 (4.2-5.4); Red Cell Distribution Width 15.9 % (11.5-14.5); White Blood Count 5.4 K/mm3 (4.5-10.0)
[2022-03-18 05:49] LABS: Anion Gap -1 mmol/L (8-16); Blood Urea Nitrogen 16 mg/dL (7-17); Calcium 6.8 mg/dL (8.4-10.2); Carbon Dioxide 36 mmol/L (22-30); Chloride 106 mmol/L (98-107); Estimated CRCL calculation 117 ml/min; Estimated Glomerular Filt Rate > 60; Glucose 98 mg/dL (65-110); Magnesium 1.4 mg/dL (1.6-2.3); Potassium 3.1 mmol/L (3.4-5.0); Sodium 141 mmol/L (137-145)
[2022-03-18 07:42] LABS: Glucose Point of Care 127 mg/dl (65-105)
[2022-03-18] MEDS: FLUTICASONE/UMECLIDIN/VILANTER 100-62.5-25 MCG ELLIPTA 1 PUFF INHALATION (08:05)
--- NOTE | 2022-03-18 08:53 | PCOTNOTE ---
Patient eating breakfast in bed, declined ADLs at this time. patient reports she is to d/c today but therapist could try back later to see for OT. Will continue plan of care.
[2022-03-18] MEDS: PARoxetine 20 MG TABLET 40 MG PO (09:25)
[2022-03-18] MEDS: PANTOPRAZOLE SODIUM IV 40 MG VIAL IV PUSH (09:25)
[2022-03-18] MEDS: POTASSIUM CHLORIDE 20 MEQ PACKET (FOR LIQUID) 40 MEQ PO (09:27)
[2022-03-18] MEDS: MAGNESIUM SULF 2 GM/WATER 50ML 2 GM/50 ML BAG IVPB (09:27)
--- NOTE | 2022-03-18 10:19 | PCNFU ---
Nutrition Follow-Up Complete: Swallowing difficulties related to dysphagia as evidenced by need for mechanically altered diet and liquids consistency. Goal:Meet estimated nutritional needs Pt is meeting current goal. Continue with same goal. Pt current nutrition is Pureed level 4, extremely thick liquids level 4. Nutrition recommendation: Continue with current plan of care. Last recorded weight is 86 kg - stable. Bowel Motility: +BM 03/17 Labs Reviewed: Hgb:7.3, HCT:24.2, K:3.1,CR:0.4, GLU:127 Meds Noted: novolog, protonix Skin: WNL Additional Notes: Pt was on tube feedings which now have been d/c'd. Speech therapy is working with pt and diet advanced to pureed level 4 for foods and liquids. Pt is tolerating diet, intake 50-75% of meals. Reports good appetite and intake but is visibly frustrated with diet consistency. Explained importance of these modifications and encouraged good intake. Pt in agreement. Agree with current diet orders and plan. Will monitor intake, wt, labs, speech evals. Follow up in 5 days.
--- NOTE | 2022-03-18 11:03 | P.PNPL_ITS ---
Progress Note: A&P Assessment and Plan (1) COPD (chronic obstructive pulmonary disease): Code(s): J44.9 - Chronic obstructive pulmonary disease, unspecified Status: Acute Assessment and Plan: ?This is a 65-year-old woman with a known history of COPD with hypoxemic respiratory failure requiring 4 L nasal cannula At rest and 8 L with activity, hypercarbic respiratory failure requiring a trilogy noninvasive ventilator since 2018, congestive heart failure, depression, and history of PE. She was maintained on breztri 160/9/4.8 and the dose is listed as 1 inhalation q.day. I obtained a download from the [employer] from 01/27/2020 2-10/2021 and the patient is on AVAPS-AE settings of rate 16, tidal volume 460, EPAP minimum 4, EPAP maximum 4, pressure support minimum 6, pressure support maximum 16. Usage at greater than 4 hours is 86.7%, average usage on days used is 7.6 hours, average tidal volume 288 mL, average leak is 49, average EPAP is 4, average IPAP is 19.4, average breaths are 20.4. I interpret this download is excellent compliance with a high leak and low tidal volumes. This is likely due to the patient wears her nasal cannula 4 L under her fullface mask. Patient was admitted and treated for COPD exacerbation, pneumonia and fluid overload. Intubated 02/26, extubated 03/04, reintubated 03/06, extubated 03/10. She was currently off systemic steroids and antibiotics. Patient tells me today she is breathing at her baseline, she has a good cough and states she has minimal phlegm. She has no wheezing on exam. I will continue levalbuterol 0.63 nebulized q.6 hours, ipratropium 0.5 nebulized q.6 hours and budesonide 500 mcg nebulized b.i.d.. I will discontinue Mucomyst today and follow the patient clinically. The patient is on noninvasive ventilation and I have informed her to have her family bring in her home machine. I will obtain a recent download today. If the patient is able to bring in her home machine I will perform an overnight oximetry on 40% or 5 L bleed in and ABG prior to removal of machine to assess her hypercarbia and oxygenation. bbhoff placed in patient is receiving tube feeds per Alfonzo 03/15 Patient is sitting up in the chair and states that she continues to slowly improve. She is currently on 4 L nasal cannula with saturations 97%. Patient wore her home AVAPS-AE unit last night with the settings of rate 16, tidal volume 460, EPAP minimum 4, EPAP maximum 4, pressure support minimum 6, pressure support maximum 16 with 5 L bleed in through the machine. Patient had a VBG this morning prior to removal of the machine with a pH of 7.54/41. the current settings provide adequate tidal volumes and minute ventilation. Patient had an overnight oximetry with basal saturation 95%, low saturation 84%, time with saturation less than or equal to 88% was 91 minutes. Tonight I will place the patient on 8 L nasal cannula underneath her full face mask on her home machine and repeat an overnight oximetry. The patient tells me this is how she uses her oxygen at home. Patient is coughing up thick dark red secretions and I will continue her levalbuterol, ipratropium nebulizers q.6 hours and her budesonide nebulizer q.12 hours. She is performing incentive spirometry at the bedside. I will also prescribe a Cornet flutter valve Q 4 hours while awake. 03/16 Patient wore her home noninvasive ventilator with the a VATS 80 settings and a full face mask over 8 L bleed in. Patient said she slept well. Patient had an overnight oximetry on these settings with an baseline saturation 98%. Low saturation 86%. Time with saturation less than or equal to 88% was 0 minutes. Overall she feels stronger and has no r
[2022-03-18 11:57] LABS: Glucose Point of Care 149 mg/dl (65-105)
--- NOTE | 2022-03-18 14:37 | PCPTNOTE ---
Patient returned from testing and states she will be discharged home later today. Patient declined PT at this time. Patient voiced no concerns and had no questions for PT.
--- NOTE | 2022-03-18 15:48 | PM.DS ---
DS: Admitting Diagnosis Discharge Date 03/18/2022 Admitting Diagnosis Lethargic and confused. DS: Discharge Diagnosis Discharge Diagnosis (1) Dysphagia: Code(s): R13.10 - Dysphagia, unspecified Status: Acute (2) Acute on chronic respiratory failure with hypoxia and hypercapnia: Code(s): J96.21 - Acute and chronic respiratory failure with hypoxia; J96.22 - Acute and chronic respiratory failure with hypercapnia Status: Acute Assessment and Plan: Acute on chronic hypercapnic respiratory failure likely related to COPD exacerbation and/or pneumonia. Wears 4L at rest and 8L with activity per patient. CTA chest 02/27/22 showing no PE but does showing LLL collapse from airway obstruction from aspiration and/or mucous plugging. LE venous doppler negative for DVT. Bronchoscopy 03/01/22 which showed evidences of mucosal erythema and mild edema in the LLL with a small amount of light yellow bronchial secretions in the secondary david and in the LLL.?There was no evidence of intraluminal masses in the left lung. Path negative for malignancy. Rare fungal elements seen on smear but all cultures remain negative.? Repeat CT chest 03/03/22 showing progression of bilateral airspace disease LLL, RML with patchy groundglass opacifications. Flu and COVID testing were negative. Mycoplasma IgM and urine pneumococcal and legionella antigen negative. Extubated on 03/04/22 -- She did well with BiPAP until the morning on 03/05 when she acutely decompensated off the BiPAP. ABG 7.31/89/57 on BiPAP. She was re-intubated but difficult due to tracheal stenosis(?). ETT had to replace with larger diameter later that morning. CXR showing pulmonary edema. CT soft tissue neck 03/05/22 showing prominence of the trachea surrounded the endotracheal tube at the level of the hyoid bone as well as patchy bilateral infiltrates possibly pneumonia. Continue treatment with antibiotics. IV Steroids stopped. Appreciate county health officer and Pulmonary consult. May need trach if she has more severe tracheal stenosis. Status post extubation 03/10/2022 on BiPAP p.r.n. pulmonary following oxygen supplementation . Continue pulmonary toilet Discussed with Pulmonary 03/13/2022 and 03/14/2022 She used her home unit 03/14/2022 night Continue current pulmonary care 03/16/2022 Interal history: 60 year old female status post respiratory failure was on ventilator now off and on nasal cannula, patient was seen by Dr. Reis and we discussed clinically patient has improved substantially and from pulmonary standpoint patient can be discharged home, however patient on Dobbhoff, patient had a modify swallow study today patient did well however is still aspirating with thin liquid I spoke with speech therapist plan is continue for speech therapy and repeat the test on Monday and possibly remove the Dobbhoff and discharged, patient is requiring high oxygen at rest and and with exertion, will need home O2 evaluation before going home, and states feeling much not a short of breath, denies any fever or chills will continue to monitor. 03/17/2022 Interal history: 60 year old female status post respiratory failure was on ventilator now off and on nasal cannula, patient was seen by Dr. Reyes and we discussed clinically patient has improved substantially and from pulmonary standpoint patient can be discharged home, however patient on Dobbhoff, patient had a modify swallow study on 03/16 patient did well however is still aspirating with thin liquid I spoke with speech therapist plan is continue for speech therapy and repeat the test on Monday and possibly remove the Dobbhoff and discharged, however today after discussing with Dr. Reyes and speech therapiest will remove the Dobbhoff today and monitor, patient is requiring high oxygen at rest and and with exertion 8L, will assess for 6L, will need home O2 evaluation before going home, and states feeling much not as short of breath, denies any fever or chills will continu
== END 2022-03-18 17:20 | disposition home or self-care (01) | DRG 207 ==
LOC: ANHED 17:09 → ANHIMU 17:39 → ANHICU 22:16 → ANHIMU 03-12 15:53 → ANH2MED 03-15 23:01
PROVIDERS: Internal Medicine; Internal Medicine Pulmonary Disease; Physician Assistant; Admitting Provider Hospitalist; Emergency Provider Emergency Medicine; PCP Internal Medicine; Visit Provider Family Medicine
PROC: 0BJ08ZZ Inspection of Tracheobronchial Tree, Via Natural or Artificial Opening Endoscopic (ICD-10-PCS; CPT 31622; principal; 2022-03-01 13:30)
DX: J96.21 Acute and chronic respiratory failure with hypoxia (principal); J18.9 Pneumonia, unspecified organism; J44.1 Chronic obstructive pulmonary disease with (acute) exacerbation; I50.30 Unspecified diastolic (congestive) heart failure; G93.49 Other encephalopathy; J44.0 Chronic obstructive pulmonary disease with (acute) lower respiratory infection; Z20.822 Contact with and (suspected) exposure to COVID-19; J96.22 Acute and chronic respiratory failure with hypercapnia; K21.9 Gastro-esophageal reflux disease without esophagitis; F32.A Depression, unspecified; G47.33 Obstructive sleep apnea (adult) (pediatric); Z86.711 Personal history of pulmonary embolism; Z86.718 Personal history of other venous thrombosis and embolism; R34 Anuria and oliguria; I49.1 Atrial premature depolarization; Z85.42 Personal history of malignant neoplasm of other parts of uterus; F17.210 Nicotine dependence, cigarettes, uncomplicated; J39.8 Other specified diseases of upper respiratory tract; I48.91 Unspecified atrial fibrillation; I95.9 Hypotension, unspecified; M79.81 Nontraumatic hematoma of soft tissue; R06.03 Acute respiratory distress; Z79.52 Long term (current) use of systemic steroids; Z79.899 Other long term (current) drug therapy
CPT/HCPCS: 31500; 36415; 36569; 36600; 43752; 70450; 70490; 71045; 71250; 71275; 73060; 73090; 80048; 80053; 80202; 82140; 82274; 82375; 82607; 82803; 82805; 82948; 83050; 83605; 83735; 83880; 84100; 84443; 84484; 85014; 85018; 85025; 85027; 85055; 85380; 85610; 85730; 86738; 87015; 87040; 87070; 87102; 87116; 87205; 87206; 87449; 87804; 87899; 88104; 88108; 88305; 88312; 92526; 92610; 92611; 93005; 93306; 93970; 93971; 94002; 94003; 94618; 94640; 94660; 94762; 96374; 97110; 97161; 97165; 97530; 97535; 99285; A9270; C1751; C9113; C9803; G0378; J0131; J0330; J0360; J0456; J0610; J0692; J0696; J1100; J1650; J1815; J1940; J2250; J2310; J2704; J2930; J2997; J3010; J3370; J3475; J3480; J7030; J7040; J7050; P9047; Q9967; U0003; U0005